=== PATIENT | male | born 1955 | race Caucasian/White ===

== ENCOUNTER 2021-02-23 07:08 | Outpatient (CLI) | payer MEDICARE, SELFPAY ==
[2021-02-23 07:56] LABS: Creatinine Urine 94.93 mg/dL (40-278)
[2021-02-23 08:09] LABS: MALB Creatinine Ratio 319.8 mg/g (0-30); Microalbumin Urine Random 303.6 mg/L
[2021-02-23 08:30] LABS: Alanine Aminotransferase 26 U/L (16-63); Albumin Level 3.5 g/dL (3.4-5.0); Alkaline Phosphatase 95 U/L (46-116); Anion Gap 12 mmol/L (8-16); Aspartate Amino Transferase 13 U/L (15-37); Bilirubin,Total 0.4 mg/dL (0.00-1.00); Blood Urea Nitrogen 21 mg/dL (7-18); Carbon Dioxide 26 mmol/L (21-32); Chloride 100 mmol/L (98-108); Cholesterol 176 mg/dL (0-200); Estimated Glomerular Filt Rate > 60; Glucose 160 mg/dL (70-99); HDL Direct 37 mg/dL (40-60); LDL Cholesterol Calculated 80 mg/dL (<130); Osmolality Calculated 292 mOsm/kg (285-295); Potassium 5.6 mmol/L (3.5-5.1); Sodium 138 mmol/L (136-145); Total Protein 6.9 g/dL (6.4-8.2); Triglycerides 296 mg/dL (0-150)
== END 2021-02-23 07:09 | disposition home or self-care (01) ==
LOC: CHSLAB 07:15
PROVIDERS: PCP Internal Medicine; Visit Provider Internal Medicine Endocrinology, Diabetes & Metabolism
DX: E11.65 Type 2 diabetes mellitus with hyperglycemia (principal)
CPT/HCPCS: 36415; 80053; 80061; 82043

== ENCOUNTER 2021-03-14 09:51 | Outpatient (CLI) | payer MEDICARE, SELFPAY ==
[2021-03-14 10:08] LABS: Basophils Percent Auto 0.8 % (0.0-1.0); Eosinophils Absolute Auto 0.22 K/mm3 (0.02-0.50); Eosinophils Percent Auto 1.7 % (1.0-6.0); Hematocrit 47.3 % (37.0-46.0); Hemoglobin 16.2 g/dL (12.4-15.3); Immature Granulocyte Absolute 0.04 K/mm3 (0.00-0.00); Immature Granulocyte Percent A 0.3 % (0.0-0.0); Lymphocytes Absolute Auto 2.61 K/mm3 (1.10-4.50); Lymphocytes Percent Auto 19.6 % (18.0-42.0); Mean Corpuscular HGB Conc 34.2 g/dL (32.0-36.0); Mean Corpuscular Hemoglobin 31.4 pg (27.0-31.0); Mean Corpuscular Volume 91.7 fL (78.0-102.0); Mean Platelet Volume 9.6 fl (8.7-11.0); Monocytes Absolute Auto 0.83 K/mm3 (0.10-0.90); Monocytes Percent Auto 6.2 % (2.0-11.0); Neutrophils Absolute Auto 9.5 K/mm3 (1.7-7.2); Neutrophils Percent Auto 71.4 % (50.0-70.0); Platelet Count Result 381 K/mm3 (150-420); Red Blood Count 5.16 M/mm3 (4.70-6.10); White Blood Count 13.3 K/mm3 (4.8-10.8)
[2021-03-14 10:28] LABS: Appearance Urine Sl Cloudy (Clear); Bilirubin Urine Negative (Negative); Color Urine Light Yellow (Yellow); Glucose Urine UA Negative (Negative); Ketones Urine Negative (Negative); Leukocyte Esterase Ur Trace (Negative); Nitrate Urine Negative (Negative); Protein Urine 1+ (Negative); Urobilinogen Urine 0.2 mg/dL (0.2-1.0); pH Urine 6.5 (5.0-8.0)
[2021-03-14 10:48] LABS: Add Urine Microscopic? YES; Bacteria Urine 4+ /hpf; Blood Urine Trace-Intact (Negative); RBC Urine 0-2 /hpf (0-2); Squamous Epithelial Cell Urine Rare /hpf (Few)
[2021-03-14 11:19] LABS: Alanine Aminotransferase 27 U/L (16-63); Albumin Level 3.5 g/dL (3.4-5.0); Alkaline Phosphatase 96 U/L (46-116); Anion Gap 9 mmol/L (8-16); Aspartate Amino Transferase 14 U/L (15-37); Bilirubin,Total 0.4 mg/dL (0.00-1.00); Blood Urea Nitrogen 14 mg/dL (7-18); Calcium 9.6 mg/dL (8.5-10.1); Carbon Dioxide 28 mmol/L (21-32); Chloride 101 mmol/L (98-108); Estimated Glomerular Filt Rate > 60; Free T3 2.95 pg/mL (2.18-3.98); Free T4 Free Thyroxine 0.96 ng/dL (0.76-1.46); Glucose 139 mg/dL (70-99); Osmolality Calculated 288 mOsm/kg (285-295); Potassium 5.3 mmol/L (3.5-5.1); Prostate Specific Antigen 0.2 ng/mL (< OR = 4.0); Sodium 138 mmol/L (136-145); Thyroid Stimulating Hormone 1.31 uIU/mL (0.36-3.74)
[2021-03-14 11:37] LABS: CRP < 0.5 mg/dL (0.0-0.9)
== END 2021-03-14 09:52 | disposition home or self-care (01) ==
PROVIDERS: PCP Internal Medicine; Visit Provider Internal Medicine
DX: R63.4 Abnormal weight loss (principal); E11.9 Type 2 diabetes mellitus without complications; F41.9 Anxiety disorder, unspecified; Z12.5 Encounter for screening for malignant neoplasm of prostate
CPT/HCPCS: 36415; 80053; 81001; 84153; 84439; 84443; 84481; 85025; 86140; G0103

== ENCOUNTER 2021-03-17 14:16 | Outpatient (CLI) | payer MEDICARE, SELFPAY ==
--- NOTE | ~2021-03-17 | CT_ITS ---
EXAMINATION: CT lung screening DATE: 03/17/2021 14:41 INDICATION: No history of tobacco dependence TECHNIQUE: Computed tomography (CT) of the chest was performed without intravenous contrast. The dose -length product was 79.59 mGy-cm. Automated exposure control and iterative reconstruction technique w ere employed. COMPARISON: None FINDINGS: No significant pleural or pericardial effusion. There is atherosclerosis of the aorta and c oronary arteries. There are coarse peripheral interstitial infiltrates with areas of interlobular sep parmjit thickening, likely chronic fibrosis.. Heart size is normal. There is a 7 mm subpleural nodule in the left lower lobe, image 76. There are a few additional scattered subpleural nodules measuring 2 mm or less in both lungs. Mild thoracic spondylosis. IMPRESSION: 1. Lung-RADS category 3: Probably benign. Further evaluation is recommended with noncontrast low-dose chest CT in 6 months. Reviewed, dictated and finalized at location A. IMPRESSION: 1. Lung-RADS category 3: Probably benign. Further evaluation is recommended wit h noncontrast low-dose chest CT in 6 months.
[2021-03-17 14:29] LABS: Add Urine Microscopic? YES; Appearance Urine Clear (Clear); Bilirubin Urine Negative (Negative); Blood Urine Negative (Negative); Color Urine Light Yellow (Yellow); Glucose Urine UA 3+ (Negative); Ketones Urine Negative (Negative); Leukocyte Esterase Ur Negative (Negative); Nitrate Urine Positive (Negative); Protein Urine Negative (Negative); Specific Grav Ur <= 1.005 (1.010-1.020); Urobilinogen Urine 0.2 mg/dL (0.2-1.0); pH Urine 6.5 (5.0-8.0)
[2021-03-17 14:44] LABS: Bacteria Urine 3+ /hpf; RBC Urine 0-2 /hpf (0-2); Squamous Epithelial Cell Urine None seen /hpf (Few); WBC Urine 0-3 /hpf (0-3)
== END 2021-03-17 14:17 | disposition home or self-care (01) ==
LOC: CHSIMG 14:19
PROVIDERS: PCP Internal Medicine; Visit Provider Internal Medicine
DX: Z12.2 Encounter for screening for malignant neoplasm of respiratory organs (principal); Z87.891 Personal history of nicotine dependence; R31.9 Hematuria, unspecified
CPT/HCPCS: 71271; 81001; 87086

== ENCOUNTER 2021-05-30 13:52 | Outpatient (CLI) | payer MEDICARE, SELFPAY ==
[2021-05-30 14:04] LABS: Basophils Absolute Auto 0.11 K/mm3 (0.00-0.10); Basophils Percent Auto 0.9 % (0.0-1.0); Eosinophils Absolute Auto 0.47 K/mm3 (0.02-0.50); Hematocrit 48.5 % (37.0-46.0); Hemoglobin 16.4 g/dL (12.4-15.3); Immature Granulocyte Absolute 0.03 K/mm3 (0.00-0.00); Immature Granulocyte Percent A 0.3 % (0.0-0.0); Lymphocytes Absolute Auto 3.14 K/mm3 (1.10-4.50); Lymphocytes Percent Auto 26.5 % (18.0-42.0); Mean Corpuscular HGB Conc 33.8 g/dL (32.0-36.0); Mean Corpuscular Hemoglobin 31.4 pg (27.0-31.0); Mean Corpuscular Volume 92.7 fL (78.0-102.0); Mean Platelet Volume 9.5 fl (8.7-11.0); Monocytes Absolute Auto 1.07 K/mm3 (0.10-0.90); Neutrophils Percent Auto 59.3 % (50.0-70.0); Platelet Count Result 401 K/mm3 (150-420); Red Blood Count 5.23 M/mm3 (4.70-6.10); Red Cell Distribution Width 13.2 % (11.6-14.4); White Blood Count 11.9 K/mm3 (4.8-10.8)
[2021-05-30 14:29] LABS: Hemoglobin A1C 8.2 % (<5.7)
[2021-05-30 14:47] LABS: Alanine Aminotransferase 29 U/L (16-63); Albumin Level 3.7 g/dL (3.4-5.0); Alkaline Phosphatase 113 U/L (46-116); Anion Gap 8 mmol/L (8-16); Aspartate Amino Transferase 14 U/L (15-37); Bilirubin,Total 0.4 mg/dL (0.00-1.00); Blood Urea Nitrogen 17 mg/dL (7-18); Calcium 9.6 mg/dL (8.5-10.1); Carbon Dioxide 30 mmol/L (21-32); Chloride 97 mmol/L (98-108); Estimated Glomerular Filt Rate > 60; Glucose 138 mg/dL (70-99); Osmolality Calculated 283 mOsm/kg (285-295); Potassium 5.1 mmol/L (3.5-5.1); Sodium 135 mmol/L (136-145); Total Protein 7.2 g/dL (6.4-8.2)
== END 2021-05-30 13:53 | disposition home or self-care (01) ==
LOC: CHSLAB 13:54
PROVIDERS: PCP Internal Medicine; Visit Provider Internal Medicine
DX: E11.9 Type 2 diabetes mellitus without complications (principal); I10 Essential (primary) hypertension
CPT/HCPCS: 36415; 80053; 83036; 85025

== ENCOUNTER 2021-06-06 01:19 | Day surgery (SDC) | payer MEDICARE, SELFPAY ==
[2021-05-20 14:19] VITALS: BMI 20.4
--- NOTE | 2021-06-03 18:33 | WPDANESEPPF ---
Anes - Initial Pre Proc Eval Procedure: Operation Date: 06/06/21 08:00 Proposed Procedures p Screening Colonoscopy - Omega Siegel MD Date/Time: 06/03/21 18:33 Surgeon: Omega Siegel MD Pre Op Diagnosis: neoplasm screening Patient Data Age: 66 Gender: M Height: 1.83 m Weight: 68.2 kg Allergies Allergy/AdvReac Type Severity Reaction Status Date / Time Penicillins AdvReac Intermediate Nausea and Verified 06/06/21 06:53 Vomiting Home Medications Medication Instructions Recorded Confirmed Type aspirin [Adult Low Dose Aspirin] 81 mg PO DAILY 05/20/21 05/20/21 History glimepiride 2 mg PO DAILY 05/20/21 05/20/21 History metformin 500 mg PO BID 05/20/21 05/20/21 History pravastatin 80 mg PO DAILY 05/20/21 05/20/21 History Patient hx anesthesia problems: none Family hx anesthesia problems: none Results Review: All pre-operative results and documents have been reviewed as part of the pre-operative evaluation. [facility] Past Medical History Medical History (Updated 06/03/21 @ 18:33 by Catarino Garnica DO) Diabetes type 2, controlled Hyperlipidemia Social History Social History Smoking packs per day: 1 Smoking cigarettes per day: 20.0 Years smoked: 53 Smoking pack-years: 53.00 Smoking status: Current every day smoker Tobacco type: cigarettes Alcohol intake: current Alcohol use details: occasional Substance use: never Substance use type: does not use Living arrangements: with family Additional living arrangements comments: lives with spouse Spiritual care concerns: No Anes - Eval Final PreProcedure Day of Procedure 06/03/21 18:33 Patient weight: normal Heart: regular rate and rhythm Lungs: clear to auscultation and normal air movement Airway: Mallampati scale class II Neurological: alert and oriented Last oral intake: >/= 8 hours ASA classification: III Emergent: no Anesthetic plan: proceed Anesthesia type and monitoring: general GIVS and standard monitoring Results Review: All pre-operative results and documents have been reviewed as part of the pre-operative evaluation. Informed Consent: The patient's anesthetic plan and its attendant risks and benefits were discussed with the patient/family/POA. Questions were solicited and answers provided to the satisfaction of the patient/family/POA.
[2021-06-06 06:54] VITALS: BP 147/77; PULSE 112; RESP 18; TEMP 36; O2SAT 98; BMI 19.3
[2021-06-06] MEDS: LACTATED RINGERS 1,000 ML 150 ML IV CONT (07:04)
[2021-06-06 07:13] LABS: Glucose Point of Care 170 mg/dl (65-105)
--- NOTE | 2021-06-06 07:21 | WPDGICN ---
Assessment and Plan Assessment and plan (1) Encounter for screening colonoscopy: Code(s): Z12.11 - Encounter for screening for malignant neoplasm of colon Status: Acute Assessment and Plan: Patient presents for screening colonoscopy. He appears to be at average risk for colon polyps. Further recommendations will be given after endoscopy. GI Consult Note Consult date/time: 06/06/21 07:21 HPI: Larry Bennett is a 66 year old male Presents for colonoscopy. Patient reports that his current weight appetite bowel movements are normal. Patient denies abdominal pain. He has had no bleeding. Family history is noncontributory. He desires neoplasia screening. Review of Systems Review of Systems: All systems reviewed & are unremarkable except as noted in HPI and below PMFSH Past Medical History Medical History (Updated 06/06/21 @ 07:22 by Omega Siegel MD) Diabetes type 2, controlled Hyperlipidemia Social History Social History Smoking packs per day: 1 Smoking cigarettes per day: 20.0 Years smoked: 53 Smoking pack-years: 53.00 Smoking status: Current every day smoker Tobacco type: cigarettes Alcohol intake: current Alcohol use details: occasional Substance use: never Substance use type: does not use Living arrangements: with family Additional living arrangements comments: lives with spouse Spiritual care concerns: No Meds Home Medications and Allergies Home Medications Medication Instructions Recorded Confirmed Type aspirin [Adult Low Dose Aspirin] 81 mg PO DAILY 05/20/21 05/20/21 History glimepiride 2 mg PO DAILY 05/20/21 05/20/21 History metformin 500 mg PO BID 05/20/21 05/20/21 History pravastatin 80 mg PO DAILY 05/20/21 05/20/21 History Allergies Allergy/AdvReac Type Severity Reaction Status Date / Time Penicillins AdvReac Intermediate Nausea and Verified 06/06/21 06:53 Vomiting Vital Signs Vital Signs - 24 hr 06/06/21 06:54 Temperature 96.8 F L Pulse Rate 112 H Respiratory Rate 18 Blood Pressure 147/77 H Pulse Oximetry 98 Exam Narrative: Physical exam reveals patient to be alert. Vital signs stable. HEENT exam is unremarkable. Patient is anicteric. Lungs are clear to auscultation and percussion. Heart is without murmur or extra sounds. Abdominal exam bowel sounds are present soft nontender with no organomegaly. Digital external rectal exam is normal.
[2021-06-06 08:26] VITALS: BP 93/60; PULSE 74; RESP 16; O2SAT 99
[2021-06-06 08:36] VITALS: BP 114/64; PULSE 60; RESP 18; O2SAT 100
[2021-06-06 08:46] VITALS: BP 116/68; PULSE 58; RESP 18; O2SAT 99
== END 2021-06-06 09:03 | disposition home or self-care (01) ==
PROVIDERS: PCP Internal Medicine; Visit Provider Internal Medicine Gastroenterology
PROC: 0DJD8ZZ Inspection of Lower Intestinal Tract, Via Natural or Artificial Opening Endoscopic (ICD-10-PCS; CPT 45378; principal; 2021-06-06 08:00)
DX: Z12.11 Encounter for screening for malignant neoplasm of colon (principal); K63.5 Polyp of colon; D12.5 Benign neoplasm of sigmoid colon; E11.9 Type 2 diabetes mellitus without complications; E78.5 Hyperlipidemia, unspecified; F17.210 Nicotine dependence, cigarettes, uncomplicated; Z79.82 Long term (current) use of aspirin; Z79.84 Long term (current) use of oral hypoglycemic drugs
CPT/HCPCS: 45385; 82948; 88305; J2001; J2704; J7120

== ENCOUNTER 2022-05-11 06:58 | Outpatient (CLI) | payer MEDICARE, SELFPAY ==
[2022-05-11 07:30] LABS: Basophils Absolute Auto 0.08 K/mm3 (0.00-0.10); Basophils Percent Auto 0.7 % (0.0-1.0); Eosinophils Absolute Auto 0.47 K/mm3 (0.02-0.50); Eosinophils Percent Auto 3.9 % (1.0-6.0); Hematocrit 48.5 % (37.0-46.0); Immature Granulocyte Absolute 0.03 K/mm3 (0.00-0.00); Immature Granulocyte Percent A 0.2 % (0.0-0.0); Lymphocytes Absolute Auto 2.68 K/mm3 (1.10-4.50); Lymphocytes Percent Auto 22.1 % (18.0-42.0); Mean Corpuscular Hemoglobin 30.2 pg (27.0-31.0); Mean Corpuscular Volume 91.5 fL (78.0-102.0); Mean Platelet Volume 9.8 fl (8.7-11.0); Monocytes Absolute Auto 0.98 K/mm3 (0.10-0.90); Monocytes Percent Auto 8.1 % (2.0-11.0); Neutrophils Absolute Auto 7.9 K/mm3 (1.7-7.2); Platelet Count Result 437 K/mm3 (150-420); Red Cell Distribution Width 14.4 % (11.6-14.4); White Blood Count 12.2 K/mm3 (4.8-10.8)
[2022-05-11 07:46] LABS: Add Urine Microscopic? YES; Appearance Urine Clear (Clear); Bilirubin Urine Negative (Negative); Blood Urine Negative (Negative); Color Urine Light Yellow (Yellow); Glucose Urine UA 3+ (Negative); Ketones Urine Negative (Negative); Leukocyte Esterase Ur Negative (Negative); Nitrate Urine Positive (Negative); Protein Urine Trace (Negative); Urobilinogen Urine 0.2 mg/dL (0.2-1.0); pH Urine 6.5 (5.0-8.0)
[2022-05-11 07:50] LABS: Prothrombin Time 11.3 Seconds (9.50-12.10)
[2022-05-11 08:01] LABS: Alanine Aminotransferase 16 U/L (16-63); Albumin Level 3.3 g/dL (3.4-5.0); Alkaline Phosphatase 92 U/L (46-116); Anion Gap 5 mmol/L (8-16); Aspartate Amino Transferase 18 U/L (15-37); Bilirubin,Total 0.4 mg/dL (0.00-1.00); Blood Urea Nitrogen 18 mg/dL (7-18); Carbon Dioxide 30 mmol/L (21-32); Chloride 97 mmol/L (98-108); Cholesterol 183 mg/dL (0-200); Estimated Glomerular Filt Rate > 60; Glucose 99 mg/dL (70-99); HDL Direct 42 mg/dL (40-60); LDL Cholesterol Calculated 119 mg/dL (<130); Osmolality Calculated 275 mOsm/kg (285-295); Potassium 4.9 mmol/L (3.5-5.1); Sodium 132 mmol/L (136-145); Total Protein 6.9 g/dL (6.4-8.2); Triglycerides 111 mg/dL (0-150)
[2022-05-11 08:08] LABS: Bacteria Urine 2+ /hpf; RBC Urine None seen /hpf (0-2); WBC Urine 0-3 /hpf (0-3)
[2022-05-11 08:10] LABS: Creatinine Urine 41.66 mg/dL (40-278)
[2022-05-11 08:11] LABS: MALB Creatinine Ratio 377.1 mg/g (0-30); Microalbumin Urine Random 157.1 mg/L
[2022-05-16 12:20] LABS: Vitamin D 25 Hydroxy 35 ng/mL (30-100)
== END 2022-05-11 06:59 | disposition home or self-care (01) ==
LOC: CHSLAB 07:01
PROVIDERS: PCP Internal Medicine; Visit Provider Internal Medicine Endocrinology, Diabetes & Metabolism
DX: E78.00 Pure hypercholesterolemia, unspecified (principal); E11.65 Type 2 diabetes mellitus with hyperglycemia; Z79.899 Other long term (current) drug therapy; T14.8XXA Other injury of unspecified body region, initial encounter
CPT/HCPCS: 36415; 80053; 80061; 81001; 82043; 82306; 85025; 85610; 85730

== ENCOUNTER 2022-06-05 15:29 | Outpatient (CLI) | payer MEDICARE, SELFPAY ==
--- NOTE | ~2022-06-05 | XR_ITS ---
EXAMINATION: XR hand RT min 3V DATE: 06/05/2022 15:47 INDICATION: Right hand pain. TECHNIQUE: 3 views of right hand were obtained. COMPARISON: None. FINDINGS: Scapholunate dissociation is noted. There is severe osteoarthritis of lunate-capitate joint and mild osteoarthritis of triscaphe joint. There are nonaggressive lytic lesions in triquetrum, kayden ate, and scaphoid, likely subchondral cysts. There is moderate osteoarthritis of first metacarpophala ngeal joint, severe osteoarthritis of second and third metacarpophalangeal joints, and mild osteoarth ritis of fourth metacarpophalangeal joint and many of the interphalangeal joints. IMPRESSION: 1. Polyarticular osteoarthritis. 2. Scapholunate dissociation. Reviewed, dictated and finalized at location B.
== END 2022-06-05 15:30 | disposition home or self-care (01) ==
LOC: CHSIMG 15:32
PROVIDERS: PCP Internal Medicine; Visit Provider Internal Medicine
DX: M79.641 Pain in right hand (principal)
CPT/HCPCS: 73130

== ENCOUNTER 2022-11-29 16:35 | Outpatient (CLI) | payer MEDICARE, SELFPAY ==
--- NOTE | ~2022-11-29 | XR_ITS ---
Right Knee Technique: AP, lateral, and sunrise views were obtained. Clinical History: Swelling, effusion Findings: No fracture or dislocation is seen. Osseous alignment is anatomic. Mild tricompartmental de generative change present. [id number] joint effusion is seen. Impression: Small to moderate joint effusion. Mild tricompartmental degenerative change. Reviewed, dictated and finalized at [facility]. Impression: Small to moderate joint effusion. Mild tricompartmental degenerative change.
== END 2022-11-29 16:36 | disposition home or self-care (01) ==
LOC: CHSIMG 16:39
PROVIDERS: PCP Internal Medicine; Visit Provider Internal Medicine
DX: M25.561 Pain in right knee (principal); M25.461 Effusion, right knee; M17.11 Unilateral primary osteoarthritis, right knee
CPT/HCPCS: 73560

== ENCOUNTER 2023-05-15 07:01 | Outpatient (CLI) | payer MEDICARE, SELFPAY ==
[2023-05-15 07:16] LABS: Basophils Absolute Auto 0.11 K/mm3 (0.00-0.10); Basophils Percent Auto 0.9 % (0.0-1.0); Eosinophils Percent Auto 3.9 % (1.0-6.0); Hematocrit 49.8 % (37.0-46.0); Hemoglobin 16.8 g/dL (12.4-15.3); Immature Granulocyte Absolute 0.03 K/mm3 (0.00-0.00); Immature Granulocyte Percent A 0.2 % (0.0-0.0); Lymphocytes Absolute Auto 2.61 K/mm3 (1.10-4.50); Lymphocytes Percent Auto 20.5 % (18.0-42.0); Mean Corpuscular HGB Conc 33.7 g/dL (32.0-36.0); Mean Corpuscular Hemoglobin 30.4 pg (27.0-31.0); Mean Corpuscular Volume 90.1 fL (78.0-102.0); Mean Platelet Volume 9.7 fl (8.7-11.0); Monocytes Absolute Auto 0.99 K/mm3 (0.10-0.90); Monocytes Percent Auto 7.8 % (2.0-11.0); Neutrophils Absolute Auto 8.5 K/mm3 (1.7-7.2); Neutrophils Percent Auto 66.7 % (50.0-70.0); Platelet Count Result 423 K/mm3 (150-420); Red Blood Count 5.53 M/mm3 (4.70-6.10); Red Cell Distribution Width 14.4 % (11.6-14.4); White Blood Count 12.8 K/mm3 (4.8-10.8)
[2023-05-15 07:18] LABS: Appearance Urine Clear (Clear); Bilirubin Urine Negative (Negative); Blood Urine Trace-Intact (Negative); Color Urine Light Yellow (Yellow); Glucose Urine UA 3+ (Negative); Ketones Urine Negative (Negative); Leukocyte Esterase Ur Negative LEU/UL (Negative); Nitrate Urine Positive (Negative); Protein Urine 1+ (Negative); Specific Grav Ur 1.015 (1.010-1.020); Urobilinogen Urine 0.2 mg/dL (0.2-1.0)
[2023-05-15 07:26] LABS: Add Urine Microscopic? YES; Bacteria Urine 2+ /hpf; RBC Urine 0-2 /hpf (0-2)
[2023-05-15 07:27] LABS: Hemoglobin A1C 7.8 % (<5.7)
[2023-05-15 08:45] LABS: Alanine Aminotransferase 23 U/L (16-63); Albumin Level 3.1 g/dL (3.4-5.0); Alkaline Phosphatase 91 U/L (46-116); Anion Gap 7 mmol/L (8-16); Aspartate Amino Transferase 21 U/L (15-37); Bilirubin,Total 0.5 mg/dL (0.00-1.00); Blood Urea Nitrogen 19 mg/dL (7-18); Calcium 9.7 mg/dL (8.5-10.1); Carbon Dioxide 29 mmol/L (21-32); Chloride 100 mmol/L (98-108); Cholesterol 190 mg/dL (0-200); Estimated Glomerular Filt Rate > 60; Free T4 Free Thyroxine 0.95 ng/dL (0.76-1.46); Glucose 125 mg/dL (70-99); HDL Direct 39 mg/dL (40-60); LDL Cholesterol Calculated 130 mg/dL (<130); Osmolality Calculated 285 mOsm/kg (285-295); Prostate Specific Antigen 0.3 ng/mL (< OR = 4.0); Sodium 136 mmol/L (136-145); Thyroid Stimulating Hormone 1.56 uIU/mL (0.36-3.74); Total Protein 6.6 g/dL (6.4-8.2); Triglycerides 104 mg/dL (0-150)
[2023-05-17 12:33] LABS: Ferritin 42 ng/mL (26-388); Iron 54 ug/dL (65-175); Percent Iron Saturation 16 % (12-57)
[2023-05-20 12:27] LABS: Erythropoietin (EPO) 5.7 mIU/mL (2.6-18.5)
[2023-05-23 10:45] LABS: Block/Specimen ID Not Given; CALR Exon 9 Mutation Not Detected (Not Detected); CSF3R Exon 14/17 Mutation Not Detected (Not Detected); JAK2 Exon 12 Mutation Not Detected (Not Detected); JAK2 V617F Mutation Not Detected (Not Detected); MPL Exon 10 Mutation Not Detected (Not Detected)
== END 2023-05-15 07:02 | disposition home or self-care (01) ==
LOC: CHSLAB 07:03
PROVIDERS: PCP Internal Medicine; Visit Provider Nurse Practitioner Family
DX: I10 Essential (primary) hypertension (principal); F41.9 Anxiety disorder, unspecified; E11.8 Type 2 diabetes mellitus with unspecified complications; E78.5 Hyperlipidemia, unspecified; Z12.5 Encounter for screening for malignant neoplasm of prostate; R31.9 Hematuria, unspecified; R79.9 Abnormal finding of blood chemistry, unspecified; R82.90 Unspecified abnormal findings in urine; D75.1 Secondary polycythemia
CPT/HCPCS: 36415; 80053; 80061; 81001; 81219; 81270; 81279; 81339; 81479; 82668; 82728; 83036; 83540; 83550; 84153; 84439; 84443; 85025; 87086; G0103

== ENCOUNTER 2023-05-18 12:55 | Outpatient (CLI) | payer MEDICARE, SELFPAY ==
[2023-05-18 13:05] LABS: Appearance Urine Clear (Clear); Bilirubin Urine Negative (Negative); Blood Urine Negative (Negative); Color Urine Light Yellow (Yellow); Glucose Urine UA 3+ (Negative); Ketones Urine Negative (Negative); Leukocyte Esterase Ur Trace (Negative); Nitrate Urine Positive (Negative); Protein Urine Negative (Negative); Specific Grav Ur <= 1.005 (1.010-1.020); Urobilinogen Urine 0.2 mg/dL (0.2-1.0)
[2023-05-18 14:39] LABS: Add Urine Microscopic? YES; Bacteria Urine 4+ /hpf; RBC Urine 0-2 /hpf (0-2); Squamous Epithelial Cell Urine None seen /hpf (Few)
== END 2023-05-18 12:56 | disposition home or self-care (01) ==
PROVIDERS: PCP Internal Medicine; Visit Provider Nurse Practitioner Family
DX: N39.0 Urinary tract infection, site not specified (principal)
CPT/HCPCS: 81001; 87086

== ENCOUNTER 2023-06-21 11:25 | Outpatient (CLI) | payer MEDICARE, SELFPAY ==
--- NOTE | ~2023-06-21 | XR_ITS ---
XR hand RT min 3V DATE: 06/21/2023 11:41 INDICATION: Second digit pain for 6 months TECHNIQUE: 3 views COMPARISON: 06/05/2022 right hand FINDINGS: There is diffuse osteopenia. Scapholunate dissociation. Benign likely degenerative cysts of the navicular, lunate and triquetrum bones. Osteoarthritic change at the triscaphe and first and particularly second and third metacarpophalangeal joints and to a les ser extent fourth metacarpophalangeal joint and some of the interphalangeal joints. No erosive change is noted. No fracture or dislocation, periosteal reaction or bone destruction. Mild triangular cartilage and carpal chondrocalcinosis. No erosive change. IMPRESSION: Scapholunate dissociation Polyarticular osteoarthritis Reviewed, dictated and finalized at location L.
== END 2023-06-21 11:26 | disposition home or self-care (01) ==
LOC: CHSIMG 11:27
PROVIDERS: PCP Internal Medicine; Visit Provider Internal Medicine
DX: M79.644 Pain in right finger(s) (principal); M19.041 Primary osteoarthritis, right hand
CPT/HCPCS: 73130

== ENCOUNTER 2024-01-15 13:22 | Outpatient (CLI) | payer MEDICARE, SELFPAY ==
--- NOTE | ~2024-01-15 | CT_ITS ---
CT Scan of the Chest without Contrast: Clinical Indication: Lung cancer screening, nicotine dependence Technique: Contiguous sections were acquired throughout the chest without intravenous contrast. Dose reduction technique was used on this scan by utilizing automated exposure control and iterative recon struction technique. The dose-length product (DLP) was 81.43 mGy-cm. COMPARISON: 03/17/2021 Findings: There is no evidence of any significant mediastinal, hilar or axillary lymphadenopathy. Coronary perico ry calcifications are present. There is no evidence of pleural or pericardial effusion. Stable 7 mm pleural-based nodule at the left lower lobe. There is chronic interstitial disease, with peripheral and basilar distribution. Images through the upper abdomen reveal no abnormalities. Impression: Lung RADS 2: Benign appearance. 12 month follow-up screening CT advised. Chronic interstitial disease, as detailed above. Reviewed, dictated and finalized at location . Impression: Lung RADS 2: Benign appearance. 12 month follow-up screening CT advised. Chronic interstitial disease, as detailed above.
== END 2024-01-15 13:23 | disposition home or self-care (01) ==
LOC: CHSIMG 13:26
PROVIDERS: PCP Internal Medicine; Visit Provider Internal Medicine
DX: Z12.2 Encounter for screening for malignant neoplasm of respiratory organs (principal); J84.9 Interstitial pulmonary disease, unspecified; Z87.891 Personal history of nicotine dependence
CPT/HCPCS: 71271

== ENCOUNTER 2024-07-08 09:08 | Outpatient (CLI) | payer MEDICARE, SELFPAY ==
[2024-07-08 09:29] LABS: Add Urine Microscopic? YES; Appearance Urine Clear (Clear); Bilirubin Urine Negative (Negative); Blood Urine Negative (Negative); Color Urine Light Yellow (Yellow); Glucose Urine UA 3+ (Negative); Ketones Urine Negative (Negative); Leukocyte Esterase Ur Trace (Negative); Nitrate Urine Negative (Negative); Protein Urine Negative (Negative); Specific Grav Ur 1.015 (1.010-1.020); Urobilinogen Urine 0.2 mg/dL (0.2-1.0)
[2024-07-08 09:30] LABS: Basophils Percent Auto 0.7 % (0.0-1.0); Eosinophils Absolute Auto 0.41 K/mm3 (0.02-0.50); Eosinophils Percent Auto 2.9 % (1.0-6.0); Hematocrit 43.9 % (37.0-46.0); Hemoglobin 15.1 g/dL (12.4-15.3); Immature Granulocyte Absolute 0.05 K/mm3 (0.00-0.00); Immature Granulocyte Percent A 0.4 % (0.0-0.0); Immature Platelet Fraction Pct 1.4 % (1.0-7.0); Lymphocytes Absolute Auto 2.04 K/mm3 (1.10-4.50); Lymphocytes Percent Auto 14.6 % (18.0-42.0); Mean Corpuscular HGB Conc 34.4 g/dL (32-36); Mean Corpuscular Hemoglobin 32.3 pg (27.0-31.0); Mean Corpuscular Volume 93.8 fL (78.0-102.0); Mean Platelet Volume 8.9 fl (8.7-11.0); Monocytes Absolute Auto 0.57 K/mm3 (0.10-0.90); Monocytes Percent Auto 4.1 % (2.0-11.0); Neutrophils Absolute Auto 10.84 K/mm3 (1.70-7.20); Neutrophils Percent Auto 77.3 % (50.0-70.0); Platelet Count Result 587 K/mm3 (150-420); Red Blood Count 4.68 M/mm3 (4.70-6.10); Red Cell Distribution Width 15.6 % (11.6-14.4)
[2024-07-08 09:34] LABS: Bacteria Urine 1+ /hpf; RBC Urine None seen /hpf (0-2); WBC Urine 0-3 /hpf (0-3)
[2024-07-08 09:46] LABS: Hemoglobin A1C 7.4 % (<5.7)
[2024-07-08 10:15] LABS: Alanine Aminotransferase 27 U/L (16-63); Albumin Level 3.6 g/dL (3.4-5.0); Alkaline Phosphatase 109 U/L (46-116); Anion Gap 6 mmol/L (4-12); Aspartate Amino Transferase 19 U/L (15-37); Bilirubin,Total 0.4 mg/dL (0.00-1.00); Blood Urea Nitrogen 25 mg/dL (7-18); CRP 0.5 mg/dL (0.0-0.9); Calcium 9.7 mg/dL (8.5-10.1); Carbon Dioxide 32 mmol/L (21-32); Chloride 99 mmol/L (98-108); Cholesterol 197 mg/dL (0-200); Estimated Glomerular Filt Rate > 60; Glucose 126 mg/dL (70-99); HDL Direct 36 mg/dL (40-60); LDL Cholesterol Calculated 127 mg/dL (<130); Osmolality Calculated 290 mOsm/kg (285-295); Potassium 5.7 mmol/L (3.5-5.1); Prostate Specific Antigen 0.2 ng/mL (< OR = 4.0); Sodium 137 mmol/L (136-145); Total Protein 7.1 g/dL (6.4-8.2); Triglycerides 171 mg/dL (0-150)
== END 2024-07-08 09:09 | disposition home or self-care (01) ==
LOC: CHSLAB 09:11
PROVIDERS: PCP Internal Medicine; Visit Provider Internal Medicine
DX: I10 Essential (primary) hypertension (principal); E11.9 Type 2 diabetes mellitus without complications; Z12.5 Encounter for screening for malignant neoplasm of prostate
CPT/HCPCS: 36415; 80053; 80061; 81001; 83036; 84153; 84443; 85025; 85055; 86140; G0103

== ENCOUNTER 2024-08-23 08:21 | Outpatient (CLI) | payer MEDICARE, SELFPAY ==
--- NOTE | ~2024-08-23 | MR_ITS ---
MRI of the left elbow CLINICAL HISTORY: Septic olecranon bursitis TECHNIQUE: Axial T1-weighted and T2 fat-sat images, coronal T1-weighted and T2 fat-sat images, and sa gittal T1-weighted and T2 fat-sat images were acquired. Following intravenous administration of 10 cc MultiHance gadolinium, T1-weighted fat-sat imaging was performed in the axial, coronal, and sagittal planes. FINDINGS: Ulnar collateral ligament is intact. Radial collateral ligament and the lateral ulnar colla teral ligament appear intact. There is high-grade partial tearing and increased signal at the common extensor tendon origin at the lateral epicondyle of the humerus. Common flexor tendon origin is intact. There is extensive high-grade chondromalacia of the joint with areas of subchondral cystic change and reactive marrow edema, especially at the proximal ulna and capitellum. No significant joint effusion . Biceps, brachialis, and triceps tendons are intact. Visualized musculature unremarkable. No fluid col lection or bursitis evident. No suspicious postcontrast enhancement identified. IMPRESSION: High-grade partial tearing at the common extensor tendon origin the lateral condyle of the humerus. Moderate to advanced degenerative change throughout the elbow joint. No evidence for bursitis or cellulitis. No abscess. Reviewed, dictated and finalized at location . Y APPLICATOR IMPRESSION: High-grade partial tearing at the common extensor tendon origin the lateral con dyle of the humerus. Moderate to advanced degenerative change throughout the elbow joint. No evidence for bursitis or cellulitis. No abscess.
== END 2024-08-23 08:22 | disposition home or self-care (01) ==
LOC: CHSIMG 08:25
PROVIDERS: PCP Internal Medicine; Visit Provider Internal Medicine
DX: M70.22 Olecranon bursitis, left elbow (principal); S56.512A Strain of other extensor muscle, fascia and tendon at forearm level, left arm, initial encounter
CPT/HCPCS: 73223; A9577

== ENCOUNTER 2024-11-03 13:57 | Outpatient (CLI) | payer MEDICARE, SELFPAY ==
--- OUTSIDE RECORDS SUMMARY | 2024-11-03 16:35 | XMS_ITS | Encounter Summary ---
Author Organization [facility] Address [address] [place] [address] Phone Care Team Providers Care Critical Care Physician Assistant Name Role Phone Tyrone Carvajal MD Primary Care Provider [phone] Hetal Regan MD Unavailable [phone] Stephanie Barth Unavailable [phone] Jefferson Mora MD Unavailable [phone] Swathi Diaz Unavailable Encounter Details Date Type Department Care Team (Latest Contact Info) Description 05/30/2021 Orders Only [facility] Scanning, Provider Social History Tobacco Use Types Packs/Day Years Used Date Smoking Tobacco: Heavy Smoker Cigarettes Smokeless Tobacco: Never Comments:Smoking History Pac ks/day: 30 Cigarettes Alcohol Use Standard Drinks/Week Comments Yes 0 (1 standard drink = 0.6 oz pur e alcohol) PHQ-2 Answer Date Recorded PHQ-2 Total Score (If total score is 3 or more points, staff should administer the PHQ-9) 0 05/13/2020 Sex and Gender Information Value Date Recorded Sex Assigned at Not on file 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 Gender Identity Male 02/14/2021 8:03 PM CDT Sexual Orientation Straight 02/14/2021 8: 02 PM CDT documented as of this encounter Plan of Treatment Not on file documented as of this encounter Procedures Procedure Name Priority Date/Time Associated Diagnosis Comments SCAN - LABS 05/30/2021 documented in this encounter Results * SCAN - LABS (05/30/2021) us Provider Scanning Final Result documented in this encounter Visit Diagnoses Not on filedocumented in this encounter Care Teams Critical Care Physician Assistant Relationship Specialty Start Date End Date Tyrone Carvajal MD PCP - General Internal Medicine 11/06/19 Hetal Regan MD Referring Physician Endocrinology Diabetes & Metabolism 06/13/21 Stephanie Barth PA Physician Rig Site Engineer Physician Rig Site Engineer 03/21/22 4 Jefferson Mora MD Consulting Physician Rheumatology 04/17/24 Swathi Diaz PA [address] [facility], [address] [address] Physician Rig Site Engineer Physician Rig Site Engineer 04/19/24 documented as of this encounter
--- OUTSIDE RECORDS SUMMARY | 2024-11-03 16:35 | XMS_ITS | Encounter Summary ---
Author Organization [facility] Address [address] [place] [address] Phone Care Team Providers Care Crane Rigger Name Role Phone Tyrone Carvajal MD Primary Care Provider [phone] Hetal Regan MD Unavailable [phone] Jefferson Mora MD Unavailable [phone] Swathi Diaz Unavailable [phone] Encounter Details Date Type Department Care Team (Latest Contact Info) Description 07/08/2024 Orders Only [facility] Scanning, Provider Social History Tobacco Use Types Packs/Day Years Used Date Smoking Tobacco: Heavy Smoker Cigarettes 1.5 50 Smokeless Tobacco: Never Comments:Smoking History Pac ks/day: [...] on file 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 Gender Identity Male 02/14/2021 8:03 PM CDT Sexual Orientation Straight 02/14/2021 8: 02 PM CDT 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 file Not on file Not on file documented as of this encounter Plan of Treatment Not on file documented as of this encounter Procedures Procedure Name Priority Date/Time Associated Diagnosis Comments SCAN - LABS 07/08/2024 documented in this encounter Results * SCAN - LABS (07/08/2024) us Provider Scanning Final Result documented in this encounter Visit Diagnoses Not on filedocumented in this encounter Care Teams Crane Rigger Relationship Specialty Start Date End Date Tyrone Carvajal MD PCP - General Internal Medicine 11/06/19 Hetal Regan MD Referring Physician Endocrinology Diabetes & Metabolism 06/13/21 Jefferson Mora MD Consulting Physician Rheumatology 04/17/24 Swathi Diaz PA [address] [facility], [address] [address] Physician Die Setter Physician Die Setter 04/19/24 documented as of this encounter
--- OUTSIDE RECORDS SUMMARY | 2024-11-03 16:36 | XMS_ITS | Referral Summary ---
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 change medication at this time. He continues to decline insulin. Advised that he needs to check BG tid so pattern can be establish. Stop grazing/snacking. Discussed glycemic index. Take medication every day as prescribed. Discussed benefit of seeing a counselor to address stress/PTSD. He is reluctant to do this. Advised to follow up with PCP. Assessment & Plan (05/13/2020 3:34 PM CDT): A1c worsening at 8.6. Suspect this continues to be d/t pc excursions. Will continue to emphasize importance of keeping portion sizes smaller and avoid snacking especially overnight. Assessment & Plan (01/29/2020 1:25 PM CDT): A1c 8.2. , improved but still above goal. A1c does not correlate with BG log. Continued concepts and noncompliance with diet. BG on log are acceptable when he concentrates on diet and expect A1c would have been in lower 7's if all readings were within range of last week. Emphasized again the impact his food choices have on his BG. Plans to be more active and watch carb portions. BG and A1c goals reviewed. Advised schedule dilated eye exam. Assessment & Plan (11/06/2019 12:17 PM CDT): A1c increased to 10.5. Not compliant with diet or glucose checks. Emphasized ongoing CV risk with continuing and worsening glycemia control. Advised to check BG tid ac and one additional 2 hour pc. Instructed how to use pc BG to evaluate diet compliance. Discussed glycemic index foods. Goal for A1c NOV is < 8.0. Assessment & Plan (03/06/2019 10:32 AM CDT): Hba1c was Lab Results Component Value Date HGBA1C 8.4 % 03/06/2019 today, indicating inadequate DM control 1800 calorie, consistent carb diet recommended 25-45 min daily aerobic and resistance exercise recommended Prevention and treatment of hyypoglcyemia discussed. Blood glucose monitoring with fingers sticks 1-2 x day . Oral medications: continue current Pt needs insulin therapy, but refuses due to his job Assessment & Plan (11/28/2018 11:12 AM CDT): A1c 8.8. He is not taking medication correctly and not checking BG with any regularity. I believe issue is not related to fasting or basal but related to misconceptions with diet leading to elevated pc excursions which are impacting A1c. FBG appear to be WNL so basal insulin would not be appropriate at this time. Have advised him to do ac/2 hour pc BG checks to determine patter. BG goals reviewed. DM medications reviewed. Foods may be combo of carb/fat which is impacting duration of excursions We have discussed diet concepts. Keto diet is not needed for him. Exercise/activity level appropriate. Issue r/t diet misconceptions. Assessment & Plan (08/22/2018 11:21 AM NATIONAL VAN OWNER OPERATOR): Continue same medication. Advised that glimepiride may need to be adjusted or stopped if he starts keto diet. Assessment & Plan (06/13/2018 10:10 AM CDT): Hba1c was Lab Results Component Value Date HGBA1C 8.9 06/13/2018 today, indicating poor DM control 1800 calorie, consistent carb diet recommended 30 min daily aerobic and resistance exercise recommended Prevention and treatment of hyypoglcyemia discussed. Blood glucose monitoring with fingers sticks 1-2 x day . Restart Farxiga, 5 mg qd Assessment & Plan (02/14/2018 10:50 AM CDT): A1c improved to 7.1 from 9.1 due to excellent effort improving diet. Stop Farxiga as he is outdoors in heat over summer. With continued efforts may need to reduce glimepiride. BG goals reviewed. Advised to call if pattern of hypoglycemia develops. Assessment & Plan (11/01/2017 1:15 PM CDT): A1c worsening at 9.1. Not monitoring BG or attentive to diet. Advised check BG fasting and ac lunch or dinner daily. Increase glimepiride to 2 mg bid. Needs to eat on regular schedule to prevent lows. Check a before and a 2 hour after meal sugar. After should not be higher than 60 points.Not attentive to diet. 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 Provided with specific diet education. 60 grams carb per meal maximum. Space meals at least 4 hours apart but if more than 6 hours apart that's when you need a snack at least 3 hours away from your upcoming meal. Snacks 15-20 grams carb max if needed d/t length of time between meals. Get book or [place] [employer]olfo Assessment & Plan (07/10/2017 12:19 PM NATIONAL VAN OWNER OPERATOR): Hba1c was 8.3 today, indicating worsening DM control 1800 calorie, consistent carb diet recommended 30 min daily aerobic and resistance exercise recommended Prevention and treatment of hyypoglcyemia discussed. Blood glucose monitoring with fingers sticks 1-2 x day . Foot care was discussed. Assessment & Plan (03/01/2017 10:18 AM CDT): Hba1c was 7.6 today, indicating inadequate DM control 1800 calorie, consistent carb diet recommended 30 min daily aerobic and resistance exercise recommended Foot care discused. Prevention and treatment of hyypoglcyemia discussed. Hypertension associated with diabetes 07/16/2012 Overview (11/24/2016): Hypertension, Unspecified Assessment & Plan (08/04/2024 9:56 AM NATIONAL VAN OWNER OPERATOR): - At goal today - Recommend to cut losartan to 50 mg daily given hyperkalemia Assessment & Plan (01/16/2024 11:28 AM CDT): - Slightly above goal today - Continue current antihypertensive regimen - Consider increasing and/or adding another medication to further reduce blood pressure to goal <130/80 mmHg Assessment & Plan (02/17/2021 2:48 PM CDT): Controlled on current medications. Continue plan. Assessment & Plan (11/05/2020 10:04 AM CDT): Controlled on current medications. Continue plan. Assessment & Plan (08/11/2020 11:05 AM NATIONAL VAN OWNER OPERATOR): Controlled on current medications. Continue plan. Assessment & Plan (05/13/2020 3:33 PM CDT): Controlled on current medications. Continue plan. Assessment & Plan (01/29/2020 12:11 PM CDT): Controlled on current medications. Continue plan. Assessment & Plan (11/06/2019 12:14 PM CDT): Controlled on current medications. Continue plan. Assessment & Plan (03/06/2019 10:31 AM CDT): Goal blood pressure is less than 140/85 Low salt diet recommended Daily aerobic exercise Check microalbumin Assessment & Plan (11/28/2018 11:12 AM CDT): Controlled on current medications. Assessment & Plan (08/24/2018 6:41 PM NATIONAL VAN OWNER OPERATOR): Controlled on current medications. Assessment & Plan (06/13/2018 9:56 AM CDT): Goal blood pressure is less than 140/85 Low salt diet recommended Daily aerobic exercise Continue current meds, including TARA-I or ARB Assessment & Plan (02/14/2018 10:50 AM CDT): Controlled on current medications. Assessment & Plan (11/01/2017 1:18 PM CDT): Controlled on current medications. Assessment & Plan (07/10/2017 12:19 PM NATIONAL VAN OWNER OPERATOR): Goal blood pressure is less than 140/85 Low salt diet recommended Daily aerobic exercise Continue current meds, including TARA-I or ARB Assessment & Plan (03/01/2017 10:17 AM CDT): Goal blood pressure is less than 140/85 Low salt diet recommended Daily aerobic exercise Continue current meds, including TARA-I or ARB Check BMP, microalbumin Social History Tobacco Use Types Packs/Day Years Used Date Smoking Tobacco: Heavy Smoker Cigarettes 1.5 50 Smokeless Tobacco: Never Tobacco Cessation:Ready to Q uit: No; Counseling Given: No Comments:Smoking History Packs/day: 30 Cigarettes Alcohol Use Standard Drinks/Week Comments Yes 0 (1 standard drink = 0.6 oz pur e alcohol) AUDIT-C Answer Date Recorded Q1: How often do you have a drink containing alc ohol? 2-4 times a month 10/02/2024 Q2: How many drinks containi ng alcohol do you have on a typical day when you are drinking? 1 or 2 10/02/2024 Q3: How often do you have si x or more drinks on one occasion? Never 10/02/2024 PHQ-2 Answer Date Recorded PHQ-2 Total Score (If total score is 3 or more points, staff should administer the PHQ-9) 0 05/13/2020 Personal Safety Answer Date Recorded Have you ever been in or are you currently in a harmful physical or emotional relationship or is someone making you feel afraid or unsafe? 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 Not on file Not on file Last Filed Vital Signs Vital Sign Reading Time Taken Comments Blood Pressure 143/80 10/15/2024 2:02 PM NATIONAL VAN OWNER OPERATOR Pulse 73 10/15/2024 2:02 PM NATIONAL VAN OWNER OPERATOR Temperature 36.5 C (97.7 F) 10/15/2024 2:02 PM NATIONAL VAN OWNER OPERATOR Respiratory Rate 16 10/06/2024 4:30 PM NATIONAL V[employer] OWNER OPERATOR Oxygen Saturation 98% 10/15/2024 2:02 PM NATIONAL V[employer] OWNER OPERATOR Inhaled Oxygen Concentration - - Weight 68.9 kg (152 lb) 10/15/2024 2:02 PM NATIONAL VAN OWNER OPERATOR Height 182 cm (5' 11.65 ) 10/15/2024 2:02 PM NATIONAL VAN OWNER OPERATOR Body Mass Index 20.81 10/15/2024 2:02 PM NATIONAL VAN OWNER OPERATOR Plan of Treatment Not on file Procedures Procedure Name Priority Date/Time Associated Diagnosis Comments POCT GLUCOSE DEVICE Routine 10/06/2024 12:27 PM NATIONAL VAN OWNER OPERATOR POCT GLUCOSE DEVICE Routine 10/06/2024 8 :35 AM NATIONAL VAN OWNER OPERATOR HEPATIC FUNCTION PANEL Routine 4:45 AM NATIONAL VAN OWNER OPERATOR EGFR Routine 10/06/2024 4:45 AM NATIONAL VAN OWNER OPERATOR DIFFERENTIAL AUTO Routine 10/06/2024 4:4 5 AM NATIONAL VAN OWNER OPERATOR CBC WITH AUTO DIFFERENTIAL Routine 10/06/2024 4:45 AM NATIONAL VAN OWNER OPERATOR BASIC METABOLIC PANEL Routine 10/06/2024 4:45 AM NATIONAL VAN OWNER OPERATOR POCT GLUCOSE DEVICE Routine 10/06/2024 1 :25 AM NATIONAL VAN OWNER OPERATOR POCT GLUCOSE DEVICE Routine 10/05/2024 7 :43 PM NATIONAL V[employer] OWNER OPERATOR POCT GLUCOSE DEVICE Routine 10/05/2024 4 :27 PM NATIONAL VAN OWNER OPERATOR POCT GLUCOSE DEVICE Routine 10/05/2024 11:38 AM NATIONAL VAN OWNER OPERATOR POCT GLUCOSE DEVICE Routine 10/05/2024 7 :45 AM NATIONAL VAN OWNER OPERATOR EGFR Routine 10/05/2024 5:17 AM NATIONAL VAN OWNER OPERATOR DIFFERENTIAL AUTO Routine 10/05/2024 5:1 7 AM NATIONAL VAN OWNER OPERATOR CBC WITH AUTO DIFFERENTIAL Routine 10/05/2024 5:17 AM NATIONAL VAN OWNER OPERATOR BASIC METABOLIC PANEL Routine 10/05/2024 5:17 AM NATIONAL VAN OWNER OPERATOR POCT GLUCOSE DEVICE Routine 10/05/2024 2 :24 AM NATIONAL VAN OWNER OPERATOR VANCOMYCIN LEVEL TROUGH Routine 10/04/2024 10:17 PM NATIONAL VAN OWNER OPERATOR POCT GLUCOSE DEVICE Routine 10/04/2024 8 :11 PM NATIONAL VAN OWNER OPERATOR POCT GLUCOSE DEVICE Routine 10/04/2024 5 :00 PM NATIONAL VAN OWNER OPERATOR POCT GLUCOSE DEVICE Routine 10/04/2024 12:04 PM NATIONAL VAN OWNER OPERATOR POCT GLUCOSE DEVICE Routine 10/04/2024 7 :59 AM NATIONAL VAN OWNER OPERATOR EGFR Routine 10/04/2024 4:04 AM NATIONAL VAN OWNER OPERATOR DIFFERENTIAL AUTO Routine 10/04/2024 4:0 4 AM NATIONAL VAN OWNER OPERATOR CBC WITH AUTO DIFFERENTIAL Routine 10/04/2024 4:04 AM NATIONAL VAN OWNER OPERATOR BASIC METABOLIC PANEL Routine 10/04/2024 4:04 AM NATIONAL VAN OWNER OPERATOR POCT GLUCOSE DEVICE Routine 10/04/2024 3 :56 AM NATIONAL VAN OWNER OPERATOR POCT GLUCOSE DEVICE Routine 10/04/2024 3 :54 AM NATIONAL VAN OWNER OPERATOR POCT GLUCOSE DEVICE Routine 10/03/2024 8 :44 PM NATIONAL VAN OWNER OPERATOR POCT GLUCOSE DEVICE Routine 10/03/2024 5 :09 PM NATIONAL VAN OWNER OPERATOR POCT GLUCOSE DEVICE Routine 10/03/2024 11:57 AM NATIONAL VAN OWNER OPERATOR POCT GLUCOSE DEVICE Routine 10/03/2024 11:13 AM NATIONAL VAN OWNER OPERATOR POCT GLUCOSE DEVICE Routine 10/03/2024 8 :06 AM NATIONAL VAN OWNER OPERATOR HEMOGLOBIN A1C Routine 10/03/2024 4:41 AM NATIONAL VAN OWNER OPERATOR EGFR Routine 10/03/2024 4:41 AM NATIONAL VAN OWNER OPERATOR DIFFERENTIAL AUTO Routine 10/03/2024 4:41 AM NATIONAL VAN OWNER OPERATOR POTASSIUM, WHOLE BLOOD Routine 4:41 AM NATIONAL VAN OWNER OPERATOR CBC WITH AUTO DIFFERENTIAL Routine 10/03/2024 4:41 AM NATIONAL VAN OWNER OPERATOR BASIC METABOLIC PANEL Routine 10/03/2024 4:41 AM NATIONAL VAN OWNER OPERATOR POCT GLUCOSE DEVICE Routine 10/03/2024 1 :51 AM NATIONAL VAN OWNER OPERATOR POTASSIUM, WHOLE BLOOD Routine 11:05 PM NATIONAL VAN OWNER OPERATOR HEMOGLOBIN A1C Routine 10/02/2024 9:27 PM NATIONAL VAN OWNER OPERATOR LIPID PANEL Routine 10/02/2024 9:27 PM NATIONAL VAN OWNER OPERATOR EGFR Routine 10/02/2024 9:27 PM NATIONAL VAN OWNER OPERATOR DIFFERENTIAL AUTO Routine 10/02/2024 9:2 7 PM NATIONAL VAN OWNER OPERATOR CBC WITH AUTO DIFFERENTIAL Routine 10/02/2024 9:27 PM NATIONAL VAN OWNER OPERATOR BASIC METABOLIC PANEL Routine 10/02/2024 9:27 PM NATIONAL VAN OWNER OPERATOR POCT GLUCOSE DEVICE Routine 10/02/2024 7 :51 PM NATIONAL VAN OWNER OPERATOR POCT GLUCOSE DEVICE Routine 10/02/2024 5 :40 PM NATIONAL VAN OWNER OPERATOR POCT GLUCOSE DEVICE Routine 10/02/2024 5 :37 PM NATIONAL VAN OWNER OPERATOR POCT GLUCOSE DEVICE Routine 10/02/2024 10:41 AM NATIONAL VAN OWNER OPERATOR MYCOBACTERIOLOGY AFB CULTURE AND ACID-FAST STAIN Routine 10/02/2024 9:19 AM NATIONAL VAN OWNER OPERATOR MYCOLOGY (FUNGAL) CULTURE AND STAIN Routine 10/02/2024 9:19 AM NATIONAL VAN OWNER OPERATOR TISSUE AEROBIC AND ANAEROBIC CULTURE AND GRAM STAIN Routine 10/02/2024 9:19 AM NATIONAL VAN OWNER OPERATOR MYCOBACTERIOLOGY AFB CULTURE AND ACID-FAST STAIN Routine 10/02/2024 9:18 AM NATIONAL VAN OWNER OPERATOR MYCOLOGY (FUNGAL) CULTURE AND STAIN Routine 10/02/2024 9:18 AM NATIONAL VAN OWNER OPERATOR TISSUE AEROBIC AND ANAEROBIC CULTURE AND GRAM STAIN Routine 10/02/2024 9:18 AM NATIONAL VAN OWNER OPERATOR MYCOBACTERIOLOGY AFB CULTURE AND ACID-FAST STAIN Routine 10/02/2024 8:58 AM NATIONAL VAN OWNER OPERATOR MYCOLOGY (FUNGAL) CULTURE AND STAIN Routine 10/02/2024 8:58 AM NATIONAL VAN OWNER OPERATOR TISSUE AEROBIC AND ANAEROBIC CULTURE AND GRAM STAIN Routine 10/02/2024 8:58 AM NATIONAL VAN OWNER OPERATOR OR AN PROCEDURE PLACEHOLDER Routine 10/02/2024 8:39 AM NATIONAL VAN OWNER OPERATOR OR AN ELECTIVE ENDOTRACHEAL AIRWAY Routine 10/02/2024 8:39 AM NATIONAL VAN OWNER OPERATOR IRRIGATION AND DEBRIDEMENT - ELBOW 10/02/2024 8:02 AM NATIONAL VAN OWNER OPERATOR Olecranon bursitis of left elbow Case Notes [id number]/01@1336: Per Karen via phone call, changed patient class to Outpatient in Bed/Post op destination to Surgical Floor. [email or web address] Sent email to OR resource nurse about blank DPC. SR Special Needs 3 liters of saline and cysto tubing EXCISION CYST/LESION/MASS - ELBOW BURSA 10/02/2024 8:02 AM NATIONAL VAN OWNER OPERATOR Olecranon bursitis of left elbow Case Notes 10/01@1336: Per Karen via phone call, changed patient class to Outpatient in Bed/Post op destination to Surgical Floor. [email or web address]: Sent email to OR resource nurse about blank DPC. SR Special Needs 3 liters of saline and cysto tubing POCT GLUCOSE DEVICE Routine 10/02/2024 6 :36 AM NATIONAL VAN OWNER OPERATOR MSK MR OUTSIDE REFERENCE Routine 08/26/2024 5:53 PM NATIONAL VAN OWNER OPERATOR XR ELBOW LEFT 3 OR MORE VIEWS Schedule Routine, Read Routine (OP Routine) 08/07/2024 8:34 AM NATIONAL VAN OWNER OPERATOR Left elbow pain ALBUMIN CREATININE RATIO, URINE Routine 10/16/2022 9:19 AM NATIONAL VAN OWNER OPERATOR Type 2 diabetes mellitus with hyperglycemia, without long-term current use of insulin (HCC) from Last 3 Months or Most Recently Relevant to Health Maintenance Results * POCT glucose (10/06/2024 12:27 PM NATIONAL VAN OWNER OPERATOR) Glucose, POC 158 70 - 199 mg/dL Blood 10/06/2024 12:2 7 PM NATIONAL VAN OWNER OPERATOR 10/06/2024 12:27 PM NATIONAL VAN OWNER OPERATOR us Prashant Felder MD LAB POCT ORDERABLES - MAGALIE CE Final Result Performing Organization Address [facility] Co de Phone Number [facility] [place] [address] * POCT glucose (10/06/2024 8:35 AM NATIONAL VAN OWNER OPERATOR) Glucose, POC 138 70 - 199 mg/dL Blood 10/06/2024 8:35 AM NATIONAL VAN OWNER OPERATOR 10/06/2024 8:35 AM NATIONAL VAN OWNER OPERATOR Prashant Felder MD LAB POCT ORDERABLES - MAGALIE CE Final Result Performing Organization Address [facility] Co de Phone Number [facility] [place] [address] * eGFR (10/06/2024 4:45 AM NATIONAL VAN OWNER OPERATOR) [facility] eGFR >90 >=60 mL/min/1. 73 m2 Comment: Interpretive Data Reference Interval Normal >/= 90 mL/min/1.73m2 Mildly decreased* 60 - 89 mL/min/1.73m2 Mildly to moderately decreased 45 - 59 mL/min/1.73m2 Moderately to severely decreased 30 - 44 mL/min/1.73m2 Severely decreased 15 - 29 mL/min/1.73m2 Kidney Failure < 15 mL/min/1.73m2 *Relative to young adult level Estimated glomerular filtration rate is determined by the 2020 CKD-EPI equation recommended by the National Kidney Foundation (A Unifying Approach to GFR Estimation: Recommendations of the NKF-ASK Task Force on Reassessing the Inclusion of Race in Diagnosing Kidney Disease, JASN 2020). The CKD-EPI equation should not be used for patients with unstable renal function and has not been validated in children and those over 70. Current interpretive data was last reviewed 2021. Blood 10/06/2024 4:45 AM NATIONAL VAN OWNER OPERATOR 10/06/2024 4:56 AM NATIONAL VAN OWNER OPERATOR us Diana Gonzalez NP LAB BLOOD ORDERABLES Lala wing Result [facility] [place] [address] * (ABNORMAL) Differential, auto (10/06/2024 4:45 AM NATIONAL VAN OWNER OPERATOR) [facility] Neutrophil abs 6.4 1.5 - 6.5 K/cumm Imm gran abs 0.0 0.0 - 0.1 K/cumm [facility] Lymphocyte abs 2.9 0.8 - 3.3 K/cumm [facility] Monocyte abs 1.1(H) 0.2 - 0.8 K/cumm [facility] Eosinophil abs 1.0(H) 0.0 - 0.5 K/cumm [facility] Basophil abs 0.2(H) 0.0 - 0.1 K/cumm [facility] Neutrophil pct 55.0 % [facility] Comment: Interpretive Data Percent cell count reference ranges are not reported, since discordance with absolute values may lead to misinterpretation of CBC data. Current Interpretive Data was last revised on 2017. Imm gran pct 0.3 % [facility] Comment: Interpretive Data Percent cell count reference ranges are not reported, since discordance with absolute values may lead to misinterpretation of CBC data. Current Interpretive Data was last revised on 2017. Lymphocyte pct 25.1 % [facility] Comment: Interpretive Data Percent cell count reference ranges are not reported, since discordance with absolute values may lead to misinterpretation of CBC data. Current Interpretive Data was last revised on 2017. Monocyte pct 9.3 % [facility] Comment: Interpretive Data Percent cell count reference ranges are not reported, since discordance with absolute values may lead to misinterpretation of CBC data. Current Interpretive Data was last revised on 2017. Eosinophil pct 8.8 % [facility] Comment: Interpretive Data Percent cell count reference ranges are not reported, since discordance with absolute values may lead to misinterpretation of CBC data. Current Interpretive Data was last revised on 2017. Basophil pct 1.5 % [facility] Comment: Interpretive Data Percent cell count reference ranges are not reported, since discordance with absolute values may lead to misinterpretation of CBC data. Current Interpretive Data was last revised on 2017. Blood 10/06/2024 4:45 AM NATIONAL VAN OWNER OPERATOR 10/06/2024 4:56 AM NATIONAL VAN OWNER OPERATOR us Diana Gonzalez [employer] LAB BLOOD ORDERABLES Lala l Result [facility] Department of Laboratories [place], [place] [id number] * (ABNORMAL) CBC with auto differential (10/06/2024 4:45 AM NATIONAL VAN OWNER OPERATOR) WBC 11.6(H) 3.8 - 9.9 K/cumm Hgb 13.7 13.0 - 17.5 g/dL [facility] Hct 42.1 38.9 - 50.3 % [facility] Plt 469(H) 150 - 400 K/cumm [facility] MPV 9.4 9.1 - 12.3 fL [facility] RBC 4.58 4.30 - 5.80 M/cumm [facility] MCV 91.9 81.3 - 96.4 fL [facility] MCH 29.9 27.1 - 33.3 pg [facility] MCHC 32.5 32.3 - 35.7 g/dL [facility] RDW CV 13.6 11.1 - 14.9 % [facility] RDW SD 45.3 35.7 - 48.1 fL [facility] NRBC abs 0.00 0.00 - 0.01 K/cumm [facility] Blood 10/06/2024 4:45 AM NATIONAL VAN OWNER OPERATOR 10/06/2024 4:56 AM NATIONAL VAN OWNER OPERATOR us Diana Gonzalez NP LAB BLOOD ORDERABLES Lala l Result Performing Organization Address City/[facility] Co de Phone Number [facility] [place] [address] * Hepatic function panel (10/06/2024 4:45 AM NATIONAL VAN OWNER OPERATOR) Bilirubin, total 0.3 0.1 - 1.2 mg/dL Bilirubin, direct <0.2 0.1 - 0.3 mg/dL [facility] Protein, pl 6.9 6.5 - 8.5 g/dL [facility] Albumin 3.6 3.5 - 5.0 g/dL [facility] Alk phos 83 40 - 130 Units/L [facility] ALT 18 7 - 55 Units/L [facility] AST 22 10 - 50 Units/L [facility] Blood 10/06/2024 4:45 AM NATIONAL VAN OWNER OPERATOR 10/06/2024 4:56 AM NATIONAL VAN OWNER OPERATOR us Prashant Felder MD LAB BLOOD ORDERABLES Final Result Performing Organization Address City/[facility]/ZIP Co de Phone Number [facility] [place] [address] * Basic metabolic panel (10/06/2024 4:45 AM NATIONAL VAN OWNER OPERATOR) Sodium 135 135 - 145 mmol/L Potassium, pl 4.9 3.3 - 4.9 mmol/L [facility] Chloride 100 97 - 110 mmol/L [facility] CO2 29 22 - 32 mmol/L [facility] Anion gap 6 2 - 15 mmol/L [facility] BUN 19 6 - 25 mg/dL [facility] Creatinine 0.83 0.80 - 1.30 mg/dL [facility] Glucose 100 70 - 199 mg/dL [facility] Comment: Interpretive Data Fasting glucose >/= 126 mg/dl is diagnostic for diabetes. Fasting is defined as no caloric intake for at least 8 hours. Fasting glucose between 100 mg/dl to 125 mg/dl is diagnostic of prediabetes. In a patient with classic symptoms of hyperglycemia or hyperglycemic crisis, a random glucose >/= 200 mg/dl is diagnostic for diabetes. In the absence of unequivocal hyperglycemia, results should be confirmed by repeat testing. The classification and Diagnosis of Diabetes Diabetes Care 2021; 46: S19-S40. Current interpretive data was last revised 2022. Calcium 9.6 8.5 - 10.3 mg/dL [facility] Blood 10/06/2024 4:45 AM NATIONAL VAN OWNER OPERATOR 10/06/2024 4:56 AM NATIONAL VAN OWNER OPERATOR us Diana Gonzalez NP LAB BLOOD ORDERABLES Lala l Result Performing Organization Address City/State/[facility] Co de Phone Number [facility] [place] [address] * POCT glucose (10/06/2024 1:25 AM NATIONAL VAN OWNER OPERATOR) Glucose, POC 118 70 - 199 mg/dL Blood 10/06/2024 1:25 AM NATIONAL V[employer] OWNER OPERATOR 10/06/2024 1:25 AM N[employer] V[employer] OWNER OPERATOR us Prashant Felder MD LAB POCT ORDERABLES - MAGALIE CE Final Result Performing Organization Address City/[facility] [place] [address] * POCT glucose (10/05/2024 7:43 PM NATIONAL VAN OWNER OPERATOR) Glucose, POC 190 70 - 199 mg/dL Blood 10/05/2024 7:43 PM N[employer] OWNER OPERATOR 10/05/2024 7:43 PM N[employer] OWNER OPERATOR us Prashant Felder MD LAB POCT ORDERABLES - MAGALIE CE Final Result Performing Organization Address [facility] [place] [address] * POCT glucose (10/05/2024 4:27 PM NATIONAL VAN OWNER OPERATOR) Glucose, POC 108 70 - 199 mg/dL Blood 10/05/2024 4:27 PM NATIONAL VAN OWNER OPERATOR 10/05/2024 4:27 PM NATIONAL VAN OWNER OPERATOR us Prashant Felder MD LAB POCT ORDERABLES - MAGALIE CE Final Result Performing Organization Address [facility] Co de Phone Number [facility] [place] [address] * POCT glucose (10/05/2024 11:38 AM NATIONAL VAN OWNER OPERATOR) Glucose, POC 116 70 - 199 mg/dL Blood 10/05/2024 11:3 8 AM NATIONAL [employer] OWNER OPERATOR 10/05/2024 11:38 AM NATIONAL V[employer] OWNER OPERATOR Prashant Felder MD LAB POCT ORDERABLES - MAGALIE CE Final Result Performing Organization Address [facility] Co de Phone Number [facility] [place] [address] * POCT glucose (10/05/2024 7:45 AM NATIONAL V[employer] OWNER OPERATOR) Glucose, POC 102 70 - 199 mg/dL Blood 10/05/2024 7:45 AM NATIONAL VAN OWNER OPERATOR 10/05/2024 7:45 AM NATIONAL V[employer] OWNER OPERATOR us Prashant Felder MD LAB POCT ORDERABLES - MAGALIE CE Final Result Performing Organization Address [facility] Co de Phone Number [facility] [place] [address] * eGFR (10/05/2024 5:17 AM NATIONAL VAN OWNER OPERATOR) [facility] eGFR >90 >=60 mL/min/1. 73 m2 Comment: Interpretive Data Reference Interval Normal >/= 90 mL/min/1.73m2 Mildly decreased* 60 - 89 mL/min/1.73m2 Mildly to moderately decreased 45 - 59 mL/min/1.73m2 Moderately to severely decreased 30 - 44 mL/min/1.73m2 Severely decreased 15 - 29 mL/min/1.73m2 Kidney Failure < 15 mL/min/1.73m2 *Relative to young adult level Estimated glomerular filtration rate is determined by the 2020 CKD-EPI equation recommended by the National Kidney Foundation (A Unifying Approach to GFR Estimation: Recommendations of the NKF-ASK Task Force on Reassessing the Inclusion of Race in Diagnosing Kidney Disease, JASN 2020). The CKD-EPI equation should not be used for patients with unstable renal function and has not been validated in children and those over 70. Current interpretive data was last reviewed 2021. Blood 10/05/2024 5:17 AM NATIONAL VAN OWNER OPERATOR 10/05/2024 5:29 AM NATIONAL VAN OWNER OPERATOR us Diana Gonzalez KARATE INSTRUCTOR LAB BLOOD ORDERABLES Lala l Result Performing Organization Address [facility]/ZIP Co de Phone Number CAITIE [facility] [place] [address] * (ABNORMAL) Differential, auto (10/05/2024 5:17 AM NATIONAL V[employer] OWNER OPERATOR) Pathologist [facility] [place] Neutrophil abs 6.9(H) 1.5 - 6.5 K/cumm Imm gran abs 0.1 0.0 - 0.1 K/cumm [facility] Lymphocyte abs 3.1 0.8 - 3.3 K/cumm [facility] Monocyte abs 0.9(H) 0.2 - 0.8 K/cumm [facility] Eosinophil abs 0.8(H) 0.0 - 0.5 K/cumm [facility] Basophil abs 0.1 0.0 - 0.1 K/cumm [facility] Neutrophil pct 58.0 % [facility] Comment: Interpretive Data Percent cell count reference ranges are not reported, since discordance with absolute values may lead to misinterpretation of CBC data. Current Interpretive Data was last revised on 2017. Imm gran pct 0.4 % [facility] Comment: Interpretive Data Percent cell count reference ranges are not reported, since discordance with absolute values may lead to misinterpretation of CBC data. Current Interpretive Data was last revised on 2017. Lymphocyte pct 25.9 % [facility] Comment: Interpretive Data Percent cell count reference ranges are not reported, since discordance with absolute values may lead to misinterpretation of CBC data. Current Interpretive Data was last revised on 2017. Monocyte pct 7.8 % [facility] Comment: Interpretive Data Percent cell count reference ranges are not reported, since discordance with absolute values may lead to misinterpretation of CBC data. Current Interpretive Data was last revised on 2017. Eosinophil pct 6.8 % [facility] Comment: Interpretive Data Percent cell count reference ranges are not reported, since discordance with absolute values may lead to misinterpretation of CBC data. Current Interpretive Data was last revised on 2017. Basophil pct 1.1 % [facility] Comment: Interpretive Data Percent cell count reference ranges are not reported, since discordance with absolute values may lead to misinterpretation of CBC data. Current Interpretive Data was last revised on 2017. Blood 10/05/2024 5:17 AM NATIONAL VAN OWNER OPERATOR 10/05/2024 5:29 AM NATIONAL VAN OWNER OPERATOR us Diana Gonzalez NP LAB BLOOD ORDERABLES Lala wing Result [facility] [place] [address] * (ABNORMAL) CBC with auto differential (10/05/2024 5:17 AM NATIONAL V[employer] OWNER OPERATOR) [facility] WBC 11.9(H) 3.8 - 9.9 K/cumm Hgb 13.6 13.0 - 17.5 g/dL [facility] Hct 41.7 38.9 - 50.3 % [facility] Plt 432(H) 150 - 400 K/cumm [facility] MPV 9.5 9.1 - 12.3 fL [facility] RBC 4.52 4.30 - 5.80 M/cumm [facility] MCV 92.3 81.3 - 96.4 fL [facility] MCH 30.1 27.1 - 33.3 pg [facility] MCHC 32.6 32.3 - 35.7 g/dL [facility] RDW CV 13.3 11.1 - 14.9 % [facility] RDW SD 45.0 35.7 - 48.1 fL [facility] NRBC abs 0.00 0.00 - 0.01 K/cumm [facility] Blood 10/05/2024 5:17 AM NATIONAL V[employer] OWNER OPERATOR 10/05/2024 5:29 AM NATIONAL VAN OWNER OPERATOR Diana Gonzalez NP LAB BLOOD ORDERABLES Lala l Result Performing Organization Address [facility] Co de Phone Number [facility] [place] [address] * (ABNORMAL) Basic metabolic panel (10/05/2024 5:17 AM NATIONAL V[employer] OWNER OPERATOR) [facility] Sodium 135 135 - 145 mmol/L Potassium, pl 4.4 3.3 - 4.9 mmol/L [facility] Chloride 100 97 - 110 mmol/L [facility] CO2 25 22 - 32 mmol/L [facility] Anion gap 10 2 - 15 mmol/L [facility] BUN 18 6 - 25 mg/dL [facility] Creatinine 0.74(L) 0.80 - 1.30 mg/dL [facility] Glucose 90 70 - 199 mg/dL [facility] Comment: Interpretive Data Fasting glucose >/= 126 mg/dl is diagnostic for diabetes. Fasting is defined as no caloric intake for at least 8 hours. Fasting glucose between 100 mg/dl to 125 mg/dl is diagnostic of prediabetes. In a patient with classic symptoms of hyperglycemia or hyperglycemic crisis, a random glucose >/= 200 mg/dl is diagnostic for diabetes. In the absence of unequivocal hyperglycemia, results should be confirmed by repeat testing. The classification and Diagnosis of Diabetes Diabetes Care 2021; 46: S19-S40. Current interpretive data was last revised 2022. Calcium 9.0 8.5 - 10.3 mg/dL [facility] Blood 10/05/2024 5:17 AM NATIONAL VAN OWNER OPERATOR 10/05/2024 5:29 AM NATIONAL VAN OWNER OPERATOR Diana Gonzalez NP LAB BLOOD ORDERABLES Lala l Result Performing Organization Address City/[facility]/ZIP Co de Phone Number [facility] [place] [address] * POCT glucose (10/05/2024 2:24 AM NATIONAL VAN OWNER OPERATOR) Glucose, POC 101 70 - 199 mg/dL Blood 10/05/2024 2:24 AM NATIONAL VAN OWNER OPERATOR 10/05/2024 2:24 AM NATIONAL V[employer] OWNER OPERATOR us Prashant Felder MD LAB POCT ORDERABLES - MAGALIE CE Final Result Performing Organization Address [facility]/ZIP Co de Phone Number [facility] [place] [address] * Vancomycin level trough At least 30 minutes prior to vancomycin dose (10/04/2024 10:17 PM NATIONAL V[employer] OWNER OPERATOR) Vancomycin trough 11.4 10.0 - 20.0 mcg/mL Blood 10/04/2024 10:1 7 PM NATIONAL VAN OWNER OPERATOR 10/04/2024 11:50 PM NATIONAL VAN OWNER OPERATOR Narrative [facility] - 10/05/2024 12:19 AM NATIONAL VAN OWNER OPERATOR At least 30 minutes prior to vancomycin dose us Severino Peñaloza MD LAB BLOOD ORDERABLES Final Res ult Performing Organization Address [facility] Co de Phone Number [facility] [place] [address] * (ABNORMAL) POCT glucose (10/04/2024 8:11 PM NATIONAL VAN OWNER OPERATOR) Glucose, POC 210(H) 70 - 199 mg/dL Blood 10/04/2024 8:11 PM NATIONAL VAN OWNER OPERATOR 10/04/2024 8:11 PM NATIONAL VAN OWNER OPERATOR us Prashant Felder MD LAB POCT ORDERABLES - MAGALIE CE Final Result Performing Organization Address [facility] de Phone Number [facility] [place] [address] * POCT glucose (10/04/2024 5:00 PM NATIONAL VAN OWNER OPERATOR) Glucose, POC 94 70 - 199 mg/dL Blood 10/04/2024 5:00 PM NATIONAL VAN OWNER OPERATOR 10/04/2024 5:00 PM NATIONAL VAN OWNER OPERATOR us Prashant Felder MD LAB POCT ORDERABLES - MAGALIE CE Final Result Performing Organization Address [facility] de Phone Number [facility] [address] * POCT glucose (10/04/2024 12:04 PM NATIONAL VAN OWNER OPERATOR) Glucose, POC 117 70 - 199 mg/dL Blood 10/04/2024 12:0 4 PM NATIONAL VAN OWNER OPERATOR 10/04/2024 12:04 PM NATIONAL VAN OWNER OPERATOR Prashant Felder MD LAB POCT ORDERABLES - MAGALIE CE Final Result Performing Organization Address [facility]/ZIP Co de Phone Number [facility] [place] [address] * POCT glucose (10/04/2024 7:59 AM NATIONAL VAN OWNER OPERATOR) Glucose, POC 107 70 - 199 mg/dL Blood 10/04/2024 7:59 AM NATIONAL VAN OWNER OPERATOR 10/04/2024 7:59 AM NATIONAL VAN OWNER OPERATOR us Prashant Felder MD LAB POCT ORDERABLES - MAGALIE CE Final Result Performing Organization Address [facility] Co de Phone Number [place] [facility] [place] [address] * eGFR (10/04/2024 4:04 AM NATIONAL VAN OWNER OPERATOR) [facility] eGFR >90 >=60 mL/min/1. 73 m2 Comment: Interpretive Data Reference Interval Normal >/= 90 mL/min/1.73m2 Mildly decreased* 60 - 89 mL/min/1.73m2 Mildly to moderately decreased 45 - 59 mL/min/1.73m2 Moderately to severely decreased 30 - 44 mL/min/1.73m2 Severely decreased 15 - 29 mL/min/1.73m2 Kidney Failure < 15 mL/min/1.73m2 *Relative to young adult level Estimated glomerular filtration rate is determined by the 2020 CKD-EPI equation recommended by the National Kidney Foundation (A Unifying Approach to GFR Estimation: Recommendations of the NKF-ASK Task Force on Reassessing the Inclusion of Race in Diagnosing Kidney Disease, JASN 2020). The CKD-EPI equation should not be used for patients with unstable renal function and has not been validated in children and those over 70. Current interpretive data was last reviewed 2021. Blood 10/04/2024 4:04 AM NATIONAL VAN OWNER OPERATOR 10/04/2024 4:16 AM NATIONAL VAN OWNER OPERATOR us Diana Gonzalez NP LAB BLOOD ORDERABLES Lala l Result Performing Organization Address City/[facility]/ZIP Co de Phone Number CAITIE [facility] [place] [address] * (ABNORMAL) Differential, auto (10/04/2024 4:04 AM NATIONAL VAN OWNER OPERATOR) Neutrophil abs 8.1(H) 1.5 - 6.5 K/cumm Imm gran abs 0.1 0.0 - 0.1 K/cumm [facility] Lymphocyte abs 3.6(H) 0.8 - 3.3 K/cumm [facility] Monocyte abs 1.2(H) 0.2 - 0.8 K/cumm [facility] Eosinophil abs 0.7(H) 0.0 - 0.5 K/cumm [facility] Basophil abs 0.2(H) 0.0 - 0.1 K/cumm [facility] Neutrophil pct 58.7 % [facility] Comment: Interpretive Data Percent cell count reference ranges are not reported, since discordance with absolute values may lead to misinterpretation of CBC data. Current Interpretive Data was last revised on 2017. Imm gran pct 0.4 % [facility] Comment: Interpretive Data Percent cell count reference ranges are not reported, since discordance with absolute values may lead to misinterpretation of CBC data. Current Interpretive Data was last revised on 2017. Lymphocyte pct 26.1 % [facility] Comment: Interpretive Data Percent cell count reference ranges are not reported, since discordance with absolute values may lead to misinterpretation of CBC data. Current Interpretive Data was last revised on 2017. Monocyte pct 8.4 % [facility] Comment: Interpretive Data Percent cell count reference ranges are not reported, since discordance with absolute values may lead to misinterpretation of CBC data. Current Interpretive Data was last revised on 2017. Eosinophil pct 5.3 % [facility] Comment: Interpretive Data Percent cell count reference ranges are not reported, since discordance with absolute values may lead to misinterpretation of CBC data. Current Interpretive Data was last revised on 2017. Basophil pct 1.1 % [facility] Comment: Interpretive Data Percent cell count reference ranges are not reported, since discordance with absolute values may lead to misinterpretation of CBC data. Current Interpretive Data was last revised on 2017. Blood 10/04/2024 4:04 AM NATIONAL VAN OWNER OPERATOR 10/04/2024 4:17 AM NATIONAL VAN OWNER OPERATOR Diana Gonzalez KARATE INSTRUCTOR LAB BLOOD ORDERABLES Lala l Result Performing Organization Address [facility]/ZIP Co de Phone Number [facility] [place] [address] * (ABNORMAL) CBC with auto differential (10/04/2024 4:04 AM NATIONAL VAN OWNER OPERATOR) WBC 13.7(H) 3.8 - 9.9 K/cumm Hgb 13.8 13.0 - 17.5 g/dL [facility] Hct 41.5 38.9 - 50.3 % [facility] Plt 473(H) 150 - 400 K/cumm [facility] MPV 9.3 9.1 - 12.3 fL [facility] RBC 4.50 4.30 - 5.80 M/cumm [facility] MCV 92.2 81.3 - 96.4 fL [facility] MCH 30.7 27.1 - 33.3 pg [facility] MCHC 33.3 32.3 - 35.7 g/dL [facility] RDW CV 13.7 11.1 - 14.9 % [facility] RDW SD 46.1 35.7 - 48.1 fL [facility] NRBC abs 0.00 0.00 - 0.01 K/cumm [facility] Blood 10/04/2024 4:04 AM NATIONAL VAN OWNER OPERATOR 10/04/2024 4:17 AM NATIONAL VAN OWNER OPERATOR Diana Gonzalez KARATE INSTRUCTOR LAB BLOOD ORDERABLES Lala l Result Performing Organization Address [facility]/ZIP Co de Phone Number [facility] [place] [address] * Basic metabolic panel (10/04/2024 4:04 AM NATIONAL VAN OWNER OPERATOR) Pathologist [facility] [place] Sodium 137 135 - 145 mmol/L Potassium, pl 4.4 3.3 - 4.9 mmol/L [facility] Chloride 102 97 - 110 mmol/L [facility] CO2 27 22 - 32 mmol/L [facility] Anion gap 8 2 - 15 mmol/L [facility] BUN 24 6 - 25 mg/dL [facility] Creatinine 0.86 0.80 - 1.30 mg/dL [facility] Glucose 73 70 - 199 mg/dL [facility] Comment: Interpretive Data Fasting glucose >/= 126 mg/dl is diagnostic for diabetes. Fasting is defined as no caloric intake for at least 8 hours. Fasting glucose between 100 mg/dl to 125 mg/dl is diagnostic of prediabetes. In a patient with classic symptoms of hyperglycemia or hyperglycemic crisis, a random glucose >/= 200 mg/dl is diagnostic for diabetes. In the absence of unequivocal hyperglycemia, results should be confirmed by repeat testing. The classification and Diagnosis of Diabetes Diabetes Care 2021; 46: S19-S40. Current interpretive data was last revised 2022. Calcium 9.3 8.5 - 10.3 mg/dL [facility] Blood 10/04/2024 4:04 AM NATIONAL VAN OWNER OPERATOR 10/04/2024 4:16 AM NATIONAL VAN OWNER OPERATOR us Diana Gonzalez NP LAB BLOOD ORDERABLES Lala l Result Performing Organization Address City/[facility]/ZIP Co de Phone Number [facility] [place] [address] * POCT glucose (10/04/2024 3:56 AM NATIONAL VAN OWNER OPERATOR) [facility] Glucose, POC 89 70 - 199 mg/dL Blood 10/04/2024 3:56 AM NATIONAL VAN OWNER OPERATOR 10/04/2024 3:56 AM NATIONAL VAN OWNER OPERATOR us Prashant Felder MD LAB POCT ORDERABLES - MAGALIE CE Final Result Performing Organization Address [facility]/ZIP Co de Phone Number [facility] [place] [address] * (ABNORMAL) POCT glucose (10/04/2024 3:54 AM NATIONAL VAN OWNER OPERATOR) Glucose, POC 68(L) 70 - 199 mg/dL Blood 10/04/2024 3:54 AM NATIONAL VAN OWNER OPERATOR 10/04/2024 3:54 AM NATIONAL VAN OWNER OPERATOR Prashant Felder MD LAB POCT ORDERABLES - MAGALIE CE Final Result Performing Organization Address [facility] de Phone Number [facility] [address] * POCT glucose (10/03/2024 8:44 PM NATIONAL VAN OWNER OPERATOR) Glucose, POC 153 70 - 199 mg/dL Blood 10/03/2024 8:44 PM NATIONAL VAN OWNER OPERATOR 10/03/2024 8:44 PM NATIONAL VAN OWNER OPERATOR Prashant Felder MD LAB POCT ORDERABLES - MAGALIE CE Final Result Performing Organization Address [facility] de Phone Number [facility] [address] * POCT glucose (10/03/2024 5:09 PM NATIONAL VAN OWNER OPERATOR) Glucose, POC 145 70 - 199 mg/dL Blood 10/03/2024 5:09 PM NATIONAL VAN OWNER OPERATOR 10/03/2024 5:09 PM NATIONAL VAN OWNER OPERATOR Prashant Felder MD LAB POCT ORDERABLES - MAGALIE CE Final Result Performing Organization Address [facility] de Phone Number [facility] [address] * POCT glucose (10/03/2024 11:57 AM NATIONAL VAN OWNER OPERATOR) Glucose, POC 168 70 - 199 mg/dL Blood 10/03/2024 11:5 7 AM NATIONAL VAN OWNER OPERATOR 10/03/2024 11:57 AM NATIONAL VAN OWNER OPERATOR Prashant Felder MD LAB POCT ORDERABLES - MAGALIE CE Final Result Performing Organization Address [facility] Co de Phone Number [facility] [place] [address] * POCT glucose (10/03/2024 11:13 AM NATIONAL VAN OWNER OPERATOR) Glucose, POC 170 70 - 199 mg/dL Blood 10/03/2024 11:1 3 AM NATIONAL VAN OWNER OPERATOR 10/03/2024 11:13 AM NATIONAL VAN OWNER OPERATOR Prashant Felder MD LAB POCT ORDERABLES - MAGALIE CE Final Result Performing Organization Address [facility] de Phone Number [facility] [place] [address] * (ABNORMAL) POCT glucose (10/03/2024 8:06 AM NATIONAL VAN OWNER OPERATOR) Glucose, POC 229(H) 70 - 199 mg/dL Blood 10/03/2024 8:06 AM NATIONAL VAN OWNER OPERATOR 10/03/2024 8:06 AM NATIONAL VAN OWNER OPERATOR Prashant Felder MD LAB POCT ORDERABLES - MAGALIE CE Final Result Performing Organization Address [facility] Co de Phone Number [facility] [place] [address] * Potassium, whole blood (10/03/2024 4:41 AM NATIONAL VAN OWNER OPERATOR) Potassium, bld 4.3 3.3 - 4.9 mmol/L Blood 10/03/2024 4:41 AM NATIONAL VAN OWNER OPERATOR 10/03/2024 4:52 AM NATIONAL VAN OWNER OPERATOR Prashant Felder MD LAB BLOOD ORDERABLES Final Result Performing Organization Address [facility] Co de Phone Number CAITIE [facility] [place] [address] * eGFR (10/03/2024 4:41 AM NATIONAL VAN OWNER OPERATOR) eGFR 88 >=60 mL/min/1. 73 m2 Comment: Interpretive Data Reference Interval Normal >/= 90 mL/min/1.73m2 Mildly decreased* 60 - 89 mL/min/1.73m2 Mildly to moderately decreased 45 - 59 mL/min/1.73m2 Moderately to severely decreased 30 - 44 mL/min/1.73m2 Severely decreased 15 - 29 mL/min/1.73m2 Kidney Failure < 15 mL/min/1.73m2 *Relative to young adult level Estimated glomerular filtration rate is determined by the 2020 CKD-EPI equation recommended by the National Kidney Foundation (A Unifying Approach to GFR Estimation: Recommendations of the NKF-ASK Task Force on Reassessing the Inclusion of Race in Diagnosing Kidney Disease, JASN 2020). The CKD-EPI equation should not be used for patients with unstable renal function and has not been validated in children and those over 70. Current interpretive data was last reviewed 2021. Blood 10/03/2024 4:41 AM NATIONAL VAN OWNER OPERATOR 10/03/2024 4:54 AM NATIONAL VAN OWNER OPERATOR Diana Gonzalez NP LAB BLOOD ORDERABLES Lala wing Result [facility] [place] [address] * (ABNORMAL) Differential, auto (10/03/2024 4:41 AM NATIONAL VAN OWNER OPERATOR) Neutrophil abs 9.3(H) 1.5 - 6.5 K/cumm Imm gran abs 0.0 0.0 - 0.1 K/cumm [facility] Lymphocyte abs 3.2 0.8 - 3.3 K/cumm [facility] Monocyte abs 1.2(H) 0.2 - 0.8 K/cumm [facility] Eosinophil abs 0.3 0.0 - 0.5 K/cumm [facility] Basophil abs 0.1 0.0 - 0.1 K/cumm [facility] Neutrophil pct 66.1 % [facility] Comment: Interpretive Data Percent cell count reference ranges are not reported, since discordance with absolute values may lead to misinterpretation of CBC data. Current Interpretive Data was last revised on 2017. Imm gran pct 0.3 % [facility] Comment: Interpretive Data Percent cell count reference ranges are not reported, since discordance with absolute values may lead to misinterpretation of CBC data. Current Interpretive Data was last revised on 2017. Lymphocyte pct 22.5 % [facility] Comment: Interpretive Data Percent cell count reference ranges are not reported, since discordance with absolute values may lead to misinterpretation of CBC data. Current Interpretive Data was last revised on 2017. Monocyte pct 8.4 % [facility] Comment: Interpretive Data Percent cell count reference ranges are not reported, since discordance with absolute values may lead to misinterpretation of CBC data. Current Interpretive Data was last revised on 2017. Eosinophil pct 2.1 % [facility] Comment: Interpretive Data Percent cell count reference ranges are not reported, since discordance with absolute values may lead to misinterpretation of CBC data. Current Interpretive Data was last revised on 2017. Basophil pct 0.6 % [facility] Comment: Interpretive Data Percent cell count reference ranges are not reported, since discordance with absolute values may lead to misinterpretation of CBC data. Current Interpretive Data was last revised on 2017. Blood 10/03/2024 4:41 AM NATIONAL VAN OWNER OPERATOR 10/03/2024 4:55 AM NATIONAL VAN OWNER OPERATOR us Diana Gonzalez NP LAB BLOOD ORDERABLES Lala l Result [facility] [place] [address] * (ABNORMAL) CBC with auto differential (10/03/2024 4:41 AM NATIONAL VAN OWNER OPERATOR) WBC 14.1(H) 3.8 - 9.9 K/cumm Hgb 13.4 13.0 - 17.5 g/dL [facility] Hct 40.8 38.9 - 50.3 % [facility] Plt 434(H) 150 - 400 K/cumm [facility] MPV 9.5 9.1 - 12.3 fL [facility] RBC 4.37 4.30 - 5.80 M/cumm [facility] MCV 93.4 81.3 - 96.4 fL [facility] MCH 30.7 27.1 - 33.3 pg [facility] MCHC 32.8 32.3 - 35.7 g/dL [facility] RDW CV 13.6 11.1 - 14.9 % [facility] RDW SD 46.2 35.7 - 48.1 fL [facility] NRBC abs 0.00 0.00 - 0.01 K/cumm [facility] Blood 10/03/2024 4:41 AM NATIONAL VAN OWNER OPERATOR 10/03/2024 4:55 AM NATIONAL VAN OWNER OPERATOR us Diana Gonzalez NP LAB BLOOD ORDERABLES Lala l Result Performing Organization Address City/[facility] Co de Phone Number [facility] [place] [address] * (ABNORMAL) Hemoglobin A1c (10/03/2024 4:41 AM NATIONAL VAN OWNER OPERATOR) Hgb A1C 8.7(H) 4.0 - 5.6 % Estimated Average Glucose 203 mg/dL [facility] Comment: The ADA recommends reporting an estimated Average Glucose (eAG) with all Hemoglobin A1c results using the equation derived from a study of 507 normal and diabetic adults. Minority populations were underrepresented and children were not included. (Diabetes Care 2020; 43(S1): S66-S76). The eAG is not equivalent to a fasting glucose. Blood 10/03/2024 4:41 AM NATIONAL VAN OWNER OPERATOR 10/03/2024 5:00 AM NATIONAL VAN OWNER OPERATOR us Prashant Felder MD LAB BLOOD ORDERABLES Final Result Performing Organization Address City/[facility]/ZIP Co de Phone Number [facility] [place] [address] * (ABNORMAL) Basic metabolic panel (10/03/2024 4:41 AM NATIONAL VAN OWNER OPERATOR) Sodium 133(L) 135 - 145 mmol/L Potassium, pl 4.7 3.3 - 4.9 mmol/L [facility] Chloride 97 97 - 110 mmol/L [facility] CO2 27 22 - 32 mmol/L [facility] Anion gap 9 2 - 15 mmol/L [facility] BUN 28(H) 6 - 25 mg/dL [facility] Creatinine 0.93 0.80 - 1.30 mg/dL [facility] Glucose 185 70 - 199 mg/dL [facility] Comment: Interpretive Data Fasting glucose >/= 126 mg/dl is diagnostic for diabetes. Fasting is defined as no caloric intake for at least 8 hours. Fasting glucose between 100 mg/dl to 125 mg/dl is diagnostic of prediabetes. In a patient with classic symptoms of hyperglycemia or hyperglycemic crisis, a random glucose >/= 200 mg/dl is diagnostic for diabetes. In the absence of unequivocal hyperglycemia, results should be confirmed by repeat testing. The classification and Diagnosis of Diabetes Diabetes Care 2021; 46: S19-S40. Current interpretive data was last revised 2022. Calcium 8.8 8.5 - 10.3 mg/dL [facility] Blood 10/03/2024 4:41 AM NATIONAL VAN OWNER OPERATOR 10/03/2024 4:54 AM NATIONAL VAN OWNER OPERATOR us Diana Gonzalez NP LAB BLOOD ORDERABLES Lala l Result [facility] [place] [address] * POCT glucose (10/03/2024 1:51 AM NATIONAL V[employer] OWNER OPERATOR) Glucose, POC 167 70 - 199 mg/dL Blood 10/03/2024 1:51 AM NATIONAL V[employer] OWNER OPERATOR 10/03/2024 1:51 AM NATIONAL V[employer] OWNER OPERATOR us Prashant Felder MD LAB POCT ORDERABLES - MAGALIE CE Final Result [facility] [place] [address] * (ABNORMAL) Potassium, whole blood (10/02/2024 11:05 PM NATIONAL V[employer] OWNER OPERATOR) Potassium, bld 5.0(H) 3.3 - 4.9 mmol/L Blood 10/02/2024 11:0 5 PM NATIONAL V[employer] OWNER OPERATOR 10/02/2024 11:23 PM NATIONAL V[employer] OWNER OPERATOR Prashant Felder MD LAB BLOOD ORDERABLES Final Result Performing Organization Address [facility] Co de Phone Number [facility] [place] [address] * eGFR (10/02/2024 9:27 PM NATIONAL VAN OWNER OPERATOR) eGFR 80 >=60 mL/min/1. 73 m2 Comment: Interpretive Data Reference Interval Normal >/= 90 mL/min/1.73m2 Mildly decreased* 60 - 89 mL/min/1.73m2 Mildly to moderately decreased 45 - 59 mL/min/1.73m2 Moderately to severely decreased 30 - 44 mL/min/1.73m2 Severely decreased 15 - 29 mL/min/1.73m2 Kidney Failure < 15 mL/min/1.73m2 *Relative to young adult level Estimated glomerular filtration rate is determined by the 2020 CKD-EPI equation recommended by the National Kidney [employer] (A Unifying Approach to GFR Estimation: Recommendations of the NKF-ASK Task Force on Reassessing the Inclusion of Race in Diagnosing Kidney Disease, JASN 2020). The CKD-EPI equation should not be used for patients with unstable renal function and has not been validated in children and those over 70. Current interpretive data was last reviewed 2021. Blood 10/02/2024 9:27 PM NATIONAL VAN OWNER OPERATOR 10/02/2024 9:55 PM NATIONAL VAN OWNER OPERATOR Diana Gonzalez NP LAB BLOOD ORDERABLES Lala wing Result [facility] [place] [address] * (ABNORMAL) Differential, auto (10/02/2024 9:27 PM NATIONAL V[employer] OWNER OPERATOR) Neutrophil abs 8.5(H) 1.5 - 6.5 K/cumm Imm gran abs 0.1 0.0 - 0.1 K/cumm [facility] Lymphocyte abs 1.9 0.8 - 3.3 K/cumm [facility] Monocyte abs 0.6 0.2 - 0.8 K/cumm [facility] Eosinophil abs 0.0 0.0 - 0.5 K/cumm [facility] Basophil abs 0.0 0.0 - 0.1 K/cumm [facility] Neutrophil pct 76.1 % [facility] Comment: Interpretive Data Percent cell count reference ranges are not reported, since discordance with absolute values may lead to misinterpretation of CBC data. Current Interpretive Data was last revised on 2017. Imm gran pct 0.4 % [facility] Comment: Interpretive Data Percent cell count reference ranges are not reported, since discordance with absolute values may lead to misinterpretation of CBC data. Current Interpretive Data was last revised on 2017. Lymphocyte pct 17.2 % [facility] Comment: Interpretive Data Percent cell count reference ranges are not reported, since discordance with absolute values may lead to misinterpretation of CBC data. Current Interpretive Data was last revised on 2017. Monocyte pct 5.7 % [facility] Comment: Interpretive Data Percent cell count reference ranges are not reported, since discordance with absolute values may lead to misinterpretation of CBC data. Current Interpretive Data was last revised on 2017. Eosinophil pct 0.2 % [facility] Comment: Interpretive Data Percent cell count reference ranges are not reported, since discordance with absolute values may lead to misinterpretation of CBC data. Current Interpretive Data was last revised on 2017. Basophil pct 0.4 % [facility] Comment: Interpretive Data Percent cell count reference ranges are not reported, since discordance with absolute values may lead to misinterpretation of CBC data. Current Interpretive Data was last revised on 2017. Blood 10/02/2024 9:27 PM NATIONAL V[employer] OWNER OPERATOR 10/02/2024 9:55 PM NATIONAL V[employer] OWNER OPERATOR Diana Gonzalez NP LAB BLOOD ORDERABLES Lala l Result Performing Organization Address City/[facility]/ZIP Co de Phone Number [facility] [place] [address] * (ABNORMAL) CBC with auto differential (10/02/2024 9:27 PM NATIONAL VAN OWNER OPERATOR) Pathologist [facility] [place] WBC 11.2(H) 3.8 - 9.9 K/cumm Hgb 13.1 13.0 - 17.5 g/dL [facility] Hct 40.3 38.9 - 50.3 % [facility] Plt 446(H) 150 - 400 K/cumm [facility] MPV 9.7 9.1 - 12.3 fL [facility] RBC 4.35 4.30 - 5.80 M/cumm [facility] MCV 92.6 81.3 - 96.4 fL [facility] MCH 30.1 27.1 - 33.3 pg [facility] MCHC 32.5 32.3 - 35.7 g/dL [facility] RDW CV 13.5 11.1 - 14.9 % [facility] RDW SD 45.8 35.7 - 48.1 fL [facility] NRBC abs 0.00 0.00 - 0.01 K/cumm [facility] Blood 10/02/2024 9:27 PM NATIONAL V[employer] OWNER OPERATOR 10/02/2024 9:55 PM NATIONAL VAN OWNER OPERATOR Diana Gonzalez NP LAB BLOOD ORDERABLES Lala l Result Performing Organization Address City/[facility]/ZIP Co de Phone Number [facility] [place] [address] * (ABNORMAL) Hemoglobin A1c (10/02/2024 9:27 PM NATIONAL VAN OWNER OPERATOR) Hgb A1C 8.6(H) 4.0 - 5.6 % Estimated Average Glucose 200 mg/dL [facility] Comment: The ADA recommends reporting an estimated Average Glucose (eAG) with all Hemoglobin A1c results using the equation derived from a study of 507 normal and diabetic adults. Minority populations were underrepresented and children were not included. (Diabetes Care 2020; 43(S1): S66-S76). The eAG is not equivalent to a fasting glucose. Blood 10/02/2024 9:27 PM NATIONAL VAN OWNER OPERATOR 10/02/2024 9:58 PM NATIONAL VAN OWNER OPERATOR Narrative [facility] - 10/03/2024 9:10 AM NATIONAL VAN OWNER OPERATOR Reflex Prashant Felder MD LAB BLOOD ORDERABLES Final Result [facility] [place] [address] * (ABNORMAL) Lipid panel (10/02/2024 9:27 PM NATIONAL VAN OWNER OPERATOR) Cholesterol 126 30 - 199 mg/dL Comment: Interpretive Data Ages < or = 19 years Acceptable: <170 mg/dL Borderline high: 170-199 mg/dL High: >or= 200 mg/dL Ages > or = 20 years Desirable: <200 mg/dL Borderline high: 200-239 mg/dL High: >or= 240 mg/dL Literature References: 1. Expert Panel on Integrated Guidelines for Cardiovascular Health and Risk Reduction in Children and Adolescents. Pediatrics 2011;128:S213 2. NCEP Expert Panel. Circulation 2004;110:227 Current Interpretive Data was last revised on 2018. Triglycerides 85 <=149 mg/dL [facility] Comment: Interpretive Data Ages < or = 9 years Acceptable: <75 mg/dL Borderline high: 75-99 mg/dL High: >or= 100 mg/dL Ages 10 to 20 years Acceptable: <90 mg/dL Borderline high: 90-129 mg/dL High: >or= 130 mg/dL Ages > or = 20 years Desirable: <150 mg/dL Borderline high: 150-199 mg/dL High: 200-499 mg/dL Very high: >or= 499 mg/dL Literature References: 1. Expert Panel on Integrated Guidelines for Cardiovascular Health and Risk Reduction in Children and Adolescents. Pediatrics 2011;128:S213 2. NCEP Expert Panel. Circulation 2004;110:227 Current Interpretive Data was last revised on 2018. HDL 37(L) >=40 mg/dL [facility] Comment: Interpretive Data Ages < or = 19 years Acceptable: >45 mg/dL Borderline low: 40-45 mg/dL Low: <40 mg/dL Ages > or = 20 years Desirable: >or= 60 mg/dL Low: <40 mg/dL Literature References: 1. Expert Panel on Integrated Guidelines for Cardiovascular Health and Risk Reduction in Children and Adolescents. Pediatrics 2011;128:S213 2. NCEP Expert Panel. Circulation 2004;110:227 Current Interpretive Data was last revised on 2018. LDL, calculated 72 <=129 mg/dL [facility] Comment: Interpretive Data Ages < or = 19 years Acceptable: <110 mg/dL Borderline high: 110-129 mg/dL High: >or= 130 mg/dL Ages > or = 20 years Optimal: <100 mg/dL Near optimal: 100-129 mg/dL Borderline high: 130-159 mg/dL High: >160 mg/dL Calculated using the Rj LDL-C estimating equation. This equation was implemented on 2024. Prior to this date LDL-C was estimated using the Friedewald equation. Literature References: 1. Expert Panel on Integrated Guidelines for Cardiovascular Health and Risk Reduction in Children and Adolescents. Pediatrics 2011;128:S213 2. NCEP Expert Panel. Circulation 2004;110:227 3. Rj Link et al. KAMRYN Cardiol. 2020 December 18;5(5):540-548. doi: 10.1001/jamacardio.2020.0013 Current Interpretive Data was last revised on 2024. Non-HDL Cholesterol 89 mg/dL [facility] Comment: Interpretive Data Ages < or = 19 years Acceptable: <120 mg/dL Borderline high: 120-144 mg/dL High: >145 mg/dL Ages > or = 20 years When triglycerides are >200 mg/dL, Non-HDL cholesterol is a secondary target of therapy with treatment goals that are 30 mg/dL greater than the LDL cholesterol target. Literature References: 1. Expert Panel on Integrated Guidelines for Cardiovascular Health and Risk Reduction in Children and Adolescents. Pediatrics 2011;128:S213 2. NCEP Expert Panel. Circulation 2004;110:227 Current Interpretive Data was last revised on 2018. Chol/HDL ratio 3 [facility] Blood 10/02/2024 9:27 PM NATIONAL VAN OWNER OPERATOR 10/02/2024 9:55 PM NATIONAL VAN OWNER OPERATOR Prashant Felder MD LAB BLOOD ORDERABLES Final Result [facility] [place] [address] * (ABNORMAL) Basic metabolic panel (10/02/2024 9:27 PM NATIONAL VAN OWNER OPERATOR) Sodium 131(L) 135 - 145 mmol/L Potassium, pl 5.2(H) 3.3 - 4.9 mmol/L [facility] Chloride 94(L) 97 - 110 mmol/L [facility] CO2 30 22 - 32 mmol/L [facility] Anion gap 7 2 - 15 mmol/L [facility] BUN 30(H) 6 - 25 mg/dL [facility] Creatinine 1.00 0.80 - 1.30 mg/dL [facility] Glucose 255(H) 70 - 199 mg/dL [facility] Comment: Interpretive Data Fasting glucose >/= 126 mg/dl is diagnostic for diabetes. Fasting is defined as no caloric intake for at least 8 hours. Fasting glucose between 100 mg/dl to 125 mg/dl is diagnostic of prediabetes. In a patient with classic symptoms of hyperglycemia or hyperglycemic crisis, a random glucose >/= 200 mg/dl is diagnostic for diabetes. In the absence of unequivocal hyperglycemia, results should be confirmed by repeat testing. The classification and Diagnosis of Diabetes Diabetes Care 202; 46: S19-S40. Current interpretive data was last revised 2022. Calcium 8.6 8.5 - 10.3 mg/dL [facility] Blood 10/02/2024 9:27 PM NATIONAL VAN OWNER OPERATOR 10/02/2024 9:55 PM NATIONAL VAN OWNER OPERATOR us Diana Gonzalez KARATE INSTRUCTOR LAB BLOOD ORDERABLES Lala l Result Performing Organization Address [facility] Co de Phone Number [facility] [place] [address] * (ABNORMAL) POCT glucose (10/02/2024 7:51 PM NATIONAL VAN OWNER OPERATOR) Glucose, POC 254(H) 70 - 199 mg/dL Blood 10/02/2024 7:51 PM NATIONAL VAN OWNER OPERATOR 10/02/2024 7:51 PM NATIONAL VAN OWNER OPERATOR us Prashant Felder MD LAB POCT ORDERABLES - MAGALIE CE Final Result Performing Organization Address [facility] Co de Phone Number [facility] [address] * (ABNORMAL) POCT glucose (10/02/2024 5:40 PM NATIONAL VAN OWNER OPERATOR) Glucose, POC 285(H) 70 - 199 mg/dL Blood 10/02/2024 5:40 PM NATIONAL VAN OWNER OPERATOR 10/02/2024 5:40 PM NATIONAL VAN OWNER OPERATOR Prashant Felder MD LAB POCT ORDERABLES - MAGALIE CE Final Result Performing Organization Address [facility] Co de Phone Number [facility] [place] [address] * (ABNORMAL) POCT glucose (10/02/2024 5:37 PM NATIONAL VAN OWNER OPERATOR) Glucose, POC 302(H) 70 - 199 mg/dL Blood 10/02/2024 5:37 PM NATIONAL VAN OWNER OPERATOR 10/02/2024 5:37 PM NATIONAL VAN OWNER OPERATOR Prashant Felder MD LAB POCT ORDERABLES - MAGALIE CE Final Result Performing Organization Address City/[facility] Co de Phone Number [facility] [place] [address] * POCT glucose (10/02/2024 10:41 AM NATIONAL VAN OWNER OPERATOR) Glucose, POC 113 70 - 199 mg/dL Blood 10/02/2024 10:4 1 AM NATIONAL VAN OWNER OPERATOR 10/02/2024 10:41 AM NATIONAL VAN OWNER OPERATOR Prashant Felder MD LAB POCT ORDERABLES - MAGALIE CE Final Result Performing Organization Address [facility] Co de Phone Number [facility] [place] [address] * Tissue aerobic and anaerobic culture and gram stain Tissue Elbow, left (10/02/2024 9:19 AM NATIONAL VAN OWNER OPERATOR) Direct Specimen Exam Stain: Rare polymorphonuclear leukocytes seen. No organisms seen. Report Final Report: No growth [facility] Tissue (Elbow, left) 10/02/2024 9:19 AM NATIONAL VAN OWNER OPERATOR 10/02/2024 11:07 AM NATIONAL VAN OWNER OPERATOR Narrative [facility] - 10/07/2024 11:37 AM NATIONAL VAN OWNER OPERATOR LEFT ELBOW OLECRANON BURSA Testing performed by [facility] ([phone]) Specimens submitted from normally sterile body sites will have all bacterial morphotypes identified. Specimens that contain grossly mixed cherelle and/or are from body sites that are not normally sterile will be examined for Staphylococcus aureus, Pseudomonas aeruginosa, beta-hemolytic strep, vancomycin-resistant Enterococcus, Bacteroides, Parabacteroides, Clostridium perfringens and fungus. If any of these are isolated, the organism will be reported. Current interpretive data was last revised on 2019. us Prashant Felder MD LAB MICROBIOLOGY - GENERAL ORDERABLES Final Result Performing Organization Address [facility] Co de Phone Number [facility] [place] [address] * Mycology (fungal) culture and stain Tissue Elbow, left (10/02/2024 9:19 AM NATIONAL VAN OWNER OPERATOR) Direct Specimen Exam Stain: No Fungal elements seen. Report Final Report: No growth of fungus [facility] Tissue (Elbow, left) 10/02/2024 9:19 AM NATIONAL VAN OWNER OPERATOR 10/02/2024 11:07 AM NATIONAL VAN OWNER OPERATOR Narrative [facility] - 10/30/2024 7:55 AM CDT LEFT ELBOW OLECRANON BURSA Testing performed by [facility] ([phone]). Prashant Felder MD LAB MICROBIOLOGY - GENERAL ORDERABLES Final Result Performing Organization Address [facility] Co de Phone Number [facility] [place] [address] * Tissue aerobic and anaerobic culture and gram stain Tissue Elbow, left (10/02/2024 9:18 AM NATIONAL VAN OWNER OPERATOR) Direct Specimen Exam Stain: No polymorphonuclear leukocytes seen. No organisms seen. Report Final Report: No growth [facility] Tissue (Elbow, left) 10/02/2024 9:18 AM NATIONAL VAN OWNER OPERATOR 10/02/2024 11:05 AM NATIONAL VAN OWNER OPERATOR Narrative [facility] - 10/07/2024 11:38 AM NATIONAL VAN OWNER OPERATOR LEFT ELBOW BURSA Testing performed by [facility] ([phone]) Specimens submitted from normally sterile body sites will have all bacterial morphotypes identified. Specimens that contain grossly mixed cherelle and/or are from body sites that are not normally sterile will be examined for Staphylococcus aureus, Pseudomonas aeruginosa, beta-hemolytic strep, vancomycin-resistant Enterococcus, Bacteroides, Parabacteroides, Clostridium perfringens and fungus. If any of these are isolated, the organism will be reported. Current interpretive data was last revised on 2019. Prashant Felder MD LAB MICROBIOLOGY - GENERAL ORDERABLES Final Result Performing Organization Address City/[facility]/ZIP Co de Phone Number [facility] [place] [address] * Mycology (fungal) culture and stain Tissue Elbow, left (10/02/2024 9:18 AM NATIONAL VAN OWNER OPERATOR) Direct Specimen Exam Stain: No Fungal elements seen. Report Final Report: No growth of fungus [facility] Tissue (Elbow, left) 10/02/2024 9:18 AM NATIONAL VAN OWNER OPERATOR 10/02/2024 11:05 AM NATIONAL VAN OWNER OPERATOR Narrative [facility] - 10/30/2024 7:54 AM CDT LEFT ELBOW BURSA Testing performed by [facility] ([phone]). Prashant Felder MD LAB MICROBIOLOGY - GENERAL ORDERABLES Final Result Performing Organization Address [facility] Co de Phone Number [facility] [place] [address] * Tissue aerobic and anaerobic culture and gram stain Tissue Elbow, right (10/02/2024 8:58 AM NATIONAL VAN OWNER OPERATOR) Direct Specimen Exam Stain: No polymorphonuclear leukocytes seen. No organisms seen. Report Final Report: No growth [facility] Tissue (Elbow, right) 10/02/2024 8:58 AM NATIONAL VAN OWNER OPERATOR 10/02/2024 11:06 AM NATIONAL VAN OWNER OPERATOR Narrative [facility] - 10/07/2024 11:37 AM NATIONAL VAN OWNER OPERATOR Left Elbow Fluid Testing performed by [facility] ([phone]) Specimens submitted from normally sterile body sites will have all bacterial morphotypes identified. Specimens that contain grossly mixed cherelle and/or are from body sites that are not normally sterile will be examined for Staphylococcus aureus, Pseudomonas aeruginosa, beta-hemolytic strep, vancomycin-resistant Enterococcus, Bacteroides, Parabacteroides, Clostridium perfringens and fungus. If any of these are isolated, the organism will be reported. Current interpretive data was last revised on 2019. Prashant Felder MD LAB MICROBIOLOGY - GENERAL ORDERABLES Final Result Performing Organization Address City/[facility]/ZIP Co de Phone Number [facility] [place] [address] * Mycology (fungal) culture and stain Tissue Elbow, right (10/02/2024 8:58 AM NATIONAL VAN OWNER OPERATOR) Direct Specimen Exam Stain: No Fungal elements seen. Report Final Report: No growth of fungus [facility] Tissue (Elbow, right) 10/02/2024 8:58 AM NATIONAL VAN OWNER OPERATOR 10/02/2024 11:06 AM NATIONAL VAN OWNER OPERATOR Narrative [facility] - 10/30/2024 7:47 AM CDT Left Elbow Fluid Testing performed by [facility] ([phone]). us Prashant Felder MD LAB MICROBIOLOGY - GENERAL ORDERABLES Final Result [facility] [place] [address] * OR AN ELECTIVE ENDOTRACHEAL AIRWAY, OR AN PROCEDURE PLACEHOLDER (10/02/2024 8:39 AM N[employer]NER OPERATOR) Narrative Shila Alcocer MD - 10/02/2024 8:39 AM N[employer] OPERATOR Shila Alcocer MD 10/02/2024 8:40 AM Airway Patient location: OR Urgency: elective Indications for airway management: anesthesia Difficult airway: no Staff: Placed by: Anesthesiologist: Shila Alcocer MD Emergent airway documentation: Risks and benefits discussed: yes Consent obtained: yes Consent given by: patient Airway prep: Preoxygenated: yes Patient position: sniffing Mask difficulty assessment: 2 - vent by mask + OA or adjuvant Spontaneous ventilation during airway: absent Sedation level during airway: GA Final airway details: Final airway type: endotracheal airway Tube type: ETT ETT size: 7.5 mm Cuffed: yes Technique used for successful ETT placement: video laryngoscopy Devices/Methods used in placement: stylet Insertion site: oral Blade type: Trav Video blade type: Peterson Blade size: 3 Cormack-Lehane (video): grade I - full view of glottis Cuff volume: 8 mL Cuff inflated with: air ETT to lips: 24 cm Placement verified by: auscultation and CO2 detection Airway secured with: silk tape Number of attempts: 1 Planned trial extubation: yes Additional comments: Atraumatic intubation. No injury to the patient's teeth or mouth. Eyes taped/protected. Peterson 4 used. Shila Alcocer MD ANESTHE MADDI ORDERABLES Final Result * POCT glucose (10/02/2024 6:36 AM N[employer] OPERATOR) Glucose, POC 117 70 - 199 mg/dL Blood 10/02/2024 6:36 AM N[employer]NER OPERATOR 10/02/2024 6:36 AM N[employer]NER OPERATOR Prashant Felder MD LAB POCT ORDERABLES - MAGALIE CE Final Result Performing Organization Address [facility] Co de Phone Number CAITIE Garcia [facility] [place] [address] * MSK MR Outside Reference (08/26/2024 5:53 PM NATIONAL [employer]NER OPERATOR) Impressions [facility] - 08/26/2024 5:53 PM N[employer]NER OPERATOR These images are for Reference purposes only and have not been reviewed by [facility] Radiology. There will be no report generated by a [facility] Radiologist. 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 Electronically signed by: Michael Mansfield MD Narrative 08/07/2024 8:35 AM NATIONAL [employer] OWNER OPERATOR EXAMINATION: XR ELBOW LEFT 3 OR MORE VIEWS HISTORY: Left elbow pain FINDINGS: No comparison. Mild soft tissue swelling of the left elbow. 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 Normal alignment. No fracture. Trace left elbow joint effusion. Procedure Note Michael Mansfield MD - 08/07/2024 EXAMINATION: XR ELBOW LEFT 3 OR MORE VIEWS HISTORY: Left elbow pain FINDINGS: No comparison. Mild soft tissue swelling of the left elbow. 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 Normal alignment. No fracture. Trace left elbow joint effusion. IMPRESSION: Moderate ulnohumeral compartment predominant tricompartmental left elbow osteoarthritis. Electronically signed by: Michael Mansfield MD us Jett Lugo MD IMG XR PROCEDURES Fin al Result * (ABNORMAL) Albumin Creatinine Ratio, Urine (10/16/2022 9:19 AM N[employer]NER OPERATOR) Microalb, Ur 321.7(H) 0.0 - 22.9 mg/L [facility] Comment:Repeated and Verifie d Random Urine Creatinine 62.7 mg/dL [facility] Microalb/Creat Ratio 513.1(H) 0.0 - 29.9 mg/g [facility] Urine 10/16/2022 9:19 AM N[employer]NER OPERATOR 10/16/2022 10:19 AM N[employer] OWNER OPERATOR us Hillary Carlson MD LAB URINE ORDERABLES Final Re sult [facility] from Last 3 Months or Most Recently Relevant to Health Maintenance Insurance MEDICARE [employer] SENIOR SUPPLEMENT MEDICARE [employer] SENIOR SUPPLEMENT MEDICARE [employer] SENIOR SUPPLEMENT Advance Directives For more information, please contact: [phone] * Full Code (Latest Code Status on File) Date Activated Date Inactivated Comments 10/02/2024 1:49 PM 10/06/2024 10:39 PM Care Teams Teacher'S Aide Relationship Specialty Start Date End Date Tyrone Carvajal MD PCP - General Internal Medicine 11/06/19 Hetal Regan MD Referring Physician Endocrinology Diabetes & Metabolism 06/13/21 Jefferson Mora MD Consulting Physician Rheumatology 04/17/24 Swathi Diaz PA [address] [facility] ENDOCR[facility] [address] Physician Associate Art Director Physician Associate Art Director 04/19/24
--- OUTSIDE RECORDS SUMMARY | 2024-11-03 16:36 | XMS_ITS | Clinical Summary ---
Author Organization [facility] Address [address] [place] [address] Care Team Providers Care Funeral Attendant Name Role Phone Tyrone Carvajal MD Primary Care Provider [phone] Hetal Regan MD Unavailable Jefferson Mora MD Unavailable [phone] Swathi Diaz Unavailable Allergies Active Allergy Reactions Criticality Noted Date [...] 1 TABLET BY MOUTH DAILY 90 tablet 1022/20 21 Active Additional Information Patient taking differently: 100 mg oral Every morning, Indications: hypertension, Informant: Spouse/Significant Other, Reported on 10/02/[address] (CYMBALTA) 20 mg capsuleIndication s:pain Take 1 capsule (20 mg total) by mouth 2 (two) times a day 01/24/20 Active ondansetron ODT (ZOFRAN-ODT) 4 mg disintegrating [...] with long-term current use of insulin ([facility]) Take 1 tablet by mouth daily 90 tablet 3 08/04/20 24 Active Additional Information Patient taking differently:1 tablet oralEvery morning, Indications: type 2 diabetes mellitus, Informant: Spouse/Significant Other, Reported on 10/02/2024 insulin degludec (TRESIBA) 100 unit/mL (3 mL) pen for injectionIndicati ons:Type 2 diabetes mellitus with hyperglycemia, with long-term current use of insulin ([facility]) INJECT 8 UNITS SUBCUTANEOUSLY DAILY/ 15 mL 3 08/04/20 Active Additional Information Patient taking differently: 14 Units subcutaneous Nightly, (No instructions reported), Indications: type 2 diabetes mellitus, Informant: Spouse/Significant Other, Reported on 10/02/2024 ezetimibe (ZETIA) 10 mg tabletIndications :Type 2 diabetes mellitus with hyperglycemia, with long-term current use of insulin ([facility]),Hyperlipide denice associated with type 2 diabetes mellitus ([facility]) Take 1 tablet (10 mg total) by mouth daily 90 tablet 3 08/04/20 24 Active Additional Information Patient taking differently:10 mg oralNightly, Indications: hyperlipidemia, Informant: Spouse/Significant Other, Reported on 10/02/2024 pen needle, diabetic (BD Charu 2nd Gen Pen Needle) 32 gauge x 5/32 needleIndications :Type 2 diabetes mellitus with hyperglycemia, with long-term current use of insulin ([facility]) Use to inject insulin up to 4 times daily. 200 each 08/04/20 24 Active cyclobenzaprine (FLEXERIL) 10 mg [...] without long-term current use of insulin ([facility]) Change sensor every 15 days 2 each 10/13/19 25 Active diygdbeo-wga-WI-l ycopen-lutein (CENTRUM SILVER MEN) 300-600-300 mcg tablet take 1 tablet by oral route every day 0 0 11/03/19 17 2024 Discontin ued(Stop Taking at Discharge ) FreeStyle Stacy 3 Sensor deviceIndications :Type 2 diabetes mellitus with hyperglycemia, without long-term current use of insulin ([facility]) Change sensor every 14 days 2 each 03/25/20 24 2024 Discontin ued(Alter mark therapy) [...] a day for 17 days 34 tablet 10/06/19 25 2024 Active Problems Problem Noted Date Diagnosed Date Olecranon bursitis of left elbow 09/15/2024 Assessment & Plan (10/23/2024 9:56 AM CLINICAL AIDE): Now s/p L olecranon bursectomy and I&D [...] concerns. Assessment & Plan (10/06/2024 2:15 PM CLINICAL AIDE): Larry Bennett is a 69yr old male with a PMH of DM-2, RA (not on immunosuppressive therapy), HTN, Dyslipidemia, was admitted to [facility] for management of chronic olecranon bursitis. According [...] 08/04/2024 Assessment & Plan (08/04/2024 9:56 AM CLINICAL AIDE): - Potassium 5.7 on recent CMP (07/18/2024). - PCP recommended to avoid high potassium foods. Patient endorses leg cramps. - Advised to increase hydration of sugar-free fluids. Will send note to PCP with recommendation to decrease losartan to 50 mg daily and repeat renal function to see if hyperkalemia resolves. Microalbuminuria 05/12/2022 Assessment & Plan (08/04/2024 9:57 AM CLINICAL AIDE): - Recent UA negative for protein, this [...] 06/13/2018 Assessment & Plan (08/04/2024 9:58 AM CLINICAL AIDE): - Last LDL 127, TG 171 (06/2024), above goal - He has been out of Pravastatin for awhile - has been struggling to get refills (?) - Re-start pravastatin 80 mg daily and continue Zetia 10 mg daily. Refills sent. Assessment & Plan (12/27/2021 12:10 PM CDT): Continue statin therapy and optimize glycemic control. Assessment & Plan (09/15/2021 5:01 PM CLINICAL AIDE): Continue statin therapy and optimize glycemic control. [...] week Assessment & Plan (08/11/2020 11:05 AM CLINICAL AIDE): Continue pravastatin and focus on low fat [...] therapy Assessment & Plan (08/24/2018 6:43 PM CLINICAL AIDE): Continue statin therapy Assessment & Plan (06/13/2018 [...] mg/dL Assessment & Plan (10/20/2023 9:33 PM CLINICAL AIDE): Continue statin, optimize glycemic control. Assessment & Plan (03/14/2023 8:34 PM CDT): Continue statin, optimize glycemic control. Assessment & Plan (03/23/2022 9:48 AM CDT): Continue statin, optimize glycemic control. Recheck levels. Assessment & Plan (02/14/2018 10:50 AM CDT): Advised to have lipid panel done Assessment & Plan (11/01/2017 1:18 PM CDT): Will get lipid panel Assessment & Plan (07/10/2017 12:19 PM CLINICAL AIDE): Goal of treatment , LDL cholesterol less [...] 2010 Assessment & Plan (08/04/2024 9:54 AM CLINICAL AIDE): - Diabetes is complicated by microalbuminuria, hyperlipidemia, hypertension and other co-morbidities. Fairly well controlled - with today's GMI of 7.1%. Lab Results Component Value Date HGBA1C 7.4 01/16/2024 Per [employer], goal A1c is less 7% [...] that I am available via phone or Etogashart if they have any concerns for hypo/hyperglycemia, [...] etc. Assessment & Plan (10/20/2023 9:35 PM CLINICAL AIDE): His Stacy device does not consistently match [...] daily. Assessment & Plan (10/17/2021 1:55 PM CLINICAL AIDE): FreeStyle Stacy report was reviewed today and [...] daily. Assessment & Plan (09/15/2021 5:10 PM CLINICAL AIDE): Hemoglobin A1c has increased to 9.8%. Continue [...] SE discussed. First injection now. Provided with Stacy 2 reader as they are considering buy sensors OTC. Agree this would help with compliance with BG checks during the day and demonstrate action of food to BG. Assessment & Plan (08/11/2020 11:04 AM CLINICAL AIDE): A1c worsening at 9.5. Poor compliance with [...] misconceptions. Assessment & Plan (08/22/2018 11:21 AM CLINICAL AIDE): Continue same medication. Advised that glimepiride may [...] Rodolfo Assessment & Plan (07/10/2017 12:19 PM CLINICAL AIDE): Hba1c was 8.3 today, indicating worsening DM [...] Unspecified Assessment & Plan (08/04/2024 9:56 AM CLINICAL AIDE): - At goal today - Recommend to [...] plan. Assessment & Plan (08/11/2020 11:05 AM CLINICAL AIDE): Controlled on current medications. Continue plan. Assessment [...] medications. Assessment & Plan (08/24/2018 6:41 PM CLINICAL AIDE): Controlled on current medications. Assessment & Plan (06/13/2018 9:56 AM CDT): Goal blood pressure is less than 140/85 Low salt diet recommended Daily aerobic exercise Continue current meds, including TARA-I or ARB Assessment & Plan (02/14/2018 10:50 AM CDT): Controlled on current medications. Assessment & Plan (11/01/2017 1:18 PM CDT): Controlled on current medications. Assessment & Plan (07/10/2017 12:19 PM CLINICAL AIDE): Goal blood pressure is less than 140/85 Low salt diet recommended Daily aerobic exercise Continue current meds, including TARA-I or ARB Assessment & Plan (03/01/2017 10:17 AM CDT): Goal blood pressure is less than 140/85 Low salt diet recommended Daily aerobic exercise Continue current meds, including TARA-I or ARB Check BMP, microalbumin Encounters Date Type Department Care Team Description 10/22/2024 9:10 AM CLINICAL AIDE Office Visit [facility] Orthopaedic Surgery [address] 2[address] [place] [address] Prashant Felder MD Olecranon bursitis of left elbow (Primary Dx) 10/15/2024 2:20 PM CLINICAL AIDE Office Visit [facility] Infectious Diseases [address] [place] [address] Laurence Herrera NP Olecranon bursitis of left elbow (Primary Dx); Encounter for screening examination for sexually transmitted disease 10/15/2024 1:00 PM CLINICAL AIDE Office Visit [facility] Orthopaedic Surgery [address] [place] [address] 2nd Floor [address] [place] [phone] Prashant Felder MD Olecranon bursitis of left elbow (Primary Dx) 10/02/2024 8:00 AM CLINICAL AIDE - 10/02/2024 10:40 AM CLINICAL AIDE Surgery [facility] Operating Room [address] [place] [address] Prashant Felder MD Left Olecranon bursectomy 10/02/2024 7:56 AM CLINICAL AIDE Anesthesia Event [facility] Operating [address] [place] [address] Shila Alcocer MD Dulle, Alison Renee, NP 10/02/2024 5:56 AM CLINICAL AIDE - 10/06/2024 6:29 PM CLINICAL AIDE Hospital Encounter [address] [phone] Prashant Felder MD Olecranon bursitis of left elbow (Primary Dx) Discharge Disposition: Discharge to home or self care 09/10/2024 8:40 AM CLINICAL AIDE Office Visit [facility] Orthopaedic Surgery [address] [place] [address] Floor [address] [place] [phone] Prashant Felder MD Septic olecranon bursitis, left (Primary Dx) 08/26/2024 5:53 PM CLINICAL AIDE - 08/26/2024 11:59 PM CLINICAL AIDE Hospital Encounter [facility] [address] [place] [address] Discharge Disposition: Discharge to home or self care 08/26/2024 2:40 PM CLINICAL AIDE Office Visit [facility] Orthopaedic Surgery [address] [place] [address] 2nd Floor [address] [place] [phone] Prashant Felder MD Septic olecranon bursitis, left; Rheumatoid arthritis, involving unspecified site, unspecified whether rheumatoid factor present (HCC) 08/07/2024 9:00 AM CLINICAL AIDE Office Visit [facility] Orthopaedic Surgery [address] [facility] 12th [place] [address] [place] [address] Jett Lugo MD Olecranon bursitis of left elbow (Primary Dx) 08/07/2024 8:27 AM CLINICAL AIDE - 08/07/2024 11:59 PM CLINICAL AIDE Hospital Encounter [facility] [address] [place] [address] Left elbow pain Discharge Disposition: Discharge to home or self care from Last 3 Months Surgical History Surgery Date Site/Laterality Comments COLONOSCOPY 06/06/2021 Medical History Medical History Date Comments Type 2 diabetes mellitus (HCC) D iabetes type 2 Arthritis ? Infection 2-3 weeks Family History Medical History Relation Name Comments Cirrhosis Father Liver cancer Father Breast cancer Mother Marlen Cancer Mother Marlen Arthritis Paternal Grandmother Marzena Diabetes type II Sister 1 Hypertension Sister 1 Diabetes Sister 2 Irene Hypertension Sister 2 Irene Stroke Sister 2 Irene Anesthesia problems Neg Hx Relation Name Status Comments Father Mother Marlen Alive Paternal Grandmother Marzena Alive Sister 1 Sister 2 Irene Alive Social History Tobacco Use Types Packs/Day Years [...] on file Legal Sex Male 12:10 AM CLINICAL AIDE Gender Identity Male 02/14/2021 8:03 PM CDT Sexual Orientation Straight 02/14/2021 8: 02 PM CDT Occupation Industry Job Start Date Job End Date [employer] Not on file Not on file Not on file Obstetrics History Last Filed Vital Signs Vital Sign Reading Time Taken Comments Blood Pressure 143/80 10/15/2024 2:02 PM CLINICAL AIDE Pulse 73 10/15/2024 2:02 PM CLINICAL AIDE Temperature 36.5 C (97.7 F) 10/15/2024 2:02 PM CLINICAL AIDE Respiratory Rate 16 10/06/2024 4:30 PM CLINICAL AIDE Oxygen Saturation 98% 10/15/2024 2:02 PM CLINICAL AIDE Inhaled Oxygen Concentration - - Weight 68.9 kg (152 lb) 10/15/2024 2:02 PM CLINICAL AIDE Height 182 cm (5' 11.65 ) 10/15/2024 2:02 PM CLINICAL AIDE Body Mass Index 20.81 10/15/2024 2:02 PM CLINICAL AIDE Plan of Treatment Health Maintenance Due Date Last Done Comments Colon Cancer Screening-Colonoscopy 1955 Hepatitis C Screening 1955 Dilated Eye Exam 1955 DTaP/Tdap/Td Vaccine (1 - Tdap) 01/08/1964 Hepatitis B Screening 1971 Pneumococcal vaccine 65+ (1 of 2 - PCV) 01/08/1972 Lung Cancer Screening 2003 Zoster Vaccine (1 of 2) 2003 Abdominal Aortic Aneurysm (A AA) Screen 2018 Well Visit 65+ 2018 Foot Exam 03/06/2020 03/06/2019, 06/13/2018 Depression Screening 05/13/2021 05/13/2020, 03/06/2019, 06/13/2018, Additional history exists Albumin Creatinine Ratio, Urine 10/16/2023 3, 02/23/2021 Covid-19 Vaccine (5 - 2023-2 5 season) 2024 01/20/2022, 07/05/2021, 10/29/2020, Additional history exists Influenza Vaccine (#1) 2024 Hemoglobin A1C 04/02/2025 10/03/2024, 09/20, 01/16/2024, Additional history exists Lipid Panel 10/02/2025 10/02/2024, 09/21, 02/23/2021, Additional history exists Fall Risk Assessment 10/06/2025 10/06/2024 eGFR 10/06/2025 10/06/2024, 09/20, 10/04/2024, Additional history exists Procedures Procedure Name Priority Date/Time Associated Diagnosis Comments POCT GLUCOSE DEVICE Routine 10/06/2024 12:27 PM CLINICAL AIDE POCT GLUCOSE DEVICE Routine 10/06/2024 8 :35 AM CLINICAL AIDE HEPATIC FUNCTION PANEL Routine 4:45 AM CLINICAL AIDE EGFR Routine 10/06/2024 4:45 AM CLINICAL AIDE DIFFERENTIAL AUTO Routine 10/06/2024 4:4 5 AM CLINICAL AIDE CBC WITH AUTO DIFFERENTIAL Routine 10/06/2024 4:45 AM CLINICAL AIDE BASIC METABOLIC PANEL Routine 10/06/2024 4:45 AM CLINICAL AIDE POCT GLUCOSE DEVICE Routine 10/06/2024 1 :25 AM CLINICAL AIDE POCT GLUCOSE DEVICE Routine 10/05/2024 7 :43 PM CLINICAL AIDE POCT GLUCOSE DEVICE Routine 10/05/2024 4 :27 PM CLINICAL AIDE POCT GLUCOSE DEVICE Routine 10/05/2024 11:38 AM CLINICAL AIDE POCT GLUCOSE DEVICE Routine 10/05/2024 7 :45 AM CLINICAL AIDE EGFR Routine 10/05/2024 5:17 AM CLINICAL AIDE DIFFERENTIAL AUTO Routine 10/05/2024 5:1 7 AM CLINICAL AIDE CBC WITH AUTO DIFFERENTIAL Routine 10/05/2024 5:17 AM CLINICAL AIDE BASIC METABOLIC PANEL Routine 10/05/2024 5:17 AM CLINICAL AIDE POCT GLUCOSE DEVICE Routine 10/05/2024 2 :24 AM CLINICAL AIDE VANCOMYCIN LEVEL TROUGH Routine 10/04/2024 10:17 PM CLINICAL AIDE POCT GLUCOSE DEVICE Routine 10/04/2024 8 :11 PM CLINICAL AIDE POCT GLUCOSE DEVICE Routine 10/04/2024 5 :00 PM CLINICAL AIDE POCT GLUCOSE DEVICE Routine 10/04/2024 12:04 PM CLINICAL AIDE POCT GLUCOSE DEVICE Routine 10/04/2024 7 :59 AM CLINICAL AIDE EGFR Routine 10/04/2024 4:04 AM CLINICAL AIDE DIFFERENTIAL AUTO Routine 10/04/2024 4:0 4 AM CLINICAL AIDE CBC WITH AUTO DIFFERENTIAL Routine 10/04/2024 4:04 AM CLINICAL AIDE BASIC METABOLIC PANEL Routine 10/04/2024 4:04 AM CLINICAL AIDE POCT GLUCOSE DEVICE Routine 10/04/2024 3 :56 AM CLINICAL AIDE POCT GLUCOSE DEVICE Routine 10/04/2024 3 :54 AM CLINICAL AIDE POCT GLUCOSE DEVICE Routine 10/03/2024 8 :44 PM CLINICAL AIDE POCT GLUCOSE DEVICE Routine 10/03/2024 5 :09 PM CLINICAL AIDE POCT GLUCOSE DEVICE Routine 10/03/2024 11:57 AM CLINICAL AIDE POCT GLUCOSE DEVICE Routine 10/03/2024 11:13 AM CLINICAL AIDE POCT GLUCOSE DEVICE Routine 10/03/2024 8 :06 AM CLINICAL AIDE HEMOGLOBIN A1C Routine 10/03/2024 4:41 AM CLINICAL AIDE EGFR Routine 10/03/2024 4:41 AM CLINICAL AIDE DIFFERENTIAL AUTO Routine 10/03/2024 4:4 1 AM CLINICAL AIDE POTASSIUM, WHOLE BLOOD Routine 4:41 AM CLINICAL AIDE CBC WITH AUTO DIFFERENTIAL Routine 10/03/2024 4:41 AM CLINICAL AIDE BASIC METABOLIC PANEL Routine 10/03/2024 4:41 AM CLINICAL AIDE POCT GLUCOSE DEVICE Routine 10/03/2024 1 :51 AM CLINICAL AIDE POTASSIUM, WHOLE BLOOD Routine 11:05 PM CLINICAL AIDE HEMOGLOBIN A1C Routine 10/02/2024 9:27 PM CLINICAL AIDE LIPID PANEL Routine 10/02/2024 9:27 PM CLINICAL AIDE EGFR Routine 10/02/2024 9:27 PM CLINICAL AIDE DIFFERENTIAL AUTO Routine 10/02/2024 9:2 7 PM CLINICAL AIDE CBC WITH AUTO DIFFERENTIAL Routine 10/02/2024 9:27 PM CLINICAL AIDE BASIC METABOLIC PANEL Routine 10/02/2024 9:27 PM CLINICAL AIDE POCT GLUCOSE DEVICE Routine 10/02/2024 7 :51 PM CLINICAL AIDE POCT GLUCOSE DEVICE Routine 10/02/2024 5 :40 PM CLINICAL AIDE POCT GLUCOSE DEVICE Routine 10/02/2024 5 :37 PM CLINICAL AIDE POCT GLUCOSE DEVICE Routine 10/02/2024 10:41 AM CLINICAL AIDE MYCOBACTERIOLOGY AFB CULTURE AND ACID-FAST STAIN Routine 10/02/2024 9:19 AM CLINICAL AIDE MYCOLOGY (FUNGAL) CULTURE AND STAIN Routine 10/02/2024 9:19 AM CLINICAL AIDE TISSUE AEROBIC AND ANAEROBIC CULTURE AND GRAM STAIN Routine 10/02/2024 9:19 AM CLINICAL AIDE MYCOBACTERIOLOGY AFB CULTURE AND ACID-FAST STAIN Routine 10/02/2024 9:18 AM CLINICAL AIDE MYCOLOGY (FUNGAL) CULTURE AND STAIN Routine 10/02/2024 9:18 AM CLINICAL AIDE TISSUE AEROBIC AND ANAEROBIC CULTURE AND GRAM STAIN Routine 10/02/2024 9:18 AM CLINICAL AIDE MYCOBACTERIOLOGY AFB CULTURE AND ACID-FAST STAIN Routine 10/02/2024 8:58 AM CLINICAL AIDE MYCOLOGY (FUNGAL) CULTURE AND STAIN Routine 10/02/2024 8:58 AM CLINICAL AIDE TISSUE AEROBIC AND ANAEROBIC CULTURE AND GRAM STAIN Routine 10/02/2024 8:58 AM CLINICAL AIDE HI AN PROCEDURE PLACEHOLDER Routine 10/02/2024 8:39 AM CLINICAL AIDE HI AN ELECTIVE ENDOTRACHEAL AIRWAY Routine 10/02/2024 8:39 AM CLINICAL AIDE IRRIGATION AND DEBRIDEMENT - ELBOW 10/02/2024 8:02 AM CLINICAL AIDE Olecranon bursitis of left elbow Case Notes 10/01@1336: Per Karen via phone call, changed patient class to Outpatient in Bed/Post op destination to Surgical Floor. [email or web address] Sent email to OR resource nurse about blank DPC. SR Special Needs 3 liters of saline and cysto tubing EXCISION CYST/LESION/MASS - ELBOW BURSA 10/02/2024 8:02 AM CLINICAL AIDE Olecranon bursitis of left elbow Case Notes 10/01@1336: Per Karen via phone call, changed patient class to Outpatient in Bed/Post op destination to Surgical Floor. [email or web address] Sent email to OR resource nurse about blank DPC. SR Special Needs 3 liters of saline and cysto tubing POCT GLUCOSE DEVICE Routine 10/02/2024 6 :36 AM CLINICAL AIDE MSK MR OUTSIDE REFERENCE Routine 08/26/2024 5:53 PM CLINICAL AIDE XR ELBOW LEFT 3 OR MORE VIEWS Schedule Routine, Read Routine (OP Routine) 08/07/2024 8:34 AM CLINICAL AIDE Left elbow pain ALBUMIN CREATININE RATIO, URINE Routine 10/16/2022 9:19 AM CLINICAL AIDE Type 2 diabetes mellitus with hyperglycemia, without long-term current use of insulin (HCC) from Last 3 Months or Most Recently Relevant to Health Maintenance Results * POCT glucose (10/06/2024 12:27 PM CLINICAL AIDE) Glucose, POC 158 70 - 199 mg/dL Blood 10/06/2024 12:2 7 PM CLINICAL AIDE 10/06/2024 12:27 PM CLINICAL AIDE us Prashant Felder MD LAB POCT ORDERABLES - MAGALIE CE Final Result Performing Organization Address [facility] Co de Phone Number [facility] Department [place] [address] * POCT glucose (10/06/2024 8:35 AM CLINICAL AIDE) Glucose, POC 138 70 - 199 mg/dL Blood 10/06/2024 8:35 AM CLINICAL AIDE 10/06/2024 8:35 AM CLINICAL AIDE Prashant Felder MD LAB POCT ORDERABLES - MAGALIE CE Final Result Performing Organization Address [facility] Co de Phone Number [facility] Department [place] [address] * eGFR (10/06/2024 4:45 AM CLINICAL AIDE) Pathologist [facility] eGFR >90 >=60 mL/min/1. 73 m2 Comment: [...] last reviewed 2021. Blood 10/06/2024 4:45 AM CLINICAL AIDE 10/06/2024 4:56 AM CLINICAL AIDE us Diana Gonzalez NP LAB BLOOD ORDERABLES Lala wing Result [facility] [address] [facility] Department [place] [address] * (ABNORMAL) Differential, auto (10/06/2024 4:45 AM CLINICAL AIDE) [facility] Neutrophil abs 6.4 1.5 - 6.5 K/cumm Imm gran abs 0.0 0.0 - 0.1 K/cumm [facility] Lymphocyte abs 2.9 0.8 - 3.3 K/cumm [facility] Monocyte abs 1.1(H) 0.2 - 0.8 K/cumm [facility] Eosinophil abs 1.0(H) 0.0 - 0.5 K/cumm [facility] Basophil abs 0.2(H) 0.0 - 0.1 K/cumm [facility] Neutrophil pct 55.0 % [facility] Comment: Interpretive Data Percent cell count reference ranges are not reported, since discordance with absolute values may lead to misinterpretation of CBC data. Current Interpretive Data was last revised on 2017. Imm gran pct 0.3 % [facility] Comment: Interpretive Data Percent cell count reference ranges are not reported, since discordance with absolute values may lead to misinterpretation of CBC data. Current Interpretive Data was last revised on 2017. Lymphocyte pct 25.1 % [facility] Comment: Interpretive Data Percent cell count reference ranges are not reported, since discordance with absolute values may lead to misinterpretation of CBC data. Current Interpretive Data was last revised on 2017. Monocyte pct 9.3 % [facility] Comment: Interpretive Data Percent cell count reference ranges are not reported, since discordance with absolute values may lead to misinterpretation of CBC data. Current Interpretive Data was last revised on 2017. Eosinophil pct 8.8 % [facility] Comment: Interpretive Data Percent cell count reference ranges are not reported, since discordance with absolute values may lead to misinterpretation of CBC data. Current Interpretive Data was last revised on 2017. Basophil pct 1.5 % [facility] Comment: Interpretive Data Percent cell count reference ranges are not reported, since discordance with absolute values may lead to misinterpretation of CBC data. Current Interpretive Data was last revised on 2017. Blood 10/06/2024 4:45 AM CLINICAL AIDE 10/06/2024 4:56 AM CLINICAL AIDE Diana Gonzalez NP LAB BLOOD ORDERABLES Lala wing Result [facility] [address] [facility] Department [place] [address] * (ABNORMAL) CBC with auto differential (10/06/2024 4:45 AM CLINICAL AIDE) WBC 11.6(H) 3.8 - 9.9 K/cumm Hgb 13.7 13.0 - 17.5 g/dL [facility] Hct 42.1 38.9 - 50.3 % [facility] Plt 469(H) 150 - 400 K/cumm [facility] MPV 9.4 9.1 - 12.3 fL [facility] RBC 4.58 4.30 - 5.80 M/cumm [facility] MCV 91.9 81.3 - 96.4 fL [facility] MCH 29.9 27.1 - 33.3 pg [facility] MCHC 32.5 32.3 - 35.7 g/dL [facility] RDW CV 13.6 11.1 - 14.9 % [facility] RDW SD 45.3 35.7 - 48.1 fL [facility] NRBC abs 0.00 0.00 - 0.01 K/cumm [facility] Blood 10/06/2024 4:45 AM CLINICAL AIDE 10/06/2024 4:56 AM CLINICAL AIDE us Diana Gonzalez SCANNING SUPERVISOR LAB BLOOD ORDERABLES Lala l Result Performing Organization Address [facility] de Phone Number [facility] Department [place] [address] * Hepatic function panel (10/06/2024 4:45 AM CLINICAL AIDE) Bilirubin, total 0.3 0.1 - 1.2 mg/dL Bilirubin, direct <0.2 0.1 - 0.3 mg/dL [facility] Protein, pl 6.9 6.5 - 8.5 g/dL [facility] Albumin 3.6 3.5 - 5.0 g/dL [facility] Alk phos 83 40 - 130 Units/L [facility] ALT 18 7 - 55 Units/L [facility] AST 22 10 - 50 Units/L [facility] Blood 10/06/2024 4:45 AM CLINICAL AIDE 10/06/2024 4:56 AM CLINICAL AIDE us Prashant Felder MD LAB BLOOD ORDERABLES Final Result Performing Organization Address City/[facility]/ZIP Co de Phone Number [facility] Department [place] [address] * Basic metabolic panel (10/06/2024 4:45 AM CLINICAL AIDE) Sodium 135 135 - 145 mmol/L Potassium, pl 4.9 3.3 - 4.9 mmol/L [facility] Chloride 100 97 - 110 mmol/L [facility] CO2 29 22 - 32 mmol/L [facility] Anion gap 6 2 - 15 mmol/L [facility] BUN 19 6 - 25 mg/dL [facility] Creatinine 0.83 0.80 - 1.30 mg/dL [facility] Glucose 100 70 - 199 mg/dL [facility] Comment: Interpretive Data Fasting glucose >/= 126 [...] 2022. Calcium 9.6 8.5 - 10.3 mg/dL [facility] Blood 10/06/2024 4:45 AM CLINICAL AIDE 10/06/2024 4:56 AM CLINICAL AIDE us Diana Gonzalez SCANNING SUPERVISOR LAB BLOOD ORDERABLES Lala l Result Performing Organization Address City/[facility]/ZIP Co de Phone Number [facility] Department [place] [address] * POCT glucose (10/06/2024 1:25 AM CLINICAL AIDE) Glucose, POC 118 70 - 199 mg/dL Blood 10/06/2024 1:25 AM CLINICAL AIDE 10/06/2024 1:25 AM CLINICAL AIDE us Prashant Felder MD LAB POCT ORDERABLES - MAGALIE CE Final Result Performing Organization Address [facility]/[place]IP [place] [address] * POCT glucose (10/05/2024 7:43 PM CLINICAL AIDE) Glucose, POC 190 70 - 199 mg/dL Blood 10/05/2024 7:43 PM CLINICAL AIDE 10/05/2024 7:43 PM CLINICAL AIDE Prashant Felder MD LAB POCT ORDERABLES - MAGALIE CE Final Result [facility] [address] * POCT glucose (10/05/2024 4:27 PM CLINICAL AIDE) Glucose, POC 108 70 - 199 mg/dL Blood 10/05/2024 4:27 PM CLINICAL AIDE 10/05/2024 4:27 PM CLINICAL AIDE Prashant Felder MD LAB POCT ORDERABLES - MAGALIE CE Final Result [facility] [address] * POCT glucose (10/05/2024 11:38 AM CLINICAL AIDE) Glucose, POC 116 70 - 199 mg/dL Blood 10/05/2024 11:3 8 AM CLINICAL AIDE 10/05/2024 11:38 AM CLINICAL AIDE Prashant Felder MD LAB POCT ORDERABLES - MAGALIE CE Final Result Performing Organization Address City/[facility]/ZIP [place] [address] * POCT glucose (10/05/2024 7:45 AM CLINICAL AIDE) Glucose, POC 102 70 - 199 mg/dL Blood 10/05/2024 7:45 AM CLINICAL AIDE 10/05/2024 7:45 AM CLINICAL AIDE us Prashant Felder MD LAB POCT ORDERABLES - MAGALIE CE Final Result Performing Organization Address [facility] Co de Phone Number [facility] Department [place] [address] * eGFR (10/05/2024 5:17 AM CLINICAL AIDE) eGFR >90 >=60 mL/min/1. 73 m2 Comment: [...] last reviewed 2021. Blood 10/05/2024 5:17 AM CLINICAL AIDE 10/05/2024 5:29 AM CLINICAL AIDE us Diana Gonzalez SCANNING SUPERVISOR LAB BLOOD ORDERABLES Lala l Result Performing Organization Address City/[facility]/ZIP Co de Phone Number [facility] Department [place] [address] * (ABNORMAL) Differential, auto (10/05/2024 5:17 AM CLINICAL AIDE) Neutrophil abs 6.9(H) 1.5 - 6.5 K/cumm Imm gran abs 0.1 0.0 - 0.1 K/cumm [facility] Lymphocyte abs 3.1 0.8 - 3.3 K/cumm [facility] Monocyte abs 0.9(H) 0.2 - 0.8 K/cumm [facility] Eosinophil abs 0.8(H) 0.0 - 0.5 K/cumm [facility] Basophil abs 0.1 0.0 - 0.1 K/cumm [facility] Neutrophil pct 58.0 % [facility] Comment: Interpretive Data Percent cell count reference ranges are not reported, since discordance with absolute values may lead to misinterpretation of CBC data. Current Interpretive Data was last revised on 2017. Imm gran pct 0.4 % [facility] Comment: Interpretive Data Percent cell count reference ranges are not reported, since discordance with absolute values may lead to misinterpretation of CBC data. Current Interpretive Data was last revised on 2017. Lymphocyte pct 25.9 % [facility] Comment: Interpretive Data Percent cell count reference ranges are not reported, since discordance with absolute values may lead to misinterpretation of CBC data. Current Interpretive Data was last revised on 2017. Monocyte pct 7.8 % [facility] Comment: Interpretive Data Percent cell count reference ranges are not reported, since discordance with absolute values may lead to misinterpretation of CBC data. Current Interpretive Data was last revised on 2017. Eosinophil pct 6.8 % [facility] Comment: Interpretive Data Percent cell count reference ranges are not reported, since discordance with absolute values may lead to misinterpretation of CBC data. Current Interpretive Data was last revised on 2017. Basophil pct 1.1 % [facility] Comment: Interpretive Data Percent cell count reference ranges are not reported, since discordance with absolute values may lead to misinterpretation of CBC data. Current Interpretive Data was last revised on 2017. Blood 10/05/2024 5:17 AM CLINICAL AIDE 10/05/2024 5:29 AM CLINICAL AIDE us Diana Gonzalez NP LAB BLOOD ORDERABLES Lala mecca Result [facility] Department [place] [address] * (ABNORMAL) CBC with auto differential (10/05/2024 5:17 AM CLINICAL AIDE) [facility] WBC 11.9(H) 3.8 - 9.9 K/cumm Hgb 13.6 13.0 - 17.5 g/dL [facility] Hct 41.7 38.9 - 50.3 % [facility] Plt 432(H) 150 - 400 K/cumm [facility] MPV 9.5 9.1 - 12.3 fL [facility] RBC 4.52 4.30 - 5.80 M/cumm [facility] MCV 92.3 81.3 - 96.4 fL [facility] MCH 30.1 27.1 - 33.3 pg [facility] MCHC 32.6 32.3 - 35.7 g/dL [facility] RDW CV 13.3 11.1 - 14.9 % [facility] RDW SD 45.0 35.7 - 48.1 fL [facility] NRBC abs 0.00 0.00 - 0.01 K/cumm [facility] Blood 10/05/2024 5:17 AM CLINICAL AIDE 10/05/2024 5:29 AM CLINICAL AIDE us Diana Gonzalez NP LAB BLOOD ORDERABLES Lala l Result [facility] Department [place] [address] * (ABNORMAL) Basic metabolic panel (10/05/2024 5:17 AM CLINICAL AIDE) [facility] Sodium 135 135 - 145 mmol/L Potassium, pl 4.4 3.3 - 4.9 mmol/L [facility] Chloride 100 97 - 110 mmol/L [facility] CO2 25 22 - 32 mmol/L [facility] Anion gap 10 2 - 15 mmol/L [facility] BUN 18 6 - 25 mg/dL [facility] Creatinine 0.74(L) 0.80 - 1.30 mg/dL [facility] Glucose 90 70 - 199 mg/dL [facility] Comment: Interpretive Data Fasting glucose >/= 126 [...] 2022. Calcium 9.0 8.5 - 10.3 mg/dL [facility] Blood 10/05/2024 5:1 7 AM CLINICAL AIDE 10/05/2024 5:29 AM CLINICAL AIDE Diaan Gonzalez NP LAB BLOOD ORDERABLES Lala l Result Performing Organization Address City/[facility]/ZIP Co de Phone Number [facility] Department [place] [address] * POCT glucose (10/05/2024 2:24 AM CLINICAL AIDE) Glucose, POC 101 70 - 199 mg/dL Blood 10/05/2024 2:24 AM CLINICAL AIDE 10/05/2024 2:24 AM CLINICAL AIDE Prashant Felder MD LAB POCT ORDERABLES - MAGALIE CE Final Result [facility] Department [place] [address] * Vancomycin level trough At least 30 minutes prior to vancomycin dose (10/04/2024 10:17 PM CLINICAL AIDE) Vancomycin trough 11.4 10.0 - 20.0 mcg/mL Blood 10/04/2024 10:1 7 PM CLINICAL AIDE 10/04/2024 11:50 PM CLINICAL AIDE Narrative [facility] - 10/05/2024 12:19 AM CLINICAL AIDE At least 30 minutes prior to vancomycin dose Severino Peñaloza MD LAB BLOOD ORDERABLES Final Res ult Performing Organization Address [facility] de Phone Number [facility] [place] [address] * (ABNORMAL) POCT glucose (10/04/2024 8:11 PM CLINICAL AIDE) Glucose, POC 210(H) 70 - 199 mg/dL Blood 10/04/2024 8:11 PM CLINICAL AIDE 10/04/2024 8:11 PM CLINICAL AIDE us Prashant Felder MD LAB POCT ORDERABLES - MAGALIE CE Final Result Performing Organization Address [facility] de Phone Number [facility] Department [place] [address] * POCT glucose (10/04/2024 5:00 PM CLINICAL AIDE) Glucose, POC 94 70 - 199 mg/dL Blood 10/04/2024 5:00 PM CLINICAL AIDE 10/04/2024 5:00 PM CLINICAL AIDE us Prashant Felder MD LAB POCT ORDERABLES - MAGALIE CE Final Result Performing Organization Address [facility] de Phone Number [facility] [place] [address] * POCT glucose (10/04/2024 12:04 PM CLINICAL AIDE) Glucose, POC 117 70 - 199 mg/dL Blood 10/04/2024 12:0 4 PM CLINICAL AIDE 10/04/2024 12:04 PM CLINICAL AIDE Prashant Felder MD LAB POCT ORDERABLES - MAGALIE CE Final Result Performing Organization Address [facility] de Phone Number [facility] [place] [address] * POCT glucose (10/04/2024 7:59 AM CLINICAL AIDE) Glucose, POC 107 70 - 199 mg/dL Blood 10/04/2024 7:59 AM CLINICAL AIDE 10/04/2024 7:59 AM CLINICAL AIDE us Prashant Felder MD LAB POCT ORDERABLES - MAGALIE CE Final Result Performing Organization Address City/[facility]/[place]IP [place] [address] * eGFR (10/04/2024 4:04 AM CLINICAL AIDE) [facility] eGFR >90 >=60 mL/min/1. 73 m2 Comment: [...] last reviewed 2021. Blood 10/04/2024 4:04 AM CLINICAL AIDE 10/04/2024 4:16 AM CLINICAL AIDE us Diana Gonzalez SCANNING SUPERVISOR LAB BLOOD ORDERABLES Lala l Result [facility] [place] [address] * (ABNORMAL) Differential, auto (10/04/2024 4:04 AM CLINICAL AIDE) Neutrophil abs 8.1(H) 1.5 - 6.5 K/cumm Imm gran abs 0.1 0.0 - 0.1 K/cumm [facility] Lymphocyte abs 3.6(H) 0.8 - 3.3 K/cumm [facility] Monocyte abs 1.2(H) 0.2 - 0.8 K/cumm [facility] Eosinophil abs 0.7(H) 0.0 - 0.5 K/cumm [facility] Basophil abs 0.2(H) 0.0 - 0.1 K/cumm [facility] Neutrophil pct 58.7 % [facility] Comment: Interpretive Data Percent cell count reference ranges are not reported, since discordance with absolute values may lead to misinterpretation of CBC data. Current Interpretive Data was last revised on 2017. Imm gran pct 0.4 % [facility] Comment: Interpretive Data Percent cell count reference ranges are not reported, since discordance with absolute values may lead to misinterpretation of CBC data. Current Interpretive Data was last revised on 2017. Lymphocyte pct 26.1 % [facility] Comment: Interpretive Data Percent cell count reference ranges are not reported, since discordance with absolute values may lead to misinterpretation of CBC data. Current Interpretive Data was last revised on 2017. Monocyte pct 8.4 % [facility] Comment: Interpretive Data Percent cell count reference ranges are not reported, since discordance with absolute values may lead to misinterpretation of CBC data. Current Interpretive Data was last revised on 2017. Eosinophil pct 5.3 % [facility] Comment: Interpretive Data Percent cell count reference ranges are not reported, since discordance with absolute values may lead to misinterpretation of CBC data. Current Interpretive Data was last revised on 2017. Basophil pct 1.1 % [facility] Comment: Interpretive Data Percent cell count reference ranges are not reported, since discordance with absolute values may lead to misinterpretation of CBC data. Current Interpretive Data was last revised on 2017. Blood 10/04/2024 4:04 AM CLINICAL AIDE 10/04/2024 4:17 AM CLINICAL AIDE Diana Gonzalez SCANNING SUPERVISOR LAB BLOOD ORDERABLES Lala l Result Performing Organization Address [facility]/ZIP Co de Phone Number [facility] Department [place] [address] * (ABNORMAL) CBC with auto differential (10/04/2024 4:04 AM CLINICAL AIDE) Pathologist [facility] WBC 13.7(H) 3.8 - 9.9 K/cumm Hgb 13.8 13.0 - 17.5 g/dL [facility] Hct 41.5 38.9 - 50.3 % [facility] Plt 473(H) 150 - 400 K/cumm [facility] MPV 9.3 9.1 - 12.3 fL [facility] RBC 4.50 4.30 - 5.80 M/cumm [facility] MCV 92.2 81.3 - 96.4 fL [facility] MCH 30.7 27.1 - 33.3 pg [facility] MCHC 33.3 32.3 - 35.7 g/dL [facility] RDW CV 13.7 11.1 - 14.9 % [facility] RDW SD 46.1 35.7 - 48.1 fL [facility] NRBC abs 0.00 0.00 - 0.01 K/cumm [facility] Blood 10/04/2024 4:04 AM CLINICAL AIDE 10/04/2024 4:17 AM CLINICAL AIDE Diana Gonzalez SCANNING SUPERVISOR LAB BLOOD ORDERABLES Lala l Result [facility] Department [place] [address] * Basic metabolic panel (10/04/2024 4:04 AM CLINICAL AIDE) Sodium 137 135 - 145 mmol/L Potassium, pl 4.4 3.3 - 4.9 mmol/L [facility] Chloride 102 97 - 110 mmol/L [facility] CO2 27 22 - 32 mmol/L [facility] Anion gap 8 2 - 15 mmol/L [facility] BUN 24 6 - 25 mg/dL [facility] Creatinine 0.86 0.80 - 1.30 mg/dL [facility] Glucose 73 70 - 199 mg/dL [facility] Comment: Interpretive Data Fasting glucose >/= 126 [...] 2022. Calcium 9.3 8.5 - 10.3 mg/dL [facility] Blood 10/04/2024 4:04 AM CLINICAL AIDE 10/04/2024 4:16 AM CLINICAL AIDE us Diana Gonzalez NP LAB BLOOD ORDERABLES Lala wing Result [facility] Department [place] [address] * POCT glucose (10/04/2024 3:56 AM CLINICAL AIDE) [facility] Glucose, POC 89 70 - 199 mg/dL Blood 10/04/2024 3:56 AM CLINICAL AIDE 10/04/2024 3:56 AM CLINICAL AIDE us Prashant Felder MD LAB POCT ORDERABLES - MAGALIE CE Final Result Performing Organization Address [facility]/ZIP Co de Phone Number [facility] Department [place] [address] * (ABNORMAL) POCT glucose (10/04/2024 3:54 AM CLINICAL AIDE) Glucose, POC 68(L) 70 - 199 mg/dL Blood 10/04/2024 3:54 AM CLINICAL AIDE 10/04/2024 3:54 AM CLINICAL AIDE Prashant Felder MD LAB POCT ORDERABLES - MAGALIE CE Final Result Performing Organization Address [facility] de Phone Number [facility] [address] * POCT glucose (10/03/2024 8:44 PM CLINICAL AIDE) Glucose, POC 153 70 - 199 mg/dL Blood 10/03/2024 8:44 PM CLINICAL AIDE 10/03/2024 8:44 PM CLINICAL AIDE Prashant Felder MD LAB POCT ORDERABLES - MAGALIE CE Final Result Performing Organization Address [facility] de Phone Number [facility] [address] * POCT glucose (10/03/2024 5:09 PM CLINICAL AIDE) Glucose, POC 145 70 - 199 mg/dL Blood 10/03/2024 5:09 PM CLINICAL AIDE 10/03/2024 5:09 PM CLINICAL AIDE Prashant Felder MD LAB POCT ORDERABLES - MAGALIE CE Final Result Performing Organization Address [facility] de Phone Number [facility] [place] [address] * POCT glucose (10/03/2024 11:57 AM CLINICAL AIDE) Glucose, POC 168 70 - 199 mg/dL Blood 10/03/2024 11:5 7 AM CLINICAL AIDE 10/03/2024 11:57 AM CLINICAL AIDE Prashant Felder MD LAB POCT ORDERABLES - MAGALIE CE Final Result Performing Organization Address [facility] Co de Phone Number [facility] [place] [address] * POCT glucose (10/03/2024 11:13 AM CLINICAL AIDE) Glucose, POC 170 70 - 199 mg/dL Blood 10/03/2024 11:1 3 AM CLINICAL AIDE 10/03/2024 11:13 AM CLINICAL AIDE Prashant Felder MD LAB POCT ORDERABLES - MAGALIE CE Final Result Performing Organization Address [facility] Co de Phone Number [facility] [place] [address] * (ABNORMAL) POCT glucose (10/03/2024 8:06 AM CLINICAL AIDE) Glucose, POC 229(H) 70 - 199 mg/dL Blood 10/03/2024 8:06 AM CLINICAL AIDE 10/03/2024 8:06 AM CLINICAL AIDE Prashant Felder MD LAB POCT ORDERABLES - MAGALIE CE Final Result Performing Organization Address [facility] Co de Phone Number [facility] [address] * Potassium, whole blood (10/03/2024 4:41 AM CLINICAL AIDE) Potassium, bld 4.3 3.3 - 4.9 mmol/L Blood 10/03/2024 4:41 AM CLINICAL AIDE 10/03/2024 4:52 AM CLINICAL AIDE Prashant Felder MD LAB BLOOD ORDERABLES Final Result Performing Organization Address City/[facility] Co de Phone Number [facility] [place] [address] * eGFR (10/03/2024 4:41 AM CLINICAL AIDE) Pathologist [facility] eGFR 88 >=60 mL/min/1. 73 m2 Comment: [...] last reviewed 2021. Blood 10/03/2024 4:41 AM CLINICAL AIDE 10/03/2024 4:54 AM CLINICAL AIDE us Diana Gonzalez NP LAB BLOOD ORDERABLES Lala wing Result [facility] Department [place] [address] * (ABNORMAL) Differential, auto (10/03/2024 4:41 AM CLINICAL AIDE) Pathologist [facility] Neutrophil abs 9.3(H) 1.5 - 6.5 K/cumm Imm gran abs 0.0 0.0 - 0.1 K/cumm [facility] Lymphocyte abs 3.2 0.8 - 3.3 K/cumm [facility] Monocyte abs 1.2(H) 0.2 - 0.8 K/cumm [facility] Eosinophil abs 0.3 0.0 - 0.5 K/cumm [facility] Basophil abs 0.1 0.0 - 0.1 K/cumm [facility] Neutrophil pct 66.1 % [facility] Comment: Interpretive Data Percent cell count reference ranges are not reported, since discordance with absolute values may lead to misinterpretation of CBC data. Current Interpretive Data was last revised on 2017. Imm gran pct 0.3 % [facility] Comment: Interpretive Data Percent cell count reference ranges are not reported, since discordance with absolute values may lead to misinterpretation of CBC data. Current Interpretive Data was last revised on 2017. Lymphocyte pct 22.5 % [facility] Comment: Interpretive Data Percent cell count reference ranges are not reported, since discordance with absolute values may lead to misinterpretation of CBC data. Current Interpretive Data was last revised on 2017. Monocyte pct 8.4 % [facility] Comment: Interpretive Data Percent cell count reference ranges are not reported, since discordance with absolute values may lead to misinterpretation of CBC data. Current Interpretive Data was last revised on 2017. Eosinophil pct 2.1 % [facility] Comment: Interpretive Data Percent cell count reference ranges are not reported, since discordance with absolute values may lead to misinterpretation of CBC data. Current Interpretive Data was last revised on 2017. Basophil pct 0.6 % [facility] Comment: Interpretive Data Percent cell count reference ranges are not reported, since discordance with absolute values may lead to misinterpretation of CBC data. Current Interpretive Data was last revised on 2017. Blood 10/03/2024 4:41 AM CLINICAL AIDE 10/03/2024 4:55 AM CLINICAL AIDE Diana Gonzalez SCANNING SUPERVISOR LAB BLOOD ORDERABLES Lala wing Result [facility] Department [place] [address] * (ABNORMAL) CBC with auto differential (10/03/2024 4:41 AM CLINICAL AIDE) WBC 14.1(H) 3.8 - 9.9 K/cumm Hgb 13.4 13.0 - 17.5 g/dL [facility] Hct 40.8 38.9 - 50.3 % [facility] Plt 434(H) 150 - 400 K/cumm [facility] MPV 9.5 9.1 - 12.3 fL [facility] RBC 4.37 4.30 - 5.80 M/cumm [facility] MCV 93.4 81.3 - 96.4 fL [facility] MCH 30.7 27.1 - 33.3 pg [facility] MCHC 32.8 32.3 - 35.7 g/dL [facility] RDW CV 13.6 11.1 - 14.9 % [facility] RDW SD 46.2 35.7 - 48.1 fL [facility] NRBC abs 0.00 0.00 - 0.01 K/cumm [facility] Blood 10/03/2024 4:41 AM CLINICAL AIDE 10/03/2024 4:55 AM CLINICAL AIDE us Diana Gonzalez NP LAB BLOOD ORDERABLES Lala l Result Performing Organization Address City/[facility]/ZIP Co de Phone Number [facility] [address] * (ABNORMAL) Hemoglobin A1c (10/03/2024 4:41 AM CLINICAL AIDE) Hgb A1C 8.7(H) 4.0 - 5.6 % Estimated Average Glucose 203 mg/dL [facility] Comment: The ADA recommends reporting an estimated Average Glucose (eAG) with all Hemoglobin A1c results using the equation derived from a study of 507 normal and diabetic adults. Minority populations were underrepresented and children were not included. (Diabetes Care 2020; 43(S1): S66-S76). The eAG is not equivalent to a fasting glucose. Blood 10/03/2024 4:41 AM CLINICAL AIDE 10/03/2024 5:00 AM CLINICAL AIDE us Prashant Felder MD LAB BLOOD ORDERABLES Final Result Performing Organization Address City/[facility]/ZIP Co de Phone Number [facility] [address] * (ABNORMAL) Basic metabolic panel (10/03/2024 4:41 AM CLINICAL AIDE) Sodium 133(L) 135 - 145 mmol/L Potassium, pl 4.7 3.3 - 4.9 mmol/L [facility] Chloride 97 97 - 110 mmol/L [facility] CO2 27 22 - 32 mmol/L [facility] Anion gap 9 2 - 15 mmol/L [facility] BUN 28(H) 6 - 25 mg/dL [facility] Creatinine 0.93 0.80 - 1.30 mg/dL [facility] Glucose 185 70 - 199 mg/dL [facility] Comment: Interpretive Data Fasting glucose >/= 126 [...] 2022. Calcium 8.8 8.5 - 10.3 mg/dL [facility] Blood 10/03/2024 4:41 AM CLINICAL AIDE 10/03/2024 4:54 AM CLINICAL AIDE us Diana Gonzalez NP LAB BLOOD ORDERABLES Lala wing Result [facility] [place] [address] * POCT glucose (10/03/2024 1:51 AM CLINICAL AIDE) Glucose, POC 167 70 - 199 mg/dL Blood 10/03/2024 1:51 AM CLINICAL AIDE 10/03/2024 1:51 AM CLINICAL AIDE us Prashant Felder MD LAB POCT ORDERABLES - MAGALIE CE Final Result [facility] [place] [address] * (ABNORMAL) Potassium, whole blood (10/02/2024 11:05 PM CLINICAL AIDE) Potassium, bld 5.0(H) 3.3 - 4.9 mmol/L Blood 10/02/2024 11:0 5 PM CLINICAL AIDE 10/02/2024 11:23 PM CLINICAL AIDE us Prashant Felder MD LAB BLOOD ORDERABLES Final Result Performing Organization Address [facility] de Phone Number [facility] [place] [address] * eGFR (10/02/2024 9:27 PM CLINICAL AIDE) eGFR 80 >=60 mL/min/1. 73 m2 Comment: [...] last reviewed 2021. Blood 10/02/2024 9:27 PM CLINICAL AIDE 10/02/2024 9:55 PM CLINICAL AIDE us Diana Gonzalez NP LAB BLOOD ORDERABLES Lala l Result Performing Organization Address [facility]/State/ZIP Co de Phone Number [facility] [place] [address] * (ABNORMAL) Differential, auto (10/02/2024 9:27 PM CLINICAL AIDE) Neutrophil abs 8.5(H) 1.5 - 6.5 K/cumm Imm gran abs 0.1 0.0 - 0.1 K/cumm [facility] Lymphocyte abs 1.9 0.8 - 3.3 K/cumm [facility] Monocyte abs 0.6 0.2 - 0.8 K/cumm [facility] Eosinophil abs 0.0 0.0 - 0.5 K/cumm [facility] Basophil abs 0.0 0.0 - 0.1 K/cumm [facility] [facility] Neutrophil pct 76.1 % [facility] Comment: Interpretive Data Percent cell count reference ranges are not reported, since discordance with absolute values may lead to misinterpretation of CBC data. Current Interpretive Data was last revised on 2017. Imm gran pct 0.4 % [facility] Comment: Interpretive Data Percent cell count reference ranges are not reported, since discordance with absolute values may lead to misinterpretation of CBC data. Current Interpretive Data was last revised on 2017. Lymphocyte pct 17.2 % [facility] Comment: Interpretive Data Percent cell count reference ranges are not reported, since discordance with absolute values may lead to misinterpretation of CBC data. Current Interpretive Data was last revised on 2017. Monocyte pct 5.7 % [facility] Comment: Interpretive Data Percent cell count reference ranges are not reported, since discordance with absolute values may lead to misinterpretation of CBC data. Current Interpretive Data was last revised on 2017. Eosinophil pct 0.2 % [facility] Comment: Interpretive Data Percent cell count reference ranges are not reported, since discordance with absolute values may lead to misinterpretation of CBC data. Current Interpretive Data was last revised on 2017. Basophil pct 0.4 % [facility] Comment: Interpretive Data Percent cell count reference ranges are not reported, since discordance with absolute values may lead to misinterpretation of CBC data. Current Interpretive Data was last revised on 2017. Blood 10/02/2024 9:27 PM CLINICAL AIDE 10/02/2024 9:55 PM CLINICAL AIDE Diana Gonzalez SCANNING SUPERVISOR LAB BLOOD ORDERABLES Lala l Result [facility] [place] [address] * (ABNORMAL) CBC with auto differential (10/02/2024 9:27 PM CLINICAL AIDE) WBC 11.2(H) 3.8 - 9.9 K/cumm Hgb 13.1 13.0 - 17.5 g/dL [facility] Hct 40.3 38.9 - 50.3 % [facility] Plt 446(H) 150 - 400 K/cumm [facility] MPV 9.7 9.1 - 12.3 fL [facility] RBC 4.35 4.30 - 5.80 M/cumm [facility] MCV 92.6 81.3 - 96.4 fL [facility] MCH 30.1 27.1 - 33.3 pg [facility] MCHC 32.5 32.3 - 35.7 g/dL [facility] RDW CV 13.5 11.1 - 14.9 % [facility] RDW SD 45.8 35.7 - 48.1 fL [facility] NRBC abs 0.00 0.00 - 0.01 K/cumm [facility] Blood 10/02/2024 9:27 PM CLINICAL AIDE 10/02/2024 9:55 PM CLINICAL AIDE Diana Gonzalez NP LAB BLOOD ORDERABLES Lala l Result [facility] [address] * (ABNORMAL) Hemoglobin A1c (10/02/2024 9:27 PM CLINICAL AIDE) Hgb A1C 8.6(H) 4.0 - 5.6 % Estimated Average Glucose 200 mg/dL [facility] Comment: The ADA recommends reporting an estimated Average Glucose (eAG) with all Hemoglobin A1c results using the equation derived from a study of 507 normal and diabetic adults. Minority populations were underrepresented and children were not included. (Diabetes Care 2020; 43(S1): S66-S76). The eAG is not equivalent to a fasting glucose. Blood 10/02/2024 9:27 PM CLINICAL AIDE 10/02/2024 9:58 PM CLINICAL AIDE Narrative [facility] - 10/03/2024 9:10 AM CLINICAL AIDE Reflex us Prashant Felder MD LAB BLOOD ORDERABLES Final Result [facility] Department [place] [address] * (ABNORMAL) Lipid panel (10/02/2024 9:27 PM CLINICAL AIDE) Cholesterol 126 30 - 199 mg/dL Comment: [...] revised on 2018. Triglycerides 85 <=149 mg/dL [facility] Comment: Interpretive Data Ages < or = [...] on 2018. HDL 37(L) >=40 mg/dL [facility] Comment: Interpretive Data Ages < or = [...] 2018. LDL, calculated 72 <=129 mg/dL [facility] Comment: Interpretive Data Ages < or = [...] 3. Rj Link et al. KAMRYN Cardiol. 2019December 18;5(5):540-548. doi: [email or web address].2020.0013 Current Interpretive Data was last revised on 2024. Non-HDL Cholesterol 89 mg/dL [facility] Comment: Interpretive Data Ages < or = [...] last revised on 2018. Chol/HDL ratio 3 [facility] Blood 10/02/2024 9:27 PM CLINICAL AIDE 10/02/2024 9:55 PM CLINICAL AIDE us Prashant Felder MD LAB BLOOD ORDERABLES Final Result [facility] Department [place] [address] * (ABNORMAL) Basic metabolic panel (10/02/2024 9:27 PM CLINICAL AIDE) Sodium 131(L) 135 - 145 mmol/L Potassium, pl 5.2(H) 3.3 - 4.9 mmol/L [facility] Chloride 94(L) 97 - 110 mmol/L [facility] CO2 30 22 - 32 mmol/L [facility] Anion gap 7 2 - 15 mmol/L [facility] BUN 30(H) 6 - 25 mg/dL [facility] Creatinine 1.00 0.80 - 1.30 mg/dL [facility] Glucose 255(H) 70 - 199 mg/dL [facility] Comment: Interpretive Data Fasting glucose >/= 126 [...] 2022. Calcium 8.6 8.5 - 10.3 mg/dL [facility] Blood 10/02/2024 9:27 PM CLINICAL AIDE 10/02/2024 9:55 PM CLINICAL AIDE us Diana Camila Gonzalez SCANNING SUPERVISOR LAB BLOOD ORDERABLES Lala l Result Performing Organization Address [facility] Co de Phone Number [facility] [place] [address] * (ABNORMAL) POCT glucose (10/02/2024 7:51 PM CLINICAL AIDE) Glucose, POC 254(H) 70 - 199 mg/dL Blood 10/02/2024 7:51 PM CLINICAL AIDE 10/02/2024 7:51 PM CLINICAL AIDE us Prashant Felder MD LAB POCT ORDERABLES - MAGALIE CE Final Result Performing Organization Address [facility] Co de Phone Number [facility] [place] [address] * (ABNORMAL) POCT glucose (10/02/2024 5:40 PM CLINICAL AIDE) Glucose, POC 285(H) 70 - 199 mg/dL Blood 10/02/2024 5:40 PM CLINICAL AIDE 10/02/2024 5:40 PM CLINICAL AIDE Prashant Felder MD LAB POCT ORDERABLES - MAGALIE CE Final Result Performing Organization Address [facility] Co de Phone Number [facility] [place] [address] * (ABNORMAL) POCT glucose (10/02/2024 5:37 PM CLINICAL AIDE) Glucose, POC 302(H) 70 - 199 mg/dL Blood 10/02/2024 5:37 PM CLINICAL AIDE 10/02/2024 5:37 PM CLINICAL AIDE Prashant Felder MD LAB POCT ORDERABLES - MAGALIE CE Final Result Performing Organization Address [facility] Co de Phone Number [facility] [place] [address] * POCT glucose (10/02/2024 10:41 AM CLINICAL AIDE) Glucose, POC 113 70 - 199 mg/dL Blood 10/02/2024 10:4 1 AM CLINICAL AIDE 10/02/2024 10:41 AM CLINICAL AIDE Prashant Felder MD LAB POCT ORDERABLES - MAGALIE CE Final Result Performing Organization Address [facility] Co de Phone Number [facility] [place] [address] * Tissue aerobic and anaerobic culture and gram stain Tissue Elbow, left (10/02/2024 9:19 AM CLINICAL AIDE) Pathologist [facility] Direct Specimen Exam Stain: Rare polymorphonuclear leukocytes seen. No organisms seen. Report Final Report: No growth [facility] Tissue (Elbow, left) 10/02/2024 9:19 AM CLINICAL AIDE 10/02/2024 11:07 AM CLINICAL AIDE Narrative [facility] - 10/07/2024 11:37 AM CLINICAL AIDE LEFT ELBOW OLECRANON BURSA Testing performed by [facility] Microbiology Laboratory ([phone]) Specimens submitted from normally sterile body sites [...] GENERAL ORDERABLES Final Result Performing Organization Address [facility] Co de Phone Number [facility] Department [place] [address] * Mycology (fungal) culture and stain Tissue Elbow, left (10/02/2024 9:19 AM CLINICAL AIDE) Direct Specimen Exam Stain: No Fungal elements seen. Report Final Report: No growth of fungus [facility] Tissue (Elbow, left) 10/02/2024 9:19 AM CLINICAL AIDE 10/02/2024 11:07 AM CLINICAL AIDE Narrative [facility] - 10/30/2024 7:55 AM CDT LEFT ELBOW OLECRANON BURSA Testing performed by [facility]biology Laboratory ([phone]). Prashant Felder MD LAB MICROBIOLOGY - GENERAL ORDERABLES Final Result Performing Organization Address [facility] Co de Phone Number [facility] Department [place] [address] * Tissue aerobic and anaerobic culture and gram stain Tissue Elbow, left (10/02/2024 9:18 AM CLINICAL AIDE) Direct Specimen Exam Stain: No polymorphonuclear leukocytes seen. No organisms seen. Report Final Report: No growth [facility] Tissue (Elbow, left) 10/02/2024 9:18 AM CLINICAL AIDE 10/02/2024 11:05 AM CLINICAL AIDE Narrative [facility] - 10/07/2024 11:38 AM CLINICAL AIDE LEFT ELBOW BURSA Testing performed by [facility]biology Laboratory ([phone]) Specimens submitted from normally sterile body sites [...] GENERAL ORDERABLES Final Result Performing Organization Address [facility] Co de Phone Number [facility] Department [place] [address] * Mycology (fungal) culture and stain Tissue Elbow, left (10/02/2024 9:18 AM CLINICAL AIDE) Direct Specimen Exam Stain: No Fungal elements seen. Report Final Report: No growth of fungus [facility] Tissue (Elbow, left) 10/02/2024 9:18 AM CLINICAL AIDE 10/02/2024 11:05 AM CLINICAL AIDE Narrative [facility] - 10/30/2024 7:54 AM CDT LEFT ELBOW BURSA Testing performed by [facility]biology Laboratory ([phone]). Prashant Felder MD LAB MICROBIOLOGY - GENERAL ORDERABLES Final Result Performing Organization Address [facility] Co de Phone Number [facility] [place] [address] * Tissue aerobic and anaerobic culture and gram stain Tissue Elbow, right (10/02/2024 8:58 AM CLINICAL AIDE) Direct Specimen Exam Stain: No polymorphonuclear leukocytes seen. No organisms seen. Report Final Report: No growth [facility] Tissue (Elbow, right) 10/02/2024 8:58 AM CLINICAL AIDE 10/02/2024 11:06 AM CLINICAL AIDE Narrative [facility] - 10/07/2024 11:37 AM CLINICAL AIDE Left Elbow Fluid Testing performed by [facility]biology Laboratory ([phone]) Specimens submitted from normally sterile body sites [...] GENERAL ORDERABLES Final Result Performing Organization Address [facility] Co de Phone Number [facility] [place] [address] * Mycology (fungal) culture and stain Tissue Elbow, right (10/02/2024 8:58 AM CLINICAL AIDE) Direct Specimen Exam Stain: No Fungal elements seen. Report Final Report: No growth of fungus [facility] Tissue (Elbow, right) 10/02/2024 8:58 AM CLINICAL AIDE 10/02/2024 11:06 AM CLINICAL AIDE Narrative [facility] - 10/30/2024 7:47 AM CDT Left Elbow Fluid Testing performed by [facility]biology Laboratory ([phone]). us Prashant Felder MD LAB MICROBIOLOGY - GENERAL ORDERABLES Final Result [facility] Department [place] [address] * HI AN ELECTIVE ENDOTRACHEAL AIRWAY, HI AN PROCEDURE PLACEHOLDER (10/02/2024 8:39 AM CLINICAL AIDE) Narrative Shila Alcocer MD - 10/02/2024 8:39 AM CLINICAL AIDE Shila Alcocer MD 10/02/2024 8:40 AM Airway [...] Result * POCT glucose (10/02/2024 6:36 AM CLINICAL AIDE) Glucose, POC 117 70 - 199 mg/dL Blood 10/02/2024 6:36 AM CLINICAL AIDE 10/02/2024 6:36 AM CLINICAL AIDE Prashant Felder MD LAB POCT ORDERABLES - MAGALIE CE Final Result Performing Organization Address [facility] Co de Phone Number [facility] Department [place] [address] * MSK MR Outside Reference (08/26/2024 5:53 PM CLINICAL AIDE) Impressions [facility] - 08/26/2024 5:53 PM CLINICAL AIDE These images are for Reference purposes only and have not been reviewed by [facility] Radiology. There will be no report generated by a [facility] Radiologist. Narrative [facility] - 08/26/2024 5:53 PM CLINICAL AIDE EXAMINATION: Images For Reference Purposes Only Prashant Felder MD IMG MRI PROCEDURES Final R esult Performing Organization Address 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 Electronically signed by: Michael Mansfield MD Narrative 08/07/2024 8:35 AM CLINICAL AIDE EXAMINATION: XR ELBOW LEFT 3 OR MORE [...] Albumin Creatinine Ratio, Urine (10/16/2022 9:19 AM CLINICAL AIDE) Microalb, Ur 321.7(H) 0.0 - 22.9 mg/L [facility] Comment:Repeated and Verifie d Random Urine Creatinine 62.7 mg/dL [facility] Microalb/Creat Ratio 513.1(H) 0.0 - 29.9 mg/g [facility] Urine 10/16/2022 9:19 AM CLINICAL AIDE 10/16/2022 10:19 AM CLINICAL AIDE us Hillary Carlson MD LAB URINE ORDERABLES Final Re sult [facility] CORE LAB [facility] from Last 3 Months or Most Recently Relevant to Health Maintenance Insurance MEDICARE AET SENIOR SUPPLEMENT MEDICARE AETNA SENIOR SUPPLEMENT MEDICARE AETNA SENIOR SUPPLEMENT Advance Directives For more information, please contact: [phone] * Full Code (Latest Code Status on File) Date Activated Date Inactivated Comments 10/02/2024 1:49 PM 10/06/2024 10:39 PM Care Teams Funeral Attendant Relationship Specialty Start Date End Date Tyrone Carvajal MD PCP - General Internal Medicine 11/06/19 Hetal Regan MD Referring Physician Endocrinology Diabetes & Metabolism 06/13/21 Jefferson Mora MD Consulting Physician Rheumatology 04/17/24 Swathi Diaz PA [address] [facility] ENDOCRINOLOGY[address] [address] Physician Medical Management Trainer Physician Medical Management Trainer 04/19/24
== END 2024-11-03 13:58 | disposition home or self-care (01) ==
LOC: CHSAUDIO 14:02
PROVIDERS: PCP Otolaryngology; Visit Provider Otolaryngology
DX: H93.19 Tinnitus, unspecified ear (principal); H90.3 Sensorineural hearing loss, bilateral
CPT/HCPCS: 92557; 92567

== ENCOUNTER 2024-12-09 15:29 | Outpatient (CLI) | payer MEDICARE, SELFPAY ==
[2024-12-09 16:40] LABS: Influenza A QL RT-PCR Negative (Negative); Influenza B QL RT-PCR Negative (Negative); RSV RNA, RT-PCR Negative (Negative); SARS-CoV-2 RNA PCR Negative (Negative)
--- OUTSIDE RECORDS SUMMARY | 2024-12-09 17:39 | XMS_ITS | Encounter Summary ---
Author Organization 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
--- OUTSIDE RECORDS SUMMARY | 2024-12-09 17:39 | XMS_ITS | Encounter Summary ---
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 ENDOCRINOLOGY, [address] [address] Physician Mobile Home Servicer Physician Mobile Home Servicer 04/19/24 documented as of this encounter
--- OUTSIDE RECORDS SUMMARY | 2024-12-09 17:39 | XMS_ITS | Referral Summary ---
Author Organization [facility] Address [address] [place] [address] Care Team Providers Care Hat Block Maker Name Role Phone Tyrone Carvajal MD Primary Care Provider [phone] Hetal Regan MD Unavailable Jefferson Mora MD Unavailable [phone] Swathi Diaz Unavailable Encounters Date Type Department Care Team Description 12/04/2024 Orders Only [facility] Rheumatology [address] [facility] Advanced Medicine 5th [place] [address] [place] [address] Vilma Kimble MD Seronegative rheumatoid arthritis (HCC) (Primary Dx); High risk medication use 12/03/2024 12:00 PM CDT Lab [facility] - Lab Collection [address] [facility] Floor 6 [place] [address] Polycythemia; Leukocytosis, unspecified type; Thrombocytosis 12/03/2024 9:15 AM CDT - 12/03/2024 11:59 PM CDT Hospital Encounter [facility] [address] [place], [place] [id number] Seronegative rheumatoid arthritis (HCC); High risk medication use Discharge Disposition: Discharge to home or self care 12/03/2024 11:45 AM CDT Lab [facility] Oncology Lab [facility] Floor 6 [place] [address] 12/03/2024 10:45 AM CDT Office Visit [facility] Hematology [facility] 6 [place] [phone] Melinda Martino MD Polycythemia; Leukocytosis, unspecified type; Thrombocytosis 12/02/2024 Orders Only [facility] Rheumatology [address] [place] [address] [address] [place] [address] Vilma Kimble MD 12/01/2024 11:07 AM CDT - 12/01/2024 11:59 PM CDT Hospital Encounter [facility] [address] [place] [address] Seronegative rheumatoid arthritis (HCC); High risk medication use Discharge Disposition: Discharge to home or self care 12/01/2024 11:10 AM CDT Lab [facility] Infectious Diseases [address] [place] [address] [address] [place] [address] 12/01/2024 10:00 AM CDT Office Visit [facility] Rheumatology [address] [place] [address] 1 [place] [address] Vilma Kimble MD High risk medication use (Primary Dx); Seronegative rheumatoid arthritis (HCC); Raynaud's disease with gangrene (HCC); Positive NHUNG (antinuclear antibody) 11/26/2024 Telephone [facility] Hematology [facility] Floor 6 [place] [phone] Marta Richter 11/05/2024 Telephone [facility] Endocrinology Metabolism and Lipid [address] [facility] Medicine 5th [place] [address] [place] [address] Lexus Claudio RN ozempic dose clarification 11/04/2024 2:20 PM CDT Telemedicine [facility] Endocrinology Metabolism and Lipid [address] [facility] Medicine 13th [place] [address] [place] [phone] Hetal Regan MD Type 2 diabetes mellitus with hyperglycemia, without long-term current use of insulin (HCC) (Primary Dx); Hyperlipidemia associated with type 2 diabetes mellitus (HCC) 10/22/2024 9:10 AM MANAGER OF SOFTWARE DEVELOPMENT Office Visit [facility] Orthopaedic Surgery [address] [place] [address] [place] [phone] Prashant Felder MD Olecranon bursitis of left elbow (Primary Dx) 10/15/2024 2:20 PM MANAGER OF SOFTWARE DEVELOPMENT Office Visit [facility] Infectious Diseases [address] [place] [phone] Laurence Herrera NP Olecranon bursitis of left elbow (Primary Dx); Encounter for screening examination for sexually transmitted disease 10/15/2024 1:00 PM MANAGER OF SOFTWARE DEVELOPMENT Office Visit [address] [place] [phone] Prashant Felder MD Olecranon bursitis of left elbow (Primary Dx) 10/02/2024 5:56 AM MANAGER OF SOFTWARE DEVELOPMENT - 10/06/2024 6:29 PM MANAGER OF SOFTWARE DEVELOPMENT Hospital Encounter [address] [address] Prashant Felder MD Olecranon bursitis of left elbow (Primary Dx) Discharge Disposition: Discharge to home or self care 10/02/2024 8:00 AM MANAGER OF SOFTWARE DEVELOPMENT - 10/02/2024 10:40 AM MANAGER OF SOFTWARE DEVELOPMENT [facility] 1 [place] [address] Prashant Felder MD Left Olecranon bursectomy 10/02/2024 7:56 AM MANAGER OF SOFTWARE DEVELOPMENT Anesthesia Event [facility] [address] [place] [address] Shila Alcocer MD Dulle, Alison Renee, NP 09/10/2024 8:40 AM MANAGER OF SOFTWARE DEVELOPMENT Office Visit [facility] Orthopaedic Surgery [address] [place] [address] Floor [address] [place] [address] Prashant Felder MD Septic olecranon bursitis, left (Primary Dx) from Last 3 Months Allergies Active Allergy Reactions Criticality Noted Date Comments Penicillins Other (See comments) Low Reported as unknown. Tolerated cefepime during 09/2024 admission Medications aspirin (ASPIRIN LOW-STRENGTH) 81 mg tablet take 1 tablet (81MG) by ORAL route every day 0 010 Active lancets (freestyle) 28 gauge misc pt test 4x's daily 100 6 013 Active blood glucose diagnostic (FreeStyle Lite Strips) stripIndications: Type 2 diabetes mellitus with hyperglycemia, without long-term current use of insulin ([facility]) Use to test blood sugars 4 times a day 400 each 1 020 Active losartan (COZAAR) 100 mg tablet TAKE 1 TABLET BY MOUTH DAILY [address] (CYMBALTA) 20 mg capsuleIndication s:pain Take 1 capsule (20 mg total) by mouth 2 (two) times a day 022 Active ondansetron ODT (ZOFRAN-ODT) 4 mg disintegrating tablet TAKE ONE TABLET BY MOUTH TWICE A DAY NEEDED FOR NAUSEA 20 tablet 1 024 Active omeprazole (PriLOSEC) 40 mg capsuleIndication s:Treatment of Non-Bleeding Gastric Disorder Take 1 capsule (40 mg total) by mouth every morning 024 Active empagliflozin-met formin (Synjardy XR) 25-1,000 mg tablet, IR & ER, biphasic 24hrIndications:T ype 2 diabetes mellitus with hyperglycemia, with long-term current use of insulin ([facility]) Take 1 tablet by mouth daily 90 tablet 3 024 Active insulin degludec (TRESIBA) 100 unit/mL (3 mL) pen for injectionIndicati ons:Type 2 diabetes mellitus with hyperglycemia, with long-term current use of insulin ([facility]) INJECT 8 UNITS SUBCUTANEOUSLY DAILY/ 15 mL 3 024 Active ezetimibe (ZETIA) 10 mg tabletIndications :Type 2 diabetes mellitus with hyperglycemia, with long-term current use of insulin ([facility]),Hyperlipide denice associated with type 2 diabetes mellitus ([facility]) Take 1 tablet (10 mg total) by mouth daily 90 tablet 3 024 Active pen needle, diabetic (BD Charu 2nd Gen Pen Needle) 32 gauge x 5/32 needleIndications :Type 2 diabetes mellitus with hyperglycemia, with long-term current use of insulin ([facility]) Use to inject insulin up to 4 times daily. 200 each 11 024 Active cyclobenzaprine (FLEXERIL) 10 mg tabletIndications :Muscle Spasm Take 1 tablet (10 mg total) by mouth nightly Active pravastatin (PRAVACHOL) 40 mg tabletIndications :hyperlipidemia Take 1 tablet (40 mg total) by mouth nightly Active acetaminophen (TYLENOL) 325 mg tabletIndications :Pain Take 2 tablets (650 mg total) by mouth every 6 (six) hours 90 tablet Active senna-docusate (PERICOLACE) 8.6-50 mg Take 1 tablet by mouth 2 (two) times a day 60 tablet Active oxyCODONE (ROXICODONE) 5 mg immediate release tabletIndications :Pain Take 1 tablet (5 mg total) by mouth every 4 (four) hours as needed for pain 30 tablet Active blood-glucose sensor (FreeStyle Stacy 3 Plus Sensor) deviceIndications :Type 2 diabetes mellitus with hyperglycemia, without long-term current use of insulin ([facility]) Change sensor every 15 days 2 each Active semaglutide (Ozempic) 0.25 mg or 0.5 mg(2 mg/1.5 mL) pen injector injectionIndicati ons:type 2 diabetes mellitus Inject 0.25 mg under the skin once a week 2 mL 6 Active meloxicam (MOBIC) 7.5 mg tablet Take 2 tablets (15 mg total) by mouth daily 60 tablet 11 025 2025 Active hydroxychloroquin e (PLAQUENIL) 200 mg tablet Active predniSONE (DELTASONE) 5 mg tablet Active methotrexate 2.5 mg tabletIndications :Rheumatoid Arthritis Take 6 tablets (15 mg total) by mouth once a week 24 tablet 3 025 2024 Active folic acid (FOLVITE) 1 mg tablet Take 1 tablet (1 mg total) by mouth daily 30 tablet 5 025 2024 Active ibuprofen (ADVIL,MOTRIN) 600 mg tabletIndications :Pain Take 1 tablet (600 mg total) by mouth every 6 (six) hours 60 tablet 025 2024 Discontinued Active Problems Problem Noted Date Diagnosed Date Olecranon bursitis of left elbow 09/15/2024 Assessment & Plan (10/23/2024 9:56 AM MANAGER OF SOFTWARE DEVELOPMENT): Now s/p L olecranon bursectomy and I&D [...] concerns. Assessment & Plan (10/06/2024 2:15 PM MANAGER OF SOFTWARE DEVELOPMENT): Chidi Eldridge is a 69yr old male with a PMH of DM-2, RA (not on immunosuppressive therapy), HTN, Dyslipidemia, was admitted to [facility] for management of chronic olecranon bursitis. [...] 08/04/2024 Assessment & Plan (08/04/2024 9:56 AM MANAGER OF SOFTWARE DEVELOPMENT): - Potassium 5.7 on recent CMP (07/18/2024). - PCP recommended to avoid high potassium foods. Patient endorses leg cramps. - Advised to increase hydration of sugar-free fluids. Will send note to PCP with recommendation to decrease losartan to 50 mg daily and repeat renal function to see if hyperkalemia resolves. Microalbuminuria 05/12/2022 Assessment & Plan (08/04/2024 9:57 AM MANAGER OF SOFTWARE DEVELOPMENT): - Recent UA negative for protein, this [...] diabetes gaby ardon 06/13/2018 Assessment & Plan (11/09/2024 4:01 PM CDT): Continue statin, optimize glycemic control. Assessment & Plan (08/04/2024 9:58 AM MANAGER OF SOFTWARE DEVELOPMENT): - Last LDL 127, TG 171 (06/2024), above goal - He has been out of Pravastatin for awhile - has been struggling to get refills (?) - Re-start pravastatin 80 mg daily and continue Zetia 10 mg daily. Refills sent. Assessment & Plan (12/27/2021 12:10 PM CDT): Continue statin therapy and optimize glycemic control. Assessment & Plan (09/15/2021 5:01 PM MANAGER OF SOFTWARE DEVELOPMENT): Continue statin therapy and optimize glycemic control. [...] week Assessment & Plan (08/11/2020 11:05 AM MANAGER OF SOFTWARE DEVELOPMENT): Continue pravastatin and focus on low fat [...] therapy Assessment & Plan (08/24/2018 6:43 PM MANAGER OF SOFTWARE DEVELOPMENT): Continue statin therapy Assessment & Plan (06/13/2018 [...] mg/dL Assessment & Plan (10/20/2023 9:33 PM MANAGER OF SOFTWARE DEVELOPMENT): Continue statin, optimize glycemic control. Assessment & Plan (03/14/2023 8:34 PM CDT): Continue statin, optimize glycemic control. Assessment & Plan (03/23/2022 9:48 AM CDT): Continue statin, optimize glycemic control. Recheck levels. Assessment & Plan (02/14/2018 10:50 AM CDT): Advised to have lipid panel done Assessment & Plan (11/01/2017 1:18 PM CDT): Will get lipid panel Assessment & Plan (07/10/2017 12:19 PM MANAGER OF SOFTWARE DEVELOPMENT): Goal of treatment , LDL cholesterol less [...] Overview (06/15/2021): Dx 2010 Assessment & Plan (11/09/2024 4:00 PM CDT): Markedly higher glucoses with meals, but multifactorial. Would first restart Ozempic but may well need other medication adjustments. Has poor appetite so need to minimize risk of hypoglycemia. Assessment & Plan (08/04/2024 9:54 AM MANAGER OF SOFTWARE DEVELOPMENT): - Diabetes is complicated by microalbuminuria, hyperlipidemia, hypertension and other co-morbidities. Fairly well controlled - with today's GMI of 7.1%. Lab Results Component Value Date HGBA1C 7.4 01/16/2024 Per [place] [employer], goal A1c is less 7% [...] that I am available via phone or [employer] if they have any concerns for hypo/hyperglycemia, [...] etc. Assessment & Plan (10/20/2023 9:35 PM MANAGER OF SOFTWARE DEVELOPMENT): His Stacy device does not consistently match [...] daily. Assessment & Plan (10/17/2021 1:55 PM MANAGER OF SOFTWARE DEVELOPMENT): FreeStyle Stacy report was reviewed today and [...] daily. Assessment & Plan (09/15/2021 5:10 PM MANAGER OF SOFTWARE DEVELOPMENT): Hemoglobin A1c has increased to 9.8%. Continue [...] SE discussed. First injection now. Provided with [employer] 2 reader as they are considering buy sensors OTC. Agree this would help with compliance with BG checks during the day and demonstrate action of food to BG. Assessment & Plan (08/11/2020 11:04 AM MANAGER OF SOFTWARE DEVELOPMENT): A1c worsening at 9.5. Poor compliance with [...] misconceptions. Assessment & Plan (08/22/2018 11:21 AM MANAGER OF SOFTWARE DEVELOPMENT): Continue same medication. Advised that glimepiride may [...] time between meals. Get book or [place] Angela Reynolds Assessment & Plan (07/10/2017 12:19 PM MANAGER OF SOFTWARE DEVELOPMENT): Hba1c was 8.3 today, indicating worsening DM [...] Unspecified Assessment & Plan (08/04/2024 9:56 AM MANAGER OF SOFTWARE DEVELOPMENT): - At goal today - Recommend to [...] plan. Assessment & Plan (08/11/2020 11:05 AM MANAGER OF SOFTWARE DEVELOPMENT): Controlled on current medications. Continue plan. Assessment [...] medications. Assessment & Plan (08/24/2018 6:41 PM MANAGER OF SOFTWARE DEVELOPMENT): Controlled on current medications. Assessment & Plan (06/13/2018 9:56 AM CDT): Goal blood pressure is less than 140/85 Low salt diet recommended Daily aerobic exercise Continue current meds, including TARA-I or ARB Assessment & Plan (02/14/2018 10:50 AM CDT): Controlled on current medications. Assessment & Plan (11/01/2017 1:18 PM CDT): Controlled on current medications. Assessment & Plan (07/10/2017 12:19 PM MANAGER OF SOFTWARE DEVELOPMENT): Goal blood pressure is less than 140/85 [...] drink = 0.6 oz pur e alcohol) [facility] Utilities Answer Date Recorded In the past 12 months has [employer], [employer], oil, or water [employer] threatened to shut off services in your home? No 12/01/2024 Social Connection and Isolation Panel [NHANES] A nswer Date Recorded In a typical week, how many times do you talk on the phone with family, friends, or neighbors? Twice a week 12/01/2024 How often do you get togethe r with friends or relatives? Three times a week 12/01/2024 How often do you attend chur ch or buddhism services? Never 12/01/2024 Do you belong to any clubs o r organizations such as synagogue groups, unions, fraternal or athletic groups, or school groups? No 12/01/2024 How often do you attend meet ings of the clubs or organizations you belong to? Not asked 12/01/2024 Are you , , di vorced, , never , or living with a partner? 12/01/2024 AUDIT-C Answer Date Recorded Q1: How often do you have a drink containing alc ohol? 2-4 times a month 10/02/2024 Q2: How many drinks containi ng alcohol do you have on a typical day when you are drinking? 1 or 2 10/02/2024 Q3: How often do you have si x or more drinks on one occasion? Never 10/02/2024 Overall Financial Resource Strain (CARDIA) Answe r Date Recorded How hard is it for you to pa y for the very basics like food, housing, medical care, and heating? Somewhat hard 12/01/2024 PHQ-2 Answer Date Recorded Patient Health Questionnaire-2 Score 0 12/01/2024 [facility] - Occupational Stress Questionnaire Answer Date Recorded Do you feel stress - tense, restless, nervous, or anxious, or unable to sleep at night because your mind is troubled all the time - these days? Not at all 12/01/2024 Exercise Vital Sign Answer Date Recorde d On average, how many days pe r week do you engage in moderate to strenuous exercise (like a brisk walk)? 0 days 12/01/2024 On average, how many minutes do you engage in exercise at this level? 10 min 12/01/2024 Hunger Vital Sign Answer Date Recorded Within the past 12 months, y ou worried that your food would run out before you got the money to buy more. Never true 12/02/19 25 Within the past 12 months, t he food you bought just didn't last and you didn't have money to get more. Never true 12/01/2024 PRAPARE - Transportation Answer Date Re corded In the past 12 months, has l ack of transportation kept you from medical appointments or from getting medications? No 11/18 In the past 12 months, has l ack of transportation kept you from meetings, work, or from getting things needed for daily living? No 12/01/2024 Housing Stability Vital Sign Answer Trip e Recorded In the last 12 months, was t here a time when you were not able to pay the mortgage or rent on time? Patient refused 12/02/19 25 Number of Times Moved in the Last Year Not on fi le 12/01/2024 Homeless in the Last Year Not on file 2024 Personal Safety Answer Date Recorded Have you ever been in or are you currently in a harmful physical or emotional relationship or is someone making you feel afraid or unsafe? 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 Not on file Not on file Last Filed Vital Signs Vital Sign Reading Time Taken Comments Blood Pressure 121/70 12/03/2024 10:29 AM CDT Pulse 90 12/03/2024 10:29 AM CDT Temperature 36.7 C (98.1 F) 12/03/2024 10:29 AM CDT Respiratory Rate 14 12/03/2024 10:29 AM CDT Oxygen Saturation 95% 12/03/2024 10:29 AM CDT Inhaled Oxygen Concentration - - Weight 66 kg (145 lb 9.6 oz) 12/03/2024 10:29 AM CDT Height 175.8 cm (5' 9.2 ) 12/03/2024 10:29 AM CD T Body Mass Index 21.38 12/03/2024 10:29 AM CDT Plan of Treatment Not on file Procedures Procedure Name Priority Date/Time Associated Diagnosis Comments EGFR Routine 12/03/2024 11:30 AM CDT Polycythemia Leukocytosis, unspecified type Thrombocytosis DIFFERENTIAL AUTO Routine 12/03/2024 11:30 AM CDT Polycythemia Leukocytosis, unspecified type Thrombocytosis ERYTHROPOIETIN Routine 12/03/2024 11:30 AM CDT Polycythemia Leukocytosis, unspecified type Thrombocytosis CBC WITH AUTO DIFFERENTIAL Routine 12/03/2024 11:30 AM CDT Polycythemia Leukocytosis, unspecified type Thrombocytosis COMPREHENSIVE METABOLIC PANEL Routine 12/03/2024 11:30 AM CDT Polycythemia Leukocytosis, unspecified type Thrombocytosis LACTATE DEHYDROGENASE Routine 12/03/2024 11:30 AM CDT Polycythemia Leukocytosis, unspecified type Thrombocytosis IRON PROFILE W/ IBC Routine 12/03/2024 11:30 AM CDT Polycythemia Leukocytosis, unspecified type Thrombocytosis FERRITIN Routine 12/03/2024 11:30 AM CDT Polycythemia Leukocytosis, unspecified type Thrombocytosis CYTOGENETICS TRACKING ORDER Routine 12/03/2024 11:30 AM CDT Polycythemia Leukocytosis, unspecified type Thrombocytosis CYTOGENETICS Routine 12/03/2024 11:24 AM CDT Polycythemia Leukocytosis, unspecified type Thrombocytosis XR FOOT LEFT 3 OR MORE VIEWS Routine 12/03/2024 9:52 AM CDT Seronegative rheumatoid arthritis (HCC) High risk medication use XR FOOT RIGHT 3 OR MORE VIEWS Routine 12/03/2024 9:52 AM CDT Seronegative rheumatoid arthritis (HCC) High risk medication use XR KNEE LEFT 3 VIEWS Routine 12/03/2024 9:52 AM CDT Seronegative rheumatoid arthritis (HCC) High risk medication use XR KNEE RIGHT 3 VIEWS Routine 12/03/2024 9:52 AM CDT Seronegative rheumatoid arthritis (HCC) High risk medication use XR HAND RIGHT 3 OR MORE VIEWS Routine 12/03/2024 9:52 AM CDT Seronegative rheumatoid arthritis (HCC) High risk medication use XR HAND LEFT 3 OR MORE VIEWS Routine 12/03/2024 9:52 AM CDT Seronegative rheumatoid arthritis (HCC) High risk medication use XR SACROILIAC JOINTS 3 OR MORE VIEWS Routine 12/03/2024 9:52 AM CDT Seronegative rheumatoid arthritis (HCC) High risk medication use XR SPINE LUMBAR COMPLETE 4 OR MORE VIEWS Routine 12/03/2024 9:52 AM CDT Seronegative rheumatoid arthritis (HCC) High risk medication use EGFR Routine 12/01/2024 11:07 AM CDT Seronegative rheumatoid arthritis (HCC) High risk medication use URINALYSIS, MICROSCOPIC ONLY Routine 12/01/2024 11:07 AM CDT Seronegative rheumatoid arthritis (HCC) High risk medication use DIFFERENTIAL AUTO Routine 12/01/2024 11:07 AM CDT Seronegative rheumatoid arthritis (HCC) High risk medication use ERYTHROCYTE SEDIMENTATION RATE Routine 12/01/2024 11:07 AM CDT Seronegative rheumatoid arthritis (HCC) High risk medication use CRP (ACUTE PHASE) Routine 12/01/2024 11:07 AM CDT Seronegative rheumatoid arthritis (HCC) High risk medication use CBC WITH AUTO DIFFERENTIAL Routine 12/01/2024 11:07 AM CDT Seronegative rheumatoid arthritis (HCC) High risk medication use COMPREHENSIVE METABOLIC PANEL Routine 12/01/2024 11:07 AM CDT Seronegative rheumatoid arthritis (HCC) High risk medication use RHEUMATOID FACTOR Routine 12/01/2024 11:07 AM CDT Seronegative rheumatoid arthritis (HCC) High risk medication use CYCLIC CITRUL PEPTIDE ANTIBODY, IGG Routine 12/01/2024 11:07 AM CDT Seronegative rheumatoid arthritis (HCC) High risk medication use C3 COMPLEMENT Routine 12/01/2024 11:07 AM CDT Seronegative rheumatoid arthritis (HCC) High risk medication use C4 COMPLEMENT Routine 12/01/2024 11:07 AM CDT Seronegative rheumatoid arthritis (HCC) High risk medication use PROTEIN / CREATININE RATIO, URINE, RANDOM Routine 12/01/2024 11:07 AM CDT Seronegative rheumatoid arthritis (HCC) High risk medication use ANTI-DOUBLE STRANDED DNA ANTIBODIES Routine 12/01/2024 11:07 AM CDT Seronegative rheumatoid arthritis (HCC) High risk medication use REGAN ANTIBODY EVALUATION WITH REFLEX Routine 12/01/2024 11:07 AM CDT Seronegative rheumatoid arthritis (HCC) High risk medication use NHUNG QUALITATIVE WITH REFLEX TO NHUNG QUANTITATIVE Routine 12/01/2024 11:07 AM CDT Seronegative rheumatoid arthritis (HCC) High risk medication use VITAMIN D 25 HYDROXY Routine 12/01/2024 11:07 AM CDT Seronegative rheumatoid arthritis (HCC) High risk medication use HEPATITIS B CORE ANTIBODY, TOTAL Routine 12/01/2024 11:07 AM CDT Seronegative rheumatoid arthritis (HCC) High risk medication use HEPATITIS B SURFACE ANTIBODY (IMMUNE STATUS) Routine 12/01/2024 11:07 AM CDT Seronegative rheumatoid arthritis (HCC) High risk medication use HEPATITIS C ANTIBODY Routine 12/01/2024 11:07 AM CDT Seronegative rheumatoid arthritis (HCC) High risk medication use HEPATITIS B SURFACE ANTIGEN Routine 12/01/2024 11:07 AM CDT Seronegative rheumatoid arthritis (HCC) High risk medication use T-SPOT.TB Routine 12/01/2024 11:07 AM CDT Seronegative rheumatoid arthritis (HCC) High risk medication use URINALYSIS AND REFLEX TO MICROSCOPIC AND CULTURE Routine 12/01/2024 11:07 AM CDT Seronegative rheumatoid arthritis (HCC) High risk medication use POCT GLUCOSE DEVICE Routine 10/06/2024 12:27 PM MANAGER OF SOFTWARE DEVELOPMENT POCT GLUCOSE DEVICE Routine 10/06/2024 8 :35 AM MANAGER OF SOFTWARE DEVELOPMENT HEPATIC FUNCTION PANEL Routine 4:45 AM MANAGER OF SOFTWARE DEVELOPMENT EGFR Routine 10/06/2024 4:45 AM MANAGER OF SOFTWARE DEVELOPMENT DIFFERENTIAL AUTO Routine 10/06/2024 4:4 5 AM MANAGER OF SOFTWARE DEVELOPMENT CBC WITH AUTO DIFFERENTIAL Routine 10/06/2024 4:45 AM MANAGER OF SOFTWARE DEVELOPMENT BASIC METABOLIC PANEL Routine 10/06/2024 4:45 AM MANAGER OF SOFTWARE DEVELOPMENT POCT GLUCOSE DEVICE Routine 10/06/2024 1 :25 AM MANAGER OF SOFTWARE DEVELOPMENT POCT GLUCOSE DEVICE Routine 10/05/2024 7 :43 PM MANAGER OF SOFTWARE DEVELOPMENT POCT GLUCOSE DEVICE Routine 10/05/2024 4 :27 PM MANAGER OF SOFTWARE DEVELOPMENT POCT GLUCOSE DEVICE Routine 10/05/2024 11:38 AM MANAGER OF SOFTWARE DEVELOPMENT POCT GLUCOSE DEVICE Routine 10/05/2024 7 :45 AM MANAGER OF SOFTWARE DEVELOPMENT EGFR Routine 10/05/2024 5:17 AM MANAGER OF SOFTWARE DEVELOPMENT DIFFERENTIAL AUTO Routine 10/05/2024 5:1 7 AM MANAGER OF SOFTWARE DEVELOPMENT CBC WITH AUTO DIFFERENTIAL Routine 10/05/2024 5:17 AM MANAGER OF SOFTWARE DEVELOPMENT BASIC METABOLIC PANEL Routine 10/05/2024 5:17 AM MANAGER OF SOFTWARE DEVELOPMENT POCT GLUCOSE DEVICE Routine 10/05/2024 2 :24 AM MANAGER OF SOFTWARE DEVELOPMENT VANCOMYCIN LEVEL TROUGH Routine 10/04/2024 10:17 PM MANAGER OF SOFTWARE DEVELOPMENT POCT GLUCOSE DEVICE Routine 10/04/2024 8 :11 PM MANAGER OF SOFTWARE DEVELOPMENT POCT GLUCOSE DEVICE Routine 10/04/2024 5 :00 PM MANAGER OF SOFTWARE DEVELOPMENT POCT GLUCOSE DEVICE Routine 10/04/2024 12:04 PM MANAGER OF SOFTWARE DEVELOPMENT POCT GLUCOSE DEVICE Routine 10/04/2024 7 :59 AM MANAGER OF SOFTWARE DEVELOPMENT EGFR Routine 10/04/2024 4:04 AM MANAGER OF SOFTWARE DEVELOPMENT DIFFERENTIAL AUTO Routine 10/04/2024 4:0 4 AM MANAGER OF SOFTWARE DEVELOPMENT CBC WITH AUTO DIFFERENTIAL Routine 10/04/2024 4:04 AM MANAGER OF SOFTWARE DEVELOPMENT BASIC METABOLIC PANEL Routine 10/04/2024 4:04 AM MANAGER OF SOFTWARE DEVELOPMENT POCT GLUCOSE DEVICE Routine 10/04/2024 3 :56 AM MANAGER OF SOFTWARE DEVELOPMENT POCT GLUCOSE DEVICE Routine 10/04/2024 3 :54 AM MANAGER OF SOFTWARE DEVELOPMENT POCT GLUCOSE DEVICE Routine 10/03/2024 8 :44 PM MANAGER OF SOFTWARE DEVELOPMENT POCT GLUCOSE DEVICE Routine 10/03/2024 5 :09 PM MANAGER OF SOFTWARE DEVELOPMENT POCT GLUCOSE DEVICE Routine 10/03/2024 11:57 AM MANAGER OF SOFTWARE DEVELOPMENT POCT GLUCOSE DEVICE Routine 10/03/2024 11:13 AM MANAGER OF SOFTWARE DEVELOPMENT POCT GLUCOSE DEVICE Routine 10/03/2024 8 :06 AM MANAGER OF SOFTWARE DEVELOPMENT HEMOGLOBIN A1C Routine 10/03/2024 4:41 AM MANAGER OF SOFTWARE DEVELOPMENT EGFR Routine 10/03/2024 4:41 AM MANAGER OF SOFTWARE DEVELOPMENT DIFFERENTIAL AUTO Routine 10/03/2024 4:4 1 AM MANAGER OF SOFTWARE DEVELOPMENT POTASSIUM, WHOLE BLOOD Routine 4:41 AM MANAGER OF SOFTWARE DEVELOPMENT CBC WITH AUTO DIFFERENTIAL Routine 10/03/2024 4:41 AM MANAGER OF SOFTWARE DEVELOPMENT BASIC METABOLIC PANEL Routine 10/03/2024 4:41 AM MANAGER OF SOFTWARE DEVELOPMENT POCT GLUCOSE DEVICE Routine 10/03/2024 1 :51 AM MANAGER OF SOFTWARE DEVELOPMENT POTASSIUM, WHOLE BLOOD Routine 11:05 PM MANAGER OF SOFTWARE DEVELOPMENT HEMOGLOBIN A1C Routine 10/02/2024 9:27 PM MANAGER OF SOFTWARE DEVELOPMENT LIPID PANEL Routine 10/02/2024 9:27 PM MANAGER OF SOFTWARE DEVELOPMENT EGFR Routine 10/02/2024 9:27 PM MANAGER OF SOFTWARE DEVELOPMENT DIFFERENTIAL AUTO Routine 10/02/2024 9:2 7 PM MANAGER OF SOFTWARE DEVELOPMENT CBC WITH AUTO DIFFERENTIAL Routine 10/02/2024 9:27 PM MANAGER OF SOFTWARE DEVELOPMENT BASIC METABOLIC PANEL Routine 10/02/2024 9:27 PM MANAGER OF SOFTWARE DEVELOPMENT POCT GLUCOSE DEVICE Routine 10/02/2024 7 :51 PM MANAGER OF SOFTWARE DEVELOPMENT POCT GLUCOSE DEVICE Routine 10/02/2024 5 :40 PM MANAGER OF SOFTWARE DEVELOPMENT POCT GLUCOSE DEVICE Routine 10/02/2024 5 :37 PM MANAGER OF SOFTWARE DEVELOPMENT POCT GLUCOSE DEVICE Routine 10/02/2024 10:41 AM MANAGER OF SOFTWARE DEVELOPMENT MYCOBACTERIOLOGY AFB CULTURE AND ACID-FAST STAIN Routine 10/02/2024 9:19 AM MANAGER OF SOFTWARE DEVELOPMENT MYCOLOGY (FUNGAL) CULTURE AND STAIN Routine 10/02/2024 9:19 AM MANAGER OF SOFTWARE DEVELOPMENT TISSUE AEROBIC AND ANAEROBIC CULTURE AND GRAM STAIN Routine 10/02/2024 9:19 AM MANAGER OF SOFTWARE DEVELOPMENT MYCOBACTERIOLOGY AFB CULTURE AND ACID-FAST STAIN Routine 10/02/2024 9:18 AM MANAGER OF SOFTWARE DEVELOPMENT MYCOLOGY (FUNGAL) CULTURE AND STAIN Routine 10/02/2024 9:18 AM MANAGER OF SOFTWARE DEVELOPMENT TISSUE AEROBIC AND ANAEROBIC CULTURE AND GRAM STAIN Routine 10/02/2024 9:18 AM MANAGER OF SOFTWARE DEVELOPMENT MYCOBACTERIOLOGY AFB CULTURE AND ACID-FAST STAIN Routine 10/02/2024 8:58 AM MANAGER OF SOFTWARE DEVELOPMENT MYCOLOGY (FUNGAL) CULTURE AND STAIN Routine 10/02/2024 8:58 AM MANAGER OF SOFTWARE DEVELOPMENT TISSUE AEROBIC AND ANAEROBIC CULTURE AND GRAM STAIN Routine 10/02/2024 8:58 AM MANAGER OF SOFTWARE DEVELOPMENT WI AN PROCEDURE PLACEHOLDER Routine 10/02/2024 8:39 AM MANAGER OF SOFTWARE DEVELOPMENT WI AN ELECTIVE ENDOTRACHEAL AIRWAY Routine 10/02/2024 8:39 AM MANAGER OF SOFTWARE DEVELOPMENT IRRIGATION AND DEBRIDEMENT - ELBOW 10/02/2024 8:02 AM MANAGER OF SOFTWARE DEVELOPMENT Olecranon bursitis of left elbow Case Notes 10/01@1336: Per Karen via phone call, changed patient class to Outpatient in Bed/Post op destination to Surgical Floor. [id number]: Sent email to OR resource nurse about blank DPC. SR Special Needs 3 liters of saline and cysto tubing EXCISION CYST/LESION/MASS - ELBOW BURSA 10/02/2024 8:02 AM MANAGER OF SOFTWARE DEVELOPMENT Olecranon bursitis of left elbow Case Notes 10/01@1336: Per Karen via phone call, changed patient class to Outpatient in Bed/Post op destination to Surgical Floor. [id number]: Sent email to OR resource nurse about blank DPC. SR Special Needs 3 liters of saline and cysto tubing POCT GLUCOSE DEVICE Routine 10/02/2024 6 :36 AM MANAGER OF SOFTWARE DEVELOPMENT ALBUMIN CREATININE RATIO, URINE Routine 10/16/2022 9:19 AM MANAGER OF SOFTWARE DEVELOPMENT Type 2 diabetes mellitus with hyperglycemia, without long-term current use of insulin (HCC) from Last 3 Months or Most Recently Relevant to Health Maintenance Results * Cytogenetics Specimen Tracking Blood (12/03/2024 11:30 AM CDT) Cytotenetics Tracking Order Received Blood 12/03/2024 11:3 0 AM CDT 12/03/2024 2:06 PM CDT Narrative [facility] - 12/03/2024 3:18 PM CDT Please read the Cytogenetics Epic requisition for specimen collection requirements. Melinda Howard MD LAB BODY FLUIDS AND STOOL S ORDERABLES Final Result [facility] [place] [address] * eGFR (12/03/2024 11:30 AM CDT) Pathologist [facility] eGFR >90 >=60 mL/min/1. 73 m2 Comment: [...] of Race in Diagnosing Kidney Disease, JASN 202). The CKD-EPI equation should not be used for patients with unstable renal function and has not been validated in children and those over 70. Current interpretive data was last reviewed 2021. Blood 12/03/2024 11:3 0 AM CDT 12/03/2024 12:05 PM CDT us Melinda Howard MD LAB BLOOD ORDERABLES Lala wing Result [facility] [place] [address] * (ABNORMAL) Differential, auto (12/03/2024 11:30 AM CDT) Neutrophil abs 7.02(H) 1.50 - 6.50 K/cumm Comment:Testing performed by : [facility], [address] [place] [address] Lymphocyte abs 2.53 0.80 - 3.30 K/cumm [facility] Comment:Testing performed by : [facility], [address] [place] [address] Monocyte abs 0.82(H) 0.20 - 0.80 K/cumm [facility] Comment:Testing performed by : [facility], [address] [place] [address] Eosinophil abs 0.37 0.00 - 0.50 K/cumm [facility] Comment:Testing performed by : [facility], [address] [place] [address] Basophil abs 0.13(H) 0.00 - 0.10 K/cumm [facility] Comment:Testing performed by : [facility], [address] [place] [address] Neutrophil pct 64.5 % [facility] Comment: Interpretive Data Percent cell count reference ranges are not reported, since discordance with absolute values may lead to misinterpretation of CBC data. Current Interpretive Data was last revised on 2017. Testing performed by: [facility], [address] [place] [address] Lymphocyte pct 23.2 % [facility] Comment: Interpretive Data Percent cell count reference ranges are not reported, since discordance with absolute values may lead to misinterpretation of CBC data. Current Interpretive Data was last revised on 2017. Testing performed by: [facility], [address] [place] [address] Monocyte pct 7.6 % [facility] Comment: Interpretive Data Percent cell count reference ranges are not reported, since discordance with absolute values may lead to misinterpretation of CBC data. Current Interpretive Data was last revised on 2017. Testing performed by: [facility], [address] [place] [phone] Eosinophil pct 3.4 % [facility] Comment: Interpretive Data Percent cell count reference ranges are not reported, since discordance with absolute values may lead to misinterpretation of CBC data. Current Interpretive Data was last revised on 2017. Testing performed by: [facility], [address] [place] [address] Basophil pct 1.2 % [facility] Comment: Interpretive Data Percent cell count reference ranges are not reported, since discordance with absolute values may lead to misinterpretation of CBC data. Current Interpretive Data was last revised on 2017. Testing performed by: [facility], [address] [place] [phone] Blood 12/03/2024 11:3 0 AM CDT 12/03/2024 12:00 PM CDT Melinda Howard MD LAB BLOOD ORDERABLES Lala l Result Performing Organization Address City/[facility] Co de Phone Number [facility] [place] [address] * (ABNORMAL) Iron profile w/ IBC (12/03/2024 11:30 AM CDT) Iron 35(L) 50 - 150 mcg/dL TIBC 298 250 - 400 mcg/dL [facility] Transferrin saturation 12(L) 20 - 50 % [facility] Blood 12/03/2024 11:3 0 AM CDT 12/03/2024 12:05 PM CDT Melinda Howard MD LAB BLOOD ORDERABLES Lala l Result [facility] [place] [address] * (ABNORMAL) CBC with auto differential (12/03/2024 11:30 AM CDT) WBC 10.88(H) 3.80 - 9.90 K/cumm Comment:Testing performed by : [facility], [address] [place] [address] Hgb 15.4 13.0 - 17.5 g/dL [facility] Comment:Testing performed by : [facility], [address] [place] [address] Hct 46.0 38.9 - 50.3 % [facility] Comment:Testing performed by : [facility], [address] [place] [address] Plt 468(H) 150 - 400 K/cumm [facility] Comment:Testing performed by : [facility], [address] [place] [address] MPV 7.7 6.8 - 10.4 fL [facility] Comment:Testing performed by : [facility], [address] [place] [address] RBC 5.19 4.30 - 5.80 M/cumm [facility] Comment:Testing performed by : [facility], [address] [place] [address] MCV 88.7 81.3 - 96.4 fL [facility] Comment:Testing performed by : [facility], [address] [place] [address] MCH 29.6 27.1 - 33.3 pg [facility] Comment:Testing performed by : [facility], [address] [place] [address] MCHC 33.4 32.3 - 35.7 g/dL [facility] Comment:Testing performed by : [facility], [address] [place] [address] RDW CV 14.1 11.1 - 14.9 % [facility] Comment:Testing performed by : [facility], [address] [place] [phone] NRBC abs 0.00 0.00 - 0.01 K/cumm [facility] Comment:Testing performed by : [facility], [address] [place] [phone] Blood 12/03/2024 11:3 0 AM CDT 12/03/2024 12:00 PM CDT Melinda Howard MD LAB BLOOD ORDERABLES Lala l Result Performing Organization Address City/[facility] Co de Phone Number [facility] [place] [address] * Erythropoietin (12/03/2024 11:30 AM CDT) Pathologist [facility] Erythropoietin 7.0 2.6 - 18.5 mIUnits/mL [place] [facility] Comment: Test Performed by: [facility][Note 3] [address] [place] [address] [employer] Account Assistant: Solitario Whatley Ph.D.; CLIA# [id number] Blood 12/03/2024 11:3 0 AM CDT 12/03/2024 2:04 PM CDT Melinda Howard MD LAB BLOOD ORDERABLES Lala l Result Performing Organization Address City/[facility] Co de Phone Number [facility] [place] [address] [place] [facility] * Lactate dehydrogenase (LD) (12/03/2024 11:30 AM CDT) Pathologist [facility] Lactate dehydrogenase (LDH) 193 100 - 250 Units/L Blood 12/03/2024 11:3 0 AM CDT 12/03/2024 12:05 PM CDT Melinda Howard MD LAB BLOOD ORDERABLES Lala l Result [facility] [place] [address] * Ferritin (12/03/2024 11:30 AM CDT) [facility] Ferritin 47 30 - 400 ng/mL Blood 12/03/2024 11:3 0 AM CDT 12/03/2024 12:05 PM CDT [facility] Rob Howard MD LAB BLOOD ORDERABLES Lala l Result Performing Organization Address [facility] Co de Phone Number [facility] Department [place] [address] * Comprehensive metabolic panel (12/03/2024 11:30 AM CDT) [facility] Sodium 138 135 - 145 mmol/L Potassium, pl 4.6 3.3 - 4.9 mmol/L [facility] Chloride 100 97 - 110 mmol/L [facility] CO2 28 22 - 32 mmol/L [facility] Anion gap 10 2 - 15 mmol/L [facility] BUN 18 6 - 25 mg/dL [facility] Creatinine 0.81 0.80 - 1.30 mg/dL [facility] Glucose 132 70 - 199 mg/dL [facility] Comment: Interpretive Data Fasting glucose >/= [...] interpretive data was last revised 2022. Calcium 9.8 8.5 - 10.3 mg/dL [facility] Bilirubin, total 0.3 0.1 - 1.2 mg/dL [facility] Protein, pl 8.1 6.5 - 8.5 g/dL [facility] Albumin 4.1 3.5 - 5.0 g/dL [facility] Alk phos 102 40 - 130 Units/L [facility] ALT 17 7 - 55 Units/L [facility] AST 21 10 - 50 Units/L [facility] Blood 12/03/2024 11:3 0 AM CDT 12/03/2024 12:05 PM CDT Narrative [facility] - 12/03/2024 12:32 PM CDT Has the patient fasted?->No us Melinda Howard MD LAB BLOOD ORDERABLES Lala wing Result [facility] [place] [address] * Cytogenetics Blood (12/03/2024 11:24 AM CDT) Blood (Peripheral Blood For Pathologist Review) 12/03/2024 11:24 AM CDT 12/03/2024 11:24 AM CDT Narrative [facility] - CYTOGENETICS - 12/05/2024 6:37 PM CDT [facility] results best viewed via link to PDF [facility] Department of Pathol [address] [place] [id number] Patient Information Name: CHIDI ELDRIDGE Gender: Gaby : 1955 (Age: 69) Tissue: FISH Only Leukemic Blood Visit Information Hospital #: [id number] Facility: [facility] Service: [facility] Location: [facility] Patient Type: [facility] Specimen Information: Culture #: [id number] Date Collected: 12/03/2024 Date Accessioned: 12/03/2024 Date Ordered: 12/03/2024 Physician(s): Melinda Howard M.D. Processing: Direct unstimulated Indication: Polycythemia, leukocytosis, thrombocytosis Specimen Quality: Adequate: FISH CLINICAL REPORT FLUORESCENCE IN-SITU HYBRIDIZATION [FISH] Karyotype: nuc keith (ASS1,ABL1,BCR)x2[200] Diagnosis: FISH FINDINGS: NO EVIDENCE OF BCR::ABL1 REARRANGEMENT INTERPRETATION: FISH evaluation for a BCR::ABL1 rearrangement was performed on nuclei with the LSI BCR::ABL1 Tricolor, Dual Fusion Translocation Probe ([employer] for ASS1/ABL1 at 9q34 and BCR at 22q11.2 and is interpreted as NORMAL. No rearrangement was observed in 193/200 nuclei, which is within the normal range (up to 1%) established for this probe in the Clinical Genomics Laboratory at [facility]. Variant signal pattern was observed in 7/200 nuclei. Up to 8.5% of cells in normal samples can show random overlap of BCR::ABL1 probes and additional nuclei may show extra or missing signals. A normal BCR::ABL1 FISH finding can result from the absence of a BCR::ABL1 rearrangement, from a variant BCR::ABL1 rearrangement or from an insufficient number of neoplastic cells in the specimen. PLEASE NOTE: This study does not represent a complete cytogenetic analysis. The sample was submitted for FISH analysis only. Chromosome analysis is recommended. The FISH findings must be interpreted within the context of the pathologic and clinical findings. Follow-up evaluation is recommended. This test was developed and its performance characteristics determined by [facility]. It has not been cleared or approved by the FDA. The laboratory is regulated under CLIA as qualified to perform high-complexity testing. This test is used for clinical purposes. It should not be regarded as investigational or for research. Professional component performed by Betzy Johnson, Ph.D., [facility], [address] [place], [place] (CLIA #: [id number]). Chromosome analysis and Fluorescence In Situ Hybridization (FISH) analysis are performed using the [employer] Cytovision Imaging System. Report Electronically Reviewed and Signed Out By Betzy Johnson, PhDDate Reported: 12/05/2024 us Melinda Howard MD LAB GENETIC TESTING Final Result [facility]AG[facility] - CYTOGENETICS [address] [place] [address] * XR Foot Right 3 or More Views (12/03/2024 9:52 AM CDT) Anatomical Region Laterality Modality Lower Extremities, Foot Right Computed Radiography 12/03/2024 11:0 4 AM CDT Impressions 12/03/2024 11:04 AM CDT 1. 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 This is favored to represent a rheumatoid arthritis pattern although psoriatic arthritis would be less likely alternative consideration. 2. Severe bilateral knee osteoarthritis with bilateral joint effusions. 3. Grade 2 spondylolisthesis at L5-S1 possibly related to pars defects, with severe degenerative disc disease at L2-L3 and L5-S1. 4. Mild bilateral sacroiliac osteoarthritis. Electronically signed by: Jimmy Huff M.D. Narrative 12/03/2024 11:04 AM CDT EXAMINATION: XR SACROILIAC JOINTS 3 OR MORE VIEWS, XR SPINE LUMBAR 4 OR MORE VIEWS, XR HAND LEFT 3 OR MORE VIEWS, XR HAND RIGHT 3 OR MORE VIEWS, XR KNEE RIGHT 3 VIEWS, XR KNEE LEFT 3 VIEWS, XR FOOT RIGHT 3 OR MORE VIEWS, XR FOOT LEFT 3 OR MORE VIEWS HISTORY: Polyarticular arthralgias involving the hands and knees and ankles for several years, previously treated for seronegative rheumatoid arthritis with methotrexate, onycholysis on exam FINDINGS: Sacroiliac joints: 3 view examination of the sacroiliac joints is read without comparison. There is mild bilateral sacroiliac osteoarthritis. There is no sacroiliitis, erosion, or ankylosis. There is no fracture. Lumbar spine: 4 view examination of the lumbar spine is read without comparison. 4 there is mild levoscoliosis. There is severe degenerative disc disease at L2-L3 and L5-S1. There is grade 2 spondylolisthesis at L5-S1, possibly due to L5 pars defects which are not well seen on this study. There is mild degenerative disc disease at the remaining lumbar segments with facet and interspinous osteoarthritis. There is no compression fracture or syndesmophyte formation. There are scattered atherosclerotic vascular calcifications. Knees: 3 view examinations of both knees are read without comparison. There is severe tricompartmental osteoarthritis of both knees, worst in the left medial and right lateral compartments. There are moderate-sized bilateral knee effusions. There are intraosseous ganglion cysts in both proximal tibias. There is no fracture or dislocation. There are scattered atherosclerotic vascular calcifications. Feet: 3 view nonweightbearing examinations of both feet are performed. There is mild bilateral Achilles tendinopathy with intratendinous ossification. There is mild osteoarthritis at the bilateral 1st metatarsophalangeal joints. There are small erosions at the right 1st metatarsal head and left 5th metatarsal head. There are bilateral midfoot erosions at the 2nd and 3rd tarsometatarsal joints with moderate osteoarthritis. There is no fracture. Hands: 3 view examinations of both hands are read without comparison. There is severe uniform joint space narrowing at the left 1st, right 2nd, and bilateral 3rd metacarpophalangeal joints with multiple bilateral MCP erosions. There also bilateral carpal erosions and extensive left distal ulnar erosion. There is severe bilateral capitolunate and moderate to severe triscaphe with joint space narrowing. There is pericapsular swelling at the MCP joints and dorsal wrist capsules. Procedure Note Jimmy Huff MD - 12/03/2024 EXAMINATION: XR SACROILIAC JOINTS 3 OR MORE VIEWS, XR SPINE LUMBAR 4 OR MORE VIEWS, XR HAND LEFT 3 OR MORE VIEWS, XR HAND RIGHT 3 OR MORE VIEWS, XR KNEE RIGHT 3 VIEWS, XR KNEE LEFT 3 VIEWS, XR FOOT RIGHT 3 OR MORE VIEWS, XR FOOT LEFT 3 OR MORE VIEWS HISTORY: Polyarticular arthralgias involving the hands and knees and ankles for several years, previously treated for seronegative rheumatoid arthritis with methotrexate, onycholysis on exam FINDINGS: Sacroiliac joints: 3 view examination of the sacroiliac joints is read without comparison. There is mild bilateral sacroiliac osteoarthritis. There is no sacroiliitis, erosion, or ankylosis. There is no fracture. Lumbar spine: 4 view examination of the lumbar spine is read without comparison. 4 there is mild levoscoliosis. There is severe degenerative disc disease at L2-L3 and L5-S1. There is grade 2 spondylolisthesis at L5-S1, possibly due to L5 pars defects which are not well seen on this study. There is mild degenerative disc disease at the remaining lumbar segments with facet and interspinous osteoarthritis. There is no compression fracture or syndesmophyte formation. There are scattered atherosclerotic vascular calcifications. Knees: 3 view examinations of both knees are read without comparison. There is severe tricompartmental osteoarthritis of both knees, worst in the left medial and right lateral compartments. There are moderate-sized bilateral knee effusions. There are intraosseous ganglion cysts in both proximal tibias. There is no fracture or dislocation. There are scattered atherosclerotic vascular calcifications. Feet: 3 view nonweightbearing examinations of both feet are performed. There is mild bilateral Achilles tendinopathy with intratendinous ossification. There is mild osteoarthritis at the bilateral 1st metatarsophalangeal joints. There are small erosions at the right 1st metatarsal head and left 5th metatarsal head. There are bilateral midfoot erosions at the 2nd and 3rd tarsometatarsal joints with moderate osteoarthritis. There is no fracture. Hands: 3 view examinations of both hands are read without comparison. There is severe uniform joint space narrowing at the left 1st, right 2nd, and bilateral 3rd metacarpophalangeal joints with multiple bilateral MCP erosions. There also bilateral carpal erosions and extensive left distal ulnar erosion. There is severe bilateral capitolunate and moderate to severe triscaphe with joint space narrowing. There is pericapsular swelling at the MCP joints and dorsal wrist capsules. IMPRESSION: 1. 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 This is favored to represent a rheumatoid arthritis pattern although psoriatic arthritis would be less likely alternative consideration. 2. Severe bilateral knee osteoarthritis with bilateral joint effusions. 3. Grade 2 spondylolisthesis at L5-S1 possibly related to pars defects, with severe degenerative disc disease at L2-L3 and L5-S1. 4. Mild bilateral sacroiliac osteoarthritis. Electronically signed by: Jimmy Huff M.D. Vilma Esparza MD IMG XR PROCEDURES Final Result * XR Foot Left 3 or More Views (12/03/2024 9:52 AM CDT) Anatomical Region Laterality Modality Lower Extremities, Foot Left Computed Radiography 12/03/2024 11:0 4 AM CDT Impressions 12/03/2024 11:04 AM CDT 1. 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 This is favored to represent a rheumatoid arthritis pattern although psoriatic arthritis would be less likely alternative consideration. 2. Severe bilateral knee osteoarthritis with bilateral joint effusions. 3. Grade 2 spondylolisthesis at L5-S1 possibly related to pars defects, with severe degenerative disc disease at L2-L3 and L5-S1. 4. Mild bilateral sacroiliac osteoarthritis. Electronically signed by: Jimmy Huff M.D. Narrative 12/03/2024 11:04 AM CDT EXAMINATION: XR SACROILIAC JOINTS 3 OR MORE VIEWS, XR SPINE LUMBAR 4 OR MORE VIEWS, XR HAND LEFT 3 OR MORE VIEWS, XR HAND RIGHT 3 OR MORE VIEWS, XR KNEE RIGHT 3 VIEWS, XR KNEE LEFT 3 VIEWS, XR FOOT RIGHT 3 OR MORE VIEWS, XR FOOT LEFT 3 OR MORE VIEWS HISTORY: Polyarticular arthralgias involving the hands and knees and ankles for several years, previously treated for seronegative rheumatoid arthritis with methotrexate, onycholysis on exam FINDINGS: Sacroiliac joints: 3 view examination of the sacroiliac joints is read without comparison. There is mild bilateral sacroiliac osteoarthritis. There is no sacroiliitis, erosion, or ankylosis. There is no fracture. Lumbar spine: 4 view examination of the lumbar spine is read without comparison. 4 there is mild levoscoliosis. There is severe degenerative disc disease at L2-L3 and L5-S1. There is grade 2 spondylolisthesis at L5-S1, possibly due to L5 pars defects which are not well seen on this study. There is mild degenerative disc disease at the remaining lumbar segments with facet and interspinous osteoarthritis. There is no compression fracture or syndesmophyte formation. There are scattered atherosclerotic vascular calcifications. Knees: 3 view examinations of both knees are read without comparison. There is severe tricompartmental osteoarthritis of both knees, worst in the left medial and right lateral compartments. There are moderate-sized bilateral knee effusions. There are intraosseous ganglion cysts in both proximal tibias. There is no fracture or dislocation. There are scattered atherosclerotic vascular calcifications. Feet: 3 view nonweightbearing examinations of both feet are performed. There is mild bilateral Achilles tendinopathy with intratendinous ossification. There is mild osteoarthritis at the bilateral 1st metatarsophalangeal joints. There are small erosions at the right 1st metatarsal head and left 5th metatarsal head. There are bilateral midfoot erosions at the 2nd and 3rd tarsometatarsal joints with moderate osteoarthritis. There is no fracture. Hands: 3 view examinations of both hands are read without comparison. There is severe uniform joint space narrowing at the left 1st, right 2nd, and bilateral 3rd metacarpophalangeal joints with multiple bilateral MCP erosions. There also bilateral carpal erosions and extensive left distal ulnar erosion. There is severe bilateral capitolunate and moderate to severe triscaphe with joint space narrowing. There is pericapsular swelling at the MCP joints and dorsal wrist capsules. Procedure Note Jimmy Huff MD - 12/03/2024 EXAMINATION: XR SACROILIAC JOINTS 3 OR MORE VIEWS, XR SPINE LUMBAR 4 OR MORE VIEWS, XR HAND LEFT 3 OR MORE VIEWS, XR HAND RIGHT 3 OR MORE VIEWS, XR KNEE RIGHT 3 VIEWS, XR KNEE LEFT 3 VIEWS, XR FOOT RIGHT 3 OR MORE VIEWS, XR FOOT LEFT 3 OR MORE VIEWS HISTORY: Polyarticular arthralgias involving the hands and knees and ankles for several years, previously treated for seronegative rheumatoid arthritis with methotrexate, onycholysis on exam FINDINGS: Sacroiliac joints: 3 view examination of the sacroiliac joints is read without comparison. There is mild bilateral sacroiliac osteoarthritis. There is no sacroiliitis, erosion, or ankylosis. There is no fracture. Lumbar spine: 4 view examination of the lumbar spine is read without comparison. 4 there is mild levoscoliosis. There is severe degenerative disc disease at L2-L3 and L5-S1. There is grade 2 spondylolisthesis at L5-S1, possibly due to L5 pars defects which are not well seen on this study. There is mild degenerative disc disease at the remaining lumbar segments with facet and interspinous osteoarthritis. There is no compression fracture or syndesmophyte formation. There are scattered atherosclerotic vascular calcifications. Knees: 3 view examinations of both knees are read without comparison. There is severe tricompartmental osteoarthritis of both knees, worst in the left medial and right lateral compartments. There are moderate-sized bilateral knee effusions. There are intraosseous ganglion cysts in both proximal tibias. There is no fracture or dislocation. There are scattered atherosclerotic vascular calcifications. Feet: 3 view nonweightbearing examinations of both feet are performed. There is mild bilateral Achilles tendinopathy with intratendinous ossification. There is mild osteoarthritis at the bilateral 1st metatarsophalangeal joints. There are small erosions at the right 1st metatarsal head and left 5th metatarsal head. There are bilateral midfoot erosions at the 2nd and 3rd tarsometatarsal joints with moderate osteoarthritis. There is no fracture. Hands: 3 view examinations of both hands are read without comparison. There is severe uniform joint space narrowing at the left 1st, right 2nd, and bilateral 3rd metacarpophalangeal joints with multiple bilateral MCP erosions. There also bilateral carpal erosions and extensive left distal ulnar erosion. There is severe bilateral capitolunate and moderate to severe triscaphe with joint space narrowing. There is pericapsular swelling at the MCP joints and dorsal wrist capsules. IMPRESSION: 1. 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 This is favored to represent a rheumatoid arthritis pattern although psoriatic arthritis would be less likely alternative consideration. 2. Severe bilateral knee osteoarthritis with bilateral joint effusions. 3. Grade 2 spondylolisthesis at L5-S1 possibly related to pars defects, with severe degenerative disc disease at L2-L3 and L5-S1. 4. Mild bilateral sacroiliac osteoarthritis. Electronically signed by: Jimmy Huff M.D. Vilma Esparza MD IMG XR PROCEDURES Final Result * XR Knee Right 3 Views (12/03/2024 9:52 AM CDT) Anatomical Region Laterality Modality Lower Extremities, Knee Right Computed Radiography 12/03/2024 11:0 4 AM CDT Impressions 12/03/2024 11:04 AM CDT 1. 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 This is favored to represent a rheumatoid arthritis pattern although psoriatic arthritis would be less likely alternative consideration. 2. Severe bilateral knee osteoarthritis with bilateral joint effusions. 3. Grade 2 spondylolisthesis at L5-S1 possibly related to pars defects, with severe degenerative disc disease at L2-L3 and L5-S1. 4. Mild bilateral sacroiliac osteoarthritis. Electronically signed by: Jimmy Huff M.D. Narrative 12/03/2024 11:04 AM CDT EXAMINATION: XR SACROILIAC JOINTS 3 OR MORE VIEWS, XR SPINE LUMBAR 4 OR MORE VIEWS, XR HAND LEFT 3 OR MORE VIEWS, XR HAND RIGHT 3 OR MORE VIEWS, XR KNEE RIGHT 3 VIEWS, XR KNEE LEFT 3 VIEWS, XR FOOT RIGHT 3 OR MORE VIEWS, XR FOOT LEFT 3 OR MORE VIEWS HISTORY: Polyarticular arthralgias involving the hands and knees and ankles for several years, previously treated for seronegative rheumatoid arthritis with methotrexate, onycholysis on exam FINDINGS: Sacroiliac joints: 3 view examination of the sacroiliac joints is read without comparison. There is mild bilateral sacroiliac osteoarthritis. There is no sacroiliitis, erosion, or ankylosis. There is no fracture. Lumbar spine: 4 view examination of the lumbar spine is read without comparison. 4 there is mild levoscoliosis. There is severe degenerative disc disease at L2-L3 and L5-S1. There is grade 2 spondylolisthesis at L5-S1, possibly due to L5 pars defects which are not well seen on this study. There is mild degenerative disc disease at the remaining lumbar segments with facet and interspinous osteoarthritis. There is no compression fracture or syndesmophyte formation. There are scattered atherosclerotic vascular calcifications. Knees: 3 view examinations of both knees are read without comparison. There is severe tricompartmental osteoarthritis of both knees, worst in the left medial and right lateral compartments. There are moderate-sized bilateral knee effusions. There are intraosseous ganglion cysts in both proximal tibias. There is no fracture or dislocation. There are scattered atherosclerotic vascular calcifications. Feet: 3 view nonweightbearing examinations of both feet are performed. There is mild bilateral Achilles tendinopathy with intratendinous ossification. There is mild osteoarthritis at the bilateral 1st metatarsophalangeal joints. There are small erosions at the right 1st metatarsal head and left 5th metatarsal head. There are bilateral midfoot erosions at the 2nd and 3rd tarsometatarsal joints with moderate osteoarthritis. There is no fracture. Hands: 3 view examinations of both hands are read without comparison. There is severe uniform joint space narrowing at the left 1st, right 2nd, and bilateral 3rd metacarpophalangeal joints with multiple bilateral MCP erosions. There also bilateral carpal erosions and extensive left distal ulnar erosion. There is severe bilateral capitolunate and moderate to severe triscaphe with joint space narrowing. There is pericapsular swelling at the MCP joints and dorsal wrist capsules. Procedure Note Jimmy Huff MD - 12/03/2024 EXAMINATION: XR SACROILIAC JOINTS 3 OR MORE VIEWS, XR SPINE LUMBAR 4 OR MORE VIEWS, XR HAND LEFT 3 OR MORE VIEWS, XR HAND RIGHT 3 OR MORE VIEWS, XR KNEE RIGHT 3 VIEWS, XR KNEE LEFT 3 VIEWS, XR FOOT RIGHT 3 OR MORE VIEWS, XR FOOT LEFT 3 OR MORE VIEWS HISTORY: Polyarticular arthralgias involving the hands and knees and ankles for several years, previously treated for seronegative rheumatoid arthritis with methotrexate, onycholysis on exam FINDINGS: Sacroiliac joints: 3 view examination of the sacroiliac joints is read without comparison. There is mild bilateral sacroiliac osteoarthritis. There is no sacroiliitis, erosion, or ankylosis. There is no fracture. Lumbar spine: 4 view examination of the lumbar spine is read without comparison. 4 there is mild levoscoliosis. There is severe degenerative disc disease at L2-L3 and L5-S1. There is grade 2 spondylolisthesis at L5-S1, possibly due to L5 pars defects which are not well seen on this study. There is mild degenerative disc disease at the remaining lumbar segments with facet and interspinous osteoarthritis. There is no compression fracture or syndesmophyte formation. There are scattered atherosclerotic vascular calcifications. Knees: 3 view examinations of both knees are read without comparison. There is severe tricompartmental osteoarthritis of both knees, worst in the left medial and right lateral compartments. There are moderate-sized bilateral knee effusions. There are intraosseous ganglion cysts in both proximal tibias. There is no fracture or dislocation. There are scattered atherosclerotic vascular calcifications. Feet: 3 view nonweightbearing examinations of both feet are performed. There is mild bilateral Achilles tendinopathy with intratendinous ossification. There is mild osteoarthritis at the bilateral 1st metatarsophalangeal joints. There are small erosions at the right 1st metatarsal head and left 5th metatarsal head. There are bilateral midfoot erosions at the 2nd and 3rd tarsometatarsal joints with moderate osteoarthritis. There is no fracture. Hands: 3 view examinations of both hands are read without comparison. There is severe uniform joint space narrowing at the left 1st, right 2nd, and bilateral 3rd metacarpophalangeal joints with multiple bilateral MCP erosions. There also bilateral carpal erosions and extensive left distal ulnar erosion. There is severe bilateral capitolunate and moderate to severe triscaphe with joint space narrowing. There is pericapsular swelling at the MCP joints and dorsal wrist capsules. IMPRESSION: 1. 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 This is favored to represent a rheumatoid arthritis pattern although psoriatic arthritis would be less likely alternative consideration. 2. Severe bilateral knee osteoarthritis with bilateral joint effusions. 3. Grade 2 spondylolisthesis at L5-S1 possibly related to pars defects, with severe degenerative disc disease at L2-L3 and L5-S1. 4. Mild bilateral sacroiliac osteoarthritis. Electronically signed by: Jimmy Huff M.D. Vilma Esparza MD IMG XR PROCEDURES Final Result * XR Knee Left 3 Views (12/03/2024 9:52 AM CDT) Anatomical Region Laterality Modality Lower Extremities, Knee Left Computed Radiography 12/03/2024 11:0 4 AM CDT Impressions 12/03/2024 11:04 AM CDT 1. 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 This is favored to represent a rheumatoid arthritis pattern although psoriatic arthritis would be less likely alternative consideration. 2. Severe bilateral knee osteoarthritis with bilateral joint effusions. 3. Grade 2 spondylolisthesis at L5-S1 possibly related to pars defects, with severe degenerative disc disease at L2-L3 and L5-S1. 4. Mild bilateral sacroiliac osteoarthritis. Electronically signed by: Jimmy Huff M.D. Narrative 12/03/2024 11:04 AM CDT EXAMINATION: XR SACROILIAC JOINTS 3 OR MORE VIEWS, XR SPINE LUMBAR 4 OR MORE VIEWS, XR HAND LEFT 3 OR MORE VIEWS, XR HAND RIGHT 3 OR MORE VIEWS, XR KNEE RIGHT 3 VIEWS, XR KNEE LEFT 3 VIEWS, XR FOOT RIGHT 3 OR MORE VIEWS, XR FOOT LEFT 3 OR MORE VIEWS HISTORY: Polyarticular arthralgias involving the hands and knees and ankles for several years, previously treated for seronegative rheumatoid arthritis with methotrexate, onycholysis on exam FINDINGS: Sacroiliac joints: 3 view examination of the sacroiliac joints is read without comparison. There is mild bilateral sacroiliac osteoarthritis. There is no sacroiliitis, erosion, or ankylosis. There is no fracture. Lumbar spine: 4 view examination of the lumbar spine is read without comparison. 4 there is mild levoscoliosis. There is severe degenerative disc disease at L2-L3 and L5-S1. There is grade 2 spondylolisthesis at L5-S1, possibly due to L5 pars defects which are not well seen on this study. There is mild degenerative disc disease at the remaining lumbar segments with facet and interspinous osteoarthritis. There is no compression fracture or syndesmophyte formation. There are scattered atherosclerotic vascular calcifications. Knees: 3 view examinations of both knees are read without comparison. There is severe tricompartmental osteoarthritis of both knees, worst in the left medial and right lateral compartments. There are moderate-sized bilateral knee effusions. There are intraosseous ganglion cysts in both proximal tibias. There is no fracture or dislocation. There are scattered atherosclerotic vascular calcifications. Feet: 3 view nonweightbearing examinations of both feet are performed. There is mild bilateral Achilles tendinopathy with intratendinous ossification. There is mild osteoarthritis at the bilateral 1st metatarsophalangeal joints. There are small erosions at the right 1st metatarsal head and left 5th metatarsal head. There are bilateral midfoot erosions at the 2nd and 3rd tarsometatarsal joints with moderate osteoarthritis. There is no fracture. Hands: 3 view examinations of both hands are read without comparison. There is severe uniform joint space narrowing at the left 1st, right 2nd, and bilateral 3rd metacarpophalangeal joints with multiple bilateral MCP erosions. There also bilateral carpal erosions and extensive left distal ulnar erosion. There is severe bilateral capitolunate and moderate to severe triscaphe with joint space narrowing. There is pericapsular swelling at the MCP joints and dorsal wrist capsules. Procedure Note Jimmy Huff MD - 12/03/2024 EXAMINATION: XR SACROILIAC JOINTS 3 OR MORE VIEWS, XR SPINE LUMBAR 4 OR MORE VIEWS, XR HAND LEFT 3 OR MORE VIEWS, XR HAND RIGHT 3 OR MORE VIEWS, XR KNEE RIGHT 3 VIEWS, XR KNEE LEFT 3 VIEWS, XR FOOT RIGHT 3 OR MORE VIEWS, XR FOOT LEFT 3 OR MORE VIEWS HISTORY: Polyarticular arthralgias involving the hands and knees and ankles for several years, previously treated for seronegative rheumatoid arthritis with methotrexate, onycholysis on exam FINDINGS: Sacroiliac joints: 3 view examination of the sacroiliac joints is read without comparison. There is mild bilateral sacroiliac osteoarthritis. There is no sacroiliitis, erosion, or ankylosis. There is no fracture. Lumbar spine: 4 view examination of the lumbar spine is read without comparison. 4 there is mild levoscoliosis. There is severe degenerative disc disease at L2-L3 and L5-S1. There is grade 2 spondylolisthesis at L5-S1, possibly due to L5 pars defects which are not well seen on this study. There is mild degenerative disc disease at the remaining lumbar segments with facet and interspinous osteoarthritis. There is no compression fracture or syndesmophyte formation. There are scattered atherosclerotic vascular calcifications. Knees: 3 view examinations of both knees are read without comparison. There is severe tricompartmental osteoarthritis of both knees, worst in the left medial and right lateral compartments. There are moderate-sized bilateral knee effusions. There are intraosseous ganglion cysts in both proximal tibias. There is no fracture or dislocation. There are scattered atherosclerotic vascular calcifications. Feet: 3 view nonweightbearing examinations of both feet are performed. There is mild bilateral Achilles tendinopathy with intratendinous ossification. There is mild osteoarthritis at the bilateral 1st metatarsophalangeal joints. There are small erosions at the right 1st metatarsal head and left 5th metatarsal head. There are bilateral midfoot erosions at the 2nd and 3rd tarsometatarsal joints with moderate osteoarthritis. There is no fracture. Hands: 3 view examinations of both hands are read without comparison. There is severe uniform joint space narrowing at the left 1st, right 2nd, and bilateral 3rd metacarpophalangeal joints with multiple bilateral MCP erosions. There also bilateral carpal erosions and extensive left distal ulnar erosion. There is severe bilateral capitolunate and moderate to severe triscaphe with joint space narrowing. There is pericapsular swelling at the MCP joints and dorsal wrist capsules. IMPRESSION: 1. 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 This is favored to represent a rheumatoid arthritis pattern although psoriatic arthritis would be less likely alternative consideration. 2. Severe bilateral knee osteoarthritis with bilateral joint effusions. 3. Grade 2 spondylolisthesis at L5-S1 possibly related to pars defects, with severe degenerative disc disease at L2-L3 and L5-S1. 4. Mild bilateral sacroiliac osteoarthritis. Electronically signed by: Jimmy Huff M.D. Vilma Esparza MD IMG XR PROCEDURES Final Result * XR Hand Right 3 or More Views (12/03/2024 9:52 AM CDT) Anatomical Region Laterality Modality Upper Extremities, Hand Right Computed Radiography 12/03/2024 11:0 4 AM CDT Impressions 12/03/2024 11:04 AM CDT 1. 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 This is favored to represent a rheumatoid arthritis pattern although psoriatic arthritis would be less likely alternative consideration. 2. Severe bilateral knee osteoarthritis with bilateral joint effusions. 3. Grade 2 spondylolisthesis at L5-S1 possibly related to pars defects, with severe degenerative disc disease at L2-L3 and L5-S1. 4. Mild bilateral sacroiliac osteoarthritis. Electronically signed by: Jimmy Huff M.D. Narrative 12/03/2024 11:04 AM CDT EXAMINATION: XR SACROILIAC JOINTS 3 OR MORE VIEWS, XR SPINE LUMBAR 4 OR MORE VIEWS, XR HAND LEFT 3 OR MORE VIEWS, XR HAND RIGHT 3 OR MORE VIEWS, XR KNEE RIGHT 3 VIEWS, XR KNEE LEFT 3 VIEWS, XR FOOT RIGHT 3 OR MORE VIEWS, XR FOOT LEFT 3 OR MORE VIEWS HISTORY: Polyarticular arthralgias involving the hands and knees and ankles for several years, previously treated for seronegative rheumatoid arthritis with methotrexate, onycholysis on exam FINDINGS: Sacroiliac joints: 3 view examination of the sacroiliac joints is read without comparison. There is mild bilateral sacroiliac osteoarthritis. There is no sacroiliitis, erosion, or ankylosis. There is no fracture. Lumbar spine: 4 view examination of the lumbar spine is read without comparison. 4 there is mild levoscoliosis. There is severe degenerative disc disease at L2-L3 and L5-S1. There is grade 2 spondylolisthesis at L5-S1, possibly due to L5 pars defects which are not well seen on this study. There is mild degenerative disc disease at the remaining lumbar segments with facet and interspinous osteoarthritis. There is no compression fracture or syndesmophyte formation. There are scattered atherosclerotic vascular calcifications. Knees: 3 view examinations of both knees are read without comparison. There is severe tricompartmental osteoarthritis of both knees, worst in the left medial and right lateral compartments. There are moderate-sized bilateral knee effusions. There are intraosseous ganglion cysts in both proximal tibias. There is no fracture or dislocation. There are scattered atherosclerotic vascular calcifications. Feet: 3 view nonweightbearing examinations of both feet are performed. There is mild bilateral Achilles tendinopathy with intratendinous ossification. There is mild osteoarthritis at the bilateral 1st metatarsophalangeal joints. There are small erosions at the right 1st metatarsal head and left 5th metatarsal head. There are bilateral midfoot erosions at the 2nd and 3rd tarsometatarsal joints with moderate osteoarthritis. There is no fracture. Hands: 3 view examinations of both hands are read without comparison. There is severe uniform joint space narrowing at the left 1st, right 2nd, and bilateral 3rd metacarpophalangeal joints with multiple bilateral MCP erosions. There also bilateral carpal erosions and extensive left distal ulnar erosion. There is severe bilateral capitolunate and moderate to severe triscaphe with joint space narrowing. There is pericapsular swelling at the MCP joints and dorsal wrist capsules. Procedure Note Jimmy Huff MD - 12/03/2024 EXAMINATION: XR SACROILIAC JOINTS 3 OR MORE VIEWS, XR SPINE LUMBAR 4 OR MORE VIEWS, XR HAND LEFT 3 OR MORE VIEWS, XR HAND RIGHT 3 OR MORE VIEWS, XR KNEE RIGHT 3 VIEWS, XR KNEE LEFT 3 VIEWS, XR FOOT RIGHT 3 OR MORE VIEWS, XR FOOT LEFT 3 OR MORE VIEWS HISTORY: Polyarticular arthralgias involving the hands and knees and ankles for several years, previously treated for seronegative rheumatoid arthritis with methotrexate, onycholysis on exam FINDINGS: Sacroiliac joints: 3 view examination of the sacroiliac joints is read without comparison. There is mild bilateral sacroiliac osteoarthritis. There is no sacroiliitis, erosion, or ankylosis. There is no fracture. Lumbar spine: 4 view examination of the lumbar spine is read without comparison. 4 there is mild levoscoliosis. There is severe degenerative disc disease at L2-L3 and L5-S1. There is grade 2 spondylolisthesis at L5-S1, possibly due to L5 pars defects which are not well seen on this study. There is mild degenerative disc disease at the remaining lumbar segments with facet and interspinous osteoarthritis. There is no compression fracture or syndesmophyte formation. There are scattered atherosclerotic vascular calcifications. Knees: 3 view examinations of both knees are read without comparison. There is severe tricompartmental osteoarthritis of both knees, worst in the left medial and right lateral compartments. There are moderate-sized bilateral knee effusions. There are intraosseous ganglion cysts in both proximal tibias. There is no fracture or dislocation. There are scattered atherosclerotic vascular calcifications. Feet: 3 view nonweightbearing examinations of both feet are performed. There is mild bilateral Achilles tendinopathy with intratendinous ossification. There is mild osteoarthritis at the bilateral 1st metatarsophalangeal joints. There are small erosions at the right 1st metatarsal head and left 5th metatarsal head. There are bilateral midfoot erosions at the 2nd and 3rd tarsometatarsal joints with moderate osteoarthritis. There is no fracture. Hands: 3 view examinations of both hands are read without comparison. There is severe uniform joint space narrowing at the left 1st, right 2nd, and bilateral 3rd metacarpophalangeal joints with multiple bilateral MCP erosions. There also bilateral carpal erosions and extensive left distal ulnar erosion. There is severe bilateral capitolunate and moderate to severe triscaphe with joint space narrowing. There is pericapsular swelling at the MCP joints and dorsal wrist capsules. IMPRESSION: 1. 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 This is favored to represent a rheumatoid arthritis pattern although psoriatic arthritis would be less likely alternative consideration. 2. Severe bilateral knee osteoarthritis with bilateral joint effusions. 3. Grade 2 spondylolisthesis at L5-S1 possibly related to pars defects, with severe degenerative disc disease at L2-L3 and L5-S1. 4. Mild bilateral sacroiliac osteoarthritis. Electronically signed by: Jimmy Huff M.D. Vilma Esparza MD IMG XR PROCEDURES Final Result * XR Hand Left 3 or More Views (12/03/2024 9:52 AM CDT) Anatomical Region Laterality Modality Upper Extremities, Hand Left Computed Radiography 12/03/2024 11:0 4 AM CDT Impressions 12/03/2024 11:04 AM CDT 1. 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 This is favored to represent a rheumatoid arthritis pattern although psoriatic arthritis would be less likely alternative consideration. 2. Severe bilateral knee osteoarthritis with bilateral joint effusions. 3. Grade 2 spondylolisthesis at L5-S1 possibly related to pars defects, with severe degenerative disc disease at L2-L3 and L5-S1. 4. Mild bilateral sacroiliac osteoarthritis. Electronically signed by: Jimmy Huff M.D. Narrative 12/03/2024 11:04 AM CDT EXAMINATION: XR SACROILIAC JOINTS 3 OR MORE VIEWS, XR SPINE LUMBAR 4 OR MORE VIEWS, XR HAND LEFT 3 OR MORE VIEWS, XR HAND RIGHT 3 OR MORE VIEWS, XR KNEE RIGHT 3 VIEWS, XR KNEE LEFT 3 VIEWS, XR FOOT RIGHT 3 OR MORE VIEWS, XR FOOT LEFT 3 OR MORE VIEWS HISTORY: Polyarticular arthralgias involving the hands and knees and ankles for several years, previously treated for seronegative rheumatoid arthritis with methotrexate, onycholysis on exam FINDINGS: Sacroiliac joints: 3 view examination of the sacroiliac joints is read without comparison. There is mild bilateral sacroiliac osteoarthritis. There is no sacroiliitis, erosion, or ankylosis. There is no fracture. Lumbar spine: 4 view examination of the lumbar spine is read without comparison. 4 there is mild levoscoliosis. There is severe degenerative disc disease at L2-L3 and L5-S1. There is grade 2 spondylolisthesis at L5-S1, possibly due to L5 pars defects which are not well seen on this study. There is mild degenerative disc disease at the remaining lumbar segments with facet and interspinous osteoarthritis. There is no compression fracture or syndesmophyte formation. There are scattered atherosclerotic vascular calcifications. Knees: 3 view examinations of both knees are read without comparison. There is severe tricompartmental osteoarthritis of both knees, worst in the left medial and right lateral compartments. There are moderate-sized bilateral knee effusions. There are intraosseous ganglion cysts in both proximal tibias. There is no fracture or dislocation. There are scattered atherosclerotic vascular calcifications. Feet: 3 view nonweightbearing examinations of both feet are performed. There is mild bilateral Achilles tendinopathy with intratendinous ossification. There is mild osteoarthritis at the bilateral 1st metatarsophalangeal joints. There are small erosions at the right 1st metatarsal head and left 5th metatarsal head. There are bilateral midfoot erosions at the 2nd and 3rd tarsometatarsal joints with moderate osteoarthritis. There is no fracture. Hands: 3 view examinations of both hands are read without comparison. There is severe uniform joint space narrowing at the left 1st, right 2nd, and bilateral 3rd metacarpophalangeal joints with multiple bilateral MCP erosions. There also bilateral carpal erosions and extensive left distal ulnar erosion. There is severe bilateral capitolunate and moderate to severe triscaphe with joint space narrowing. There is pericapsular swelling at the MCP joints and dorsal wrist capsules. Procedure Note Huff, Jimmy Jose, MD - 12/03/2024 EXAMINATION: XR SACROILIAC JOINTS 3 OR MORE VIEWS, XR SPINE LUMBAR 4 OR MORE VIEWS, XR HAND LEFT 3 OR MORE VIEWS, XR HAND RIGHT 3 OR MORE VIEWS, XR KNEE RIGHT 3 VIEWS, XR KNEE LEFT 3 VIEWS, XR FOOT RIGHT 3 OR MORE VIEWS, XR FOOT LEFT 3 OR MORE VIEWS HISTORY: Polyarticular arthralgias involving the hands and knees and ankles for several years, previously treated for seronegative rheumatoid arthritis with methotrexate, onycholysis on exam FINDINGS: Sacroiliac joints: 3 view examination of the sacroiliac joints is read without comparison. There is mild bilateral sacroiliac osteoarthritis. There is no sacroiliitis, erosion, or ankylosis. There is no fracture. Lumbar spine: 4 view examination of the lumbar spine is read without comparison. 4 there is mild levoscoliosis. There is severe degenerative disc disease at L2-L3 and L5-S1. There is grade 2 spondylolisthesis at L5-S1, possibly due to L5 pars defects which are not well seen on this study. There is mild degenerative disc disease at the remaining lumbar segments with facet and interspinous osteoarthritis. There is no compression fracture or syndesmophyte formation. There are scattered atherosclerotic vascular calcifications. Knees: 3 view examinations of both knees are read without comparison. There is severe tricompartmental osteoarthritis of both knees, worst in the left medial and right lateral compartments. There are moderate-sized bilateral knee effusions. There are intraosseous ganglion cysts in both proximal tibias. There is no fracture or dislocation. There are scattered atherosclerotic vascular calcifications. Feet: 3 view nonweightbearing examinations of both feet are performed. There is mild bilateral Achilles tendinopathy with intratendinous ossification. There is mild osteoarthritis at the bilateral 1st metatarsophalangeal joints. There are small erosions at the right 1st metatarsal head and left 5th metatarsal head. There are bilateral midfoot erosions at the 2nd and 3rd tarsometatarsal joints with moderate osteoarthritis. There is no fracture. Hands: 3 view examinations of both hands are read without comparison. There is severe uniform joint space narrowing at the left 1st, right 2nd, and bilateral 3rd metacarpophalangeal joints with multiple bilateral MCP erosions. There also bilateral carpal erosions and extensive left distal ulnar erosion. There is severe bilateral capitolunate and moderate to severe triscaphe with joint space narrowing. There is pericapsular swelling at the MCP joints and dorsal wrist capsules. IMPRESSION: 1. 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 This is favored to represent a rheumatoid arthritis pattern although psoriatic arthritis would be less likely alternative consideration. 2. Severe bilateral knee osteoarthritis with bilateral joint effusions. 3. Grade 2 spondylolisthesis at L5-S1 possibly related to pars defects, with severe degenerative disc disease at L2-L3 and L5-S1. 4. Mild bilateral sacroiliac osteoarthritis. Electronically signed by: Jimmy Huff M.D. Vilma Esparza MD IMG XR PROCEDURES Final Result * XR Sacroiliac Joints 3 or More Views (12/03/2024 9:52 AM CDT) Anatomical Region Laterality Modality Pelvis, Body N/A Computed Radiogr aphy 12/03/2024 11:0 4 AM CDT Impressions 12/03/2024 11:04 AM CDT 1. 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 This is favored to represent a rheumatoid arthritis pattern although psoriatic arthritis would be less likely alternative consideration. 2. Severe bilateral knee osteoarthritis with bilateral joint effusions. 3. Grade 2 spondylolisthesis at L5-S1 possibly related to pars defects, with severe degenerative disc disease at L2-L3 and L5-S1. 4. Mild bilateral sacroiliac osteoarthritis. Electronically signed by: Jimmy Huff M.D. Narrative 12/03/2024 11:04 AM CDT EXAMINATION: XR SACROILIAC JOINTS 3 OR MORE VIEWS, XR SPINE LUMBAR 4 OR MORE VIEWS, XR HAND LEFT 3 OR MORE VIEWS, XR HAND RIGHT 3 OR MORE VIEWS, XR KNEE RIGHT 3 VIEWS, XR KNEE LEFT 3 VIEWS, XR FOOT RIGHT 3 OR MORE VIEWS, XR FOOT LEFT 3 OR MORE VIEWS HISTORY: Polyarticular arthralgias involving the hands and knees and ankles for several years, previously treated for seronegative rheumatoid arthritis with methotrexate, onycholysis on exam FINDINGS: Sacroiliac joints: 3 view examination of the sacroiliac joints is read without comparison. There is mild bilateral sacroiliac osteoarthritis. There is no sacroiliitis, erosion, or ankylosis. There is no fracture. Lumbar spine: 4 view examination of the lumbar spine is read without comparison. 4 there is mild levoscoliosis. There is severe degenerative disc disease at L2-L3 and L5-S1. There is grade 2 spondylolisthesis at L5-S1, possibly due to L5 pars defects which are not well seen on this study. There is mild degenerative disc disease at the remaining lumbar segments with facet and interspinous osteoarthritis. There is no compression fracture or syndesmophyte formation. There are scattered atherosclerotic vascular calcifications. Knees: 3 view examinations of both knees are read without comparison. There is severe tricompartmental osteoarthritis of both knees, worst in the left medial and right lateral compartments. There are moderate-sized bilateral knee effusions. There are intraosseous ganglion cysts in both proximal tibias. There is no fracture or dislocation. There are scattered atherosclerotic vascular calcifications. Feet: 3 view nonweightbearing examinations of both feet are performed. There is mild bilateral Achilles tendinopathy with intratendinous ossification. There is mild osteoarthritis at the bilateral 1st metatarsophalangeal joints. There are small erosions at the right 1st metatarsal head and left 5th metatarsal head. There are bilateral midfoot erosions at the 2nd and 3rd tarsometatarsal joints with moderate osteoarthritis. There is no fracture. Hands: 3 view examinations of both hands are read without comparison. There is severe uniform joint space narrowing at the left 1st, right 2nd, and bilateral 3rd metacarpophalangeal joints with multiple bilateral MCP erosions. There also bilateral carpal erosions and extensive left distal ulnar erosion. There is severe bilateral capitolunate and moderate to severe triscaphe with joint space narrowing. There is pericapsular swelling at the MCP joints and dorsal wrist capsules. Procedure Note Jimmy Huff MD - 12/03/2024 EXAMINATION: XR SACROILIAC JOINTS 3 OR MORE VIEWS, XR SPINE LUMBAR 4 OR MORE VIEWS, XR HAND LEFT 3 OR MORE VIEWS, XR HAND RIGHT 3 OR MORE VIEWS, XR KNEE RIGHT 3 VIEWS, XR KNEE LEFT 3 VIEWS, XR FOOT RIGHT 3 OR MORE VIEWS, XR FOOT LEFT 3 OR MORE VIEWS HISTORY: Polyarticular arthralgias involving the hands and knees and ankles for several years, previously treated for seronegative rheumatoid arthritis with methotrexate, onycholysis on exam FINDINGS: Sacroiliac joints: 3 view examination of the sacroiliac joints is read without comparison. There is mild bilateral sacroiliac osteoarthritis. There is no sacroiliitis, erosion, or ankylosis. There is no fracture. Lumbar spine: 4 view examination of the lumbar spine is read without comparison. 4 there is mild levoscoliosis. There is severe degenerative disc disease at L2-L3 and L5-S1. There is grade 2 spondylolisthesis at L5-S1, possibly due to L5 pars defects which are not well seen on this study. There is mild degenerative disc disease at the remaining lumbar segments with facet and interspinous osteoarthritis. There is no compression fracture or syndesmophyte formation. There are scattered atherosclerotic vascular calcifications. Knees: 3 view examinations of both knees are read without comparison. There is severe tricompartmental osteoarthritis of both knees, worst in the left medial and right lateral compartments. There are moderate-sized bilateral knee effusions. There are intraosseous ganglion cysts in both proximal tibias. There is no fracture or dislocation. There are scattered atherosclerotic vascular calcifications. Feet: 3 view nonweightbearing examinations of both feet are performed. There is mild bilateral Achilles tendinopathy with intratendinous ossification. There is mild osteoarthritis at the bilateral 1st metatarsophalangeal joints. There are small erosions at the right 1st metatarsal head and left 5th metatarsal head. There are bilateral midfoot erosions at the 2nd and 3rd tarsometatarsal joints with moderate osteoarthritis. There is no fracture. Hands: 3 view examinations of both hands are read without comparison. There is severe uniform joint space narrowing at the left 1st, right 2nd, and bilateral 3rd metacarpophalangeal joints with multiple bilateral MCP erosions. There also bilateral carpal erosions and extensive left distal ulnar erosion. There is severe bilateral capitolunate and moderate to severe triscaphe with joint space narrowing. There is pericapsular swelling at the MCP joints and dorsal wrist capsules. IMPRESSION: 1. 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 This is favored to represent a rheumatoid arthritis pattern although psoriatic arthritis would be less likely alternative consideration. 2. Severe bilateral knee osteoarthritis with bilateral joint effusions. 3. Grade 2 spondylolisthesis at L5-S1 possibly related to pars defects, with severe degenerative disc disease at L2-L3 and L5-S1. 4. Mild bilateral sacroiliac osteoarthritis. Electronically signed by: Jimmy Huff M.D. Vilma Esparza MD IMG XR PROCEDURES Final Result * XR Spine Lumbar 4 or More Views (12/03/2024 9:52 AM CDT) Anatomical Region Laterality Modality Spine N/A Computed Radiogr aphy 12/03/2024 11:0 4 AM CDT Impressions 12/03/2024 11:04 AM CDT 1. 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 This is favored to represent a rheumatoid arthritis pattern although psoriatic arthritis would be less likely alternative consideration. 2. Severe bilateral knee osteoarthritis with bilateral joint effusions. 3. Grade 2 spondylolisthesis at L5-S1 possibly related to pars defects, with severe degenerative disc disease at L2-L3 and L5-S1. 4. Mild bilateral sacroiliac osteoarthritis. Electronically signed by: Jimmy Huff M.D. Narrative 12/03/2024 11:04 AM CDT EXAMINATION: XR SACROILIAC JOINTS 3 OR MORE VIEWS, XR SPINE LUMBAR 4 OR MORE VIEWS, XR HAND LEFT 3 OR MORE VIEWS, XR HAND RIGHT 3 OR MORE VIEWS, XR KNEE RIGHT 3 VIEWS, XR KNEE LEFT 3 VIEWS, XR FOOT RIGHT 3 OR MORE VIEWS, XR FOOT LEFT 3 OR MORE VIEWS HISTORY: Polyarticular arthralgias involving the hands and knees and ankles for several years, previously treated for seronegative rheumatoid arthritis with methotrexate, onycholysis on exam FINDINGS: Sacroiliac joints: 3 view examination of the sacroiliac joints is read without comparison. There is mild bilateral sacroiliac osteoarthritis. There is no sacroiliitis, erosion, or ankylosis. There is no fracture. Lumbar spine: 4 view examination of the lumbar spine is read without comparison. 4 there is mild levoscoliosis. There is severe degenerative disc disease at L2-L3 and L5-S1. There is grade 2 spondylolisthesis at L5-S1, possibly due to L5 pars defects which are not well seen on this study. There is mild degenerative disc disease at the remaining lumbar segments with facet and interspinous osteoarthritis. There is no compression fracture or syndesmophyte formation. There are scattered atherosclerotic vascular calcifications. Knees: 3 view examinations of both knees are read without comparison. There is severe tricompartmental osteoarthritis of both knees, worst in the left medial and right lateral compartments. There are moderate-sized bilateral knee effusions. There are intraosseous ganglion cysts in both proximal tibias. There is no fracture or dislocation. There are scattered atherosclerotic vascular calcifications. Feet: 3 view nonweightbearing examinations of both feet are performed. There is mild bilateral Achilles tendinopathy with intratendinous ossification. There is mild osteoarthritis at the bilateral 1st metatarsophalangeal joints. There are small erosions at the right 1st metatarsal head and left 5th metatarsal head. There are bilateral midfoot erosions at the 2nd and 3rd tarsometatarsal joints with moderate osteoarthritis. There is no fracture. Hands: 3 view examinations of both hands are read without comparison. There is severe uniform joint space narrowing at the left 1st, right 2nd, and bilateral 3rd metacarpophalangeal joints with multiple bilateral MCP erosions. There also bilateral carpal erosions and extensive left distal ulnar erosion. There is severe bilateral capitolunate and moderate to severe triscaphe with joint space narrowing. There is pericapsular swelling at the MCP joints and dorsal wrist capsules. Procedure Note Jimmy Huff MD - 12/03/2024 EXAMINATION: XR SACROILIAC JOINTS 3 OR MORE VIEWS, XR SPINE LUMBAR 4 OR MORE VIEWS, XR HAND LEFT 3 OR MORE VIEWS, XR HAND RIGHT 3 OR MORE VIEWS, XR KNEE RIGHT 3 VIEWS, XR KNEE LEFT 3 VIEWS, XR FOOT RIGHT 3 OR MORE VIEWS, XR FOOT LEFT 3 OR MORE VIEWS HISTORY: Polyarticular arthralgias involving the hands and knees and ankles for several years, previously treated for seronegative rheumatoid arthritis with methotrexate, onycholysis on exam FINDINGS: Sacroiliac joints: 3 view examination of the sacroiliac joints is read without comparison. There is mild bilateral sacroiliac osteoarthritis. There is no sacroiliitis, erosion, or ankylosis. There is no fracture. Lumbar spine: 4 view examination of the lumbar spine is read without comparison. 4 there is mild levoscoliosis. There is severe degenerative disc disease at L2-L3 and L5-S1. There is grade 2 spondylolisthesis at L5-S1, possibly due to L5 pars defects which are not well seen on this study. There is mild degenerative disc disease at the remaining lumbar segments with facet and interspinous osteoarthritis. There is no compression fracture or syndesmophyte formation. There are scattered atherosclerotic vascular calcifications. Knees: 3 view examinations of both knees are read without comparison. There is severe tricompartmental osteoarthritis of both knees, worst in the left medial and right lateral compartments. There are moderate-sized bilateral knee effusions. There are intraosseous ganglion cysts in both proximal tibias. There is no fracture or dislocation. There are scattered atherosclerotic vascular calcifications. Feet: 3 view nonweightbearing examinations of both feet are performed. There is mild bilateral Achilles tendinopathy with intratendinous ossification. There is mild osteoarthritis at the bilateral 1st metatarsophalangeal joints. There are small erosions at the right 1st metatarsal head and left 5th metatarsal head. There are bilateral midfoot erosions at the 2nd and 3rd tarsometatarsal joints with moderate osteoarthritis. There is no fracture. Hands: 3 view examinations of both hands are read without comparison. There is severe uniform joint space narrowing at the left 1st, right 2nd, and bilateral 3rd metacarpophalangeal joints with multiple bilateral MCP erosions. There also bilateral carpal erosions and extensive left distal ulnar erosion. There is severe bilateral capitolunate and moderate to severe triscaphe with joint space narrowing. There is pericapsular swelling at the MCP joints and dorsal wrist capsules. IMPRESSION: 1. 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 This is favored to represent a rheumatoid arthritis pattern although psoriatic arthritis would be less likely alternative consideration. 2. Severe bilateral knee osteoarthritis with bilateral joint effusions. 3. Grade 2 spondylolisthesis at L5-S1 possibly related to pars defects, with severe degenerative disc disease at L2-L3 and L5-S1. 4. Mild bilateral sacroiliac osteoarthritis. Electronically signed by: Jimmy Huff M.D. Vilma Esparza MD IMG XR PROCEDURES Final Result * (ABNORMAL) NHUNG ab ql w/rflx to NHUNG qn (12/01/2024 11:07 AM CDT) NHUNG Positive 1:160 Comment: Interpretive Data Normal range for NHUNG Qualitative Antibody = Negative. 1. NHUNG is performed using indirect immunofluorescence against HEp-2 cells 2. NHUNG titers are performed on all positive qualitative results. 3. A significantly positive NHUNG result is defined as a positive nuclear fluorescence at a titer of 1:80 or greater. 4. 15% of normal people above age 65 have significantly positive NHUNG results. 5% or less of normal people age 65 or under have significantly positive NHUNG results. Current interpretive data was last revised on 2020. Testing performed by: [facility], [address] [place] [address]., [address] NHUNG, quant 1:160 titer CAITIE CAVANAUGH Comment:Testing performed by : [address] [address] NHUNG, interp Homogeneous (A) CAITIE CAVANAUGH Comment:Testing performed by : [address] [address] Blood 12/01/2024 11:0 7 AM CDT 12/02/2024 10:08 AM CDT Vilma Esparza MD LAB BL OOD ORDERABLES Final Result CAITIE CAVANAUGH [address] [address] Department of Laboratories [place] [phone] * Anti-double stranded DNA abs (12/01/2024 11:07 AM CDT) Pathologist [facility] dsDNA Ab 1.0 <=4.0 IUnits/mL Comment: Interpretive Data Negative: < or = 4 IUnits/mL Indeterminate: 5 - 9 IUnits/mL Positive: > or = 10 IUnits/mL Current interpretive data was last revised on 2017. Testing performed by: [facility], [address] [place]., [address] Blood 12/01/2024 11:0 7 AM CDT 12/02/2024 10:08 AM CDT Vilma Esparza MD LAB BL OOD ORDERABLES Final Result [facility] [address] [place] [address] * T-SPOT.TB Blood (12/01/2024 11:07 AM CDT) [facility] T-SPOT.TB Negative SeeBelow Comment: Normal Value: Negative A negative test result does not exclude the possibility of exposure to or infection with Mycobacterium tuberculosis (M. tuberculosis). Patients with recent exposure to TB infected individuals exhibiting a negative T-SPOT.TB result should be considered for retesting within 6 weeks or if other relevant clinical symptoms indicate. Results from T-SPOT.TB testing must be used in conjunction with each individual's epidemiological history, current medical status, and results of other diagnostic evaluations. The T-SPOT.TB test is qualitative and results are reported as positive, borderline or negative, given that the test controls perform as expected. In line with the Centers for Disease Control and Prevention's 2010 recommendation to report quantitative measurements alongside the qualitative result, the laboratory provides spot counts for informational purposes only. The T-SPOT.TB test should not be interpreted as a quantitative test. T-SPOT.TB Panel A Spot Count 0 [facility] T-SPOT.TB Panel B Spot Count 0 [facility] T-SPOT.TB Negative Control Passed [facility] T-SPOT.TB Positive Control Passed [facility] Comment: Test Performed at: [facility], [address] [place] [id number] LEXA ALTAMIRANO,PHD Blood 12/01/2024 11:0 7 AM CDT 12/01/2024 2:47 PM CDT Vilma Esparza MD LAB MICROBIOLOGY - GENERAL ORDERABLES Final Result K[facility] [address] [address] Department [employer] [place] [address] * eGFR (12/01/2024 11:07 AM CDT) eGFR >90 >=60 mL/min/1. 73 m2 Comment: [...] interpretive data was last reviewed 2021. Blood 12/01/2024 11:0 7 AM CDT 12/01/2024 7:47 PM CDT Vilma Esparza MD LAB BL OOD ORDERABLES Final Result Performing Organization Address City/[facility]/ZIP Co de Phone Number [facility] [address] [address] Department [employer] [place] [address] * (ABNORMAL) Differential, auto (12/01/2024 11:07 AM CDT) Neutrophil abs 8.99(H) 1.50 - 6.50 K/cumm Imm gran abs 0.08 0.00 - 0.10 K/cumm [facility] Lymphocyte abs 1.68 0.80 - 3.30 K/cumm [facility] Monocyte abs 0.51 0.20 - 0.80 K/cumm [facility] Eosinophil abs 0.19 0.00 - 0.50 K/cumm [facility] Basophil abs 0.15(H) 0.00 - 0.10 K/cumm [facility] Neutrophil pct 77.5 % [facility]ER Comment: Interpretive Data Percent cell count reference ranges are not reported, since discordance with absolute values may lead to misinterpretation of CBC data. Current Interpretive Data was last revised on 2017. Imm gran pct 0.7 % [facility] Comment: Interpretive Data Percent cell count reference ranges are not reported, since discordance with absolute values may lead to misinterpretation of CBC data. Current Interpretive Data was last revised on 2017. Lymphocyte pct 14.5 % [facility] Comment: Interpretive Data Percent cell count reference ranges are not reported, since discordance with absolute values may lead to misinterpretation of CBC data. Current Interpretive Data was last revised on 2017. Monocyte pct 4.4 % [facility] Comment: Interpretive Data Percent cell count reference ranges are not reported, since discordance with absolute values may lead to misinterpretation of CBC data. Current Interpretive Data was last revised on 2017. Eosinophil pct 1.6 % [facility] Comment: Interpretive Data Percent cell count reference ranges are not reported, since discordance with absolute values may lead to misinterpretation of CBC data. Current Interpretive Data was last revised on 2017. Basophil pct 1.3 % [facility] Comment: Interpretive Data Percent cell count reference ranges are not reported, since discordance with absolute values may lead to misinterpretation of CBC data. Current Interpretive Data was last revised on 2017. Blood 12/01/2024 11:0 7 AM CDT 12/01/2024 3:35 PM CDT Vilma Esparza MD LAB BL OOD ORDERABLES Final Result CAITIE CAVANAUGH [address] [address] [email or web address] [address] * C4 complement (12/01/2024 11:07 AM CDT) Complement C4 26 10 - 40 mg/dL Blood 12/01/2024 11:0 7 AM CDT 12/01/2024 3:35 PM CDT Vilma Esparza MD LAB BL OOD ORDERABLES Final Result Performing Organization Address [facility] Co de Phone Number CAITIE CAVANAUGH [address] [address] [facility] [email or web address] [address] * REGAN ab eval w/reflex (12/01/2024 11:07 AM CDT) REGAN ab Negative Negative Comment: Interpretive Data Positive Screens will be reflexed to specific testing for Antibodies against the following antigens: Svetlana-1 Ab, HOTEL CUSTODIAN Ab, Scl-70 Ab, Slater Ab, SS-A/Ro Ab, and SS- B/La Ab. Further testing for dsDNA, Centromere, or Ribosomal P antibodies is suggested in patient with a positive screen and negative specific antibodies. Current interpretive data was last revised on 2023. Testing performed by: [facility], [address] [place]., [address] Blood 12/01/2024 11:0 7 AM CDT 12/02/2024 10:08 AM CDT Vilma Esparza MD LAB BL OOD ORDERABLES Final Result Performing Organization Address City/[facility]/ZIP Co de Phone Number CAITIE CAVANAUGH [address] [address] Department [email or web address] [place], [place] [id number] * (ABNORMAL) Urinalysis reflex to microscopic and culture Urine (12/01/2024 11:07 AM CDT) Color, ur Yellow Yellow Clarity, ur Clear Clear [facility] Specific gravity, ur 1.027 1.003 - 1.030 [facility] pH, urine 6.5 [facility] Comment: Interpretive Data U rine pH is affected by diet, medications, systemic acid-base disturbances, and renal tubular function. pH may affect urinary stone formation. For example, urine pH below 6.0 may help reduce the tendency for calcium phosphate stones and pH greater than 6.0 may reduce the tendency for uric acid stone formation. Source: [facility] [email or web address] Current Interpretive Data was last revised on 2017 Protein, ur ql 1+(A) Negative [facility] Glucose, ur ql 4+(A) Negative [facility] Ketones, ur Negative Negative [facility] Bilirubin, ur Negative Negative [facility] Blood, ur Negative Negative [facility] Urobilinogen, ur <2.0 <2.0 mg/dL [facility] Nitrite, ur Negative Negative [facility] Leukocyte esterase, ur Negative Negative [facility] UA reflex comment Reflex to microscopic UA will be performed. [facility] Urine 12/01/2024 11:0 7 AM CDT 12/01/2024 3:35 PM CDT Vilma Esparza MD LAB MICROBIOLOGY - GENERAL ORDERABLES Final Result [facility] [address] [address] [place] [address] * (ABNORMAL) CBC with auto differential (12/01/2024 11:07 AM CDT) WBC 11.60(H) 3.80 - 9.90 K/cumm Hgb 16.2 13.0 - 17.5 g/dL [facility] Hct 51.4(H) 38.9 - 50.3 % [facility] Plt 478(H) 150 - 400 K/cumm [facility] MPV 10.2 9.1 - 12.3 fL [facility] RBC 5.56 4.30 - 5.80 M/cumm [facility] MCV 92.4 81.3 - 96.4 fL [facility] MCH 29.1 27.1 - 33.3 pg [facility] MCHC 31.5(L) 32.3 - 35.7 g/dL [facility] RDW CV 13.8 11.1 - 14.9 % [facility] CH RDW SD 46.8 35.7 - 48.1 fL [facility] NRBC abs 0.00 0.00 - 0.01 K/cumm [facility] Blood 12/01/2024 11:0 7 AM CDT 12/01/2024 3:35 PM CDT Vilma Esparza MD LAB BL OOD ORDERABLES Final Result Performing Organization Address [facility] de Phone Number [facility] [address] [place] [address] * Hepatitis C antibody Blood (12/01/2024 11:07 AM CDT) Hep C Ab Nonreactive Nonreactive Comment: Interpretive Data Nonreactive: Antibodies to HCV not detected. Does NOT exclude the possibility of recent exposure to HCV. Equivocal: Equivocal for HCV antibodies. Supplemental molecular testing will be automatically performed to determine infection status in accordance with current CDC screening recommendations. Reactive: Positive for HCV antibodies. This may represent current or past HCV infection. Supplemental molecular testing will be automatically performed to determine current infection status in accordance with current CDC screening recommendations. Interpretive data was last revised on 2019. Blood 12/01/2024 11:0 7 AM CDT 12/01/2024 3:35 PM CDT Vilma Esparza MD LAB MICROBIOLOGY - GENERAL ORDERABLES Final Result Performing Organization Address City/[facility] Co de Phone Number [facility] [address] [place] [address] * Cyclic citrul peptide antibody, IgG (12/01/2024 11:07 AM CDT) CCP Ab <0.5 <=2.9 units/mL Comment: Interpretive data Negative: <3 units/mL Positive: > or equal to 3 units/mL Current interpretive data was last revised on 2016. Testing performed by: [facility], [address] [place]., [address] Blood 12/01/2024 11:0 7 AM CDT 12/02/2024 9:58 AM CDT Vilma Esparza MD LAB BL OOD ORDERABLES Final Result CAITIE CAVANAUGH [address] [address] [place] [address] * (ABNORMAL) Protein / creatinine ratio, urine, random (12/01/2024 11:07 AM CDT) Protein, ur, quant 38.3 mg/dL Comment: Interpretive Data No reference range established. Current interpretive data was last revised 2018. Creatinine Ur 49.6 mg/dL [facility] Comment: Interpretive Data No reference range established. Current interpretive data was last revised 2018. Protein/creatinin e ratio 772.2(H) 0.0 - 180.0 mg/g CR [facility] Urine 12/01/2024 11:0 7 AM CDT 12/01/2024 3:35 PM CDT Vilma Esparza MD LAB UR INE ORDERABLES Final Result CAITIE CAVANAUGH [address] [place] [address] * Hepatitis B core antibody, total Blood (12/01/2024 11:07 AM CDT) Hep B core IgG/IgM Nonreactive Nonreactive Comment:Testing performed by : [facility], [address] [facility] [place] [address] Blood 12/01/2024 11:0 7 AM CDT 12/02/2024 10:08 AM CDT Vilma Esparza MD LAB MICROBIOLOGY - GENERAL ORDERABLES Final Result Performing Organization Address [facility] Co de Phone Number CAITIE MAO [address] [place] [address] * Vitamin D 25 hydroxy (12/01/2024 11:07 AM CDT) Vitamin D 25-OH 32 30 - 80 ng/mL Blood 12/01/2024 11:0 7 AM CDT 12/01/2024 3:35 PM CDT Result [facility] Vilma Esparza MD LAB BL OOD ORDERABLES Edited Result - Final Performing Organization Address [facility] de Phone Number CAITIE MAO [address] [place] [address] * Hepatitis B surface antibody (immune status) Blood (12/01/2024 11:07 AM CDT) Pathologist [facility] HBsAb (immune status) Nonreactive Comment: Interpretive Data Nonreactive: This result is consistent with a lack of immunity to Hepatitis B Virus when used in the setting of routine screening. Equivocal: The immune status of the individual should be further assessed, if appropriate, after consideration of clinical status, risk factors, and additional diagnostic information. Reactive: This result is consistent with immunity to Hepatitis B Virus when used in the setting of routine screening. Current interpretive data was last revised on 19. Blood 12/01/2024 11:0 7 AM CDT 12/01/2024 3:35 PM CDT Vilma Esparza MD LAB MICROBIOLOGY - GENERAL ORDERABLES Final Result Performing Organization Address [facility] Co de Phone Number KPNHAN CAVANAUGH [address] [address] [facility] [place] [address] * Hepatitis B Surface Antigen Blood (12/01/2024 11:07 AM CDT) HepBsAg Nonreactive Nonreactive Blood 12/01/2024 11:0 7 AM CDT 12/01/2024 3:35 PM CDT Vilma Esparza MD LAB MICROBIOLOGY - GENERAL ORDERABLES Final Result CAITIE [address] [address] [place] [address] * Urinalysis, microscopic only (12/01/2024 11:07 AM CDT) WBC, ur 0-5 0 - 5 /HPF RBC, ur 0-2 0 - 2 /HPF [facility] Culture Reflex Comment Reflex conditions for urine culture (WBC >10) not met. [facility] Urine 12/01/2024 11:0 7 AM CDT 12/01/2024 3:35 PM CDT Vilma Esparza MD LAB UR INE ORDERABLES Final Result CAITIE CAVANAUGH [address] [address] [place] [place] [address] * Erythrocyte sedimentation rate (12/01/2024 11:07 AM CDT) Pathologist [facility] Erythrocyte sedimentation rate 12 1 - 20 mm/hr Comment:Testing performed by : [facility], [facility], [place], [address] Blood 12/01/2024 11:0 7 AM CDT 12/01/2024 2:49 PM CDT Vilma Esparza MD LAB BL OOD ORDERABLES Final Result CAITIE CAVANAUGH [address] [place] [address] * Rheumatoid factor (12/01/2024 11:07 AM CDT) Rheumatoid factor, quant <10 <=15 IUnits/mL Blood 12/01/2024 11:0 7 AM CDT 12/01/2024 3:35 PM CDT Vilma Esparza MD LAB BL OOD ORDERABLES Final Result CAITIE [address] [place] [address] * C3 complement (12/01/2024 11:07 AM CDT) Pathologist [facility] Complement C3 150 90 - 180 mg/dL Blood 12/01/2024 11:0 7 AM CDT 12/01/2024 3:35 PM CDT Vilma Esparza MD LAB BL OOD ORDERABLES Final Result Performing Organization Address City/[facility]/ZIP Co de Phone Number KPN[facility] [address] [place] [address] * CRP (acute phase) (12/01/2024 11:07 AM CDT) Pathologist [facility] CRP <3.0 <=10.0 mg/L Blood 12/01/2024 11:0 7 AM CDT 12/01/2024 3:35 PM CDT Vilma Esparza MD LAB BL OOD ORDERABLES Final Result Performing Organization Address City/[facility]/ZIP Co de Phone Number CAITIE [address] [place] [address] * (ABNORMAL) Comprehensive metabolic panel (12/01/2024 11:07 AM CDT) Sodium 135 135 - 145 mmol/L Potassium, pl 4.8 3.3 - 4.9 mmol/L [facility] Chloride 96(L) 97 - 110 mmol/L [facility] CO2 25 22 - 32 mmol/L [facility] Anion gap 14 2 - 15 mmol/L [facility] BUN 19 6 - 25 mg/dL [facility] Creatinine 0.78(L) 0.80 - 1.30 mg/dL [facility] Glucose 134 70 - 199 mg/dL [facility] Comment: Interpretive Data Fasting glucose >/= 126 [...] interpretive data was last revised 2022. Calcium 10.2 8.5 - 10.3 mg/dL [facility] Bilirubin, total 0.3 0.1 - 1.2 mg/dL [facility] Protein, pl 9.0(H) 6.5 - 8.5 g/dL [facility] Albumin 4.5 3.5 - 5.0 g/dL [facility] Alk phos 105 40 - 130 Units/L [facility] ALT 23 7 - 55 Units/L [facility] AST 31 10 - 50 Units/L [facility] Blood 12/01/2024 11:0 7 AM CDT 12/01/2024 3:35 PM CDT Vilma Esparza MD LAB BL OOD ORDERABLES Final Result CAITIE CAVANAUGH [address] [address] [place] [address] * POCT glucose (10/06/2024 12:27 PM MANAGER OF SOFTWARE DEVELOPMENT) Glucose, POC 158 70 - 199 mg/dL Blood 10/06/2024 12:2 7 PM MANAGER OF SOFTWARE DEVELOPMENT 10/06/2024 12:27 PM MANAGER OF SOFTWARE DEVELOPMENT Prashant Felder MD LAB POCT ORDERABLES - MAGALIE CE Final Result Performing Organization Address City/[facility] Co de Phone Number CAITIE [facility] [place] [address] * POCT glucose (10/06/2024 8:35 AM MANAGER OF SOFTWARE DEVELOPMENT) Glucose, POC 138 70 - 199 mg/dL Blood 10/06/2024 8:35 AM MANAGER OF SOFTWARE DEVELOPMENT 10/06/2024 8:35 AM MANAGER OF SOFTWARE DEVELOPMENT Prashant Felder MD LAB POCT ORDERABLES - MAGALIE CE Final Result Performing Organization Address [facility] Phone Number [facility] [place] [address] * eGFR (10/06/2024 4:45 AM MANAGER OF SOFTWARE DEVELOPMENT) eGFR >90 >=60 mL/min/1. 73 m2 Comment: [...] last reviewed 2021. Blood 10/06/2024 4:45 AM MANAGER [employer] SOFTWARE DEVELOPMENT 10/06/2024 4:56 AM MANAGER OF SOFTWARE DEVELOPMENT us Diana Gonzalez NP LAB BLOOD ORDERABLES Lala wing Result CAITIE [facility] [place] [address] * (ABNORMAL) Differential, auto (10/06/2024 4:45 AM MANAGER OF SOFTWARE DEVELOPMENT) Neutrophil abs 6.4 1.5 - 6.5 K/cumm Imm gran abs 0.0 0.0 - 0.1 K/cumm [facility] Lymphocyte abs 2.9 0.8 - 3.3 K/cumm [facility] Monocyte abs 1.1(H) 0.2 - 0.8 K/cumm [facility] Eosinophil abs 1.0(H) 0.0 - 0.5 K/cumm [facility] Basophil abs 0.2(H) 0.0 - 0.1 K/cumm [facility] Neutrophil pct 55.0 % [facility] Comment: Interpretive Data Percent cell count reference ranges are not reported, since discordance with absolute values may lead to misinterpretation of CBC data. Current Interpretive Data was last revised on 2017. Imm gran pct 0.3 % [facility] Comment: Interpretive Data Percent cell count reference ranges are not reported, since discordance with absolute values may lead to misinterpretation of CBC data. Current Interpretive Data was last revised on 2017. Lymphocyte pct 25.1 % [facility] Comment: Interpretive Data Percent cell count reference ranges are not reported, since discordance with absolute values may lead to misinterpretation of CBC data. Current Interpretive Data was last revised on 2017. Monocyte pct 9.3 % [facility] Comment: Interpretive Data Percent cell count reference ranges are not reported, since discordance with absolute values may lead to misinterpretation of CBC data. Current Interpretive Data was last revised on 2017. Eosinophil pct 8.8 % [facility] Comment: Interpretive Data Percent cell count reference ranges are not reported, since discordance with absolute values may lead to misinterpretation of CBC data. Current Interpretive Data was last revised on 2017. Basophil pct 1.5 % [facility] Comment: Interpretive Data Percent cell count reference ranges are not reported, since discordance with absolute values may lead to misinterpretation of CBC data. Current Interpretive Data was last revised on 2017. Blood 10/06/2024 4:45 AM MANAGER [employer] SOFTWARE DEVELOPMENT 10/06/2024 4:56 AM MANAGER OF SOFTWARE DEVELOPMENT Diana Gonzalez [employer] LAB BLOOD ORDERABLES Lala l Result Performing Organization Address City/[facility]/ZIP Co de Phone Number [facility] [email or web address] [address] * (ABNORMAL) CBC with auto differential (10/06/2024 4:45 AM MANAGER OF SOFTWARE DEVELOPMENT) WBC 11.6(H) 3.8 - 9.9 K/cumm Hgb 13.7 13.0 - 17.5 g/dL [facility] Hct 42.1 38.9 - 50.3 % [facility] Plt 469(H) 150 - 400 K/cumm [facility] MPV 9.4 9.1 - 12.3 fL [facility] RBC 4.58 4.30 - 5.80 M/cumm [facility] MCV 91.9 81.3 - 96.4 fL [facility] MCH 29.9 27.1 - 33.3 pg [facility] MCHC 32.5 32.3 - 35.7 g/dL [facility] RDW CV 13.6 11.1 - 14.9 % [facility] RDW SD 45.3 35.7 - 48.1 fL [facility] NRBC abs 0.00 0.00 - 0.01 K/cumm [facility] Blood 10/06/2024 4:45 AM MANAGER OF SOFTWARE DEVELOPMENT 10/06/2024 4:56 AM MANAGER OF SOFTWARE DEVELOPMENT Diana Gonzalez [employer] LAB BLOOD ORDERABLES Lala l Result Performing Organization Address City/[facility]/ZIP Co de Phone Number [facility] [place] [address] * Hepatic function panel (10/06/2024 4:45 AM MANAGER OF SOFTWARE DEVELOPMENT) Bilirubin, total 0.3 0.1 - 1.2 mg/dL Bilirubin, direct <0.2 0.1 - 0.3 mg/dL [facility] Protein, pl 6.9 6.5 - 8.5 g/dL [facility] Albumin 3.6 3.5 - 5.0 g/dL [facility] Alk phos 83 40 - 130 Units/L [facility] ALT 18 7 - 55 Units/L [facility] AST 22 10 - 50 Units/L [facility] Blood 10/06/2024 4:45 AM MANAGER OF SOFTWARE DEVELOPMENT 10/06/2024 4:56 AM MANAGER OF SOFTWARE DEVELOPMENT Prashant Felder MD LAB BLOOD ORDERABLES Final Result [facility] [place] [address] * Basic metabolic panel (10/06/2024 4:45 AM MANAGER OF SOFTWARE DEVELOPMENT) Pathologist [facility] Sodium 135 135 - 145 mmol/L Potassium, pl 4.9 3.3 - 4.9 mmol/L [facility] Chloride 100 97 - 110 mmol/L [facility] CO2 29 22 - 32 mmol/L [facility] Anion gap 6 2 - 15 mmol/L [facility] BUN 19 6 - 25 mg/dL [facility] Creatinine 0.83 0.80 - 1.30 mg/dL [facility] Glucose 100 70 - 199 mg/dL [facility] Comment: Interpretive Data Fasting glucose >/= [...] 2022. Calcium 9.6 8.5 - 10.3 mg/dL [facility] Blood 10/06/2024 4:45 AM MANAGER OF SOFTWARE DEVELOPMENT 10/06/2024 4:56 AM MANAGER OF SOFTWARE DEVELOPMENT Diana Gonzalez O[employer] LAB BLOOD ORDERABLES Lala l Result Performing Organization Address [facility] de Phone Number [facility] [email or web address] [address] * POCT glucose (10/06/2024 1:25 AM MANAGER OF SOFTWARE DEVELOPMENT) Glucose, POC 118 70 - 199 mg/dL Blood 10/06/2024 1:25 AM MANAGER OF SOFTWARE DEVELOPMENT 10/06/2024 1:25 AM MANAGER OF SOFTWARE DEVELOPMENT Prashant Felder MD LAB POCT ORDERABLES - MAGALIE CE Final Result Performing Organization Address [facility] de Phone Number [facility] [email or web address] [address] * POCT glucose (10/05/2024 7:43 PM MANAGER OF SOFTWARE DEVELOPMENT) Glucose, POC 190 70 - 199 mg/dL Blood 10/05/2024 7:4 3 PM MANAGER OF SOFTWARE DEVELOPMENT 10/05/2024 7:43 PM MANAGER OF SOFTWARE DEVELOPMENT Prashant Felder MD LAB POCT ORDERABLES - MAGALIE CE Final Result Performing Organization Address [facility] de Phone Number [email or web address] [address] * POCT glucose (10/05/2024 4:27 PM MANAGER OF SOFTWARE DEVELOPMENT) Glucose, POC 108 70 - 199 mg/dL Blood 10/05/2024 4:27 PM MANAGER OF SOFTWARE DEVELOPMENT 10/05/2024 4:27 PM MANAGER OF SOFTWARE DEVELOPMENT Prashant Felder MD LAB POCT ORDERABLES - MAGALIE CE Final Result Performing Organization Address [facility] Co de Phone Number [facility] [email or web address] [address] * POCT glucose (10/05/2024 11:38 AM MANAGER OF SOFTWARE DEVELOPMENT) Glucose, POC 116 70 - 199 mg/dL Blood 10/05/2024 11:3 8 AM MANAGER OF SOFTWARE DEVELOPMENT 10/05/2024 11:38 AM MANAGER OF SOFTWARE DEVELOPMENT Prashant Felder MD LAB POCT ORDERABLES - MAGALIE CE Final Result Performing Organization Address [facility] de Phone Number [facility] [place] [place] [address] * POCT glucose (10/05/2024 7:45 AM MANAGER OF SOFTWARE DEVELOPMENT) Glucose, POC 102 70 - 199 mg/dL Blood 10/05/2024 7:45 AM MANAGER OF SOFTWARE DEVELOPMENT 10/05/2024 7:45 AM MANAGER OF SOFTWARE DEVELOPMENT Prashant Felder MD LAB POCT ORDERABLES - MAGALIE CE Final Result Performing Organization Address [facility] Co de Phone Number [facility] [place] [address] * eGFR (10/05/2024 5:17 AM MANAGER OF SOFTWARE DEVELOPMENT) eGFR >90 >=60 mL/min/1. 73 m2 Comment: [...] of Race in Diagnosing Kidney Disease, JASN 202). The CKD-EPI equation should not be used for patients with unstable renal function and has not been validated in children and those over 70. Current interpretive data was last reviewed 2021. Blood 10/05/2024 5:17 AM MANAGER OF SOFTWARE DEVELOPMENT 10/05/2024 5:29 AM MANAGER OF SOFTWARE DEVELOPMENT us Diana Gonzalez NP LAB BLOOD ORDERABLES Lala wing Result [facility] [place] [address] * (ABNORMAL) Differential, auto (10/05/2024 5:17 AM MANAGER OF SOFTWARE DEVELOPMENT) Neutrophil abs 6.9(H) 1.5 - 6.5 K/cumm Imm gran abs 0.1 0.0 - 0.1 K/cumm [facility] Lymphocyte abs 3.1 0.8 - 3.3 K/cumm [facility] Monocyte abs 0.9(H) 0.2 - 0.8 K/cumm [facility] Eosinophil abs 0.8(H) 0.0 - 0.5 K/cumm [facility] Basophil abs 0.1 0.0 - 0.1 K/cumm [facility] Neutrophil pct 58.0 % [facility] Comment: Interpretive Data Percent cell count reference ranges are not reported, since discordance with absolute values may lead to misinterpretation of CBC data. Current Interpretive Data was last revised on 2017. Imm gran pct 0.4 % [facility] Comment: Interpretive Data Percent cell count reference ranges are not reported, since discordance with absolute values may lead to misinterpretation of CBC data. Current Interpretive Data was last revised on 2017. Lymphocyte pct 25.9 % [facility] Comment: Interpretive Data Percent cell count reference ranges are not reported, since discordance with absolute values may lead to misinterpretation of CBC data. Current Interpretive Data was last revised on 2017. Monocyte pct 7.8 % [facility] Comment: Interpretive Data Percent cell count reference ranges are not reported, since discordance with absolute values may lead to misinterpretation of CBC data. Current Interpretive Data was last revised on 2017. Eosinophil pct 6.8 % [facility] Comment: Interpretive Data Percent cell count reference ranges are not reported, since discordance with absolute values may lead to misinterpretation of CBC data. Current Interpretive Data was last revised on 2017. Basophil pct 1.1 % [facility] Comment: Interpretive Data Percent cell count reference ranges are not reported, since discordance with absolute values may lead to misinterpretation of CBC data. Current Interpretive Data was last revised on 2017. Blood 10/05/2024 5:17 AM MANAGER OF SOFTWARE DEVELOPMENT 10/05/2024 5:29 AM MANAGER OF SOFTWARE DEVELOPMENT Diana Gonzalez NP LAB BLOOD ORDERABLES Lala wing Result [facility] [place] [address] * (ABNORMAL) CBC with auto differential (10/05/2024 5:17 AM MANAGER OF SOFTWARE DEVELOPMENT) WBC 11.9(H) 3.8 - 9.9 K/cumm Hgb 13.6 13.0 - 17.5 g/dL [facility] Hct 41.7 38.9 - 50.3 % [facility] Plt 432(H) 150 - 400 K/cumm [facility] MPV 9.5 9.1 - 12.3 fL [facility] RBC 4.52 4.30 - 5.80 M/cumm [facility] MCV 92.3 81.3 - 96.4 fL [facility] MCH 30.1 27.1 - 33.3 pg [facility] MCHC 32.6 32.3 - 35.7 g/dL [facility] RDW CV 13.3 11.1 - 14.9 % [facility] RDW SD 45.0 35.7 - 48.1 fL [facility] NRBC abs 0.00 0.00 - 0.01 K/cumm [facility] Blood 10/05/2024 5:17 AM MANAGER OF SOFTWARE DEVELOPMENT 10/05/2024 5:29 AM MANAGER OF SOFTWARE DEVELOPMENT Diana Gonzalez NP LAB BLOOD ORDERABLES Lala l Result Performing Organization Address City/[facility]/ZIP Co de Phone Number [facility] Department [place] [address] * (ABNORMAL) Basic metabolic panel (10/05/2024 5:17 AM MANAGER OF SOFTWARE DEVELOPMENT) [facility] Sodium 135 135 - 145 mmol/L Potassium, pl 4.4 3.3 - 4.9 mmol/L [facility] Chloride 100 97 - 110 mmol/L [facility] CO2 25 22 - 32 mmol/L [facility] Anion gap 10 2 - 15 mmol/L [facility] BUN 18 6 - 25 mg/dL [facility] Creatinine 0.74(L) 0.80 - 1.30 mg/dL [facility] Glucose 90 70 - 199 mg/dL [facility] Comment: Interpretive Data Fasting glucose >/= [...] 2022. Calcium 9.0 8.5 - 10.3 mg/dL [facility] Blood 10/05/2024 5:17 AM MANAGER OF SOFTWARE DEVELOPMENT 10/05/2024 5:29 AM MANAGER OF SOFTWARE DEVELOPMENT Diana Gonzalez NP LAB BLOOD ORDERABLES Lala l Result Performing Organization Address [facility]/ZIP Co de Phone Number [facility] [email or web address] [address] * POCT glucose (10/05/2024 2:24 AM MANAGER OF SOFTWARE DEVELOPMENT) Glucose, POC 101 70 - 199 mg/dL Blood 10/05/2024 2:24 AM MANAGER OF SOFTWARE DEVELOPMENT 10/05/2024 2:24 AM MANAGER OF SOFTWARE DEVELOPMENT Prashant Felder MD LAB POCT ORDERABLES - MAGALIE CE Final Result Performing Organization Address City/[facility]/[place] [address] * Vancomycin level trough At least 30 minutes prior to vancomycin dose (10/04/2024 10:17 PM MANAGER OF SOFTWARE DEVELOPMENT) Vancomycin trough 11.4 10.0 - 20.0 mcg/mL Blood 10/04/2024 10:1 7 PM MANAGER OF SOFTWARE DEVELOPMENT 10/04/2024 11:50 PM MANAGER OF SOFTWARE DEVELOPMENT Narrative [facility] 10/05/2024 12:19 AM MANAGER OF SOFTWARE DEVELOPMENT At least 30 minutes prior to vancomycin dose Severino Peñaloza MD LAB BLOOD ORDERABLES Final Res ult Performing Organization Address [facility]/[place] [address] * (ABNORMAL) POCT glucose (10/04/2024 8:11 PM MANAGER OF SOFTWARE DEVELOPMENT) Glucose, POC 210(H) 70 - 199 mg/dL Blood 10/04/2024 8:11 PM MANAGER OF SOFTWARE DEVELOPMENT 10/04/2024 8:11 PM MANAGER OF SOFTWARE DEVELOPMENT Prashant Felder MD LAB POCT ORDERABLES - MAGALIE CE Final Result Performing Organization Address City/[facility]/ZIP Co de Phone Number [facility] [place] [address] * POCT glucose (10/04/2024 5:00 PM MANAGER OF SOFTWARE DEVELOPMENT) Glucose, POC 94 70 - 199 mg/dL Blood 10/04/2024 5:00 PM MANAGER OF SOFTWARE DEVELOPMENT 10/04/2024 5:00 PM MANAGER OF SOFTWARE DEVELOPMENT Prashant Felder MD LAB POCT ORDERABLES - MAGALIE CE Final Result Performing Organization Address [facility] Co de Phone Number [email or web address] [address] * POCT glucose (10/04/2024 12:04 PM MANAGER OF SOFTWARE DEVELOPMENT) Glucose, POC 117 70 - 199 mg/dL Blood 10/04/2024 12:0 4 PM MANAGER OF SOFTWARE DEVELOPMENT 10/04/2024 12:04 PM MANAGER OF SOFTWARE DEVELOPMENT Prashant Felder MD LAB POCT ORDERABLES - MAGALIE CE Final Result Performing Organization Address [facility] de Phone Number [email or web address] [address] * POCT glucose (10/04/2024 7:59 AM MANAGER OF SOFTWARE DEVELOPMENT) Glucose, POC 107 70 - 199 mg/dL Blood 10/04/2024 7:59 AM MANAGER OF SOFTWARE DEVELOPMENT 10/04/2024 7:59 AM MANAGER OF SOFTWARE DEVELOPMENT Prashant Felder MD LAB POCT ORDERABLES - MAGALIE CE Final Result Performing Organization Address [facility] de Phone Number [email or web address] [address] * eGFR (10/04/2024 4:04 AM MANAGER OF SOFTWARE DEVELOPMENT) eGFR >90 >=60 mL/min/1. 73 m2 Comment: [...] of Race in Diagnosing Kidney Disease, JASN 202). The CKD-EPI equation should not be used for patients with unstable renal function and has not been validated in children and those over 70. Current interpretive data was last reviewed 2021. Blood 10/04/2024 4:04 AM MANAGER OF SOFTWARE DEVELOPMENT 10/04/2024 4:16 AM MANAGER OF SOFTWARE DEVELOPMENT us Diana Gonzalez NP LAB BLOOD ORDERABLES Lala wing Result [facility] [place] [address] * (ABNORMAL) Differential, auto (10/04/2024 4:04 AM MANAGER OF SOFTWARE DEVELOPMENT) Neutrophil abs 8.1(H) 1.5 - 6.5 K/cumm Imm gran abs 0.1 0.0 - 0.1 K/cumm [facility] Lymphocyte abs 3.6(H) 0.8 - 3.3 K/cumm [facility] Monocyte abs 1.2(H) 0.2 - 0.8 K/cumm [facility] Eosinophil abs 0.7(H) 0.0 - 0.5 K/cumm [facility] Basophil abs 0.2(H) 0.0 - 0.1 K/cumm [facility] Neutrophil pct 58.7 % [facility] Comment: Interpretive Data Percent cell count reference ranges are not reported, since discordance with absolute values may lead to misinterpretation of CBC data. Current Interpretive Data was last revised on 2017. Imm gran pct 0.4 % [facility] Comment: Interpretive Data Percent cell count reference ranges are not reported, since discordance with absolute values may lead to misinterpretation of CBC data. Current Interpretive Data was last revised on 2017. Lymphocyte pct 26.1 % [facility] Comment: Interpretive Data Percent cell count reference ranges are not reported, since discordance with absolute values may lead to misinterpretation of CBC data. Current Interpretive Data was last revised on 2017. Monocyte pct 8.4 % [facility] Comment: Interpretive Data Percent cell count reference ranges are not reported, since discordance with absolute values may lead to misinterpretation of CBC data. Current Interpretive Data was last revised on 2017. Eosinophil pct 5.3 % [facility] Comment: Interpretive Data Percent cell count reference ranges are not reported, since discordance with absolute values may lead to misinterpretation of CBC data. Current Interpretive Data was last revised on 2017. Basophil pct 1.1 % [facility] Comment: Interpretive Data Percent cell count reference ranges are not reported, since discordance with absolute values may lead to misinterpretation of CBC data. Current Interpretive Data was last revised on 2017. Blood 10/04/2024 4:04 AM MANAGER OF SOFTWARE DEVELOPMENT 10/04/2024 4:17 AM MANAGER OF SOFTWARE DEVELOPMENT Diana Gonzalez [employer] LAB BLOOD ORDERABLES Lala l Result [facility] [place] [address] * (ABNORMAL) CBC with auto differential (10/04/2024 4:04 AM MANAGER OF SOFTWARE DEVELOPMENT) WBC 13.7(H) 3.8 - 9.9 K/cumm Hgb 13.8 13.0 - 17.5 g/dL [facility] Hct 41.5 38.9 - 50.3 % [facility] Plt 473(H) 150 - 400 K/cumm [facility] MPV 9.3 9.1 - 12.3 fL [facility] RBC 4.50 4.30 - 5.80 M/cumm [facility] MCV 92.2 81.3 - 96.4 fL [facility] MCH 30.7 27.1 - 33.3 pg [facility] MCHC 33.3 32.3 - 35.7 g/dL [facility] RDW CV 13.7 11.1 - 14.9 % [facility] RDW SD 46.1 35.7 - 48.1 fL [facility] NRBC abs 0.00 0.00 - 0.01 K/cumm [facility] Blood 10/04/2024 4:04 AM MANAGER OF SOFTWARE DEVELOPMENT 10/04/2024 4:17 AM MANAGER OF SOFTWARE DEVELOPMENT us Diana Gonzalez NP LAB BLOOD ORDERABLES Lala wing Result [facility] [place] [address] * Basic metabolic panel (10/04/2024 4:04 AM MANAGER OF SOFTWARE DEVELOPMENT) Sodium 137 135 - 145 mmol/L Potassium, pl 4.4 3.3 - 4.9 mmol/L [facility] Chloride 102 97 - 110 mmol/L [facility] CO2 27 22 - 32 mmol/L [facility] Anion gap 8 2 - 15 mmol/L [facility] BUN 24 6 - 25 mg/dL [facility] Creatinine 0.86 0.80 - 1.30 mg/dL [facility] Glucose 73 70 - 199 mg/dL [facility] Comment: Interpretive Data Fasting glucose >/= [...] 2022. Calcium 9.3 8.5 - 10.3 mg/dL [facility] Blood 10/04/2024 4:04 AM MANAGER OF SOFTWARE DEVELOPMENT 10/04/2024 4:16 AM MANAGER OF SOFTWARE DEVELOPMENT Diana Gonzalez NP LAB BLOOD ORDERABLES Lala l Result Performing Organization Address [facility] de Phone Number [facility] [place] [address] * POCT glucose (10/04/2024 3:56 AM MANAGER OF SOFTWARE DEVELOPMENT) Glucose, POC 89 70 - 199 mg/dL Blood 10/04/2024 3:56 AM MANAGER OF SOFTWARE DEVELOPMENT 10/04/2024 3:56 AM MANAGER OF SOFTWARE DEVELOPMENT Prashant Felder MD LAB POCT ORDERABLES - MAGALIE CE Final Result Performing Organization Address [facility] Phone Number [facility] [place] [address] * (ABNORMAL) POCT glucose (10/04/2024 3:54 AM MANAGER OF SOFTWARE DEVELOPMENT) Glucose, POC 68(L) 70 - 199 mg/dL Blood 10/04/2024 3:54 AM MANAGER OF SOFTWARE DEVELOPMENT 10/04/2024 3:54 AM MANAGER OF SOFTWARE DEVELOPMENT Prashant Felder MD LAB POCT ORDERABLES - MAGALIE CE Final Result Performing Organization Address [facility] Phone Number [facility] [place] [address] * POCT glucose (10/03/2024 8:44 PM MANAGER OF SOFTWARE DEVELOPMENT) Glucose, POC 153 70 - 199 mg/dL Blood 10/03/2024 8:44 PM MANAGER OF SOFTWARE DEVELOPMENT 10/03/2024 8:44 PM MANAGER OF SOFTWARE DEVELOPMENT Prashant Felder MD LAB POCT ORDERABLES - MAGALIE CE Final Result [email or web address] [address] * POCT glucose (10/03/2024 5:09 PM MANAGER OF SOFTWARE DEVELOPMENT) Glucose, POC 145 70 - 199 mg/dL Blood 10/03/2024 5:09 PM MANAGER OF SOFTWARE DEVELOPMENT 10/03/2024 5:09 PM MANAGER OF SOFTWARE DEVELOPMENT us Prashant Felder MD LAB POCT ORDERABLES - MAGALIE CE Final Result Performing Organization Address [facility] [place] [address] * POCT glucose (10/03/2024 11:57 AM MANAGER OF SOFTWARE DEVELOPMENT) Glucose, POC 168 70 - 199 mg/dL Blood 10/03/2024 11:5 7 AM MANAGER OF SOFTWARE DEVELOPMENT 10/03/2024 11:57 AM MANAGER OF SOFTWARE DEVELOPMENT Prashant Felder MD LAB POCT ORDERABLES - MAGALIE CE Final Result Performing Organization Address [facility] Co de Phone Number [facility] [email or web address] [address] * POCT glucose (10/03/2024 11:13 AM MANAGER OF SOFTWARE DEVELOPMENT) Glucose, POC 170 70 - 199 mg/dL Blood 10/03/2024 11:1 3 AM MANAGER OF SOFTWARE DEVELOPMENT 10/03/2024 11:13 AM MANAGER OF SOFTWARE DEVELOPMENT Prashant Felder MD LAB POCT ORDERABLES - MAGALIE CE Final Result Performing Organization Address [facility] [place] [address] * (ABNORMAL) POCT glucose (10/03/2024 8:06 AM MANAGER OF SOFTWARE DEVELOPMENT) Glucose, POC 229(H) 70 - 199 mg/dL Blood 10/03/2024 8:06 AM MANAGER OF SOFTWARE DEVELOPMENT 10/03/2024 8:06 AM MANAGER OF SOFTWARE DEVELOPMENT Prashant Felder MD LAB POCT ORDERABLES - MAGALIE CE Final Result Performing Organization Address City/[facility] Co de Phone Number [facility] [email or web address] [address] * Potassium, whole blood (10/03/2024 4:41 AM MANAGER OF SOFTWARE DEVELOPMENT) Potassium, bld 4.3 3.3 - 4.9 mmol/L Blood 10/03/2024 4:41 AM MANAGER OF SOFTWARE DEVELOPMENT 10/03/2024 4:52 AM MANAGER OF SOFTWARE DEVELOPMENT Prashant Felder MD LAB BLOOD ORDERABLES Final Result Performing Organization Address [facility] de Phone Number [facility] [email or web address] [address] * eGFR (10/03/2024 4:41 AM MANAGER OF SOFTWARE DEVELOPMENT) eGFR 88 >=60 mL/min/1. 73 m2 Comment: [...] last reviewed 2021. Blood 10/03/2024 4:41 AM MANAGER OF SOFTWARE DEVELOPMENT 10/03/2024 4:54 AM MANAGER OF SOFTWARE DEVELOPMENT us Diana Gonzalez NP LAB BLOOD ORDERABLES Lala wing Result [facility] [place] [address] * (ABNORMAL) Differential, auto (10/03/2024 4:41 AM MANAGER OF SOFTWARE DEVELOPMENT) Neutrophil abs 9.3(H) 1.5 - 6.5 K/cumm Imm gran abs 0.0 0.0 - 0.1 K/cumm [facility] Lymphocyte abs 3.2 0.8 - 3.3 K/cumm [facility] Monocyte abs 1.2(H) 0.2 - 0.8 K/cumm [facility] Eosinophil abs 0.3 0.0 - 0.5 K/cumm [facility] Basophil abs 0.1 0.0 - 0.1 K/cumm [facility] Neutrophil pct 66.1 % [facility] Comment: Interpretive Data Percent cell count reference ranges are not reported, since discordance with absolute values may lead to misinterpretation of CBC data. Current Interpretive Data was last revised on 2017. Imm gran pct 0.3 % [facility] Comment: Interpretive Data Percent cell count reference ranges are not reported, since discordance with absolute values may lead to misinterpretation of CBC data. Current Interpretive Data was last revised on 2017. Lymphocyte pct 22.5 % [facility] Comment: Interpretive Data Percent cell count reference ranges are not reported, since discordance with absolute values may lead to misinterpretation of CBC data. Current Interpretive Data was last revised on 2017. Monocyte pct 8.4 % [facility] Comment: Interpretive Data Percent cell count reference ranges are not reported, since discordance with absolute values may lead to misinterpretation of CBC data. Current Interpretive Data was last revised on 2017. Eosinophil pct 2.1 % [facility] Comment: Interpretive Data Percent cell count reference ranges are not reported, since discordance with absolute values may lead to misinterpretation of CBC data. Current Interpretive Data was last revised on 2017. Basophil pct 0.6 % [facility] Comment: Interpretive Data Percent cell count reference ranges are not reported, since discordance with absolute values may lead to misinterpretation of CBC data. Current Interpretive Data was last revised on 2017. Blood 10/03/2024 4:41 AM MANAGER OF SOFTWARE DEVELOPMENT 10/03/2024 4:55 AM MANAGER OF SOFTWARE DEVELOPMENT Diana Gonzalez NP LAB BLOOD ORDERABLES Lala l Result Performing Organization Address City/[facility]/ZIP Co de Phone Number [facility] [place] [address] * (ABNORMAL) CBC with auto differential (10/03/2024 4:41 AM MANAGER OF SOFTWARE DEVELOPMENT) WBC 14.1(H) 3.8 - 9.9 K/cumm Hgb 13.4 13.0 - 17.5 g/dL [facility] Hct 40.8 38.9 - 50.3 % [facility] Plt 434(H) 150 - 400 K/cumm [facility] MPV 9.5 9.1 - 12.3 fL [facility] RBC 4.37 4.30 - 5.80 M/cumm [facility] MCV 93.4 81.3 - 96.4 fL [facility] MCH 30.7 27.1 - 33.3 pg [facility] MCHC 32.8 32.3 - 35.7 g/dL [facility] RDW CV 13.6 11.1 - 14.9 % [facility] RDW SD 46.2 35.7 - 48.1 fL [facility] NRBC abs 0.00 0.00 - 0.01 K/cumm [facility] Blood 10/03/2024 4:41 AM MANAGER OF SOFTWARE DEVELOPMENT 10/03/2024 4:55 AM MANAGER OF SOFTWARE DEVELOPMENT Diana Gonzalez NP LAB BLOOD ORDERABLES Lala l Result Performing Organization Address City/[facility]/ZIP Co de Phone Number [facility] [place] [address] * (ABNORMAL) Hemoglobin A1c (10/03/2024 4:41 AM MANAGER OF SOFTWARE DEVELOPMENT) Pathologist [facility] Hgb A1C 8.7(H) 4.0 - 5.6 % Estimated Average Glucose 203 mg/dL [facility] Comment: The ADA recommends reporting an estimated Average Glucose (eAG) with all Hemoglobin A1c results using the equation derived from a study of 507 normal and diabetic adults. Minority populations were underrepresented and children were not included. (Diabetes Care 2020; 43(S1): S66-S76). The eAG is not equivalent to a fasting glucose. Blood 10/03/2024 4:41 AM MANAGER OF SOFTWARE DEVELOPMENT 10/03/2024 5:00 AM MANAGER OF SOFTWARE DEVELOPMENT Prashant Felder MD LAB BLOOD ORDERABLES Final Result Performing Organization Address City/State/[facility] de Phone Number [facility] [place] [address] * (ABNORMAL) Basic metabolic panel (10/03/2024 4:41 AM MANAGER OF SOFTWARE DEVELOPMENT) [facility] Sodium 133(L) 135 - 145 mmol/L Potassium, pl 4.7 3.3 - 4.9 mmol/L [facility] Chloride 97 97 - 110 mmol/L [facility] CO2 27 22 - 32 mmol/L [facility] Anion gap 9 2 - 15 mmol/L [facility] BUN 28(H) 6 - 25 mg/dL [facility] Creatinine 0.93 0.80 - 1.30 mg/dL [facility] Glucose 185 70 - 199 mg/dL [facility] Comment: Interpretive Data Fasting glucose >/= [...] 2022. Calcium 8.8 8.5 - 10.3 mg/dL [facility] Blood 10/03/2024 4:41 AM MANAGER OF SOFTWARE DEVELOPMENT 10/03/2024 4:54 AM MANAGER OF SOFTWARE DEVELOPMENT Diana Gonzalez NP LAB BLOOD ORDERABLES Lala l Result Performing Organization Address City/[facility] Co de Phone Number [facility] [place] [address] * POCT glucose (10/03/2024 1:51 AM MANAGER OF SOFTWARE DEVELOPMENT) [facility] Glucose, POC 167 70 - 199 mg/dL Blood 10/03/2024 1:51 AM MANAGER OF SOFTWARE DEVELOPMENT 10/03/2024 1:51 AM MANAGER OF SOFTWARE DEVELOPMENT Prashant Felder MD LAB POCT ORDERABLES - MAGALIE CE Final Result Performing Organization Address [facility] de Phone Number [facility] [email or web address] [address] * (ABNORMAL) Potassium, whole blood (10/02/2024 11:05 PM MANAGER OF SOFTWARE DEVELOPMENT) [facility] Potassium, bld 5.0(H) 3.3 - 4.9 mmol/L Blood 10/02/2024 11:0 5 PM MANAGER OF SOFTWARE DEVELOPMENT 10/02/2024 11:23 PM MANAGER OF SOFTWARE DEVELOPMENT Prashant Felder MD LAB BLOOD ORDERABLES Final Result Performing Organization Address [facility] [facility] de Phone Number [facility] [email or web address] [address] * eGFR (10/02/2024 9:27 PM MANAGER OF SOFTWARE DEVELOPMENT) [facility] eGFR 80 >=60 mL/min/1. 73 m2 Comment: [...] of Race in Diagnosing Kidney Disease, JASN 202). The CKD-EPI equation should not be used for patients with unstable renal function and has not been validated in children and those over 70. Current interpretive data was last reviewed 2021. Blood 10/02/2024 9:27 PM MANAGER OF SOFTWARE DEVELOPMENT 10/02/2024 9:55 PM MANAGER OF SOFTWARE DEVELOPMENT Diana Gonzalez OBSERVER GRAVITY PROSPECTING LAB BLOOD ORDERABLES Lala wing Result [facility] [place] [address] * (ABNORMAL) Differential, auto (10/02/2024 9:27 PM MANAGER OF SOFTWARE DEVELOPMENT) Neutrophil abs 8.5(H) 1.5 - 6.5 K/cumm Imm gran abs 0.1 0.0 - 0.1 K/cumm [facility] Lymphocyte abs 1.9 0.8 - 3.3 K/cumm [facility] Monocyte abs 0.6 0.2 - 0.8 K/cumm [facility] Eosinophil abs 0.0 0.0 - 0.5 K/cumm [facility] Basophil abs 0.0 0.0 - 0.1 K/cumm [facility] Neutrophil pct 76.1 % [facility] Comment: Interpretive Data Percent cell count reference ranges are not reported, since discordance with absolute values may lead to misinterpretation of CBC data. Current Interpretive Data was last revised on 2017. Imm gran pct 0.4 % [facility] Comment: Interpretive Data Percent cell count reference ranges are not reported, since discordance with absolute values may lead to misinterpretation of CBC data. Current Interpretive Data was last revised on 2017. Lymphocyte pct 17.2 % [facility] Comment: Interpretive Data Percent cell count reference ranges are not reported, since discordance with absolute values may lead to misinterpretation of CBC data. Current Interpretive Data was last revised on 2017. Monocyte pct 5.7 % [facility] Comment: Interpretive Data Percent cell count reference ranges are not reported, since discordance with absolute values may lead to misinterpretation of CBC data. Current Interpretive Data was last revised on 2017. Eosinophil pct 0.2 % [facility] Comment: Interpretive Data Percent cell count reference ranges are not reported, since discordance with absolute values may lead to misinterpretation of CBC data. Current Interpretive Data was last revised on 2017. Basophil pct 0.4 % [facility] Comment: Interpretive Data Percent cell count reference ranges are not reported, since discordance with absolute values may lead to misinterpretation of CBC data. Current Interpretive Data was last revised on 2017. Blood 10/02/2024 9:27 PM MANAGER OF SOFTWARE DEVELOPMENT 10/02/2024 9:55 PM MANAGER OF SOFTWARE DEVELOPMENT us Diana Gonzalez NP LAB BLOOD ORDERABLES Lala wing Result [facility] [place] [address] * (ABNORMAL) CBC with auto differential (10/02/2024 9:27 PM MANAGER OF SOFTWARE DEVELOPMENT) WBC 11.2(H) 3.8 - 9.9 K/cumm Hgb 13.1 13.0 - 17.5 g/dL [facility] Hct 40.3 38.9 - 50.3 % [facility] Plt 446(H) 150 - 400 K/cumm [facility] MPV 9.7 9.1 - 12.3 fL [facility] RBC 4.35 4.30 - 5.80 M/cumm [facility] MCV 92.6 81.3 - 96.4 fL [facility] MCH 30.1 27.1 - 33.3 pg [facility] MCHC 32.5 32.3 - 35.7 g/dL [facility] RDW CV 13.5 11.1 - 14.9 % [facility] RDW SD 45.8 35.7 - 48.1 fL [facility] NRBC abs 0.00 0.00 - 0.01 K/cumm [facility] Blood 10/02/2024 9:27 PM MANAGER OF SOFTWARE DEVELOPMENT 10/02/2024 9:55 PM MANAGER OF SOFTWARE DEVELOPMENT Diana Gonzalez NP LAB BLOOD ORDERABLES Lala l Result Performing Organization Address [facility] de Phone Number [facility] [email or web address] [address] * (ABNORMAL) Hemoglobin A1c (10/02/2024 9:27 PM MANAGER OF SOFTWARE DEVELOPMENT) Pathologist [facility] Hgb A1C 8.6(H) 4.0 - 5.6 % Estimated Average Glucose 200 mg/dL [facility] Comment: The ADA recommends reporting an estimated Average Glucose (eAG) with all Hemoglobin A1c results using the equation derived from a study of 507 normal and diabetic adults. Minority populations were underrepresented and children were not included. (Diabetes Care 2020; 43(S1): S66-S76). The eAG is not equivalent to a fasting glucose. Blood 10/02/2024 9:27 PM MANAGER OF SOFTWARE DEVELOPMENT 10/02/2024 9:58 PM MANAGER OF SOFTWARE DEVELOPMENT Narrative [facility] - 10/03/2024 9:10 AM MANAGER OF SOFTWARE DEVELOPMENT Reflex Prashant Feledr MD LAB BLOOD ORDERABLES Final Result Performing Organization Address [facility] Co de Phone Number [facility] [email or web address] [place], [place] [id number] * (ABNORMAL) Lipid panel (10/02/2024 9:27 PM MANAGER OF SOFTWARE DEVELOPMENT) Cholesterol 126 30 - 199 mg/dL Comment: [...] revised on 2018. Triglycerides 85 <=149 mg/dL [facility] Comment: Interpretive Data Ages < or [...] revised on 2018. HDL 37(L) >=40 mg/dL [facility] Comment: Interpretive Data Ages < or [...] on 2018. LDL, calculated 72 <=129 mg/dL [facility] Comment: Interpretive Data Ages < or [...] revised on 2024. Non-HDL Cholesterol 89 mg/dL [facility] Comment: Interpretive Data Ages < or [...] last revised on 2018. Chol/HDL ratio 3 [facility] Blood 10/02/2024 9:27 PM MANAGER OF SOFTWARE DEVELOPMENT 10/02/2024 9:55 PM MANAGER OF SOFTWARE DEVELOPMENT Prashant Felder MD LAB BLOOD ORDERABLES Final Result [facility] [place] [address] * (ABNORMAL) Basic metabolic panel (10/02/2024 9:27 PM MANAGER OF SOFTWARE DEVELOPMENT) Sodium 131(L) 135 - 145 mmol/L Potassium, pl 5.2(H) 3.3 - 4.9 mmol/L [facility] Chloride 94(L) 97 - 110 mmol/L [facility] CO2 30 22 - 32 mmol/L [facility] Anion gap 7 2 - 15 mmol/L [facility] BUN 30(H) 6 - 25 mg/dL [facility] Creatinine 1.00 0.80 - 1.30 mg/dL [facility] Glucose 255(H) 70 - 199 mg/dL [facility] Comment: Interpretive Data Fasting glucose >/= [...] 2022. Calcium 8.6 8.5 - 10.3 mg/dL [facility] Blood 10/02/2024 9:27 PM MANAGER OF SOFTWARE DEVELOPMENT 10/02/2024 9:55 PM MANAGER OF SOFTWARE DEVELOPMENT us Diana Gonzalez NP LAB BLOOD ORDERABLES Lala l Result [facility] [email or web address] [address] * (ABNORMAL) POCT glucose (10/02/2024 7:51 PM MANAGER OF SOFTWARE DEVELOPMENT) Glucose, POC 254(H) 70 - 199 mg/dL Blood 10/02/2024 7:51 PM MANAGER OF SOFTWARE DEVELOPMENT 10/02/2024 7:51 PM MANAGER OF SOFTWARE DEVELOPMENT us Prashant Felder MD LAB POCT ORDERABLES - MAGALIE CE Final Result [facility] [email or web address] [address] * (ABNORMAL) POCT glucose (10/02/2024 5:40 PM MANAGER OF SOFTWARE DEVELOPMENT) Glucose, POC 285(H) 70 - 199 mg/dL Blood 10/02/2024 5:40 PM MANAGER OF SOFTWARE DEVELOPMENT 10/02/2024 5:40 PM MANAGER OF SOFTWARE DEVELOPMENT Prashant Felder MD LAB POCT ORDERABLES - MAGALIE CE Final Result Performing Organization Address [facility] de Phone Number [facility] [place] [address] * (ABNORMAL) POCT glucose (10/02/2024 5:37 PM MANAGER OF SOFTWARE DEVELOPMENT) Glucose, POC 302(H) 70 - 199 mg/dL Blood 10/02/2024 5:37 PM MANAGER OF SOFTWARE DEVELOPMENT 10/02/2024 5:37 PM MANAGER OF SOFTWARE DEVELOPMENT Prashant Felder MD LAB POCT ORDERABLES - MAGALIE CE Final Result Performing Organization Address [facility] de Phone Number [facility] [place] [address] * POCT glucose (10/02/2024 10:41 AM MANAGER OF SOFTWARE DEVELOPMENT) Glucose, POC 113 70 - 199 mg/dL Blood 10/02/2024 10:4 1 AM MANAGER OF SOFTWARE DEVELOPMENT 10/02/2024 10:41 AM MANAGER OF SOFTWARE DEVELOPMENT Prashant Felder MD LAB POCT ORDERABLES - MAGALIE CE Final Result Performing Organization Address [facility] de Phone Number [place] [address] * Tissue aerobic and anaerobic culture and gram stain Tissue Elbow, left (10/02/2024 9:19 AM MANAGER OF SOFTWARE DEVELOPMENT) [facility] Direct Specimen Exam Stain: Rare polymorphonuclear leukocytes seen. No organisms seen. Report Final Report: No growth [facility] Tissue (Elbow, left) 10/02/2024 9:19 AM MANAGER OF SOFTWARE DEVELOPMENT 10/02/2024 11:07 AM MANAGER OF SOFTWARE DEVELOPMENT Narrative CAITIE MCBRIDE - 10/07/2024 11:37 AM MANAGER OF SOFTWARE DEVELOPMENT LEFT ELBOW OLECRANON BURSA Testing performed by [facility] ([phone]) Specimens submitted from normally sterile body sites [...] GENERAL ORDERABLES Final Result Performing Organization Address City/[facility]/ZIP Co de Phone Number [facility] [place] [address] * Mycology (fungal) culture and stain Tissue Elbow, left (10/02/2024 9:19 AM MANAGER OF SOFTWARE DEVELOPMENT) Direct Specimen Exam Stain: No Fungal elements seen. Report Final Report: No growth of fungus [facility] Tissue (Elbow, left) 10/02/2024 9:19 AM MANAGER OF SOFTWARE DEVELOPMENT 10/02/2024 11:07 AM MANAGER OF SOFTWARE DEVELOPMENT Narrative CAITIE WARNER - 10/30/2024 7:55 AM CDT LEFT ELBOW OLECRANON BURSA Testing performed by [facility] ([phone]). Prashant Felder MD LAB MICROBIOLOGY - GENERAL ORDERABLES Final Result Performing Organization Address City/[facility]/ZIP Co de Phone Number [facility] [email or web address] [address] * Mycobacteriology (AFB) culture and acid-fast stain Tissue Elbow, left (10/02/2024 9:19 AM MANAGER OF SOFTWARE DEVELOPMENT) Direct Specimen Exam Stain: No Acid-fast bacilli seen Report Final Report: No growth of acid-fast bacilli [facility] Tissue (Elbow, left) 10/02/2024 9:19 AM MANAGER OF SOFTWARE DEVELOPMENT 10/02/2024 11:07 AM MANAGER OF SOFTWARE DEVELOPMENT Narrative CAITIE WARNER - 12/01/2024 1:44 PM CDT LEFT ELBOW OLECRANON BURSA Testing performed by [facility] ([phone]). Prashant Felder MD LAB MICROBIOLOGY - GENERAL ORDERABLES Final Result Performing Organization Address City/[facility]/ZIP Co de Phone Number CAITIE WARNER [facility] [place] [address] * Tissue aerobic and anaerobic culture and gram stain Tissue Elbow, left (10/02/2024 9:18 AM MANAGER OF SOFTWARE DEVELOPMENT) Direct Specimen Exam Stain: No polymorphonuclear leukocytes seen. No organisms seen. Report Final Report: No growth [facility] Tissue (Elbow, left) 10/02/2024 9:18 AM MANAGER OF SOFTWARE DEVELOPMENT 10/02/2024 11:05 AM MANAGER OF SOFTWARE DEVELOPMENT Narrative CAITIE WARNER - 10/07/2024 11:38 AM MANAGER OF SOFTWARE DEVELOPMENT LEFT ELBOW BURSA Testing performed by [facility] ([phone]) Specimens submitted from normally sterile body sites [...] GENERAL ORDERABLES Final Result Performing Organization Address [facility]/ZIP Co de Phone Number [facility] [place] [address] * Mycology (fungal) culture and stain Tissue Elbow, left (10/02/2024 9:18 AM MANAGER OF SOFTWARE DEVELOPMENT) Direct Specimen Exam Stain: No Fungal elements seen. Report Final Report: No growth of fungus [facility] Tissue (Elbow, left) 10/02/2024 9:18 AM MANAGER OF SOFTWARE DEVELOPMENT 10/02/2024 11:05 AM MANAGER OF SOFTWARE DEVELOPMENT Narrative CAITIE WARNER - 10/30/2024 7:54 AM CDT LEFT ELBOW BURSA Testing performed by [facility] ([phone]). Prashant Felder MD LAB MICROBIOLOGY - GENERAL ORDERABLES Final Result Performing Organization Address [facility] Co de Phone Number [facility] [place] [address] * Mycobacteriology (AFB) culture and acid-fast stain Tissue Elbow, left (10/02/2024 9:18 AM MANAGER OF SOFTWARE DEVELOPMENT) Direct Specimen Exam Stain: No Acid-fast bacilli seen Report Final Report: No growth of acid-fast bacilli [facility] Tissue (Elbow, left) 10/02/2024 9:18 AM MANAGER OF SOFTWARE DEVELOPMENT 10/02/2024 11:05 AM MANAGER OF SOFTWARE DEVELOPMENT Narrative [facility]IE [facility] - 12/01/2024 1:45 PM CDT LEFT ELBOW BURSA Testing performed by [facility] ([phone]). Prashant Felder MD LAB MICROBIOLOGY - GENERAL ORDERABLES Final Result Performing Organization Address [facility] de Phone Number [facility] [place] [address] * Tissue aerobic and anaerobic culture and gram stain Tissue Elbow, right (10/02/2024 8:58 AM MANAGER OF SOFTWARE DEVELOPMENT) Direct Specimen Exam Stain: No polymorphonuclear leukocytes seen. No organisms seen. Report Final Report: No growth [facility] Tissue (Elbow, right) 10/02/2024 8:58 AM MANAGER OF SOFTWARE DEVELOPMENT 10/02/2024 11:06 AM MANAGER OF SOFTWARE DEVELOPMENT Narrative [facility]IE [facility] - 10/07/2024 11:37 AM MANAGER OF SOFTWARE DEVELOPMENT Left Elbow Fluid Testing performed by [facility] ([phone]) Specimens submitted from normally sterile body sites [...] GENERAL ORDERABLES Final Result Performing Organization Address [facility] [place] [address] * Mycology (fungal) culture and stain Tissue Elbow, right (10/02/2024 8:58 AM MANAGER OF SOFTWARE DEVELOPMENT) Direct Specimen Exam Stain: No Fungal elements seen. Report Final Report: No growth of fungus [facility] Tissue (Elbow, right) 10/02/2024 8:58 AM MANAGER OF SOFTWARE DEVELOPMENT 10/02/2024 11:06 AM MANAGER OF SOFTWARE DEVELOPMENT Narrative CAITIE WARNER - 10/30/2024 7:47 AM CDT Left Elbow Fluid Testing performed by [facility] ([phone]). Prashant Felder MD LAB MICROBIOLOGY - GENERAL ORDERABLES Final Result Performing Organization Address City/[facility] Co de Phone Number [facility] [email or web address] [address] * Mycobacteriology (AFB) culture and acid-fast stain Tissue Elbow, right (10/02/2024 8:58 AM MANAGER OF SOFTWARE DEVELOPMENT) Direct Specimen Exam Stain: No Acid-fast bacilli seen Report Final Report: No growth of acid-fast bacilli [facility] Tissue (Elbow, right) 10/02/2024 8:58 AM MANAGER OF SOFTWARE DEVELOPMENT 10/02/2024 11:06 AM MANAGER OF SOFTWARE DEVELOPMENT Narrative CAITIE WARNER - 12/01/2024 1:44 PM CDT Left Elbow Fluid Testing performed by [facility] ([phone]). us Prashant Felder MD LAB MICROBIOLOGY - GENERAL ORDERABLES Final Result [facility] [place] [address] * WI AN ELECTIVE ENDOTRACHEAL AIRWAY, WI AN PROCEDURE PLACEHOLDER (10/02/2024 8:39 AM MANAGER OF SOFTWARE DEVELOPMENT) Narrative Shila Alcocer MD - 10/02/2024 8:39 AM MANAGER OF SOFTWARE DEVELOPMENT Shila Alcocer MD 10/02/2024 8:40 AM Airway [...] Result * POCT glucose (10/02/2024 6:36 AM MANAGER OF SOFTWARE DEVELOPMENT) Glucose, POC 117 70 - 199 mg/dL Blood 10/02/2024 6:36 AM MANAGER OF SOFTWARE DEVELOPMENT 10/02/2024 6:36 AM MANAGER OF SOFTWARE DEVELOPMENT us Prashant Felder MD LAB POCT ORDERABLES - MAGALIE CE Final Result [facility] [place] [address] * (ABNORMAL) Albumin Creatinine Ratio, Urine (10/16/2022 9:19 AM MANAGER OF SOFTWARE DEVELOPMENT) Microalb, Ur 321.7(H) 0.0 - 22.9 mg/L [facility] Comment:Repeated and Verifie d Random Urine Creatinine 62.7 mg/dL [facility] Microalb/Creat Ratio 513.1(H) 0.0 - 29.9 mg/g [facility] Urine 10/16/2022 9:19 AM MANAGER OF SOFTWARE DEVELOPMENT 10/16/2022 10:19 AM MANAGER OF SOFTWARE DEVELOPMENT us Hillary Carlson MD LAB URINE ORDERABLES Final Re sult [facility] from Last 3 Months or Most Recently Relevant to Health Maintenance Insurance MEDICARE [employer] SENIOR SUPPLEMENT MEDICARE [employer] SENIOR SUPPLEMENT MEDICARE [employer] SENIOR SUPPLEMENT Advance Directives For more information, please contact: [phone] * Full Code (Latest Code Status on File) Date Activated Date Inactivated Comments 10/02/2024 1:49 PM 10/06/2024 10:39 PM Care Teams Hat Block Maker Relationship Specialty Start Date End Date Tyrone Carvajal MD PCP - General Internal Medicine 11/06/19 Hetal Regan MD Referring Physician Endocrinology Diabetes & Metabolism 06/13/21 Jefferson Mora MD Consulting Physician Rheumatology 04/17/24 Swathi Diaz PA [address] [facility], [address] [address] Physician Electrician Powerhouse Physician [employer]ian [employer]house 04/19/24
--- OUTSIDE RECORDS SUMMARY | 2024-12-09 17:40 | XMS_ITS | Clinical Summary ---
Author Organization [facility] Address [address] [place] [address] Care Team Providers Care Driller'S Offsider Name Role Phone Tyrone Carvajal MD Primary Care Provider [phone] Hetal Regan MD Unavailable Jefferson Mora MD Unavailable [phone] Swathi Diaz Unavailable Allergies Active Allergy [...] hyperglycemia, with long-term current use of insulin ([facility]) Take 1 tablet by mouth daily 90 tablet 3 024 Active insulin degludec (TRESIBA) 100 unit/mL (3 mL) pen for injectionIndicati ons:Type 2 diabetes mellitus with hyperglycemia, with long-term current use of insulin ([facility]) INJECT 8 UNITS SUBCUTANEOUSLY DAILY/ 15 mL 3 024 Active ezetimibe (ZETIA) 10 mg tabletIndications :Type 2 diabetes mellitus with hyperglycemia, with long-term current use of insulin ([facility]),Hyperlipide denice associated with type 2 diabetes mellitus (HCC) Take 1 tablet (10 mg total) by mouth daily 90 tablet 3 024 Active pen needle, diabetic (BD Charu 2nd Gen Pen Needle) 32 gauge x 5/32 needleIndications :Type 2 diabetes mellitus with hyperglycemia, with long-term current use of insulin ([facility]) Use to inject insulin up [...] mouth every 6 (six) hours 90 tablet 025 Active senna-docusate (PERICOLACE) 8.6-50 mg Take 1 tablet by mouth 2 (two) times a day 60 tablet 025 Active oxyCODONE (ROXICODONE) 5 mg immediate release tabletIndications :Pain Take 1 tablet (5 mg total) by mouth every 4 (four) hours as needed for pain 30 tablet 025 Active blood-glucose sensor (FreeStyle Stacy 3 Plus Sensor) deviceIndications :Type 2 diabetes mellitus with hyperglycemia, without long-term current use of insulin ([facility]) Change sensor every 15 days 2 each 11 Active semaglutide (Ozempic) 0.25 mg or 0.5 [...] 09/15/2024 Assessment & Plan (10/23/2024 9:56 AM CERTIFIED NURSE OPERATING ROOM): Now s/p L olecranon bursectomy and I&D [...] concerns. Assessment & Plan (10/06/2024 2:15 PM CERTIFIED NURSE OPERATING ROOM): Chidi Eldridge is a 69yr old male with a PMH of DM-2, RA (not on immunosuppressive therapy), HTN, Dyslipidemia, was admitted to [facility] for management of chronic olecranon bursitis. [...] 08/04/2024 Assessment & Plan (08/04/2024 9:56 AM CERTIFIED NURSE OPERATING ROOM): - Potassium 5.7 on recent CMP (07/18/2024). - PCP recommended to avoid high potassium foods. Patient endorses leg cramps. - Advised to increase hydration of sugar-free fluids. Will send note to PCP with recommendation to decrease losartan to 50 mg daily and repeat renal function to see if hyperkalemia resolves. Microalbuminuria 05/12/2022 Assessment & Plan (08/04/2024 9:57 AM CERTIFIED NURSE OPERATING ROOM): - Recent UA negative for protein, this [...] Hyperlipidemia associated with type 2 diabetes gaby reva 06/13/2018 Assessment & Plan (11/09/2024 4:01 PM CDT): Continue statin, optimize glycemic control. Assessment & Plan (08/04/2024 9:58 AM CERTIFIED NURSE OPERATING ROOM): - Last LDL 127, TG 171 (06/2024), above goal - He has been out of Pravastatin for awhile - has been struggling to get refills (?) - Re-start pravastatin 80 mg daily and continue Zetia 10 mg daily. Refills sent. Assessment & Plan (12/27/2021 12:10 PM CDT): Continue statin therapy and optimize glycemic control. Assessment & Plan (09/15/2021 5:01 PM CERTIFIED NURSE OPERATING ROOM): Continue statin therapy and optimize glycemic control. [...] week Assessment & Plan (08/11/2020 11:05 AM CERTIFIED NURSE OPERATING ROOM): Continue pravastatin and focus on low fat [...] therapy Assessment & Plan (08/24/2018 6:43 PM CERTIFIED NURSE OPERATING ROOM): Continue statin therapy Assessment & Plan (06/13/2018 [...] mg/dL Assessment & Plan (10/20/2023 9:33 PM CERTIFIED NURSE OPERATING ROOM): Continue statin, optimize glycemic control. Assessment & Plan (03/14/2023 8:34 PM CDT): Continue statin, optimize glycemic control. Assessment & Plan (03/23/2022 9:48 AM CDT): Continue statin, optimize glycemic control. Recheck levels. Assessment & Plan (02/14/2018 10:50 AM CDT): Advised to have lipid panel done Assessment & Plan (11/01/2017 1:18 PM CDT): Will get lipid panel Assessment & Plan (07/10/2017 12:19 PM CERTIFIED NURSE OPERATING ROOM): Goal of treatment , LDL cholesterol less [...] hypoglycemia. Assessment & Plan (08/04/2024 9:54 AM CERTIFIED NURSE OPERATING ROOM): - Diabetes is complicated by microalbuminuria, hyperlipidemia, hypertension and other co-morbidities. Fairly well controlled - with today's GMI of 7.1%. Lab Results Component Value Date HGBA1C 7.4 01/16/2024 Per [place] [employer], goal A1c is less 7% [...] that I am available via phone or FreeATMhart if they have any concerns for hypo/hyperglycemia, medication refills, etc. Assessment & Plan (10/20/2023 9:35 PM CERTIFIED NURSE OPERATING ROOM): His Stacy device does not consistently match [...] daily. Assessment & Plan (10/17/2021 1:55 PM CERTIFIED NURSE OPERATING ROOM): FreeStyle Stacy report was reviewed today and [...] daily. Assessment & Plan (09/15/2021 5:10 PM CERTIFIED NURSE OPERATING ROOM): Hemoglobin A1c has increased to 9.8%. Continue [...] SE discussed. First injection now. Provided with Glassmap 2 reader as they are considering buy sensors OTC. Agree this would help with compliance with BG checks during the day and demonstrate action of food to BG. Assessment & Plan (08/11/2020 11:04 AM CERTIFIED NURSE OPERATING ROOM): A1c worsening at 9.5. Poor compliance with [...] misconceptions. Assessment & Plan (08/22/2018 11:21 AM CERTIFIED NURSE OPERATING ROOM): Continue same medication. Advised that glimepiride may [...] Rodolfo Assessment & Plan (07/10/2017 12:19 PM CERTIFIED NURSE OPERATING ROOM): Hba1c was 8.3 today, indicating worsening DM [...] Unspecified Assessment & Plan (08/04/2024 9:56 AM CERTIFIED NURSE OPERATING ROOM): - At goal today - Recommend to [...] plan. Assessment & Plan (08/11/2020 11:05 AM CERTIFIED NURSE OPERATING ROOM): Controlled on current medications. Continue plan. Assessment [...] medications. Assessment & Plan (08/24/2018 6:41 PM CERTIFIED NURSE OPERATING ROOM): Controlled on current medications. Assessment & Plan (06/13/2018 9:56 AM CDT): Goal blood pressure is less than 140/85 Low salt diet recommended Daily aerobic exercise Continue current meds, including TARA-I or ARB Assessment & Plan (02/14/2018 10:50 AM CDT): Controlled on current medications. Assessment & Plan (11/01/2017 1:18 PM CDT): Controlled on current medications. Assessment & Plan (07/10/2017 12:19 PM CERTIFIED NURSE OPERATING ROOM): Goal blood pressure is less than 140/85 Low salt diet recommended Daily aerobic exercise Continue current meds, including TARA-I or ARB Assessment & Plan (03/01/2017 10:17 AM CDT): Goal blood pressure is less than 140/85 Low salt diet recommended Daily aerobic exercise Continue current meds, including TARA-I or ARB Check BMP, microalbumin Encounters Date Type Department Care Team Description 12/04/2024 Orders Only [facility] Rheumatology [address] [facility] 5th [place] [address] [place] [address] Vilma Kimble MD Seronegative rheumatoid arthritis (HCC) (Primary Dx); High risk medication use 12/03/2024 12:00 PM CDT Lab [facility] [place] - Lab Collection [facility] Floor 6 [place] [address] Polycythemia; Leukocytosis, unspecified type; Thrombocytosis 12/03/2024 11:45 AM CDT Lab [facility] Oncology Lab [facility] Floor 6 [place] [address] 12/03/2024 10:45 AM CDT Office Visit [facility] Hematology [facility] Floor [address] [place] [address] Melinda Martino MD Polycythemia; Leukocytosis, unspecified type; Thrombocytosis 12/03/2024 9:15 AM CDT - 12/03/2024 11:59 PM CDT Hospital Encounter [facility] [address] [place] [address] Seronegative rheumatoid arthritis (HCC); High risk medication use Discharge Disposition: Discharge to home or self care 12/02/2024 Orders Only [facility] Rheumatology [address] [facility] [address] [place] [phone] Vilma Kimble MD 12/01/2024 11:10 AM CDT Lab [facility] Infectious Diseases [address] [facility] [address] [place] [phone] 12/01/2024 11:07 AM CDT - 12/01/2024 11:59 PM CDT Hospital Encounter [facility] [address] [place] [address] Seronegative rheumatoid arthritis (HCC); High risk medication use Discharge Disposition: Discharge to home or self care 12/01/2024 10:00 AM CDT Office Visit [facility] Rheumatology [address] [place] [address] [address] [place] [address] Vilma Kimble MD High risk medication use (Primary Dx); Seronegative rheumatoid arthritis (HCC); Raynaud's disease with gangrene (HCC); Positive NHUNG (antinuclear antibody) 11/26/2024 Telephone [facility] Hematology [address] [facility] [address] [place] [address] Marta Richter 11/05/2024 Telephone [facility] Endocrinology Metabolism and Lipid [address] [facility] 5th [place] [address] [place] [phone] Lexus Claudio RN ozempic dose clarification 11/04/2024 2:20 PM CDT Telemedicine [facility] Endocrinology Metabolism and Lipid [address] [facility] 13th [place] [address] [place] [phone] Hetal Regan MD Type 2 diabetes mellitus with hyperglycemia, without long-term current use of insulin (HCC) (Primary Dx); Hyperlipidemia associated with type 2 diabetes mellitus (HCC) 10/22/2024 9:10 AM CERTIFIED NURSE OPERATING ROOM Office Visit [facility] Orthopaedic Surgery [address] [facility] 2nd Floor [address] [place] [address] Prashant Felder MD Olecranon bursitis of left elbow (Primary Dx) 10/15/2024 2:20 PM CERTIFIED NURSE OPERATING ROOM Office Visit [facility] Infectious Diseases [address] [facility] [address] [place] [phone] Laurence Herrera NP Olecranon bursitis of left elbow (Primary Dx); Encounter for screening examination for sexually transmitted disease 10/15/2024 1:00 PM CERTIFIED NURSE OPERATING ROOM Office Visit [facility] Orthopaedic Surgery [address] [place] [address] 2nd Floor [address] [place] [address] Prashant Felder MD Olecranon bursitis of left elbow (Primary Dx) 10/02/2024 8:00 AM CERTIFIED NURSE OPERATING ROOM - 10/02/2024 10:40 AM CERTIFIED NURSE OPERATING ROOM Surgery [facility] 1 [place] [address] Prashant Felder MD Left Olecranon bursectomy 10/02/2024 7:56 AM CERTIFIED NURSE OPERATING ROOM Anesthesia Event [facility] [address] [place] [address] Shila Alcocer MD Dulle, Alison Renee, LOKESH 10/02/2024 5:56 AM CERTIFIED NURSE OPERATING ROOM - 10/06/2024 6:29 PM CERTIFIED NURSE OPERATING ROOM Hospital Encounter [address] [address] Prashant Felder MD Olecranon bursitis of left elbow (Primary Dx) Discharge Disposition: Discharge to home or self care 09/10/2024 8:40 AM CERTIFIED NURSE OPERATING ROOM Office Visit [facility] Orthopaedic Surgery [address] [place] [address] 2nd Floor [address] [place] [address] Prashant Felder MD Septic olecranon bursitis, left (Primary Dx) from Last 3 Months Surgical History Surgery [...] drink = 0.6 oz pur e alcohol) [facility] Utilities Answer Date Recorded In the past 12 months has th e electric, gas, oil, or water company threatened to shut off services in your [...] often do you attend chur ch or adventist services? Never 12/01/2024 Do you belong to any clubs o r organizations such as faith groups, unions, fraternal or athletic groups, or [...] Recorded Patient Health Questionnaire-2 Score 0 12/01/2024 [facility] of Occupat ional Health - Occupational Stress [...] on file Legal Sex Male 12:10 AM CERTIFIED NURSE OPERATING ROOM Gender Identity Male 02/14/2021 8:03 PM CDT Sexual Orientation Straight 02/14/2021 8: 02 PM CDT Occupation Industry Job Start Date Job End Date [employer] Not on file Not on file Not [...] 12/03/2024 10:29 AM CDT Plan of Treatment Health Maintenance Due Date Last Done Comments Colon Cancer Screening-Colonoscopy 1955 Dilated Eye Exam 1955 DTaP/Tdap/Td Vaccine (1 - Tdap) 01/08/1964 Pneumococcal vaccine 65+ (1 of 2 - PCV) 01/08/1972 Zoster Vaccine (1 of 2) 01/08/1972 Lung Cancer Screening 2003 Abdominal Aortic Aneurysm (A AA) Screen 2018 Well Visit 65+ 2018 Foot Exam 03/06/2020 03/06/2019, 06/13/2018 Albumin Creatinine Ratio, Urine 10/16/2023 , 02/23/2021 Covid-19 Vaccine (5 - 2023-2 5 season) 2024 01/20/2022, 07/05/2021, 10/29/2020, Additional history exists Hemoglobin A1C 04/02/2025 10/03/2024, 09/20, 01/16/2024, Additional history exists Influenza Vaccine (Season Ended) 2025 Lipid Panel 10/02/2025 10/02/2024, 09/21, 02/23/2021, Additional history exists Fall Risk Assessment 10/06/2025 10/06/2024 Depression Screening 12/01/2025 12/01/2024, 05/13/2020, 03/06/2019, Additional history exists eGFR 12/03/2025 12/03/2024, 11/18, 10/06/2024, Additional history exists Hepatitis B Screening Completed 12/01/2024 Hepatitis C Screening Completed 12/01/2024 Procedures Procedure Name Priority Date/Time Associated Diagnosis [...] POCT GLUCOSE DEVICE Routine 10/06/2024 12:27 PM CERTIFIED NURSE OPERATING ROOM POCT GLUCOSE DEVICE Routine 10/06/2024 8 :35 AM CERTIFIED NURSE OPERATING ROOM HEPATIC FUNCTION PANEL Routine 4:45 AM CERTIFIED NURSE OPERATING ROOM EGFR Routine 10/06/2024 4:45 AM CERTIFIED NURSE OPERATING ROOM DIFFERENTIAL AUTO Routine 10/06/2024 4:4 5 AM CERTIFIED NURSE OPERATING ROOM CBC WITH AUTO DIFFERENTIAL Routine 10/06/2024 4:45 AM CERTIFIED NURSE OPERATING ROOM BASIC METABOLIC PANEL Routine 10/06/2024 4:45 AM CERTIFIED NURSE OPERATING ROOM POCT GLUCOSE DEVICE Routine 10/06/2024 1 :25 AM CERTIFIED NURSE OPERATING ROOM POCT GLUCOSE DEVICE Routine 10/05/2024 7 :43 PM CERTIFIED NURSE OPERATING ROOM POCT GLUCOSE DEVICE Routine 10/05/2024 4 :27 PM CERTIFIED NURSE OPERATING ROOM POCT GLUCOSE DEVICE Routine 10/05/2024 11:38 AM CERTIFIED NURSE OPERATING ROOM POCT GLUCOSE DEVICE Routine 10/05/2024 7 :45 AM CERTIFIED NURSE OPERATING ROOM EGFR Routine 10/05/2024 5:17 AM CERTIFIED NURSE OPERATING ROOM DIFFERENTIAL AUTO Routine 10/05/2024 5:1 7 AM CERTIFIED NURSE OPERATING ROOM CBC WITH AUTO DIFFERENTIAL Routine 10/05/2024 5:17 AM CERTIFIED NURSE OPERATING ROOM BASIC METABOLIC PANEL Routine 10/05/2024 5:17 AM CERTIFIED NURSE OPERATING ROOM POCT GLUCOSE DEVICE Routine 10/05/2024 2 :24 AM CERTIFIED NURSE OPERATING ROOM VANCOMYCIN LEVEL TROUGH Routine 10/04/2024 10:17 PM CERTIFIED NURSE OPERATING ROOM POCT GLUCOSE DEVICE Routine 10/04/2024 8 :11 PM CERTIFIED NURSE OPERATING ROOM POCT GLUCOSE DEVICE Routine 10/04/2024 5 :00 PM CERTIFIED NURSE OPERATING ROOM POCT GLUCOSE DEVICE Routine 10/04/2024 12:04 PM CERTIFIED NURSE OPERATING ROOM POCT GLUCOSE DEVICE Routine 10/04/2024 7 :59 AM CERTIFIED NURSE OPERATING ROOM EGFR Routine 10/04/2024 4:04 AM CERTIFIED NURSE OPERATING ROOM DIFFERENTIAL AUTO Routine 10/04/2024 4:0 4 AM CERTIFIED NURSE OPERATING ROOM CBC WITH AUTO DIFFERENTIAL Routine 10/04/2024 4:04 AM CERTIFIED NURSE OPERATING ROOM BASIC METABOLIC PANEL Routine 10/04/2024 4:04 AM CERTIFIED NURSE OPERATING ROOM POCT GLUCOSE DEVICE Routine 10/04/2024 3 :56 AM CERTIFIED NURSE OPERATING ROOM POCT GLUCOSE DEVICE Routine 10/04/2024 3 :54 AM CERTIFIED NURSE OPERATING ROOM POCT GLUCOSE DEVICE Routine 10/03/2024 8 :44 PM CERTIFIED NURSE OPERATING ROOM POCT GLUCOSE DEVICE Routine 10/03/2024 5 :09 PM CERTIFIED NURSE OPERATING ROOM POCT GLUCOSE DEVICE Routine 10/03/2024 11:57 AM CERTIFIED NURSE OPERATING ROOM POCT GLUCOSE DEVICE Routine 10/03/2024 11:13 AM CERTIFIED NURSE OPERATING ROOM POCT GLUCOSE DEVICE Routine 10/03/2024 8 :06 AM CERTIFIED NURSE OPERATING ROOM HEMOGLOBIN A1C Routine 10/03/2024 4:41 AM CERTIFIED NURSE OPERATING ROOM EGFR Routine 10/03/2024 4:41 AM CERTIFIED NURSE OPERATING ROOM DIFFERENTIAL AUTO Routine 10/03/2024 4:4 1 AM CERTIFIED NURSE OPERATING ROOM POTASSIUM, WHOLE BLOOD Routine 4:41 AM CERTIFIED NURSE OPERATING ROOM CBC WITH AUTO DIFFERENTIAL Routine 10/03/2024 4:41 AM CERTIFIED NURSE OPERATING ROOM BASIC METABOLIC PANEL Routine 10/03/2024 4:41 AM CERTIFIED NURSE OPERATING ROOM POCT GLUCOSE DEVICE Routine 10/03/2024 1 :51 AM CERTIFIED NURSE OPERATING ROOM POTASSIUM, WHOLE BLOOD Routine 11:05 PM CERTIFIED NURSE OPERATING ROOM HEMOGLOBIN A1C Routine 10/02/2024 9:27 PM CERTIFIED NURSE OPERATING ROOM LIPID PANEL Routine 10/02/2024 9:27 PM CERTIFIED NURSE OPERATING ROOM EGFR Routine 10/02/2024 9:27 PM CERTIFIED NURSE OPERATING ROOM DIFFERENTIAL AUTO Routine 10/02/2024 9:2 7 PM CERTIFIED NURSE OPERATING ROOM CBC WITH AUTO DIFFERENTIAL Routine 10/02/2024 9:27 PM CERTIFIED NURSE OPERATING ROOM BASIC METABOLIC PANEL Routine 10/02/2024 9:27 PM CERTIFIED NURSE OPERATING ROOM POCT GLUCOSE DEVICE Routine 10/02/2024 7 :51 PM CERTIFIED NURSE OPERATING ROOM POCT GLUCOSE DEVICE Routine 10/02/2024 5 :40 PM CERTIFIED NURSE OPERATING ROOM POCT GLUCOSE DEVICE Routine 10/02/2024 5 :37 PM CERTIFIED NURSE OPERATING ROOM POCT GLUCOSE DEVICE Routine 10/02/2024 10:41 AM CERTIFIED NURSE OPERATING ROOM MYCOBACTERIOLOGY AFB CULTURE AND ACID-FAST STAIN Routine 10/02/2024 9:19 AM CERTIFIED NURSE OPERATING ROOM MYCOLOGY (FUNGAL) CULTURE AND STAIN Routine 10/02/2024 9:19 AM CERTIFIED NURSE OPERATING ROOM TISSUE AEROBIC AND ANAEROBIC CULTURE AND GRAM STAIN Routine 10/02/2024 9:19 AM CERTIFIED NURSE OPERATING ROOM MYCOBACTERIOLOGY AFB CULTURE AND ACID-FAST STAIN Routine 10/02/2024 9:18 AM CERTIFIED NURSE OPERATING ROOM MYCOLOGY (FUNGAL) CULTURE AND STAIN Routine 10/02/2024 9:18 AM CERTIFIED NURSE OPERATING ROOM TISSUE AEROBIC AND ANAEROBIC CULTURE AND GRAM STAIN Routine 10/02/2024 9:18 AM CERTIFIED NURSE OPERATING ROOM MYCOBACTERIOLOGY AFB CULTURE AND ACID-FAST STAIN Routine 10/02/2024 8:58 AM CERTIFIED NURSE OPERATING ROOM MYCOLOGY (FUNGAL) CULTURE AND STAIN Routine 10/02/2024 8:58 AM CERTIFIED NURSE OPERATING ROOM TISSUE AEROBIC AND ANAEROBIC CULTURE AND GRAM STAIN Routine 10/02/2024 8:58 AM CERTIFIED NURSE OPERATING ROOM NV AN PROCEDURE PLACEHOLDER Routine 10/02/2024 8:39 AM CERTIFIED NURSE OPERATING ROOM NV AN ELECTIVE ENDOTRACHEAL AIRWAY Routine 10/02/2024 8:39 AM CERTIFIED NURSE OPERATING ROOM IRRIGATION AND DEBRIDEMENT - ELBOW 10/02/2024 8:02 AM CERTIFIED NURSE OPERATING ROOM Olecranon bursitis of left elbow Case Notes 10/01@1336: Per Karen via phone call, changed patient class to Outpatient in Bed/Post op destination to Surgical Floor. [email or web address] Sent email to OR resource nurse about blank DPC. SR Special Needs 3 liters of saline and cysto tubing EXCISION CYST/LESION/MASS - ELBOW BURSA 10/02/2024 8:02 AM CERTIFIED NURSE OPERATING ROOM Olecranon bursitis of left elbow Case Notes 10/01@1336: Per Karen via phone call, changed patient class to Outpatient in Bed/Post op destination to Surgical Floor. [email or web address] Sent email to OR resource nurse about blank DPC. SR Special Needs 3 liters of saline and cysto tubing POCT GLUCOSE DEVICE Routine 10/02/2024 6 :36 AM CERTIFIED NURSE OPERATING ROOM ALBUMIN CREATININE RATIO, URINE Routine 10/16/2022 9:19 AM CERTIFIED NURSE OPERATING ROOM Type 2 diabetes mellitus with hyperglycemia, without long-term current use of insulin (HCC) from Last 3 Months or Most Recently Relevant to Health Maintenance Results * Cytogenetics Specimen Tracking Blood (12/03/2024 11:30 AM CDT) Pathologist [facility] Cytotenetics Tracking Order Received Blood 12/03/2024 11:3 0 AM CDT 12/03/2024 2:06 PM CDT Narrative [facility] - 12/03/2024 3:18 PM CDT Please read the Cytogenetics Epic requisition for specimen collection requirements. Melinda Howard MD LAB BODY FLUIDS AND STOOL S ORDERABLES Final Result [facility] [place] [address] * eGFR (12/03/2024 11:30 AM CDT) [facility] eGFR >90 >=60 mL/min/1. 73 m2 Comment: [...] MD LAB BLOOD ORDERABLES Lala wing Result [facility] One [facility] Department of Laboratories [place] [id number] * (ABNORMAL) Differential, auto (12/03/2024 11:30 AM CDT) Neutrophil abs 7.02(H) 1.50 - 6.50 K/cumm Comment:Testing performed by : [facility], [address] [place] [phone] Lymphocyte abs 2.53 0.80 - 3.30 K/cumm [facility] Comment:Testing performed by : [facility], [address] [place], [place] [phone] Monocyte abs 0.82(H) 0.20 - 0.80 K/cumm [facility]J Comment:Testing performed by : [facility], [address] [place], [place] [phone] Eosinophil abs 0.37 0.00 - 0.50 K/cumm [facility] Comment:Testing performed by : [facility], [address] [place] [phone] Basophil abs 0.13(H) 0.00 - 0.10 K/cumm [facility] Comment:Testing performed by : [facility], [address] [place] [phone] Neutrophil pct 64.5 % [facility] Comment: Interpretive Data Percent cell count reference ranges are not reported, since discordance with absolute values may lead to misinterpretation of CBC data. Current Interpretive Data was last revised on 2017. Testing performed by: [facility], [address] [place] [phone] Lymphocyte pct 23.2 % [facility] Comment: Interpretive Data Percent cell count reference ranges are not reported, since discordance with absolute values may lead to misinterpretation of CBC data. Current Interpretive Data was last revised on 2017. Testing performed by: [facility], [address] [place] [phone] Monocyte pct 7.6 % [facility] Comment: Interpretive Data Percent cell count reference ranges are not reported, since discordance with absolute values may lead to misinterpretation of CBC data. Current Interpretive Data was last revised on 2017. Testing performed by: [facility], [address] [place] [phone] Eosinophil pct 3.4 % [facility] Comment: Interpretive Data Percent cell count reference ranges are not reported, since discordance with absolute values may lead to misinterpretation of CBC data. Current Interpretive Data was last revised on 2017. Testing performed by: [facility], [address] [place] [phone] Basophil pct 1.2 % [facility] Comment: Interpretive Data Percent cell count reference ranges are not reported, since discordance with absolute values may lead to misinterpretation of CBC data. Current Interpretive Data was last revised on 2017. Testing performed by: [facility], [address] [place] [phone] Blood 12/03/2024 11:3 0 AM CDT 12/03/2024 12:00 PM CDT Melinda Howard MD LAB BLOOD ORDERABLES Lala l Result Performing Organization Address City/[facility]/ZIP Co de Phone Number [facility] Department [place] [address] * (ABNORMAL) Iron profile w/ IBC (12/03/2024 11:30 AM CDT) Iron 35(L) 50 - 150 mcg/dL TIBC 298 250 - 400 mcg/dL [facility] [facility] Transferrin saturation 12(L) 20 - 50 % [facility] Blood 12/03/2024 11:3 0 AM CDT 12/03/2024 12:05 PM CDT Melinda Howard MD LAB BLOOD ORDERABLES Lala l Result [facility]ER [facility] [place] [address] * (ABNORMAL) CBC with auto differential (12/03/2024 11:30 AM CDT) WBC 10.88(H) 3.80 - 9.90 K/cumm Comment:Testing performed by : [facility], [address] [place] [address] Hgb 15.4 13.0 - 17.5 g/dL CERNHAN BJ Comment:Testing performed by : [facility], [address] [place] [address] Hct 46.0 38.9 - 50.3 % [facility] Comment:Testing performed by : [facility], [address] [place] [address] Plt 468(H) 150 - 400 K/cumm [facility] Comment:Testing performed by : [facility], [address] [place] [address] MPV 7.7 6.8 - 10.4 fL CERNER BJ Comment:Testing performed by : [facility], [address] [place] [address] RBC 5.19 4.30 - 5.80 M/cumm [facility] Comment:Testing performed by : [facility], [address] [place] [address] MCV 88.7 81.3 - 96.4 fL [facility] Comment:Testing performed by : [facility], [address] [place] [address] MCH 29.6 27.1 - 33.3 pg CERNER BJ Comment:Testing performed by : [facility], [address] [place] [address] MCHC 33.4 32.3 - 35.7 g/dL [facility] Comment:Testing performed by : [facility], [address] [place] [address] RDW CV 14.1 11.1 - 14.9 % [facility] Comment:Testing performed by : [facility], [address] [place] [phone] NRBC abs 0.00 0.00 - 0.01 K/cumm [facility] Comment:Testing performed by : [facility], [address] [place] [phone] Blood 12/03/2024 11:3 0 AM CDT 12/03/2024 12:00 PM CDT Melinda Howard MD LAB BLOOD ORDERABLES Lala l Result Performing Organization Address City/[facility] Co de Phone Number [facility] [place] [address] * Erythropoietin (12/03/2024 11:30 AM CDT) Erythropoietin 7.0 2.6 - 18.5 mIUnits/mL [facility] Comment: Test Performed by: [facility] [address] [place] [address] Garbage Pick Up Worker: Solitario Whatley Ph.D.; CLIA# [id number] Blood 12/03/2024 11:3 0 AM CDT 12/03/2024 2:04 PM CDT us Melinda Howard MD LAB BLOOD ORDERABLES Lala l Result Performing Organization Address City/[facility] Co de Phone Number [facility] [place] [address] [facility] * Lactate dehydrogenase (LD) (12/03/2024 11:30 AM CDT) Lactate dehydrogenase (LDH) 193 100 - 250 Units/L Blood 12/03/2024 11:3 0 AM CDT 12/03/2024 12:05 PM CDT Melinda Howard MD LAB BLOOD ORDERABLES Lala l Result [facility] Department [place] [address] * Ferritin (12/03/2024 11:30 AM CDT) [facility] Ferritin 47 30 - 400 ng/mL Blood 12/03/2024 11:3 0 AM CDT 12/03/2024 12:05 PM CDT Melinda Howard MD LAB BLOOD ORDERABLES Lala l Result Performing Organization Address [facility] Co de Phone Number [facility] Department [place] [address] * Comprehensive metabolic panel (12/03/2024 11:30 AM CDT) [facility] Sodium 138 135 - 145 mmol/L Potassium, pl 4.6 3.3 - 4.9 mmol/L [facility] Chloride 100 97 - 110 mmol/L [facility] CO2 28 22 - 32 mmol/L [facility] Anion gap 10 2 - 15 mmol/L [facility] BUN 18 6 - 25 mg/dL [facility] Creatinine 0.81 0.80 - 1.30 mg/dL [facility] Glucose 132 70 - 199 mg/dL [facility] Comment: Interpretive Data Fasting glucose [...] 2022. Calcium 9.8 8.5 - 10.3 mg/dL [facility] Bilirubin, total 0.3 0.1 - 1.2 mg/dL [facility] Protein, pl 8.1 6.5 - 8.5 g/dL [facility] Albumin 4.1 3.5 - 5.0 g/dL [facility] Alk phos 102 40 - 130 Units/L [facility] ALT 17 7 - 55 Units/L [facility] AST 21 10 - 50 Units/L [facility] Blood 12/03/2024 11:3 0 AM CDT 12/03/2024 12:05 PM CDT Narrative CAITIE [facility] - 12/03/2024 12:32 PM CDT Has the patient fasted?->No us Melinda Howard MD LAB BLOOD ORDERABLES Lala wing Result [facility] [place] [address] * Cytogenetics Blood (12/03/2024 11:24 AM CDT) Blood (Peripheral Blood For Pathologist Review) 12/03/2024 11:24 AM CDT 12/03/2024 11:24 AM CDT Narrative [facility] - 12/05/2024 6:37 PM CDT EPIC results best viewed via link to PDF [facility] Department of Pathol [address] [place] [id number] Patient Information Name: CHIDI ELDRIDGE Gender: Gaby : 1955 (Age: 69) Tissue: FISH Only Leukemic Blood Visit Information Hospital #: [id number] Facility: [facility] Service: [facility] Location: [facility] OUTREACH Patient Type: [facility] Specimen Information: Culture #: [id number] Date Collected: 12/03/2024 Date Accessioned: 12/03/2024 Date [...] probe in the Clinical Genomics [facility] at [facility]. Variant signal pattern was observed in 7/200 [...] developed and its performance characteristics determined by [facility]. It has not been cleared or approved by the FDA. The laboratory is regulated under CLIA as qualified to perform high-complexity testing. This test is used for clinical purposes. It should not be regarded as investigational or for research. Professional component performed by Betzy Johnson, Ph.D., [facility], [address] [place], [place] (CLIA #: [id number]). Chromosome analysis and Fluorescence In Situ Hybridization (FISH) analysis are performed using the [employer] Imaging System. Report Electronically Reviewed and Signed Out By Betzy Johnson, PhDDate Reported: 12/05/2024 us Melinda Howard MD LAB GENETIC TESTING Final Result [facility] [address] [place] [address] * XR Foot Right 3 or More [...] by: Jimmy Huff M.D. Vilma Esparza MD IM XR PROCEDURES Final Result * XR Knee [...] last revised on 2020. Testing performed by: [facility], [address] [place] [address]., [address] NHUNG, quant 1:160 titer CAITIE CAVANAUGH Comment:Testing performed by : [address] [address] NHUNG, interp Homogeneous (A) CAITIE CAVANAUGH Comment:Testing performed by : [facility], [address] [place] [address]., [address] Blood 12/01/2024 11:0 7 AM CDT 12/02/2024 10:08 AM CDT Vilma Esparza MD LAB BL OOD ORDERABLES Final Result CAITIE CAVANAUGH [address] [place] [address] * Anti-double stranded DNA abs (12/01/2024 11:07 AM CDT) dsDNA Ab 1.0 <=4.0 IUnits/mL Comment: Interpretive Data Negative: < or = 4 IUnits/mL Indeterminate: 5 - 9 IUnits/mL Positive: > or = 10 IUnits/mL Current interpretive data was last revised on 2017. Testing performed by: [facility], [address] [place]., [address] Blood 12/01/2024 11:0 7 AM CDT 12/02/2024 10:08 AM CDT Vilma Esparza MD LAB BL OOD ORDERABLES Final Result [facility] [address] Department [place] [address] * T-SPOT.TB Blood (12/01/2024 11:07 AM CDT) Pathologist [facility] T-SPOT.TB Negative SeeBelow Comment: Normal Value: Negative [...] test. T-SPOT.TB Panel A Spot Count 0 [facility] [place] T-SPOT.TB Panel B Spot Count 0 [facility] T-SPOT.TB Negative Control Passed [facility] T-SPOT.TB Positive Control Passed [facility] Comment: Test Performed at: [employer] [facility], [employer] [address] [place] [address] LEXA ALTAMIRANO,PHD Blood 12/01/2024 11:0 7 AM CDT 12/01/2024 2:47 PM CDT Vilma Esparza MD LAB MICROBIOLOGY - GENERAL ORDERABLES Final Result [facility] [place] [address] [address] [place] [address] * eGFR (12/01/2024 11:07 AM [...] LAB BL OOD ORDERABLES Final Result CAITIE [address] Department of [employer] [place], [place] [id number] * (ABNORMAL) Differential, auto (12/01/2024 11:07 AM CDT) Neutrophil abs 8.99(H) 1.50 - 6.50 K/cumm Imm gran abs 0.08 0.00 - 0.10 K/cumm CERNER CH Lymphocyte abs 1.68 0.80 - 3.30 K/cumm CERNER CH Monocyte abs 0.51 0.20 - 0.80 K/cumm CERNER Eosinophil abs 0.19 0.00 - 0.50 K/cumm CERNER Basophil abs 0.15(H) 0.00 - 0.10 K/cumm [facility] Neutrophil pct 77.5 % CERNER Comment: Interpretive Data Percent cell count reference ranges are not reported, since discordance with absolute values may lead to misinterpretation of CBC data. Current Interpretive Data was last revised on 2017. Imm gran pct 0.7 % CERNER Comment: Interpretive Data Percent cell count reference ranges are not reported, since discordance with absolute values may lead to misinterpretation of CBC data. Current Interpretive Data was last revised on 2017. Lymphocyte pct 14.5 % CERNER Comment: Interpretive Data Percent cell count reference ranges are not reported, since discordance with absolute values may lead to misinterpretation of CBC data. Current Interpretive Data was last revised on 2017. Monocyte pct 4.4 % CERNER Comment: Interpretive Data Percent cell count reference ranges are not reported, since discordance with absolute values may lead to misinterpretation of CBC data. Current Interpretive Data was last revised on 2017. Eosinophil pct 1.6 % [facility] Comment: Interpretive Data Percent cell count reference ranges are not reported, since discordance with absolute values may lead to misinterpretation of CBC data. Current Interpretive Data was last revised on 2017. Basophil pct 1.3 % CERNER Comment: Interpretive Data Percent cell count reference ranges are not reported, since discordance with absolute values may lead to misinterpretation of CBC data. Current Interpretive Data was last revised on 2017. Blood 12/01/2024 11:0 7 AM CDT 12/01/2024 3:35 PM CDT us Vilma Esparza MD LAB BL OOD ORDERABLES Final Result CAITIE CAVANAUGH [address] [address] [place] [address] * C4 complement (12/01/2024 11:07 AM CDT) Complement C4 26 10 - 40 mg/dL Blood 12/01/2024 11:0 7 AM CDT 12/01/2024 3:35 PM CDT Vilma Esparza MD LAB BL OOD ORDERABLES Final Result Performing Organization Address [facility] Co de Phone Number CAITIE CAVANAUGH [address] [address] [facility] [employer] [place], [place] [id number] * REGAN ab eval w/reflex (12/01/2024 11:07 AM CDT) Pathologist [facility] REGAN ab Negative Negative Comment: Interpretive Data Positive Screens will be reflexed to specific testing for Antibodies against the following antigens: Svetlana-1 Ab, WELT TREATER Ab, Scl-70 Ab, Slater Ab, SS-A/Ro Ab, and SS- B/La Ab. Further testing for dsDNA, Centromere, or Ribosomal P antibodies is suggested in patient with a positive screen and negative specific antibodies. Current interpretive data was last revised on 2023. Testing performed by: [facility], [address] [place]., [address] Blood 12/01/2024 11:0 7 AM CDT 12/02/2024 10:08 AM CDT Vilma Esparza MD LAB BL OOD ORDERABLES Final Result Performing Organization Address City/[facility]/ZIP Co de Phone Number CAITIE CAVANAUGH [address] Department of [employer] [place], [place] [id number] * (ABNORMAL) Urinalysis reflex to microscopic and [...] tendency for uric acid stone formation. Source: [facility] Current Interpretive Data was last revised on [...] MICROBIOLOGY - GENERAL ORDERABLES Final Result CERNER [address] [place] [address] * (ABNORMAL) CBC with auto [...] CH MCV 92.4 81.3 - 96.4 fL CERNER CH MCH 29.1 27.1 - 33.3 pg [facility] MCHC 31.5(L) 32.3 - 35.7 g/dL [facility] RDW CV 13.8 11.1 - 14.9 % [facility] RDW SD 46.8 35.7 - 48.1 fL [facility] NRBC abs 0.00 0.00 - 0.01 K/cumm [facility] Blood 12/01/2024 11:0 7 AM CDT 12/01/2024 3:35 PM CDT Vilma Esparza MD LAB BL OOD ORDERABLES Final Result Performing Organization Address [facility] de Phone Number CAITIE [address] [place] [address] * Hepatitis C antibody Blood [...] GENERAL ORDERABLES Final Result Performing Organization Address [facility] Co de Phone Number [facility] [address] [place] [address] * Cyclic citrul peptide antibody, IgG (12/01/2024 11:07 AM CDT) CCP Ab <0.5 <=2.9 units/mL Comment: Interpretive data Negative: <3 units/mL Positive: > or equal to 3 units/mL Current interpretive data was last revised on 2016. Testing performed by: [facility], [address] [place]., [address] Blood 12/01/2024 11:0 7 AM CDT 12/02/2024 9:58 AM CDT Vilma Esparza MD LAB BL OOD ORDERABLES Final Result Performing Organization Address [facility] Co de Phone Number [facility] [address] Department [place] [address] * (ABNORMAL) Protein / creatinine ratio, urine, random (12/01/2024 11:07 AM CDT) Pathologist [facility] Protein, ur, quant 38.3 mg/dL Comment: Interpretive Data No reference range established. Current interpretive data was last revised 2018. Creatinine Ur 49.6 mg/dL [facility] Comment: Interpretive Data No reference range established. Current interpretive data was last revised 2018. Protein/creatinin e ratio 772.2(H) 0.0 - 180.0 mg/g CR [facility] Urine 12/01/2024 11:0 7 AM CDT 12/01/2024 3:35 PM CDT Vilma Esparza MD LAB UR INE ORDERABLES Final Result Performing Organization Address [facility] Co de Phone Number [facility] [address] [address] [place] [address] * Hepatitis B core antibody, total Blood (12/01/2024 11:07 AM CDT) Pathologist [facility] Hep B core IgG/IgM Nonreactive Nonreactive Comment:Testing performed by : [facility], [address] [place] [address], [place]., [address] Blood 12/01/2024 11:0 7 AM CDT 12/02/2024 10:08 AM CDT Vilma Esparza MD LAB MICROBIOLOGY - GENERAL ORDERABLES Final Result Performing Organization Address City/[facility] Co de Phone Number CAITIE CAVANAUGH [address] [facility] [place] [address] * Vitamin D 25 hydroxy (12/01/2024 11:07 AM CDT) Vitamin D 25-OH 32 30 - 80 ng/mL Blood 12/01/2024 11:0 7 AM CDT 12/01/2024 3:35 PM CDT Result [facility] Vilma Esparza MD LAB BL OOD ORDERABLES Edited Result - Final Performing Organization Address [facility] de Phone Number CAITIE [address] [facility] [place] [address] * Hepatitis B surface antibody (immune status) Blood (12/01/2024 11:07 AM CDT) Pathologist [facility] HBsAb (immune status) Nonreactive Comment: Interpretive Data [...] GENERAL ORDERABLES Final Result Performing Organization Address [facility] Co de Phone Number KPNHAN [address] [facility] [place] [address] * Hepatitis B Surface Antigen Blood (12/01/2024 11:07 AM CDT) HepBsAg Nonreactive Nonreactive Blood 12/01/2024 11:0 7 AM CDT 12/01/2024 3:35 PM CDT Vilma Esparza MD LAB MICROBIOLOGY - GENERAL ORDERABLES Final Result CAITIE MAO [address] [address] Department [place] [address] * Urinalysis, microscopic only (12/01/2024 11:07 AM CDT) WBC, ur 0-5 0 - 5 /HPF RBC, ur 0-2 0 - 2 /HPF [facility] Culture Reflex Comment Reflex conditions for urine culture (WBC >10) not met. [facility] Urine 12/01/2024 11:0 7 AM CDT 12/01/2024 3:35 PM CDT Vilma Esparza MD LAB UR INE ORDERABLES Final Result Performing Organization Address City/[facility]/ZIP Co de Phone Number CAITIE MAO [address] [address] [place] [address] * Erythrocyte sedimentation rate (12/01/2024 11:07 AM CDT) Pathologist [facility] Erythrocyte sedimentation rate 12 1 - 20 mm/hr Comment:Testing performed by : [facility], [facility], [place], [address] Blood 12/01/2024 11:0 7 AM CDT 12/01/2024 2:49 PM CDT Vilma Esparza MD LAB BL OOD ORDERABLES Final Result CAITIE CAVANAUGH [address] [address] Department [place] [address] * Rheumatoid factor (12/01/2024 11:07 AM CDT) Rheumatoid factor, quant <10 <=15 IUnits/mL Blood 12/01/2024 11:0 7 AM CDT 12/01/2024 3:35 PM CDT Vilma Esparza MD LAB BL OOD ORDERABLES Final Result Performing Organization Address City/[facility]/ZIP Co de Phone Number CAITIE CAVANAUGH [address] [address] [facility] [place] [address] * C3 complement (12/01/2024 11:07 AM CDT) Pathologist [facility] Complement C3 150 90 - 180 mg/dL Blood 12/01/2024 11:0 7 AM CDT 12/01/2024 3:35 PM CDT Vilma Esparza MD LAB BL OOD ORDERABLES Final Result Performing Organization Address [facility] Co de Phone Number CAITIE MAO [address] [address] [facility] [place] [address] * CRP (acute phase) (12/01/2024 11:07 AM CDT) Pathologist [facility] CRP <3.0 <=10.0 mg/L Blood 12/01/2024 11:0 7 AM CDT 12/01/2024 3:35 PM CDT Vilma Esparza MD LAB BL OOD ORDERABLES Final Result Performing Organization Address City/[facility] Co de Phone Number CAITIE [address] [address] [facility] [place] [address] * (ABNORMAL) Comprehensive metabolic panel (12/01/2024 11:07 AM CDT) Pathologist [facility] Sodium 135 135 - 145 mmol/L Potassium, [...] LAB BL OOD ORDERABLES Final Result CAITIE [address] [address] Department [place] [address] * POCT glucose (10/06/2024 12:27 PM CERTIFIED NURSE OPERATING ROOM) Glucose, POC 158 70 - 199 mg/dL Blood 10/06/2024 12:2 7 PM CERTIFIED NURSE OPERATING ROOM 10/06/2024 12:27 PM CERTIFIED NURSE OPERATING ROOM Prashant Felder MD LAB POCT ORDERABLES - MAGALIE CE Final Result Performing Organization Address City/[facility] Co de Phone Number [facility] [place] [address] * POCT glucose (10/06/2024 8:35 AM CERTIFIED NURSE OPERATING ROOM) Glucose, POC 138 70 - 199 mg/dL Blood 10/06/2024 8:35 AM CERTIFIED NURSE OPERATING ROOM 10/06/2024 8:35 AM CERTIFIED NURSE OPERATING ROOM Prashant Felder MD LAB POCT ORDERABLES - MAGALIE CE Final Result Performing Organization Address [facility] de Phone Number CAITIE [facility] [place] [address] * eGFR (10/06/2024 4:45 AM CERTIFIED NURSE OPERATING ROOM) eGFR >90 >=60 mL/min/1. 73 m2 Comment: [...] last reviewed 2021. Blood 10/06/2024 4:45 AM CERTIFIED NURSE OPERATING ROOM 10/06/2024 4:56 AM CERTIFIED NURSE OPERATING ROOM us Diana Gonzalez NP LAB BLOOD ORDERABLES Lala wing Result CAITIE [facility] [place] [address] * (ABNORMAL) Differential, auto (10/06/2024 4:45 AM CERTIFIED NURSE OPERATING ROOM) Neutrophil abs 6.4 1.5 - 6.5 K/cumm Imm gran abs 0.0 0.0 - 0.1 K/cumm CERNER [facility] Lymphocyte abs 2.9 0.8 - 3.3 K/cumm [facility] Monocyte abs 1.1(H) 0.2 - 0.8 K/cumm CERNER [facility] Eosinophil abs 1.0(H) 0.0 - 0.5 K/cumm [facility] Basophil abs 0.2(H) 0.0 - 0.1 K/cumm [facility] Neutrophil pct 55.0 % [facility] Comment: Interpretive Data Percent cell count reference ranges are not reported, since discordance with absolute values may lead to misinterpretation of CBC data. Current Interpretive Data was last revised on 2017. Imm gran pct 0.3 % [facility] Comment: Interpretive Data Percent cell count reference ranges are not reported, since discordance with absolute values may lead to misinterpretation of CBC data. Current Interpretive Data was last revised on 2017. Lymphocyte pct 25.1 % [facility] Comment: Interpretive Data Percent cell count reference ranges are not reported, since discordance with absolute values may lead to misinterpretation of CBC data. Current Interpretive Data was last revised on 2017. Monocyte pct 9.3 % [facility] Comment: Interpretive Data Percent cell count reference ranges are not reported, since discordance with absolute values may lead to misinterpretation of CBC data. Current Interpretive Data was last revised on 2017. Eosinophil pct 8.8 % [facility] Comment: Interpretive Data Percent cell count reference ranges are not reported, since discordance with absolute values may lead to misinterpretation of CBC data. Current Interpretive Data was last revised on 2017. Basophil pct 1.5 % [facility] Comment: Interpretive Data Percent cell count reference ranges are not reported, since discordance with absolute values may lead to misinterpretation of CBC data. Current Interpretive Data was last revised on 2017. Blood 10/06/2024 4:45 AM CERTIFIED NURSE OPERATING ROOM 10/06/2024 4:56 AM CERTIFIED NURSE OPERATING ROOM Diana Gonzalez NP LAB BLOOD ORDERABLES Lala l Result Performing Organization Address City/[facility]/ZIP Co de Phone Number [facility] Department [place] [address] * (ABNORMAL) CBC with auto differential (10/06/2024 4:45 AM CERTIFIED NURSE OPERATING ROOM) WBC 11.6(H) 3.8 - 9.9 K/cumm Hgb 13.7 13.0 - 17.5 g/dL [facility] Hct 42.1 38.9 - 50.3 % [facility] Plt 469(H) 150 - 400 K/cumm [facility] MPV 9.4 9.1 - 12.3 fL [facility] RBC 4.58 4.30 - 5.80 M/cumm [facility] MCV 91.9 81.3 - 96.4 fL [facility] MCH 29.9 27.1 - 33.3 pg [facility] MCHC 32.5 32.3 - 35.7 g/dL [facility] RDW CV 13.6 11.1 - 14.9 % [facility] RDW SD 45.3 35.7 - 48.1 fL [facility] NRBC abs 0.00 0.00 - 0.01 K/cumm [facility] Blood 10/06/2024 4:45 AM CERTIFIED NURSE OPERATING ROOM 10/06/2024 4:56 AM CERTIFIED NURSE OPERATING ROOM Diana Gonzalez GENERATOR MECHANIC LAB BLOOD ORDERABLES Lala l Result Performing Organization Address City/[facility]/ZIP Co de Phone Number [facility] Department [place] [address] * Hepatic function panel (10/06/2024 4:45 AM CERTIFIED NURSE OPERATING ROOM) Bilirubin, total 0.3 0.1 - 1.2 mg/dL Bilirubin, direct <0.2 0.1 - 0.3 mg/dL [facility] Protein, pl 6.9 6.5 - 8.5 g/dL [facility] Albumin 3.6 3.5 - 5.0 g/dL [facility] Alk phos 83 40 - 130 Units/L [facility] ALT 18 7 - 55 Units/L [facility] AST 22 10 - 50 Units/L [facility] Blood 10/06/2024 4:45 AM CERTIFIED NURSE OPERATING ROOM 10/06/2024 4:56 AM CERTIFIED NURSE OPERATING ROOM Prashant Felder MD LAB BLOOD ORDERABLES Final Result [facility] Department [place] [address] * Basic metabolic panel (10/06/2024 4:45 AM CERTIFIED NURSE OPERATING ROOM) Pathologist [facility] Sodium 135 135 - 145 mmol/L Potassium, pl 4.9 3.3 - 4.9 mmol/L [facility] Chloride 100 97 - 110 mmol/L [facility] CO2 29 22 - 32 mmol/L [facility] Anion gap 6 2 - 15 mmol/L [facility] BUN 19 6 - 25 mg/dL [facility] Creatinine 0.83 0.80 - 1.30 mg/dL [facility] Glucose 100 70 - 199 mg/dL [facility] Comment: Interpretive Data Fasting glucose [...] 2022. Calcium 9.6 8.5 - 10.3 mg/dL [facility] Blood 10/06/2024 4:45 AM CERTIFIED NURSE OPERATING ROOM 10/06/2024 4:56 AM CERTIFIED NURSE OPERATING ROOM Diana Gonzalez GENERATOR MECHANIC LAB BLOOD ORDERABLES Lala l Result Performing Organization Address [facility] Co de Phone Number [facility] [place] [address] * POCT glucose (10/06/2024 1:25 AM CERTIFIED NURSE OPERATING ROOM) Glucose, POC 118 70 - 199 mg/dL Blood 10/06/2024 1:25 AM CERTIFIED NURSE OPERATING ROOM 10/06/2024 1:25 AM CERTIFIED NURSE OPERATING ROOM Prashant Felder MD LAB POCT ORDERABLES - MAGALIE CE Final Result Performing Organization Address [facility] de Phone Number [facility] [place] [address] * POCT glucose (10/05/2024 7:43 PM CERTIFIED NURSE OPERATING ROOM) Glucose, POC 190 70 - 199 mg/dL Blood 10/05/2024 7:43 PM CERTIFIED NURSE OPERATING ROOM 10/05/2024 7:43 PM CERTIFIED NURSE OPERATING ROOM Prashant Felder MD LAB POCT ORDERABLES - MAGALIE CE Final Result Performing Organization Address [facility] Co de Phone Number [facility] [place] [address] * POCT glucose (10/05/2024 4:27 PM CERTIFIED NURSE OPERATING ROOM) Glucose, POC 108 70 - 199 mg/dL Blood 10/05/2024 4:27 PM CERTIFIED NURSE OPERATING ROOM 10/05/2024 4:27 PM CERTIFIED NURSE OPERATING ROOM Prashant Felder MD LAB POCT ORDERABLES - MAGALIE CE Final Result Performing Organization Address City/[facility]/ZIP Co de Phone Number [facility] [place] [address] * POCT glucose (10/05/2024 11:38 AM CERTIFIED NURSE OPERATING ROOM) Glucose, POC 116 70 - 199 mg/dL Blood 10/05/2024 11:3 8 AM CERTIFIED NURSE OPERATING ROOM 10/05/2024 11:38 AM CERTIFIED NURSE OPERATING ROOM Prashant Felder MD LAB POCT ORDERABLES - MAGALIE CE Final Result Performing Organization Address City/[facility] Co de Phone Number [facility] [place] [address] * POCT glucose (10/05/2024 7:45 AM CERTIFIED NURSE OPERATING ROOM) Glucose, POC 102 70 - 199 mg/dL Blood 10/05/2024 7:45 AM CERTIFIED NURSE OPERATING ROOM 10/05/2024 7:45 AM CERTIFIED NURSE OPERATING ROOM Prashant Felder MD LAB POCT ORDERABLES - MAGALIE CE Final Result Performing Organization Address City/[facility] Co de Phone Number [facility] [place] [address] * eGFR (10/05/2024 5:17 AM CERTIFIED NURSE OPERATING ROOM) eGFR >90 >=60 mL/min/1. 73 m2 Comment: [...] last reviewed 2021. Blood 10/05/2024 5:17 AM CERTIFIED NURSE OPERATING ROOM 10/05/2024 5:29 AM CERTIFIED NURSE OPERATING ROOM us Diana Gonzalez NP LAB BLOOD ORDERABLES Lala l Result [facility] Department [place] [address] * (ABNORMAL) Differential, auto (10/05/2024 5:17 AM CERTIFIED NURSE OPERATING ROOM) Neutrophil abs 6.9(H) 1.5 - 6.5 K/cumm Imm gran abs 0.1 0.0 - 0.1 K/cumm [facility] Lymphocyte abs 3.1 0.8 - 3.3 K/cumm [facility] Monocyte abs 0.9(H) 0.2 - 0.8 K/cumm [facility] Eosinophil abs 0.8(H) 0.0 - 0.5 K/cumm [facility] Basophil abs 0.1 0.0 - 0.1 K/cumm [facility] Neutrophil pct 58.0 % [facility] Comment: Interpretive Data Percent cell count reference ranges are not reported, since discordance with absolute values may lead to misinterpretation of CBC data. Current Interpretive Data was last revised on 2017. Imm gran pct 0.4 % [facility] Comment: Interpretive Data Percent cell count reference ranges are not reported, since discordance with absolute values may lead to misinterpretation of CBC data. Current Interpretive Data was last revised on 2017. Lymphocyte pct 25.9 % [facility] Comment: Interpretive Data Percent cell count reference ranges are not reported, since discordance with absolute values may lead to misinterpretation of CBC data. Current Interpretive Data was last revised on 2017. Monocyte pct 7.8 % [facility] Comment: Interpretive Data Percent cell count reference ranges are not reported, since discordance with absolute values may lead to misinterpretation of CBC data. Current Interpretive Data was last revised on 2017. Eosinophil pct 6.8 % [facility] Comment: Interpretive Data Percent cell count reference ranges are not reported, since discordance with absolute values may lead to misinterpretation of CBC data. Current Interpretive Data was last revised on 2017. Basophil pct 1.1 % [facility] Comment: Interpretive Data Percent cell count reference ranges are not reported, since discordance with absolute values may lead to misinterpretation of CBC data. Current Interpretive Data was last revised on 2017. Blood 10/05/2024 5:17 AM CERTIFIED NURSE OPERATING ROOM 10/05/2024 5:29 AM CERTIFIED NURSE OPERATING ROOM us Diana Gonzalez NP LAB BLOOD ORDERABLES Lala wing Result [facility] Department [place] [address] * (ABNORMAL) CBC with auto differential (10/05/2024 5:17 AM CERTIFIED NURSE OPERATING ROOM) WBC 11.9(H) 3.8 - 9.9 K/cumm Hgb 13.6 13.0 - 17.5 g/dL [facility] Hct 41.7 38.9 - 50.3 % [facility] Plt 432(H) 150 - 400 K/cumm [facility] MPV 9.5 9.1 - 12.3 fL [facility] RBC 4.52 4.30 - 5.80 M/cumm [facility] MCV 92.3 81.3 - 96.4 fL [facility] MCH 30.1 27.1 - 33.3 pg [facility] MCHC 32.6 32.3 - 35.7 g/dL [facility] RDW CV 13.3 11.1 - 14.9 % [facility] RDW SD 45.0 35.7 - 48.1 fL [facility] NRBC abs 0.00 0.00 - 0.01 K/cumm [facility] Blood 10/05/2024 5:17 AM CERTIFIED NURSE OPERATING ROOM 10/05/2024 5:29 AM CERTIFIED NURSE OPERATING ROOM Diana Gonzalez NP LAB BLOOD ORDERABLES Lala l Result Performing Organization Address [facility] Co de Phone Number [facility] Department [place] [address] * (ABNORMAL) Basic metabolic panel (10/05/2024 5:17 AM CERTIFIED NURSE OPERATING ROOM) Pathologist [facility] Sodium 135 135 - 145 mmol/L Potassium, pl 4.4 3.3 - 4.9 mmol/L [facility] Chloride 100 97 - 110 mmol/L [facility] CO2 25 22 - 32 mmol/L [facility] Anion gap 10 2 - 15 mmol/L [facility] BUN 18 6 - 25 mg/dL [facility] Creatinine 0.74(L) 0.80 - 1.30 mg/dL [facility] Glucose 90 70 - 199 mg/dL [facility] Comment: Interpretive Data Fasting glucose [...] 2022. Calcium 9.0 8.5 - 10.3 mg/dL [facility] Blood 10/05/2024 5:17 AM CERTIFIED NURSE OPERATING ROOM 10/05/2024 5:29 AM CERTIFIED NURSE OPERATING ROOM Diana Gonzalez NP LAB BLOOD ORDERABLES Lala l Result Performing Organization Address [facility]/ZIP Co de Phone Number [facility] Department [place] [address] * POCT glucose (10/05/2024 2:24 AM CERTIFIED NURSE OPERATING ROOM) Glucose, POC 101 70 - 199 mg/dL Blood 10/05/2024 2:24 AM CERTIFIED NURSE OPERATING ROOM 10/05/2024 2:24 AM CERTIFIED NURSE OPERATING ROOM Prashant Felder MD LAB POCT ORDERABLES - MAGALIE CE Final Result Performing Organization Address City/[facility] Co de Phone Number [facility] [place] [address] * Vancomycin level trough At least 30 minutes prior to vancomycin dose (10/04/2024 10:17 PM CERTIFIED NURSE OPERATING ROOM) Vancomycin trough 11.4 10.0 - 20.0 mcg/mL Blood 10/04/2024 10:1 7 PM CERTIFIED NURSE OPERATING ROOM 10/04/2024 11:50 PM CERTIFIED NURSE OPERATING ROOM Narrative [facility] - 10/05/2024 12:19 AM CERTIFIED NURSE OPERATING ROOM At least 30 minutes prior to vancomycin dose Severino Peñaloza MD LAB BLOOD ORDERABLES Final Res ult Performing Organization Address [facility] Co de Phone Number [facility] Department [place] [address] * (ABNORMAL) POCT glucose (10/04/2024 8:11 PM CERTIFIED NURSE OPERATING ROOM) Glucose, POC 210(H) 70 - 199 mg/dL Blood 10/04/2024 8:11 PM CERTIFIED NURSE OPERATING ROOM 10/04/2024 8:11 PM CERTIFIED NURSE OPERATING ROOM Prashant Felder MD LAB POCT ORDERABLES - MAGALIE CE Final Result Performing Organization Address [facility] Co de Phone Number [facility] [place] [address] * POCT glucose (10/04/2024 5:00 PM CERTIFIED NURSE OPERATING ROOM) Glucose, POC 94 70 - 199 mg/dL Blood 10/04/2024 5:00 PM CERTIFIED NURSE OPERATING ROOM 10/04/2024 5:00 PM CERTIFIED NURSE OPERATING ROOM Prashant Felder MD LAB POCT ORDERABLES - MAGALIE CE Final Result Performing Organization Address [facility] Co de Phone Number [facility] [place] [address] * POCT glucose (10/04/2024 12:04 PM CERTIFIED NURSE OPERATING ROOM) Glucose, POC 117 70 - 199 mg/dL Blood 10/04/2024 12:0 4 PM CERTIFIED NURSE OPERATING ROOM 10/04/2024 12:04 PM CERTIFIED NURSE OPERATING ROOM Prashant Felder MD LAB POCT ORDERABLES - MAGALIE CE Final Result Performing Organization Address [facility] Co de Phone Number [facility] [place] [address] * POCT glucose (10/04/2024 7:59 AM CERTIFIED NURSE OPERATING ROOM) [facility] Glucose, POC 107 70 - 199 mg/dL Blood 10/04/2024 7:59 AM CERTIFIED NURSE OPERATING ROOM 10/04/2024 7:59 AM CERTIFIED NURSE OPERATING ROOM Prashant Felder MD LAB POCT ORDERABLES - MAGALIE CE Final Result Performing Organization Address [facility] Co de Phone Number [facility] [place] [address] * eGFR (10/04/2024 4:04 AM CERTIFIED NURSE OPERATING ROOM) [facility] eGFR >90 >=60 mL/min/1. 73 m2 Comment: [...] last reviewed 2021. Blood 10/04/2024 4:04 AM CERTIFIED NURSE OPERATING ROOM 10/04/2024 4:16 AM CERTIFIED NURSE OPERATING ROOM us Diana Gonzalez NP LAB BLOOD ORDERABLES Lala wing Result [facility] Department [place] [address] * (ABNORMAL) Differential, auto (10/04/2024 4:04 AM CERTIFIED NURSE OPERATING ROOM) Neutrophil abs 8.1(H) 1.5 - 6.5 K/cumm Imm gran abs 0.1 0.0 - 0.1 K/cumm [facility] Lymphocyte abs 3.6(H) 0.8 - 3.3 K/cumm [facility] Monocyte abs 1.2(H) 0.2 - 0.8 K/cumm [facility] Eosinophil abs 0.7(H) 0.0 - 0.5 K/cumm [facility] Basophil abs 0.2(H) 0.0 - 0.1 K/cumm [facility] Neutrophil pct 58.7 % [facility] Comment: Interpretive Data Percent cell count reference ranges are not reported, since discordance with absolute values may lead to misinterpretation of CBC data. Current Interpretive Data was last revised on 2017. Imm gran pct 0.4 % [facility] Comment: Interpretive Data Percent cell count reference ranges are not reported, since discordance with absolute values may lead to misinterpretation of CBC data. Current Interpretive Data was last revised on 2017. Lymphocyte pct 26.1 % [facility] Comment: Interpretive Data Percent cell count reference ranges are not reported, since discordance with absolute values may lead to misinterpretation of CBC data. Current Interpretive Data was last revised on 2017. Monocyte pct 8.4 % [facility] Comment: Interpretive Data Percent cell count reference ranges are not reported, since discordance with absolute values may lead to misinterpretation of CBC data. Current Interpretive Data was last revised on 2017. Eosinophil pct 5.3 % [facility] Comment: Interpretive Data Percent cell count reference ranges are not reported, since discordance with absolute values may lead to misinterpretation of CBC data. Current Interpretive Data was last revised on 2017. Basophil pct 1.1 % [facility] Comment: Interpretive Data Percent cell count reference ranges are not reported, since discordance with absolute values may lead to misinterpretation of CBC data. Current Interpretive Data was last revised on 2017. Blood 10/04/2024 4:04 AM CERTIFIED NURSE OPERATING ROOM 10/04/2024 4:17 AM CERTIFIED NURSE OPERATING ROOM Diana Gonzalez NP LAB BLOOD ORDERABLES Lala wing Result [facility] Department [place] [address] * (ABNORMAL) CBC with auto differential (10/04/2024 4:04 AM CERTIFIED NURSE OPERATING ROOM) WBC 13.7(H) 3.8 - 9.9 K/cumm Hgb 13.8 13.0 - 17.5 g/dL [facility] Hct 41.5 38.9 - 50.3 % [facility] Plt 473(H) 150 - 400 K/cumm [facility] MPV 9.3 9.1 - 12.3 fL [facility] RBC 4.50 4.30 - 5.80 M/cumm [facility] MCV 92.2 81.3 - 96.4 fL [facility] MCH 30.7 27.1 - 33.3 pg [facility] MCHC 33.3 32.3 - 35.7 g/dL [facility] RDW CV 13.7 11.1 - 14.9 % [facility] RDW SD 46.1 35.7 - 48.1 fL [facility] NRBC abs 0.00 0.00 - 0.01 K/cumm [facility] Blood 10/04/2024 4:04 AM CERTIFIED NURSE OPERATING ROOM 10/04/2024 4:17 AM CERTIFIED NURSE OPERATING ROOM us Diana Gonzalez NP LAB BLOOD ORDERABLES Lala wing Result [facility] Department [place] [address] * Basic metabolic panel (10/04/2024 4:04 AM CERTIFIED NURSE OPERATING ROOM) Sodium 137 135 - 145 mmol/L Potassium, pl 4.4 3.3 - 4.9 mmol/L [facility] Chloride 102 97 - 110 mmol/L [facility] CO2 27 22 - 32 mmol/L [facility] Anion gap 8 2 - 15 mmol/L [facility] BUN 24 6 - 25 mg/dL [facility] Creatinine 0.86 0.80 - 1.30 mg/dL [facility] Glucose 73 70 - 199 mg/dL [facility] Comment: Interpretive Data Fasting glucose [...] 2022. Calcium 9.3 8.5 - 10.3 mg/dL [facility] Blood 10/04/2024 4:04 AM CERTIFIED NURSE OPERATING ROOM 10/04/2024 4:16 AM CERTIFIED NURSE OPERATING ROOM Diana Gonzalez NP LAB BLOOD ORDERABLES Lala l Result Performing Organization Address [facility] Co de Phone Number [facility] [place] [address] * POCT glucose (10/04/2024 3:56 AM CERTIFIED NURSE OPERATING ROOM) Glucose, POC 89 70 - 199 mg/dL Blood 10/04/2024 3:56 AM CERTIFIED NURSE OPERATING ROOM 10/04/2024 3:56 AM CERTIFIED NURSE OPERATING ROOM Prashant Felder MD LAB POCT ORDERABLES - MAGALIE CE Final Result Performing Organization Address [facility] [place] [address] * (ABNORMAL) POCT glucose (10/04/2024 3:54 AM CERTIFIED NURSE OPERATING ROOM) Glucose, POC 68(L) 70 - 199 mg/dL Blood 10/04/2024 3:54 AM CERTIFIED NURSE OPERATING ROOM 10/04/2024 3:54 AM CERTIFIED NURSE OPERATING ROOM Prashant Felder MD LAB POCT ORDERABLES - MAGALIE CE Final Result Performing Organization Address [facility] [place] [address] * POCT glucose (10/03/2024 8:44 PM CERTIFIED NURSE OPERATING ROOM) Glucose, POC 153 70 - 199 mg/dL Blood 10/03/2024 8:44 PM CERTIFIED NURSE OPERATING ROOM 10/03/2024 8:44 PM CERTIFIED NURSE OPERATING ROOM Prashant Felder MD LAB POCT ORDERABLES - MAGALIE CE Final Result Performing Organization Address [facility] Co de Phone Number [facility] [place] [address] * POCT glucose (10/03/2024 5:09 PM CERTIFIED NURSE OPERATING ROOM) Glucose, POC 145 70 - 199 mg/dL Blood 10/03/2024 5:09 PM CERTIFIED NURSE OPERATING ROOM 10/03/2024 5:09 PM CERTIFIED NURSE OPERATING ROOM Prashant Felder MD LAB POCT ORDERABLES - MAGALIE CE Final Result Performing Organization Address [facility] [place] [address] * POCT glucose (10/03/2024 11:57 AM CERTIFIED NURSE OPERATING ROOM) Glucose, POC 168 70 - 199 mg/dL Blood 10/03/2024 11:5 7 AM CERTIFIED NURSE OPERATING ROOM 10/03/2024 11:57 AM CERTIFIED NURSE OPERATING ROOM Prashant Felder MD LAB POCT ORDERABLES - MAGALIE CE Final Result Performing Organization Address [facility] [place] [address] * POCT glucose (10/03/2024 11:13 AM CERTIFIED NURSE OPERATING ROOM) Glucose, POC 170 70 - 199 mg/dL Blood 10/03/2024 11:1 3 AM CERTIFIED NURSE OPERATING ROOM 10/03/2024 11:13 AM CERTIFIED NURSE OPERATING ROOM Prashant Felder MD LAB POCT ORDERABLES - MAGALIE CE Final Result Performing Organization Address [facility] [place] [address] * (ABNORMAL) POCT glucose (10/03/2024 8:06 AM CERTIFIED NURSE OPERATING ROOM) Glucose, POC 229(H) 70 - 199 mg/dL Blood 10/03/2024 8:06 AM CERTIFIED NURSE OPERATING ROOM 10/03/2024 8:06 AM CERTIFIED NURSE OPERATING ROOM Prashant Felder MD LAB POCT ORDERABLES - MAGALIE CE Final Result [facility] [place] [address] * Potassium, whole blood (10/03/2024 4:41 AM CERTIFIED NURSE OPERATING ROOM) Potassium, bld 4.3 3.3 - 4.9 mmol/L Blood 10/03/2024 4:41 AM CERTIFIED NURSE OPERATING ROOM 10/03/2024 4:52 AM CERTIFIED NURSE OPERATING ROOM Prashant Felder MD LAB BLOOD ORDERABLES Final Result Performing Organization Address City/[facility] Co de Phone Number [facility] [place] [address] * eGFR (10/03/2024 4:41 AM CERTIFIED NURSE OPERATING ROOM) eGFR 88 >=60 mL/min/1. 73 m2 Comment: [...] last reviewed 2021. Blood 10/03/2024 4:41 AM CERTIFIED NURSE OPERATING ROOM 10/03/2024 4:54 AM CERTIFIED NURSE OPERATING ROOM us Diana Gonzalez NP LAB BLOOD ORDERABLES Lala wing Result [facility] Department [place] [address] * (ABNORMAL) Differential, auto (10/03/2024 4:41 AM CERTIFIED NURSE OPERATING ROOM) Pathologist [facility] Neutrophil abs 9.3(H) 1.5 - 6.5 K/cumm Imm gran abs 0.0 0.0 - 0.1 K/cumm [facility] Lymphocyte abs 3.2 0.8 - 3.3 K/cumm [facility] Monocyte abs 1.2(H) 0.2 - 0.8 K/cumm [facility] Eosinophil abs 0.3 0.0 - 0.5 K/cumm [facility] Basophil abs 0.1 0.0 - 0.1 K/cumm [facility] Neutrophil pct 66.1 % [facility] Comment: Interpretive Data Percent cell count reference ranges are not reported, since discordance with absolute values may lead to misinterpretation of CBC data. Current Interpretive Data was last revised on 2017. Imm gran pct 0.3 % [facility] Comment: Interpretive Data Percent cell count reference ranges are not reported, since discordance with absolute values may lead to misinterpretation of CBC data. Current Interpretive Data was last revised on 2017. Lymphocyte pct 22.5 % [facility] Comment: Interpretive Data Percent cell count reference ranges are not reported, since discordance with absolute values may lead to misinterpretation of CBC data. Current Interpretive Data was last revised on 2017. Monocyte pct 8.4 % [facility] Comment: Interpretive Data Percent cell count reference ranges are not reported, since discordance with absolute values may lead to misinterpretation of CBC data. Current Interpretive Data was last revised on 2017. Eosinophil pct 2.1 % [facility] Comment: Interpretive Data Percent cell count reference ranges are not reported, since discordance with absolute values may lead to misinterpretation of CBC data. Current Interpretive Data was last revised on 2017. Basophil pct 0.6 % [facility] Comment: Interpretive Data Percent cell count reference ranges are not reported, since discordance with absolute values may lead to misinterpretation of CBC data. Current Interpretive Data was last revised on 2017. Blood 10/03/2024 4:41 AM CERTIFIED NURSE OPERATING ROOM 10/03/2024 4:55 AM CERTIFIED NURSE OPERATING ROOM Diana Gonzalez GENERATOR MECHANIC LAB BLOOD ORDERABLES Lala l Result [facility] [place] [address] * (ABNORMAL) CBC with auto differential (10/03/2024 4:41 AM CERTIFIED NURSE OPERATING ROOM) WBC 14.1(H) 3.8 - 9.9 K/cumm Hgb 13.4 13.0 - 17.5 g/dL [facility] Hct 40.8 38.9 - 50.3 % [facility] Plt 434(H) 150 - 400 K/cumm [facility] MPV 9.5 9.1 - 12.3 fL [facility] RBC 4.37 4.30 - 5.80 M/cumm [facility] MCV 93.4 81.3 - 96.4 fL [facility] MCH 30.7 27.1 - 33.3 pg [facility] MCHC 32.8 32.3 - 35.7 g/dL [facility] RDW CV 13.6 11.1 - 14.9 % [facility] RDW SD 46.2 35.7 - 48.1 fL [facility] NRBC abs 0.00 0.00 - 0.01 K/cumm [facility] Blood 10/03/2024 4:41 AM CERTIFIED NURSE OPERATING ROOM 10/03/2024 4:55 AM CERTIFIED NURSE OPERATING ROOM Diana Gonzalez GENERATOR MECHANIC LAB BLOOD ORDERABLES Lala l Result Performing Organization Address City/[facility]/ZIP Co de Phone Number [facility] [place] [address] * (ABNORMAL) Hemoglobin A1c (10/03/2024 4:41 AM CERTIFIED NURSE OPERATING ROOM) Hgb A1C 8.7(H) 4.0 - 5.6 % Estimated Average Glucose 203 mg/dL [facility] Comment: The ADA recommends reporting an estimated Average Glucose (eAG) with all Hemoglobin A1c results using the equation derived from a study of 507 normal and diabetic adults. Minority populations were underrepresented and children were not included. (Diabetes Care 2020; 43(S1): S66-S76). The eAG is not equivalent to a fasting glucose. Blood 10/03/2024 4:41 AM CERTIFIED NURSE OPERATING ROOM 10/03/2024 5:00 AM CERTIFIED NURSE OPERATING ROOM Prashant Felder MD LAB BLOOD ORDERABLES Final Result [facility] Department [place] [address] * (ABNORMAL) Basic metabolic panel (10/03/2024 4:41 AM CERTIFIED NURSE OPERATING ROOM) Pathologist [facility] Sodium 133(L) 135 - 145 mmol/L Potassium, pl 4.7 3.3 - 4.9 mmol/L [facility] Chloride 97 97 - 110 mmol/L [facility] CO2 27 22 - 32 mmol/L [facility] Anion gap 9 2 - 15 mmol/L [facility] BUN 28(H) 6 - 25 mg/dL [facility] Creatinine 0.93 0.80 - 1.30 mg/dL [facility] Glucose 185 70 - 199 mg/dL [facility] Comment: Interpretive Data Fasting glucose [...] classification and Diagnosis of Diabetes Diabetes Care 2022; 46: S19-S40. Current interpretive data was last revised 2022. Calcium 8.8 8.5 - 10.3 mg/dL [facility] Blood 10/03/2024 4:41 AM CERTIFIED NURSE OPERATING ROOM 10/03/2024 4:54 AM CERTIFIED NURSE OPERATING ROOM Diana Gonzalez GENERATOR MECHANIC LAB BLOOD ORDERABLES Lala l Result Performing Organization Address City/[facility] Co de Phone Number [facility] [place] [address] * POCT glucose (10/03/2024 1:51 AM CERTIFIED NURSE OPERATING ROOM) [facility] Glucose, POC 167 70 - 199 mg/dL Blood 10/03/2024 1:51 AM CERTIFIED NURSE OPERATING ROOM 10/03/2024 1:51 AM CERTIFIED NURSE OPERATING ROOM Prashant Felder MD LAB POCT ORDERABLES - MAGALIE CE Final Result Performing Organization Address [facility] de Phone Number [facility] [place] [address] * (ABNORMAL) Potassium, whole blood (10/02/2024 11:05 PM CERTIFIED NURSE OPERATING ROOM) [facility] Potassium, bld 5.0(H) 3.3 - 4.9 mmol/L Blood 10/02/2024 11:0 5 PM CERTIFIED NURSE OPERATING ROOM 10/02/2024 11:23 PM CERTIFIED NURSE OPERATING ROOM Prashant Felder MD LAB BLOOD ORDERABLES Final Result Performing Organization Address [facility] Co de Phone Number [facility] [place] [address] * eGFR (10/02/2024 9:27 PM CERTIFIED NURSE OPERATING ROOM) [facility] eGFR 80 >=60 mL/min/1. 73 m2 Comment: [...] last reviewed 2021. Blood 10/02/2024 9:27 PM CERTIFIED NURSE OPERATING ROOM 10/02/2024 9:55 PM CERTIFIED NURSE OPERATING ROOM Diana Gonzalez NP LAB BLOOD ORDERABLES Lala wing Result [facility] Department [place] [address] * (ABNORMAL) Differential, auto (10/02/2024 9:27 PM CERTIFIED NURSE OPERATING ROOM) Neutrophil abs 8.5(H) 1.5 - 6.5 K/cumm Imm gran abs 0.1 0.0 - 0.1 K/cumm [facility] Lymphocyte abs 1.9 0.8 - 3.3 K/cumm [facility] Monocyte abs 0.6 0.2 - 0.8 K/cumm [facility] Eosinophil abs 0.0 0.0 - 0.5 K/cumm [facility] Basophil abs 0.0 0.0 - 0.1 K/cumm [facility] Neutrophil pct 76.1 % [facility] Comment: Interpretive Data Percent cell count reference ranges are not reported, since discordance with absolute values may lead to misinterpretation of CBC data. Current Interpretive Data was last revised on 2017. Imm gran pct 0.4 % [facility] Comment: Interpretive Data Percent cell count reference ranges are not reported, since discordance with absolute values may lead to misinterpretation of CBC data. Current Interpretive Data was last revised on 2017. Lymphocyte pct 17.2 % [facility] Comment: Interpretive Data Percent cell count reference ranges are not reported, since discordance with absolute values may lead to misinterpretation of CBC data. Current Interpretive Data was last revised on 2017. Monocyte pct 5.7 % [facility] Comment: Interpretive Data Percent cell count reference ranges are not reported, since discordance with absolute values may lead to misinterpretation of CBC data. Current Interpretive Data was last revised on 2017. Eosinophil pct 0.2 % [facility] Comment: Interpretive Data Percent cell count reference ranges are not reported, since discordance with absolute values may lead to misinterpretation of CBC data. Current Interpretive Data was last revised on 2017. Basophil pct 0.4 % [facility] Comment: Interpretive Data Percent cell count reference ranges are not reported, since discordance with absolute values may lead to misinterpretation of CBC data. Current Interpretive Data was last revised on 2017. Blood 10/02/2024 9:27 PM CERTIFIED NURSE OPERATING ROOM 10/02/2024 9:55 PM CERTIFIED NURSE OPERATING ROOM Diana Gonzalez GENERATOR MECHANIC LAB BLOOD ORDERABLES Lala wing Result [facility] Department [place] [address] * (ABNORMAL) CBC with auto differential (10/02/2024 9:27 PM CERTIFIED NURSE OPERATING ROOM) WBC 11.2(H) 3.8 - 9.9 K/cumm Hgb 13.1 13.0 - 17.5 g/dL [facility] Hct 40.3 38.9 - 50.3 % [facility] Plt 446(H) 150 - 400 K/cumm [facility] MPV 9.7 9.1 - 12.3 fL [facility] RBC 4.35 4.30 - 5.80 M/cumm [facility] MCV 92.6 81.3 - 96.4 fL [facility] MCH 30.1 27.1 - 33.3 pg [facility] MCHC 32.5 32.3 - 35.7 g/dL [facility] RDW CV 13.5 11.1 - 14.9 % [facility] RDW SD 45.8 35.7 - 48.1 fL [facility] NRBC abs 0.00 0.00 - 0.01 K/cumm [facility] Blood 10/02/2024 9:27 PM CERTIFIED NURSE OPERATING ROOM 10/02/2024 9:55 PM CERTIFIED NURSE OPERATING ROOM Diana Gonzalez NP LAB BLOOD ORDERABLES Lala l Result Performing Organization Address City/[facility]/ZIP Co de Phone Number [facility] [place] [address] * (ABNORMAL) Hemoglobin A1c (10/02/2024 9:27 PM CERTIFIED NURSE OPERATING ROOM) Pathologist [facility] Hgb A1C 8.6(H) 4.0 - 5.6 % Estimated Average Glucose 200 mg/dL [facility] Comment: The ADA recommends reporting an estimated Average Glucose (eAG) with all Hemoglobin A1c results using the equation derived from a study of 507 normal and diabetic adults. Minority populations were underrepresented and children were not included. (Diabetes Care 2020; 43(S1): S66-S76). The eAG is not equivalent to a fasting glucose. Blood 10/02/2024 9:27 PM CERTIFIED NURSE OPERATING ROOM 10/02/2024 9:58 PM CERTIFIED NURSE OPERATING ROOM Narrative [facility] - 10/03/2024 9:10 AM CERTIFIED NURSE OPERATING ROOM Reflex Prashant Felder MD LAB BLOOD ORDERABLES Final Result [facility] Department of [employer] [place], [place] [id number] * (ABNORMAL) Lipid panel (10/02/2024 9:27 PM CERTIFIED NURSE OPERATING ROOM) Pathologist [facility] Cholesterol 126 30 - 199 mg/dL Comment: [...] revised on 2018. Triglycerides 85 <=149 mg/dL [facility] Comment: Interpretive Data Ages < [...] revised on 2018. HDL 37(L) >=40 mg/dL [facility] Comment: Interpretive Data Ages < [...] on 2018. LDL, calculated 72 <=129 mg/dL [facility] Comment: Interpretive Data Ages < or = 19 years Acceptable: <110 mg/dL Borderline high: 110-129 mg/dL High: >or= 130 mg/dL Ages > or = 20 years Optimal: <100 mg/dL Near optimal: 100-129 mg/dL Borderline high: 130-159 mg/dL High: >160 mg/dL Calculated using the De [place] Rosa LDL-C estimating equation. This equation was implemented [...] revised on 2024. Non-HDL Cholesterol 89 mg/dL [facility] Comment: Interpretive Data Ages < [...] last revised on 2018. Chol/HDL ratio 3 [facility] Blood 10/02/2024 9:27 PM CERTIFIED NURSE OPERATING ROOM 10/02/2024 9:55 PM CERTIFIED NURSE OPERATING ROOM Prashant Felder MD LAB BLOOD ORDERABLES Final Result [facility] Department [place] [address] * (ABNORMAL) Basic metabolic panel (10/02/2024 9:27 PM CERTIFIED NURSE OPERATING ROOM) Sodium 131(L) 135 - 145 mmol/L Potassium, pl 5.2(H) 3.3 - 4.9 mmol/L [facility] Chloride 94(L) 97 - 110 mmol/L [facility] CO2 30 22 - 32 mmol/L [facility] Anion gap 7 2 - 15 mmol/L [facility] BUN 30(H) 6 - 25 mg/dL [facility] Creatinine 1.00 0.80 - 1.30 mg/dL [facility] Glucose 255(H) 70 - 199 mg/dL [facility] Comment: Interpretive Data Fasting glucose [...] 2022. Calcium 8.6 8.5 - 10.3 mg/dL [facility] Blood 10/02/2024 9:27 PM CERTIFIED NURSE OPERATING ROOM 10/02/2024 9:55 PM CERTIFIED NURSE OPERATING ROOM us Diana Gonzalez NP LAB BLOOD ORDERABLES Lala l Result [facility] Department [place] [address] * (ABNORMAL) POCT glucose (10/02/2024 7:51 PM CERTIFIED NURSE OPERATING ROOM) Glucose, POC 254(H) 70 - 199 mg/dL Blood 10/02/2024 7:51 PM CERTIFIED NURSE OPERATING ROOM 10/02/2024 7:51 PM CERTIFIED NURSE OPERATING ROOM us Prashant Felder MD LAB POCT ORDERABLES - MAGALIE CE Final Result [facility] [place] [address] * (ABNORMAL) POCT glucose (10/02/2024 5:40 PM CERTIFIED NURSE OPERATING ROOM) Glucose, POC 285(H) 70 - 199 mg/dL Blood 10/02/2024 5:40 PM CERTIFIED NURSE OPERATING ROOM 10/02/2024 5:40 PM CERTIFIED NURSE OPERATING ROOM Prashant Felder MD LAB POCT ORDERABLES - MAGALIE CE Final Result Performing Organization Address [facility] de Phone Number [facility] [place] [address] * (ABNORMAL) POCT glucose (10/02/2024 5:37 PM CERTIFIED NURSE OPERATING ROOM) Glucose, POC 302(H) 70 - 199 mg/dL Blood 10/02/2024 5:37 PM CERTIFIED NURSE OPERATING ROOM 10/02/2024 5:37 PM CERTIFIED NURSE OPERATING ROOM Prashant Felder MD LAB POCT ORDERABLES - MAGALIE CE Final Result Performing Organization Address [facility] de Phone Number [facility] [place] [address] * POCT glucose (10/02/2024 10:41 AM CERTIFIED NURSE OPERATING ROOM) Glucose, POC 113 70 - 199 mg/dL Blood 10/02/2024 10:4 1 AM CERTIFIED NURSE OPERATING ROOM 10/02/2024 10:41 AM CERTIFIED NURSE OPERATING ROOM Prashant Felder MD LAB POCT ORDERABLES - MAGALIE CE Final Result Performing Organization Address [facility] [place] [address] * Tissue aerobic and anaerobic culture and gram stain Tissue Elbow, left (10/02/2024 9:19 AM CERTIFIED NURSE OPERATING ROOM) Direct Specimen Exam Stain: Rare polymorphonuclear leukocytes seen. No organisms seen. Report Final Report: No growth [facility] Tissue (Elbow, left) 10/02/2024 9:19 AM CERTIFIED NURSE OPERATING ROOM 10/02/2024 11:07 AM CERTIFIED NURSE OPERATING ROOM Narrative [facility] - 10/07/2024 11:37 AM CERTIFIED NURSE OPERATING ROOM LEFT ELBOW OLECRANON BURSA Testing performed by [facility] ([phone]) Specimens submitted from normally sterile body sites [...] GENERAL ORDERABLES Final Result Performing Organization Address City/[facility]/ZIP Co de Phone Number [facility] Department [place] [address] * Mycology (fungal) culture and stain Tissue Elbow, left (10/02/2024 9:19 AM CERTIFIED NURSE OPERATING ROOM) Direct Specimen Exam Stain: No Fungal elements seen. Report Final Report: No growth of fungus [facility] Tissue (Elbow, left) 10/02/2024 9:19 AM CERTIFIED NURSE OPERATING ROOM 10/02/2024 11:07 AM CERTIFIED NURSE OPERATING ROOM Narrative [facility] - 10/30/2024 7:55 AM CDT LEFT ELBOW OLECRANON BURSA Testing performed by [facility] ([phone]). Prashant Felder MD LAB MICROBIOLOGY - GENERAL ORDERABLES Final Result [facility] Department [place] [address] * Mycobacteriology (AFB) culture and acid-fast stain Tissue Elbow, left (10/02/2024 9:19 AM CERTIFIED NURSE OPERATING ROOM) Direct Specimen Exam Stain: No Acid-fast bacilli seen Report Final Report: No growth of acid-fast bacilli [facility] Tissue (Elbow, left) 10/02/2024 9:19 AM CERTIFIED NURSE OPERATING ROOM 10/02/2024 11:07 AM CERTIFIED NURSE OPERATING ROOM Narrative [facility] - 12/01/2024 1:44 PM CDT LEFT ELBOW OLECRANON BURSA Testing performed by [facility] ([phone]). Prashant Felder MD LAB MICROBIOLOGY - GENERAL ORDERABLES Final Result Performing Organization Address City/[facility]/ZIP Co de Phone Number [facility] [place] [address] * Tissue aerobic and anaerobic culture and gram stain Tissue Elbow, left (10/02/2024 9:18 AM CERTIFIED NURSE OPERATING ROOM) Direct Specimen Exam Stain: No polymorphonuclear leukocytes seen. No organisms seen. Report Final Report: No growth [facility] Tissue (Elbow, left) 10/02/2024 9:18 AM CERTIFIED NURSE OPERATING ROOM 10/02/2024 11:05 AM CERTIFIED NURSE OPERATING ROOM Narrative [facility] - 10/07/2024 11:38 AM CERTIFIED NURSE OPERATING ROOM LEFT ELBOW BURSA Testing performed by [facility] ([phone]) Specimens submitted from normally sterile body sites [...] GENERAL ORDERABLES Final Result Performing Organization Address City/[facility]/ZIP Co de Phone Number [facility] WARNER Radha [facility] [place] [address] * Mycology (fungal) culture and stain Tissue Elbow, left (10/02/2024 9:18 AM CERTIFIED NURSE OPERATING ROOM) Direct Specimen Exam Stain: No Fungal elements seen. Report Final Report: No growth of fungus [facility] Tissue (Elbow, left) 10/02/2024 9:18 AM CERTIFIED NURSE OPERATING ROOM 10/02/2024 11:05 AM CERTIFIED NURSE OPERATING ROOM Narrative [facility] - 10/30/2024 7:54 AM CDT LEFT ELBOW BURSA Testing performed by [facility] ([phone]). Prashant Felder MD LAB MICROBIOLOGY - GENERAL ORDERABLES Final Result Performing Organization Address [facility] Co de Phone Number [facility] [place] [address] * Mycobacteriology (AFB) culture and acid-fast stain Tissue Elbow, left (10/02/2024 9:18 AM CERTIFIED NURSE OPERATING ROOM) Direct Specimen Exam Stain: No Acid-fast bacilli seen Report Final Report: No growth of acid-fast bacilli [facility] Tissue (Elbow, left) 10/02/2024 9:18 AM CERTIFIED NURSE OPERATING ROOM 10/02/2024 11:05 AM CERTIFIED NURSE OPERATING ROOM Narrative [facility] - 12/01/2024 1:45 PM CDT LEFT ELBOW BURSA Testing performed by [facility] ([phone]). Prashant Felder MD LAB MICROBIOLOGY - GENERAL ORDERABLES Final Result Performing Organization Address [facility] Co de Phone Number [facility] [place] [address] * Tissue aerobic and anaerobic culture and gram stain Tissue Elbow, right (10/02/2024 8:58 AM CERTIFIED NURSE OPERATING ROOM) Direct Specimen Exam Stain: No polymorphonuclear leukocytes seen. No organisms seen. Report Final Report: No growth [facility] Tissue (Elbow, right) 10/02/2024 8:58 AM CERTIFIED NURSE OPERATING ROOM 10/02/2024 11:06 AM CERTIFIED NURSE OPERATING ROOM Narrative [facility] - 10/07/2024 11:37 AM CERTIFIED NURSE OPERATING ROOM Left Elbow Fluid Testing performed by [facility] ([phone]) Specimens submitted from normally sterile body sites [...] GENERAL ORDERABLES Final Result Performing Organization Address [facility] Co de Phone Number [facility] Department [place] [address] * Mycology (fungal) culture and stain Tissue Elbow, right (10/02/2024 8:58 AM CERTIFIED NURSE OPERATING ROOM) Direct Specimen Exam Stain: No Fungal elements seen. Report Final Report: No growth of fungus [facility] Tissue (Elbow, right) 10/02/2024 8:58 AM CERTIFIED NURSE OPERATING ROOM 10/02/2024 11:06 AM CERTIFIED NURSE OPERATING ROOM Narrative [facility] - 10/30/2024 7:47 AM CDT Left Elbow Fluid Testing performed by [facility] ([phone]). Prashant Felder MD LAB MICROBIOLOGY - GENERAL ORDERABLES Final Result Performing Organization Address [facility] Co de Phone Number [facility] Department [place] [address] * Mycobacteriology (AFB) culture and acid-fast stain Tissue Elbow, right (10/02/2024 8:58 AM CERTIFIED NURSE OPERATING ROOM) Direct Specimen Exam Stain: No Acid-fast bacilli seen Report Final Report: No growth of acid-fast bacilli [facility] Tissue (Elbow, right) 10/02/2024 8:58 AM CERTIFIED NURSE OPERATING ROOM 10/02/2024 11:06 AM CERTIFIED NURSE OPERATING ROOM Narrative [facility] - 12/01/2024 1:44 PM CDT Left Elbow Fluid Testing performed by [facility] ([phone]). us Prashant Felder MD LAB MICROBIOLOGY - GENERAL ORDERABLES Final Result [facility] [place] [address] * [place] AN ELECTIVE ENDOTRACHEAL AIRWAY, [place] AN PROCEDURE PLACEHOLDER (10/02/2024 8:39 AM CERTIFIED NURSE OPERATING ROOM) Narrative Shila Alcocer MD - 10/02/2024 8:39 AM CERTIFIED NURSE OPERATING ROOM Shila Alcocer MD 10/02/2024 8:40 AM Airway [...] or mouth. Eyes taped/protected. Peterson 4 used. us Shila Alcocer MD ANESTHE MADDI ORDERABLES Final Result * POCT glucose (10/02/2024 6:36 AM CERTIFIED NURSE OPERATING ROOM) Glucose, POC 117 70 - 199 mg/dL Blood 10/02/2024 6:36 AM CERTIFIED NURSE OPERATING ROOM 10/02/2024 6:36 AM CERTIFIED NURSE OPERATING ROOM us Prashant Felder MD LAB POCT ORDERABLES - MAGALIE CE Final Result [facility] [place] [address] * (ABNORMAL) Albumin Creatinine Ratio, Urine (10/16/2022 9:19 AM CERTIFIED NURSE OPERATING ROOM) Microalb, Ur 321.7(H) 0.0 - 22.9 mg/L [facility] Comment:Repeated and Verifie d Random Urine Creatinine 62.7 mg/dL [facility] Microalb/Creat Ratio 513.1(H) 0.0 - 29.9 mg/g [facility] Urine 10/16/2022 9:19 AM CERTIFIED NURSE OPERATING ROOM 10/16/2022 10:19 AM CERTIFIED NURSE OPERATING ROOM us Hillary Carlson MD LAB URINE ORDERABLES Final Re sult [facility] from Last 3 Months or Most Recently Relevant to Health Maintenance Insurance MEDICARE [employer] SENIOR SUPPLEMENT MEDICARE [facility] SENIOR SUPPLEMENT MEDICARE [employer] SENIOR SUPPLEMENT Advance Directives For more information, please contact: [phone] * Full Code (Latest Code Status on File) Date Activated Date Inactivated Comments 10/02/2024 1:49 PM 10/06/2024 10:39 PM Care Teams Driller'S Offsider Relationship Specialty Start Date End Date Tyrone Carvajal MD PCP - General Internal Medicine 11/06/19 Hetal Regan MD Referring Physician Endocrinology Diabetes & Metabolism 06/13/21 Jefferson Mora MD Consulting Physician Rheumatology 04/17/24 Swathi Diaz PA [address] [facility] END[facility] [address] Physician Interior Design Professor Physician Interior Design Professor 04/19/24
== END 2024-12-09 15:30 | disposition home or self-care (01) ==
LOC: CHSLAB 15:32
PROVIDERS: PCP Internal Medicine; Visit Provider Internal Medicine
DX: J06.9 Acute upper respiratory infection, unspecified (principal)
CPT/HCPCS: 87637

== ENCOUNTER 2025-05-22 14:49 | Outpatient (CLI) | payer MEDICARE, SELFPAY ==
--- NOTE | ~2025-05-22 | US_ITS ---
EXAMINATION: US scrotum doppler, 05/22/2025 14:56 CDT HISTORY: testicular pain and swelling Comparison: None Technique: Carrero-scale and color Doppler images were obtained of the testes with spectral analysis to document arterial and venous flow. Findings: Right Testicle:Right testicle 3.7 x 3.4 x 2.6 cm, normal parenchyma, normal flow. Right Epidiymis:Unremarkable. Normal flow. Left Testicle: Left testicle 3.2 x 2 x 1.6 cm, heterogeneous echotexture, no abnormal flow. Left Epidiymis: Unremarkable. Normal flow. Hydrocele: Large simple appearing right hydrocele. . Varicocele: None Scrotum: Unremarkable. No skin thickening. Impression: 1. Negative for torsion. 2. Nonspecific heterogeneity in the left testicle. Outpatient urology consult and follow-up recommended. 3. Large right simple appearing hydrocele Reviewed, dictated and finalized at location P. Impression: 1. Negative for torsion. 2. Nonspecific heterogeneity in the left testicle. Outpatient urology consult a nd follow-up recommended. 3. Large right simple appearing hydrocele
--- OUTSIDE RECORDS SUMMARY | 2025-05-22 14:52 | XMS_ITS | Encounter Summary ---
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 END[facility]CR[facility], [address] [address] Physician Cow Tender Physician Cow Tender 04/19/24 documented as of this encounter
--- OUTSIDE RECORDS SUMMARY | 2025-05-22 14:52 | XMS_ITS | Encounter Summary ---
Author Organization [facility] Address [address] [place] [address] Phone Care Team Providers Care Multiple Slide Operator Name Role Phone Tyrone Carvajal MD Primary Care Provider [phone] Hetal Regan MD Unavailable [phone] Jefferson Mora MD Unavailable [phone] Swathi Jimenez Unavailable [phone] Encounter Details Date Type Department Care Team (Late st Contact Info) Description 05/21/2025 Telephone [facility] Medicine Pulmonary [address] [facility] Advanced Medicine 8th [place] [address] [place] [address] Marion Bui, EDISON Social History Tobacco Use Types Packs/Day Years Used Date Smoking Tobacco: Every Day Cigarettes 1.5 50 Smokeless Tobacco: Never Comments:Smoking History Pac ks/day: 30 Cigarettes Alcohol Use Standard Drinks/Week Comments Yes 0 (1 standard drink = 0.6 oz pur e alcohol) [facility] Utilities Answer Date Recorded In the past 12 months has e electric, gas, oil, or water company threatened to shut off services in your home? No 02/23/2025 Social Connection and Isolation Panel Answer Date Recorded In a typical week, how many times do you talk on the phone with family, friends, or neighbors? Never 02/23/2025 How often do you get togethe r with friends or relatives? More than three times a week 02/23/2025 How often do you attend chur ch or shinto services? Never 02/23/2025 Do you belong to any clubs o r organizations such as rastafarian groups, unions, fraternal or athletic groups, or school groups? Yes 02/23/2025 How often do you attend meet ings of the clubs or organizations you belong to? Patient declined 02/23/2025 Are you , , di vorced, , never , or living with a partner? 02/23/2025 AUDIT-C Answer Date Recorded Q1: How often [...] like food, housing, medical care, and heating? Not hard at all 02/23/2025 PHQ-2 Answer Date Recorded Patient Health Questionnaire-2 Score 0 02/23/2025 [facility] - Occupational Stress Questionnaire Answer Date Recorded Do you feel stress - tense, restless, nervous, or anxious, or unable to sleep at night because your mind is troubled all the time - these days? Not at all 02/23/2025 Exercise Vital Sign Answer Date Recorde d On average, how many days pe r week do you engage in moderate to strenuous exercise (like a brisk walk)? 0 days 02/23/2025 On average, how many minutes do you engage in exercise at this level? 0 min 02/23/2025 Hunger Vital Sign Answer Date Recorded Within the past 12 months, y ou worried that your food would run out before you got the money to buy more. Never true 02/24/20 25 Within the past 12 months, t he food you bought just didn't last and you didn't have money to get more. Never true 02/23/2025 PRAPARE - Transportation Answer Date Re corded In the past 12 months, has l ack of transportation kept you from medical appointments or from getting medications? No 02/2025 In the past 12 months, has l ack of transportation kept you from meetings, work, or from getting things needed for daily living? No 02/23/2025 Housing Stability Vital Sign Answer Trip e Recorded In the last 12 months, was t here a time when you were not able to pay the mortgage or rent on time? No 02/23/2025 Number of Times Moved in the Last Year Not on fi le 02/23/2025 At any time in the past 12 m [facility], were you homeless or living in a long-term (including now)? No 02/23/2025 Personal Safety Answer Date Recorded Have you ever been in or are you currently in a harmful physical or emotional relationship or is someone making you feel afraid or unsafe? 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 Pt requested call later about 12:30 or can call pt's spouse. Emily GOMEZ will contact to assist with scheduling. documented in this encounter Plan of Treatment Not on file documented as of this encounter Visit Diagnoses Not on filedocumented in this encounter Care Teams Multiple Slide Operator Relationship Specialty Start Date End Date Tyrone Carvajal MD PCP - General Internal Medicine 11/06/19 Hetal Regan MD Referring Physician Endocrinology Diabetes & Metabolism 06/13/21 Jefferson Mora MD Consulting Physician Rheumatology 04/17/24 Swathi Jimenez PA [address] [facility] ENDOCRINOLOGY, [address] [address] Physician Bindery Machine Feeder Offbearer Physician Bindery Machine Feeder Offbearer 04/19/24 documented as of this encounter
--- OUTSIDE RECORDS SUMMARY | 2025-05-22 14:52 | XMS_ITS | Encounter Summary ---
Author Organization [facility] Address [address] [place] [address] Phone Care Team Providers Care Body Masker Name Role Phone Tyrone Carvajal MD Primary Care Provider [phone] Hetal Regan MD Unavailable Jefferson Mora MD Unavailable [phone] Swathi Jimenez Unavailable [phone] Encounter Details Date Type Department Care Team (Late st Contact Info) Description 05/21/2025 Telephone [facility] Medicine Pulmonary [address] [facility] Advanced Medicine 8th [place] [address] [place] [address] Emily Almonte CMA Social History Tobacco Use Types Packs/Day Years Used Date Smoking Tobacco: Every Day Cigarettes 1.5 50 Smokeless Tobacco: Never Comments:Smoking History Pac ks/day: 30 Cigarettes Alcohol Use Standard Drinks/Week Comments Yes 0 (1 standard drink = 0.6 oz pur e alcohol) [facility] Utilities Answer Date Recorded In the [...] often do you attend chur ch or restoration services? Never 02/23/2025 Do you belong to any clubs o r organizations such as muslim groups, unions, fraternal or athletic groups, or [...] Recorded Patient Health Questionnaire-2 Score 0 02/23/2025 [facility] - Occupational Stress [...] any time in the past 12 m [facility], were you homeless or living in a mcc (including now)? No 02/23/2025 Personal Safety Answer Date Recorded Have you ever been in or are you currently in a harmful physical or emotional relationship or is someone making you feel afraid or unsafe? 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 documented in this encounter Plan of Treatment Not on file documented as of this encounter Visit Diagnoses Not on filedocumented in this encounter Care Teams Body Masker Relationship Specialty Start Date End Date Tyrone Carvajal MD PCP - General Internal Medicine 11/06/19 Hetal Regan MD Referring Physician Endocrinology Diabetes & Metabolism 06/13/21 Jefferson Mora MD Consulting Physician Rheumatology 04/17/24 Swathi Jimenez PA [address] [facility] ENDOCRINOLOGY, [address] [address] Physician Dial Equipment Engineer Physician Dial Equipment Engineer 04/19/24 documented as of this encounter
--- OUTSIDE RECORDS SUMMARY | 2025-05-22 14:53 | XMS_ITS | Encounter Summary ---
Author Organization [facility] Healthcare Address [address] [place] [address] Care Team Providers Care Anesthesiologist Physician Name Role Phone Tyrone Carvajal MD Primary Care Provider [phone] Hetal Regan MD Unavailable Jefferson Mora MD Unavailable [phone] Swathi Jimenez Unavailable [phone] Encounter Details Date Type Department Care Team (Late st Contact Info) Description 04/13/2025 Results Follow-Up [facility] Emergency Department [address] [place] [id number] Asim Yo RN CBC without differential, aPTT, Hemoglobin A1c, Additional followed-up results: 4 Social History Tobacco Use Types Packs/Day Years Used Date Smoking Tobacco: Heavy Smoker Cigarettes 1.5 50 Smokeless Tobacco: Never Comments:Smoking History Pac ks/day: 30 Cigarettes Alcohol Use Standard Drinks/Week Comments Yes 0 (1 standard drink = 0.6 oz pur e alcohol) [facility] Utilities Answer Date Recorded In the [...] often do you attend chur ch or voodoo services? Never 02/23/2025 Do you belong to any clubs o r organizations such as uatsdin groups, unions, fraternal or athletic groups, or [...] Recorded Patient Health Questionnaire-2 Score 0 02/23/2025 [facility] - Occupational [...] any time in the past 12 m [facility], were you homeless or living in a snf (including now)? No 02/23/2025 Personal Safety Answer Date Recorded Have you ever been in or are you currently in a harmful physical or emotional relationship or is someone making you feel afraid or unsafe? 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 Not on file documented as of this encounter Plan of Treatment Not on file documented as of this encounter Visit Diagnoses Not on filedocumented in this encounter Care Teams Anesthesiologist Physician Relationship Specialty Start Date End Date Tyrone Carvajal MD PCP - General Internal Medicine 11/06/19 Hetal Regan MD Referring Physician Endocrinology Diabetes & Metabolism 06/13/21 Jefferson Mora MD Consulting Physician Rheumatology 04/17/24 Swathi Jimenez PA [address] [facility] [address] ENDOCRINOLOGY, [address] [address] Physician Floor Coverings Salesperson Physician Floor Coverings Salesperson 04/19/24 documented as of this encounter
--- OUTSIDE RECORDS SUMMARY | 2025-05-22 14:53 | XMS_ITS | Clinical Summary ---
Author Organization [facility] Address [address] [place] [address] Care Team Providers Care Entry Level Accountant Name Role Phone Tyrone Carvajal MD Primary Care Provider [phone] Hetal Regan MD Unavailable Jefferson Mora MD Unavailable [phone] Swathi Jimenez Unavailable [phone] Allergies Active Allergy Reactions Criticality Noted Date Comments Penicillins Other (See comments),Nausea & Vomiting Medium 06/06/2021 Reported as unknown. Tolerated cefepime during 09/2024 [...] 2 (two) times a day 022 Active empagliflozin-met formin (Synjardy XR) 25-1,000 mg tablet, IR & ER, biphasic 24hrIndications:T ype 2 diabetes mellitus with hyperglycemia, with long-term current use of insulin (HCC) Take 1 tablet by mouth daily 90 tablet 3 024 Active pen needle, diabetic (BD Charu 2nd Gen Pen Needle) 32 gauge x 5/32 needleIndications :Type 2 diabetes mellitus with hyperglycemia, with long-term current use of insulin ([facility]) Use to inject insulin up to 4 times daily. 200 each 11 024 Active cyclobenzaprine (FLEXERIL) 10 mg tabletIndications :Muscle Spasm Take 1 tablet (10 mg total) by mouth nightly Active pravastatin (PRAVACHOL) 40 mg tabletIndications :hyperlipidemia Take 1 tablet (40 mg total) by mouth nightly Active blood-glucose sensor (FreeStyle Stacy 3 Plus Sensor) deviceIndications :Type 2 diabetes mellitus with hyperglycemia, without long-term current use of insulin ([facility]) Change sensor every 15 days 2 each 025 Active semaglutide (Ozempic) 0.25 mg or 0.5 mg(2 mg/1.5 mL) pen injector injectionIndicati ons:type 2 diabetes mellitus Inject 0.25 mg under the skin once a week 2 mL 6 025 Active folic acid (FOLVITE) 1 mg tablet Take 3 tablets (3 mg total) by mouth daily 90 tablet 5 025 2024 Active hydroxychloroquin e (PLAQUENIL) 200 mg tablet Take 1 tablet (200 mg total) by mouth daily 30 tablet 5 025 2025 Active methotrexate 2.5 mg tabletIndications :Rheumatoid Arthritis Take 8 tablets (20 mg total) by mouth once a week 32 tablet 3 025 2024 Active clopidogreL (PLAVIX) 75 mg tablet Take 1 tablet (75 mg total) by mouth daily 30 tablet 11 025 2025 Active ondansetron ODT (ZOFRAN-ODT) 4 mg disintegrating tablet DISSOLVE ONE TABLET ON THE TONGUE TWICE A DAY NEEDED FOR NAUSEA 20 tablet [address] (PROTONIX) 40 mg EC tablet 025 Active meloxicam (MOBIC) 7.5 mg tablet Take 1 tablet (7.5 mg total) by mouth daily 30 tablet 11 025 2025 Active prednisoLONE acetate (PRED FORTE) 1 % ophthalmic suspension Active insulin glargine 100 unit/mL (3 mL) pen for injectionIndicati ons:Type 2 diabetes mellitus with hyperglycemia, with long-term current use of insulin ([facility]) INJECT 13 UNITS SUBCUTANEOUSLY DAILY BEDTIME Active pu-pcp-wgyyr-K1-l ycopen-lutein 235-47-755-300 mcg tablet Take 1 tablet by mouth daily Active ezetimibe (ZETIA) 10 mg tabletIndications :Type 2 diabetes mellitus with hyperglycemia, with long-term current use of insulin ([facility]),Hyperlipide tessie associated with type 2 diabetes mellitus ([facility]) TAKE ONE TABLET BY MOUTH DAILY 90 tablet 3 025 Active ezetimibe (ZETIA) 10 mg tabletIndications :Type 2 diabetes mellitus with hyperglycemia, with long-term current use of insulin ([facility]),Hyperlipide tessie associated with type 2 diabetes mellitus (HCC) Take 1 tablet (10 mg total) by mouth daily 90 tablet 3 024 2024 Discontinued insulin glargine 100 unit/mL (3 mL) pen for injectionIndicati ons:Type 2 diabetes mellitus with hyperglycemia, with long-term current use of insulin ([facility]) INJECT 15 UNITS SUBCUTANEOUSLY DAILY 15 mL 3 025 2024 Discontinued Active Problems Problem Noted Date Diagnosed Date ILD (interstitial lung disease) 05/08/2025 Postop check 04/12/2025 Pain of left lower extremity 04/12/2025 Assessment & Plan (04/13/2025 12:47 PM CDT): Stenosis of the left external iliac, Bilateral lower extremity claudication S/p Rt SFA stent 04/01/25 & left SFA stent 04/09/25 CTA AP 04/12/25 compared to 03/11/2025 showed interval placement of Rt SFA stent, Lt EIA stent, both patent, mild to mod stenosis of RLE arteries IR consulted in ED, and planning angio 04/13/25 in AM Plan S/p Lt LE angio by IR 04/13/25 Discharge by IR Continue ASA, Plavix Continue pravastatin, ezetimibe Pain controled as only during walking Assessment & Plan (04/12/2025 1:29 PM CDT): Stenosis of the left external iliac, Bilateral lower extremity claudication S/p Rt SFA stent 04/01/25 & left SFA stent 04/09/25 CTA AP 04/12/25 compared to 03/11/2025 showed interval placement of Rt SFA stent, Lt EIA stent, both patent, mild to mod stenosis of RLE arteries IR consulted in ED, and planning angio 04/13/25 in AM Plan Planned for Lt LE angio by IR 04/13/25, NPO midnight Continue heparin drip Continue ASA, Plavix, Continue pravastatin, ezetimibe Pain controled as only during walking PAD (peripheral artery disease) 04/12/2025 Assessment & Plan (04/13/2025 12:47 PM CDT): Stenosis of the left external iliac, Bilateral lower extremity claudication S/p Rt SFA stent 04/01/25 & left SFA stent 04/09/25 CTA AP 04/12/25 compared to 03/11/2025 showed interval placement of Rt SFA stent, Lt EIA stent, both patent, mild to mod stenosis of RLE arteries IR consulted in ED, and planning angio 04/13/25 in AM Plan S/p Lt LE angio by IR 04/13/25 Discharge by IR Continue ASA, Plavix Continue pravastatin, ezetimibe Pain controled as only during walking Assessment & Plan (04/12/2025 1:29 PM CDT): Stenosis of the left external iliac, Bilateral lower extremity claudication S/p Rt SFA stent 04/01/25 & left SFA stent 04/09/25 CTA AP 04/12/25 compared to 03/11/2025 showed interval placement of Rt SFA stent, Lt EIA stent, both patent, mild to mod stenosis of RLE arteries IR consulted in ED, and planning angio 04/13/25 in AM Plan Planned for Lt LE angio by IR 04/13/25, NPO midnight Continue heparin drip Continue ASA, Plavix, Continue pravastatin, ezetimibe Pain controled as only during walking Seronegative rheumatoid arthritis 04/12/2025 Assessment & Plan (04/13/2025 12:47 PM CDT): On home methotrexate, resumed Assessment & Plan (04/12/2025 12:11 PM CDT): On home methotrexate, resumed Olecranon bursitis of left elbow 09/15/2024 Assessment & Plan (10/23/2024 9:56 AM 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): Now s/p L olecranon bursectomy and I&D [...] concerns. Assessment & Plan (10/06/2024 2:15 PM 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): Chidi Eldridge is a 69yr old male with a PMH of DM-2, RA (not on immunosuppressive therapy), HTN, Dyslipidemia, was admitted to [facility] for management of chronic olecranon bursitis. [...] 08/04/2024 Assessment & Plan (08/04/2024 9:56 AM 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): - Potassium 5.7 on recent CMP (07/18/2024). - PCP recommended to avoid high potassium foods. Patient endorses leg cramps. - Advised to increase hydration of sugar-free fluids. Will send note to PCP with recommendation to decrease losartan to 50 mg daily and repeat renal function to see if hyperkalemia resolves. Microalbuminuria 05/12/2022 Assessment & Plan (02/02/2025 9:49 AM CDT): - Need to repeat UACR with next labs - Continue losartan and Synjardy XR - Need to optimize glycemic and blood pressure control Assessment & Plan (08/04/2024 9:57 AM 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): - Recent UA negative for protein, this [...] diabetes gaby ardon 06/13/2018 Assessment & Plan (04/13/2025 12:47 PM CDT): Continue pravastatin, ezetimibe Assessment & Plan (04/12/2025 12:11 PM CDT): Continue pravastatin, ezetimibe Assessment & Plan (02/02/2025 9:47 AM CDT): - Last LDL 72, TG 85 (09/2024), last LDL just above goal - Continue pravastatin 40 mg and Zetia 10 mg daily - Continue to optimize glycemic control Assessment & Plan (11/09/2024 4:01 PM CDT): Continue statin, optimize glycemic control. Assessment & Plan (08/04/2024 9:58 AM 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): - Last LDL 127, TG 171 (06/2024), above goal - He has been out of Pravastatin for awhile - has been struggling to get refills (?) - Re-start pravastatin 80 mg daily and continue Zetia 10 mg daily. Refills sent. Assessment & Plan (12/27/2021 12:10 PM CDT): Continue statin therapy and optimize glycemic control. Assessment & Plan (09/15/2021 5:01 PM 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): Continue statin therapy and optimize glycemic control. [...] week Assessment & Plan (08/11/2020 11:05 AM 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): Continue pravastatin and focus on low fat [...] therapy Assessment & Plan (08/24/2018 6:43 PM 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): Continue statin therapy Assessment & Plan (06/13/2018 [...] Overview (11/22/2016): PURE HYPERCHOLESTEROLEM Assessment & Plan (05/10/2025 7:53 PM CDT): Continue statin, ezetimibe andoptimize glycemic control. Assessment & Plan (04/19/2024 9:17 PM CDT): [...] mg/dL Assessment & Plan (10/20/2023 9:33 PM 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): Continue statin, optimize glycemic control. Assessment & Plan (03/14/2023 8:34 PM CDT): Continue statin, optimize glycemic control. Assessment & Plan (03/23/2022 9:48 AM CDT): Continue statin, optimize glycemic control. Recheck levels. Assessment & Plan (02/14/2018 10:50 AM CDT): Advised to have lipid panel done Assessment & Plan (11/01/2017 1:18 PM CDT): Will get lipid panel Assessment & Plan (07/10/2017 12:19 PM 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): Goal of treatment , LDL cholesterol less [...] Type 2 diabetes mellitus wit h hyperglycemia, with long-term current use of insulin 01/03/2014 Overview (06/15/2021): Dx 2010 Assessment & Plan (05/10/2025 7:53 PM CDT): Overall improving. Recent changes in weight, activity and need to see how things stabilize before changing his regimen. Assessment & Plan (04/13/2025 12:47 PM CDT): A1C 8.2 on 02/02/2025 On home insulin glargin 15, ozempic, empagliflozin-metformin Plan Restart all other meds on discharge Follow with the PCP Assessment & Plan (04/12/2025 1:29 PM CDT): A1C 8.2 on 02/02/2025 On home insulin glargin 15, ozempic, empagliflozin-metformin Plan Inpatient insulin protocol, SSi Restart all other meds on discharge Assessment & Plan (02/02/2025 9:48 AM CDT): - Diabetes is complicated by albuminuria, hypertension, hyperlipidemia and other co-morbidities. Control is above goal. GMI of 6.9% is reassuring of improvement. Lab Results Component Value Date HGBA1C 8.2 (A) 02/02/2025 Per [place] [employer], goal A1c is less 7.5% without significant hypoglycemia. - Management Goal: A1c <7.5% - Continue Synjardy and Ozempic 0.25 mg once weekly - Continue basaglar 15 units daily - Discussed various lifestyle recommendations including diet and exercise today. - Continue management with Stacy 3 CGM. - Advised annual dilated eye exam - DUE. - Advised checking blood glucose before driving - Discussed hypoglycemia risk, and treatment such as the rule of 15s - Annual labs are up to date. - Update me on consistent glycemia excursions or if there is any hypoglycemia. - Advised and ensured that I am available via phone or prolliehart if they have any concerns for hypo/hyperglycemia, medication refills, etc. Assessment & Plan (11/09/2024 4:00 PM CDT): Markedly higher glucoses with meals, but multifactorial. Would first restart Ozempic but may well need other medication adjustments. Has poor appetite so need to minimize risk of hypoglycemia. Assessment & Plan (08/04/2024 9:54 AM 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): - Diabetes is complicated by microalbuminuria, hyperlipidemia, hypertension and other co-morbidities. Fairly well controlled - with today's GMI of 7.1%. Lab Results Component Value Date HGBA1C 7.4 01/16/2024 Per [place] [employer], goal A1c is less 7% [...] etc. Assessment & Plan (10/20/2023 9:35 PM 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): His Stacy device does not consistently match [...] daily. Assessment & Plan (10/17/2021 1:55 PM 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): FreeStyle Stacy report was reviewed today and [...] daily. Assessment & Plan (09/15/2021 5:10 PM 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): Hemoglobin A1c has increased to 9.8%. Continue [...] BG. Assessment & Plan (08/11/2020 11:04 AM 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): A1c worsening at 9.5. Poor compliance with [...] misconceptions. Assessment & Plan (08/22/2018 11:21 AM 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): Continue same medication. Advised that glimepiride may [...] Rodolfo Assessment & Plan (07/10/2017 12:19 PM 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): Hba1c was 8.3 today, indicating worsening DM [...] discused. Prevention and treatment of hyypoglcyemia discussed. HTN (hypertension), benign 07/16/2012 Overview (11/24/2016): Hypertension, Unspecified Assessment & Plan (04/13/2025 12:47 PM CDT): Controlled On home losartan 100, resumed Assessment & Plan (04/12/2025 12:11 PM CDT): Controlled On home losartan 100, resumed Assessment & Plan (02/02/2025 9:46 AM CDT): - Above goal today - Continue current management. Will continue to monitor. - Consider increasing and/or adding another medication to further reduce blood pressure to goal <130/80 mmHg Assessment & Plan (08/04/2024 9:56 AM 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): - At goal today - Recommend to [...] plan. Assessment & Plan (08/11/2020 11:05 AM 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): Controlled on current medications. Continue plan. Assessment [...] medications. Assessment & Plan (08/24/2018 6:41 PM 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): Controlled on current medications. Assessment & Plan (06/13/2018 9:56 AM CDT): Goal blood pressure is less than 140/85 Low salt diet recommended Daily aerobic exercise Continue current meds, including TARA-I or ARB Assessment & Plan (02/14/2018 10:50 AM CDT): Controlled on current medications. Assessment & Plan (11/01/2017 1:18 PM CDT): Controlled on current medications. Assessment & Plan (07/10/2017 12:19 PM 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): Goal blood pressure is less than 140/85 Low salt diet recommended Daily aerobic exercise Continue current meds, including TARA-I or ARB Assessment & Plan (03/01/2017 10:17 AM CDT): Goal blood pressure is less than 140/85 Low salt diet recommended Daily aerobic exercise Continue current meds, including TARA-I or ARB Check BMP, microalbumin Encounters Date Type Department Care Team Description 05/21/2025 Telephone [facility] Pulmonary [facility] [address] [place] [address] [place] [address] Emily Almonte CMA 05/21/2025 Telephone [facility] Pulmonary [address] [place] [address] [place] [address] Marion Bui RN 05/19/2025 11:00 AM CDT Office Visit [facility] Radiology, Interventional Radiology [address] [facility] [address] [place] [address] Tami Guzmán PA PAD (peripheral artery disease) (Primary Dx); S/P peripheral artery angioplasty with stent placement; Tobacco dependence; Atherosclerosis of inaja arteries of extremities with intermittent claudication, bilateral legs 05/19/2025 8:45 AM CDT Ancillary Procedure [facility] Medicine Vascular Lab at the [address] [place] [address] [place] [address] Atherosclerosis of inaja arteries of extremities with intermittent claudication, bilateral legs 05/19/2025 8:00 AM CDT Ancillary Procedure [facility] Medicine Vascular Lab at the [address] [place] [address] [place] [address] Atherosclerosis of inaja arteries of extremities with intermittent claudication, bilateral legs 05/19/2025 Telephone [facility] Medicine Pulmonary [address] [facility] Medicine 8th [place] [address] [place] [address] Marion Bui, EDISON 05/18/2025 10:54 AM CDT - 05/18/2025 11:59 PM CDT Hospital Encounter [facility] [address] [place] [address] Discharge Disposition: Discharge to home or self care 05/18/2025 Telephone [facility] Medicine Pulmonary [address] [facility] [address] [place] [address] [place] [address] Ayala Khan RN 05/18/2025 Telephone [facility] Medicine Pulmonary [address] [place] [address] [place] [address] [place] [address] Emily Almonte CMA 05/08/2025 11:40 AM CDT Lab [facility] [address] [place] [phone] ILD (interstitial lung disease) (HCC); Seronegative rheumatoid arthritis (HCC); PAD (peripheral artery disease); HTN (hypertension), benign; Type 2 diabetes mellitus with hyperglycemia, with long-term current use of insulin (HCC) 05/08/2025 10:07 AM CDT - 05/08/2025 11:59 PM CDT Hospital Encounter [facility] Radiology [facility] [address] [place] [address] Arnulfo Olmos MD ILD (interstitial lung disease) (HCC); Seronegative rheumatoid arthritis (HCC); PAD (peripheral artery disease); HTN (hypertension), benign; Type 2 diabetes mellitus with hyperglycemia, with long-term current use of insulin ([facility]) Discharge Disposition: Discharge to home or self care 05/08/2025 9:15 AM CDT [facility] [address] [facility] [place] Medicine 8th [place] [address] [place] [address] Arnulfo Olmos MD ILD (interstitial lung disease) (HCC) (Primary Dx); Seronegative rheumatoid arthritis (HCC); PAD (peripheral artery disease); HTN (hypertension), benign; Type 2 diabetes mellitus with hyperglycemia, with long-term current use of insulin (HCC) 05/08/2025 8:36 AM CDT - 05/08/2025 11:59 PM CDT Hospital Encounter [facility] Radiology [facility] [address] [place] [address] ILD (interstitial lung disease) (HCC) Discharge Disposition: Discharge to home or self care 05/08/2025 7:12 AM CDT - 05/08/2025 11:59 PM CDT Hospital Encounter [facility] Medicine Pulmonary [address] [facility] [address] [place] [address] ILD (interstitial lung disease) (HCC) Discharge Disposition: Discharge to home or self care 05/07/2025 2:00 PM CDT Telemedicine [facility] Endocrinology Metabolism and Lipid [address] [facility] [place] Medicine 13th [place] [address] [place] [address] Hetal Regan MD Type 2 diabetes mellitus with hyperglycemia, with long-term current use of insulin (HCC) (Primary Dx); Pure hypercholesterolemia 04/23/2025 Telephone [facility] Radiology [address] [place] [address] Gwen Vital, RN 04/22/2025 Telephone [facility] Radiology 1 [place] [address] Gwen Vital, RN 04/22/2025 Orders Only [facility] Radiology [address] [place] [address] Gwen Vital, RN Atherosclerosis of inaja arteries of extremities with intermittent claudication, bilateral legs (Primary Dx) 04/14/2025 Orders Only [facility] Medicine Scheduling [address] [place] [address] Arnulfo Olmos MD ILD (interstitial lung disease) (HCC) (Primary Dx) 04/13/2025 Results Follow-Up [facility] Emergency Department 1 [place] [address] Asim Yo RN CBC without differential, aPTT, Hemoglobin A1c, Additional followed-up results: 4 04/12/2025 2:00 AM CDT - 04/13/2025 3:31 PM CDT Emergency [facility] Emergency Department [address] [place] [address] Darrick Hicks MD Ahsan, Salman, MD Martin, Nathan R., MD Farrag, Briseida Jacob MD Pain of left lower extremity (Primary Dx); Postop check Discharge Disposition: Discharge to home or self care 04/11/2025 Telephone Radiology [address] [place] [address] Handy Pablo MD 04/09/2025 6:11 AM CDT - 04/09/2025 11:59 PM CDT Hospital Encounter [facility] Radiology [facility] [address] [place] [address] Phong Adler MD Atherosclerosis of inaja artery of left lower extremity with other clinical manifestation; PAD (peripheral artery disease); Atherosclerosis of inaja artery of left lower extremity with rest pain (HCC) Discharge Disposition: Discharge to home or self care 04/08/2025 7:55 PM CDT Lab [facility] ([facility]) [address] [place] [phone] Seronegative rheumatoid arthritis (HCC); High risk medication use 04/08/2025 4:00 PM CDT [facility] [address] [place] [address] Medicine 5th [place] [address] [place] [address] Vilma Kimble MD Seronegative rheumatoid arthritis (HCC) (Primary Dx); High risk medication use; ILD (interstitial lung disease) (HCC); PAD (peripheral artery disease); Positive NHUNG (antinuclear antibody); Osteoarthritis, unspecified osteoarthritis type, unspecified site 04/06/2025 Telephone [facility] Radiology 1 [place] [address] Camila Regalado RN 04/01/2025 5:45 AM CDT - 04/01/2025 11:59 PM CDT Hospital Encounter [facility] Radiology [address] [place] [address] Phong Adler MD Atherosclerosis of inaja artery of left lower extremity with other clinical manifestation; PAD (peripheral artery disease); Atherosclerosis of inaja artery of right leg with rest pain (HCC) Discharge Disposition: Discharge to home or self care 03/27/2025 Telephone [facility] Radiology [address] [place] [address] Erica Gallegos RN 03/19/2025 Telephone [facility] Medicine Scheduling [address] [place] [address] Swathi Jimenez PA Prior Auth (Lantus) 03/17/2025 1:18 PM CDT - 03/17/2025 11:59 PM CDT Hospital Encounter [facility] Radiology [facility] [address] [place] [address] Discharge Disposition: Discharge to home or self care 03/17/2025 Telephone [facility] Radiology [address] [place] [address] Gwen Vital, EDISON 03/16/2025 3:00 PM CDT Telemedicine [facility] Radiology, Interventional Radiology [address] [facility] [address] [place] [address] Phong Adler MD Pure hypercholesterolemia (Primary Dx); Hyperlipidemia associated with type 2 diabetes mellitus (HCC); Hypertension associated with diabetes (HCC); PAD (peripheral artery disease); Seronegative rheumatoid arthritis (HCC) 03/12/2025 Orders Only [facility] Radiology [address] [place] [address] Gwen Vital, RN 03/12/2025 Telephone [facility] Medicine Rheumatology [address] [place] [address] for Advanced Medicine 5th [place] [address] [place] [address] Vilma Kimble MD 03/12/2025 Telephone [facility] Radiology [address] [place] [address] Gwen Vital, EDISON 03/12/2025 Telephone [facility] Radiology [address] [place] [address] Gwen Vital, EDISON 03/12/2025 Orders Only [facility] Medicine Rheumatology [address] [facility] Medicine 5th [place] [address] Vilma Kimble MD ILD (interstitial lung disease) (HCC) (Primary Dx) 03/11/2025 10:31 AM CDT - 03/11/2025 11:59 PM CDT Hospital Encounter [facility] Radiology [facility] [address] [place] [address] Vilma Kimble MD Claudication Discharge Disposition: Discharge to home or self care 03/11/2025 [facility] [address] [place] [address] 5th [place] [phone] Vilma Kimble MD PAD (peripheral artery disease) (Primary Dx) 02/23/2025 12:13 PM CDT - 02/23/2025 11:59 PM CDT Hospital Encounter [address] [address] Seronegative rheumatoid arthritis (HCC); High risk medication use Discharge Disposition: Discharge to home or self care 02/23/2025 12:00 PM CDT Lab [facility] Medicine Infectious Diseases [address] [facility] [address] [place] [phone] 02/23/2025 11:00 AM CDT Office Visit [facility] Medicine Rheumatology [address] [facility] [address] [place] [id number] Vilma Kimble MD Seronegative rheumatoid arthritis (HCC) (Primary Dx); High risk medication use; Claudication; Osteoarthritis, unspecified osteoarthritis type, unspecified site; Smoking addiction; PAD (peripheral artery disease) from Last 3 Months Surgical History Surgery Date Site/Laterality Comments COLONOSCOPY 06/06/2021 Medical History Medical History Date Comments Type 2 diabetes mellitus Diabete s type 2 Arthritis ? Infection 2-3 weeks Hypertension Family History Medical History Relation Name Comments [...] Day Cigarettes 1.5 50 Smokeless Tobacco: Never Tobacco Cessation:Ready to Q uit: Yes; Counseling Given: No Comments:Smoking History Packs/day: 30 Cigarettes Alcohol Use Standard Drinks/Week Comments Yes 0 (1 standard drink = 0.6 oz pur e alcohol) [facility] Utilities Answer Date Recorded In the past 12 months has [employer], gas, oil, or water G3 threatened to shut off services in your home? No 02/23/2025 Social Connection and Isolation Panel Answer Date Recorded In a typical week, how many times do you talk on the phone with family, friends, or neighbors? Never 02/23/2025 How often do you get togethe r with friends or relatives? More than three times a week 02/23/2025 How often do you attend [facility] or faith services? Never 02/23/2025 Do you belong to any clubs o r organizations such as methodist groups, unions, fraternal or athletic groups, or [...] Recorded Patient Health Questionnaire-2 Score 0 02/23/2025 [facility] - Occupational Stress Questionnaire Answer Date Recorded [...] any time in the past 12 m [facility], were you homeless or living in a skilled nursing (including now)? No 02/23/2025 Personal Safety Answer Date Recorded Have you ever been in or are you currently in a harmful physical or emotional relationship or is someone making you feel afraid or unsafe? 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 Not on file Not on file Obstetrics History Last Filed Vital Signs Vital Sign Reading Time Taken Comments Blood Pressure 157/70 05/19/2025 10:34 AM CDT Pulse 76 05/19/2025 10:34 AM CDT Temperature 36.5 C (97.7 F) 05/19/2025 10:34 AM CDT Respiratory Rate 18 05/08/2025 8:52 AM CDT Oxygen Saturation 99% 05/19/2025 10:34 AM CDT Inhaled Oxygen Concentration - - Weight 68 kg (150 lb) 05/19/2025 10:34 AM CDT Height 182.9 cm (6') 05/19/2025 10:34 AM CDT Body Mass Index 20.34 05/19/2025 10:34 AM CDT Plan of Treatment Health Maintenance Due Date Last Done Comments Colon Cancer Screening-Colonoscopy 1955 Dilated Eye Exam 1955 DTaP/Tdap/Td Vaccine (1 - Tdap) 01/08/1964 Pneumococcal vaccine 65+ (1 of 2 - PCV) 01/08/1972 Zoster Vaccine (1 of 2) 01/08/1972 Lung Cancer Screening 2003 Well Visit 65+ 2018 Foot Exam 03/06/2020 03/06/2019, 06/13/2018 Albumin Creatinine Ratio, Urine 10/16/2023 , 02/23/2021 Covid-19 Vaccine (5 - 2024-2 6 season) 2025 01/20/2022, 07/05/2021, 10/29/2020, Additional history exists Influenza Vaccine (#1) 2025 Lipid Panel 10/02/2025 10/02/2024, 09/21, 02/23/2021, Additional history exists Hemoglobin A1C 10/13/2025 04/12/2025, 01/18, 10/03/2024, Additional history exists Depression Screening 02/23/2026 02/23/2025, 12/01/2024, 05/13/2020, Additional history exists eGFR 04/12/2026 04/12/2025, 03/21, 04/08/2025, Additional history exists Fall Risk Assessment 04/13/2026 04/13/2025 Hepatitis B Screening Completed 12/01/2024 Hepatitis C Screening Completed 12/01/2024 Abdominal Aortic Aneurysm (A AA) Screen Completed 04/12/2025, 03/11/2025 Medical Devices Implanted Type Area Director Of Kids Device Identifier Shelf Expiration Date Model / Serial / Lot [employer] Stent Peripheral Over The Wire Zilver Ptx [id number] Nitinol [id number] - [id number] Implanted:Qty: 1 on 04/01/[address] [facility] [employer] 12/09/2026 [id number] / / [id number] [employer] Kit Clip Closure 6fr Celt Acd Vasc Implant Strl Plus Device Clt-06 - [id number] Implanted:Qty: 1 on 04/01/[address] [facility] [employer] 10/20/2027 CLT-06 / / [id number] SvitStyle Angio-Seal Vip 6fr Closere Device [id number] - [id number] Implanted:Qty: 1 on 04/09/2025 at [facility] [employer] 11/17/2025 [id number] / / [id number] Point Blank Range Stent Peripheral Over The Wire Zilver Ptx [id number] m Nitinol [id number] - [id number] Implanted:Qty: 1 on 04/09/2025 by Phong Adler MD at [facility] [employer] 12/19/2026 [id number] / / [id number] Activaero Peripheral Vascular Lifestar 10mm 80mm 80cm Stent Biliary [id number] - [id number] Implanted:Qty: 1 on 04/13/2025 by Jefferson Veronica MD at [facility] [employer] 01/21/2027 [id number] / / [id number] Ter[employer] Angio-Seal Vip 6fr Closere Device [id number] - [id number] Implanted:Qty: 1 on 04/13/[facility]/17/2025 [id number] / / [id number] Procedures Procedure Name Priority Date/Time Associated Diagnosis Comments US DUPLEX SCAN OF AORTA: INFERIOR VENA CAVA, ILIAC, LIMITED OR UNILATERAL Schedule Routine, Read Routine (OP Routine) 05/19/2025 10:30 AM CDT Atherosclerosis of inaja arteries of extremities with intermittent claudication, bilateral legs VL US ARTERIAL DUPLEX LOWER EXTREMITY BILATERAL Schedule Routine, Read Routine (OP Routine) 05/19/2025 10:30 AM CDT Atherosclerosis of inaja arteries of extremities with intermittent claudication, bilateral legs US KRYSTINA Schedule Routine, Read Routine (OP Routine) 05/19/2025 10:30 AM CDT Atherosclerosis of inaja arteries of extremities with intermittent claudication, bilateral legs CT BODY OUTSIDE REFERENCE Routine 05/18/2025 10:[address] CHEST HIGH RESOLUTION WO CONTRAST Routine 05/08/2025 11:20 AM CDT ILD (interstitial lung disease) (HCC) Seronegative rheumatoid arthritis (HCC) PAD (peripheral artery disease) HTN (hypertension), benign Type 2 diabetes mellitus with hyperglycemia, with long-term current use of insulin ([facility]) ANTI-NEUTROPHILIC CYTOPLASMIC ANTIBODY (ANCA) WITH REFLEX TO MPO AND PR3 ABS Routine 05/08/2025 10:19 AM CDT ILD (interstitial lung disease) (HCC) Seronegative rheumatoid arthritis (HCC) PAD (peripheral artery disease) HTN (hypertension), benign Type 2 diabetes mellitus with hyperglycemia, with long-term current use of insulin ([facility]) MYELOPEROXIDASE ANTIBODY Routine 05/08/2025 10:19 AM CDT ILD (interstitial lung disease) (HCC) Seronegative rheumatoid arthritis (HCC) PAD (peripheral artery disease) HTN (hypertension), benign Type 2 diabetes mellitus with hyperglycemia, with long-term current use of insulin ([facility]) PROTEINASE-3 ANTIBODY Routine 05/08/2025 10:19 AM CDT ILD (interstitial lung disease) (HCC) Seronegative rheumatoid arthritis (HCC) PAD (peripheral artery disease) HTN (hypertension), benign Type 2 diabetes mellitus with hyperglycemia, with long-term current use of insulin (HCC) XR CHEST PA LATERAL 2 VIEWS Schedule Routine, Read Routine (OP Routine) 05/08/2025 8:42 AM CDT ILD (interstitial lung disease) (HCC) PULMONARY FUNCTION TEST (PFT) Routine 05/08/2025 8:28 AM CDT ILD (interstitial lung disease) (HCC) ANGIOGRAM LOWER EXTREMITY LEFT ED Urgent/IP Urgent 04/13/2025 9:53 AM CDT POCT ACTIVATED CLOTTING TIME, LOW RANGE Routine 04/13/2025 9:18 AM CDT APTT STAT 04/13/2025 4:32 AM CDT APTT STAT 04/12/2025 10:11 PM CDT POCT GLUCOSE DEVICE Routine 04/12/2025 8 :30 PM CDT POCT GLUCOSE DEVICE Routine 04/12/2025 6 :17 PM CDT HEMOGLOBIN A1C STAT 04/12/2025 2:39 PM CDT APTT STAT 04/12/2025 2:39 PM CDT CBC WITHOUT DIFFERENTIAL STAT 04/12/2025 2:39 PM CDT PROTIME-INR STAT 04/12/2025 2:39 PM CDT POCT GLUCOSE DEVICE Routine 04/12/2025 1 :01 PM CDT POCT GLUCOSE DEVICE Routine 04/12/2025 8 :09 AM CDT POCT GLUCOSE DEVICE Routine 04/12/2025 5 :35 AM CDT EGFR STAT 04/12/2025 5:32 AM CDT COMPREHENSIVE METABOLIC PANEL STAT 04/12/2025 5:32 AM CDT CBC WITHOUT DIFFERENTIAL STAT 04/12/2025 5:31 AM CDT PROTIME-INR STAT 04/12/2025 5:31 AM CDT APTT STAT 04/12/2025 5:31 AM CDT CTA ABDOMINAL AORTA AND BILATERAL ILIOFEMORAL RUNOFF ED 04/12/2025 4:52 AM CDT EGFR STAT 04/12/2025 4:19 AM CDT COMPREHENSIVE METABOLIC PANEL STAT 04/12/2025 4:19 AM CDT B CHECK SAMPLE STAT 04/12/2025 4:19 AM CDT DIFFERENTIAL AUTO STAT 04/12/2025 2:3 1 AM CDT CBC WITH AUTO DIFFERENTIAL STAT 04/12/2025 2:31 AM CDT TYPE AND SCREEN STAT 04/12/2025 2:31 AM CDT POCT GLUCOSE DEVICE Routine 04/12/2025 12:58 AM CDT POCT KETONE, BLOOD Routine 04/11/2025 9: 55 PM CDT POCT GLUCOSE DEVICE Routine 04/11/2025 9 :55 PM CDT ANGIOGRAM LOWER EXTREMITY LEFT Schedule Routine, Read Routine (OP Routine) 04/09/2025 9:51 AM CDT Atherosclerosis of inaja artery of left lower extremity with other clinical manifestation PAD (peripheral artery disease) Atherosclerosis of inaja artery of left lower extremity with rest pain (HCC) POCT ACTIVATED CLOTTING TIME, LOW RANGE Routine 04/09/2025 9:17 AM CDT EGFR Routine 04/08/2025 5:15 PM CDT Seronegative rheumatoid arthritis (HCC) High risk medication use DIFFERENTIAL AUTO Routine 04/08/2025 5:1 5 PM CDT Seronegative rheumatoid arthritis (HCC) High risk medication use CBC WITH AUTO DIFFERENTIAL Routine 04/08/2025 5:15 PM CDT Seronegative rheumatoid arthritis (HCC) High risk medication use COMPREHENSIVE METABOLIC PANEL Routine 04/08/2025 5:15 PM CDT Seronegative rheumatoid arthritis (HCC) High risk medication use POCT ACTIVATED CLOTTING TIME, LOW RANGE Routine 04/01/2025 10:14 AM CDT ANGIOGRAM LOWER EXTREMITY RIGHT Schedule Routine, Read Routine (OP Routine) 04/01/2025 10:00 AM CDT Atherosclerosis of inaja artery of left lower extremity with other clinical manifestation PAD (peripheral artery disease) Atherosclerosis of inaja artery of right leg with rest pain (HCC) POCT ACTIVATED CLOTTING TIME, LOW RANGE Routine 04/01/2025 9:41 AM CDT POCT ACTIVATED CLOTTING TIME, LOW RANGE Routine 04/01/2025 9:[address] BODY OUTSIDE REFERENCE Routine 03/17/2025 1:18 PM CDT CTA ABDOMINAL AORTA AND BILATERAL ILIOFEMORAL RUNOFF Schedule Routine, Read Routine (OP Routine) 03/11/2025 11:29 AM CDT Claudication EGFR Routine 02/23/2025 12:13 PM CDT Seronegative rheumatoid arthritis (HCC) High risk medication use DIFFERENTIAL AUTO Routine 02/23/2025 12:13 PM CDT Seronegative rheumatoid arthritis (HCC) High risk medication use CRP (ACUTE PHASE) Routine 02/23/2025 12:13 PM CDT Seronegative rheumatoid arthritis (HCC) CBC WITH AUTO DIFFERENTIAL Routine 02/23/2025 12:13 PM CDT Seronegative rheumatoid arthritis (HCC) High risk medication use COMPREHENSIVE METABOLIC PANEL Routine 02/23/2025 12:13 PM CDT Seronegative rheumatoid arthritis (HCC) High risk medication use ERYTHROCYTE SEDIMENTATION RATE Routine 02/23/2025 12:13 PM CDT Seronegative rheumatoid arthritis (HCC) HEPATITIS C ANTIBODY Routine 12/01/2024 11:07 AM CDT Seronegative rheumatoid arthritis (HCC) High risk medication use LIPID PANEL Routine 10/02/2024 9:27 PM 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 ALBUMIN CREATININE RATIO, URINE Routine 10/16/2022 9:19 AM 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 Type 2 diabetes mellitus with hyperglycemia, without long-term current use of insulin (HCC) from Last 3 Months or Most Recently Relevant to Health Maintenance Results * US Duplex Scan of Aorta; Inferior Vena Cava, Iliac, Limited or Unilateral (05/19/2025 10:30 AM CDT) Anatomical Region Laterality Modality Vascular Ultrasound 05/19/2025 8:37 AM CDT Narrative 05/19/2025 1:55 PM CDT [facility] - Department of Vascular Surgery, Vascular Laboratory [address] [place] [address] Vascular Ultrasound Report Patient Name: CHIDI ELDRIDGE : 1955 Study Date: 05/19/2025 8:37:51 AM Sex: M Tech: Location: [facility] Ref Provider: PHONG ADLER Quality: Adequate Order Provider: PHONG ADLER PROCEDURES: Vascular Report: Imaging of the left common iliac and external iliac arteries, s / post op. INDICATIONS: I70.213 Atherosclerosis of inaja arteries of extremities with intermittent claudication, bilateral legs. HISTORY: 04/13/2025 - taken for angiogram and stenting across the acute thrombus in the left common to external iliac artery - PREVIOUS STUDIES: No previous studies for comparison. FINDINGS: Performing Recycling Director: Evelyn Zurita RVT. Left: Technically difficult study due to bowel gas, limited imaging of proximal external iliac artery . Patent common iliac artery with multiphasic waveforms and following velocities : Proximal 108 cm/s, Mid 149 cm/s, Distal 122cm/s Patent external iliac artery with multiphasic waveforms and following velocities: Proximal 107cm/s, Mid 153 cm/s, Distal 174cm/s Patent common iliac to proximal external iliac artery stent. DISCLAIMER: The study images and the final report will be retained in the patient chart by the Vascular Laboratory for the legally required time period. This chart constitutes the legal record of any testing performed. ATTESTATION: I have reviewed and interpreted the pertinent images and measurements of this study. I attest to the conclusions in the final report that is provided above. CONCLUSIONS: 1. Patent common iliac artery and external iliac artery with multiphasic waveforms. 2. Technically difficult study due to bowel gas, limited imaging of proximal external iliac artery . Electronically Signed By: Gualberto Chandler MD FACS 05/19/2025 1:21:54 PM CDT CC: Phong Adler MD INA Procedure Note Gualberto Chandler MD - 05/19/2025 [facility] - Department of Vascular Surgery,Vascular Laboratory [address] [place] [id number] Vascular Ultrasound Report Patient Name: CHIDI ELDRIDGE : 1955 Study Date: 05/19/2025 8:37:51 AM Sex: M Tech: Location: [facility] Provider: PHONG ADLER Quality: Adequate Order Provider: PHONG ADLER PROCEDURES: Vascular Report: Imaging of the left common iliac and external iliac arteries, s / postop. 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 HISTORY: 04/13/2025 - taken for angiogram and stenting across the acute thrombus inthe left common to external iliac artery - PREVIOUS STUDIES: No previous studies for comparison. FINDINGS: Performing Recycling Director: Evelyn Zurita RVT. Left: Technically difficult study due to bowel gas, limited imaging of proximalexternal iliac artery . Patent common iliac artery with multiphasic waveforms and followingvelocities : Proximal 108 cm/s, Mid 149 cm/s, Distal 122cm/s Patent external iliac artery with multiphasic waveforms and followingvelocities: Proximal 107cm/s, Mid 153 cm/s, Distal 174cm/s Patent common iliac to proximal external iliac artery stent. DISCLAIMER: The study images and the final report will be retained in the patientchart by the Vascular Laboratory for the legally required time period. This chartconstitutes the legal record of any testing performed. ATTESTATION: I have reviewed and interpreted the pertinent images and measurements ofthis study. I attest to the conclusions in the final report that is provided above. CONCLUSIONS: 1. Patent common iliac artery and external iliac artery with multiphasicwaveforms. 2. Technically difficult study due to bowel gas, limited imaging ofproximal external iliac artery . Electronically Signed By: Gualberto Chandler MD [facility] 05/19/2025 1:21:54 PM CDT CC: Phong Adler MD [facility] Phong Adler MD IMG US PROCEDURES Final Result * US Arterial Duplex Lower Extremity Bilateral (05/19/2025 10:30 AM CDT) Anatomical Region Laterality Modality Vascular Bilateral Ultrasound 05/19/2025 7:56 AM CDT Narrative 05/19/2025 1:54 PM CDT [facility] - Department of Vascular Surgery, Vascular Laboratory [address] [place] [id number] [place] Lower Extremity Arterial Duplex Report Patient Name: CHIDI ELDRIDGE : 1955 Study Date: 05/19/2025 7:56:26 AM Sex: M Tech: Location: [facility] Ref Provider: PHONG ADLER Quality: Adequate Order Provider: PHONG ADLER PROCEDURES: Arterial Report: Bilateral Lower Extremity Arterial Duplex Exam. INDICATIONS: I70.213 Atherosclerosis of inaja arteries of extremities with intermittent claudication, bilateral legs. 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 Dst PSV 194 cm/s Lt SLAB DEPILER OPERATOR Dst PSV 167 cm/s Rt Profunda Dst PSV 156 cm/s Lt Profunda Dst PSV 193 cm/s Rt Superficial Femoral Prx PSV 128 cm/s Lt Superficial Femoral Prx PSV 134 cm/s Rt Superficial Femoral Mid PSV 160 cm/s Lt Superficial Femoral Mid PSV 88 cm/s Rt Superficial Femoral Dst PSV 68 cm/s Lt Superficial Femoral Dst PSV 85 cm/s Rt Pop Dst PSV 90 cm/s Lt Pop Dst PSV 86 cm/s Rt Pop Prx PSV 64 cm/s Lt Pop Prx PSV 63 cm/s Rt Post Tibial Prx PSV 88 cm/s Lt Post Tibial Prx PSV 61 cm/s Rt Post Tibial Mid PSV 62 cm/s Lt Post Tibial Mid PSV 44 cm/s Rt Post Tibial Dst PSV 56 cm/s Lt Post Tibial Dst PSV 57 cm/s Rt Ant Tibial Prx PSV 37 cm/s Lt Ant Tibial Prx PSV 82 cm/s Rt Ant Tibial Dst PSV 43 cm/s Lt Ant Tibial Mid PSV 61 cm/s Rt Peroneal Prx PSV 64 cm/s Lt Ant Tibial Dst PSV 57 cm/s Rt Peroneal Mid PSV 53 cm/s Lt Peroneal Prx PSV 40 cm/s Rt Peroneal Dst PSV 42 cm/s Lt Peroneal Mid PSV 46 cm/s Rt Proximal Stent 111 cm/s Lt Peroneal Dst PSV 31 cm/s Rt Mid Stent 83 cm/s Lt Mid Stent 101 cm/s Rt Distal Stent 70 cm/s Right Value Units Left Value Units FINDINGS: Performing Recycling Director: Evelyn Zurita RVT. Right Common Femoral: The right common femoral waveform is multiphasic. Right Profunda: The right profunda waveform is multiphasic. Right Proximal Superficial Femoral Artery: The right proximal femoral artery waveform is multiphasic. Right Mid Superficial Femoral Artery: The right mid femoral artery waveform is multiphasic. Right Distal Superficial Femoral Artery: The right distal femoral artery waveform is multiphasic. Right Popliteal: The right popliteal waveform is multiphasic. Right Posterior Tibial: The right posterior tibial waveform is multiphasic. Right Anterior Tibial: The right proximal anterior tibial waveform is multiphasic. Unable to locate mid CROIN consistent with severe stenosis or occlussion, multiple collaterals noted. Distal CORIN waveform is monophasic. Systolic velocity ratio in the right proximal anterior tibial artery is 4.73 which is consistent with a >75% stenosis. Right Peroneal: The right peroneal artery waveform is multiphasic. Left Common Femoral: The left common femoral waveform is multiphasic with increased velocity at distal SLAB DEPILER OPERATOR of 222 cm/s. Unable to evaluate 0.412 cm of SFA origin due to calcified shadowing. Left Profunda: The left profunda waveform is multiphasic. Left Proximal Superficial Femoral Artery: The left proximal femoral artery waveform is multiphasic with calcified shadowing noted. Left Mid Superficial Femoral Artery: The left mid femoral artery waveform is multiphasic. Left Distal Superficial Femoral Artery: The left distal femoral artery waveform is multiphasic. Left Popliteal: The left popliteal waveform is multiphasic. Left Posterior Tibial: The left posterior tibial waveform is multiphasic. Left Anterior Tibial: The left anterior tibial waveform is multiphasic. Left Peroneal: The left peroneal artery waveform is multiphasic. Provider Notification: Results called on the above date to VENICE Holman at 10:05am. The patient was sent to clinic per previously scheduled appointment. CONCLUSIONS: 1. OCCLUDED RIGHT mid anterior tibial artery. 2. Patent right SFA stent. 3. A >75% stenosis is noted on the right: proximal anterior tibial artery. 4. Patent left SFA stent. 5. See Ankle/ Brachial Index report. HISTORY: Not identified. PREVIOUS STUDIES: No previous studies for comparison. DISCLAIMER: The study images and the final report will be retained in the patient chart by the Vascular Laboratory for the legally required time period. This chart constitutes the legal record of any testing performed. ATTESTATION: I have reviewed and interpreted the pertinent images and measurements of this study. I attest to the conclusions in the final report that is provided above. Electronically Signed By: Gualberto Chandler MD FACS 05/19/2025 1:19:36 PM CDT CC: Phong Adler MD INA Procedure Note Gualberto Chandler MD - 05/19/2025 [facility] - Department of Vascular Surgery,Vascular Laboratory [address] [place] [address] [place] Lower Extremity Arterial Duplex Report Patient Name: CHIDI ELDRIDGE : 1955 Study Date: 05/19/2025 7:56:26 AM Sex: M Tech: Location: [facility] Provider: PHONG ADLER Quality: Adequate Order Provider: PHONG ADLER PROCEDURES: Arterial Report: Bilateral Lower Extremity Arterial Duplex Exam. 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 Dst PSV 194 cm/s Lt SLAB DEPILER OPERATOR Dst PSV 167 cm/s Rt Profunda Dst PSV 156 cm/s Lt Profunda Dst PSV 193 cm/s Rt Superficial Femoral Prx PSV 128 cm/s Lt Superficial Femoral Prx PSV 134cm/s Rt Superficial Femoral Mid PSV 160 cm/s Lt Superficial Femoral Mid PSV 88cm/s Rt Superficial Femoral Dst PSV 68 cm/s Lt Superficial Femoral Dst PSV 85cm/s Rt Pop Dst PSV 90 cm/s Lt Pop Dst PSV 86 cm/s Rt Pop Prx PSV 64 cm/s Lt Pop Prx PSV 63 cm/s Rt Post Tibial Prx PSV 88 cm/s Lt Post Tibial Prx PSV 61 cm/s Rt Post Tibial Mid PSV 62 cm/s Lt Post Tibial Mid PSV 44 cm/s Rt Post Tibial Dst PSV 56 cm/s Lt Post Tibial Dst PSV 57 cm/s Rt Ant Tibial Prx PSV 37 cm/s Lt Ant Tibial Prx PSV 82 cm/s Rt Ant Tibial Dst PSV 43 cm/s Lt Ant Tibial Mid PSV 61 cm/s Rt Peroneal Prx PSV 64 cm/s Lt Ant Tibial Dst PSV 57 cm/s Rt Peroneal Mid PSV 53 cm/s Lt Peroneal Prx PSV 40 cm/s Rt Peroneal Dst PSV 42 cm/s Lt Peroneal Mid PSV 46 cm/s Rt Proximal Stent 111 cm/s Lt Peroneal Dst PSV 31 cm/s Rt Mid Stent 83 cm/s Lt Mid Stent 101 cm/s Rt Distal Stent 70 cm/s Right Value Units Left Value Units FINDINGS: Performing Recycling Director: Evelyn Zurita RVT. Right Common Femoral: The right common femoral waveform is multiphasic. Right Profunda: The right profunda waveform is multiphasic. Right Proximal Superficial Femoral Artery: The right proximal femoral artery waveform is multiphasic. Right Mid Superficial Femoral Artery: The right mid femoral artery waveform is multiphasic. Right Distal Superficial Femoral Artery: The right distal femoral artery waveform is multiphasic. Right Popliteal: The right popliteal waveform is multiphasic. Right Posterior Tibial: The right posterior tibial waveform is multiphasic. Right Anterior Tibial: The right proximal anterior tibial waveform is multiphasic. Unable tolocate mid CORIN consistent with severe stenosis or occlussion, multiple collaterals noted.Distal CORIN waveform is monophasic. Systolic velocity ratio in the right proximalanterior tibial artery is 4.73 which is consistent with a >75% stenosis. Right Peroneal: The right peroneal artery waveform is multiphasic. Left Common Femoral: The left common femoral waveform is multiphasic with increased velocity atdistal SLAB DEPILER OPERATOR of 222 cm/s. Unable to evaluate 0.412 cm of SFA origin due to calcifiedshadowing. Left Profunda: The left profunda waveform is multiphasic. Left Proximal Superficial Femoral Artery: The left proximal femoral artery waveform is multiphasic with calcifiedshadowing noted. Left Mid Superficial Femoral Artery: The left mid femoral artery waveform is multiphasic. Left Distal Superficial Femoral Artery: The left distal femoral artery waveform is multiphasic. Left Popliteal: The left popliteal waveform is multiphasic. Left Posterior Tibial: The left posterior tibial waveform is multiphasic. Left Anterior Tibial: The left anterior tibial waveform is multiphasic. Left Peroneal: The left peroneal artery waveform is multiphasic. Provider Notification: Results called on the above date to VENICE Holman at 10:05am. Thepatient was sent to clinic per previously scheduled appointment. CONCLUSIONS: 1. OCCLUDED RIGHT mid anterior tibial artery. 2. Patent right SFA stent. 3. A >75% stenosis is noted on the right: proximal anterior tibialartery. 4. Patent left SFA stent. 5. See Ankle/ Brachial Index report. HISTORY: Not identified. PREVIOUS STUDIES: No previous studies for comparison. DISCLAIMER: The study images and the final report will be retained in the patientchart by the Vascular Laboratory for the legally required time period. This chartconstitutes the legal record of any testing performed. ATTESTATION: I have reviewed and interpreted the pertinent images and measurements ofthis study. I attest to the conclusions in the final report that is provided above. Electronically Signed By: Gualberto Chandler MD [facility] 05/19/2025 1:19:36 PM CDT CC: Phong Adler MD [facility] Phong Adler MD IMG US PROCEDURES Final Result * US KRYSTINA (05/19/2025 10:30 AM CDT) Anatomical Region Laterality Modality Vascular N/A Ultrasound 05/19/2025 8:53 AM CDT Narrative 05/19/2025 1:54 PM CDT [facility] - Department of Vascular Surgery, Vascular Laboratory [address] [place] [address] Lower Extremity Arterial Doppler Report Patient Name: CHIDI ELDRIDGE : 1955 Study Date: 05/19/2025 8:53:00 AM Sex: M Tech: Evelyn Zurita Location: [facility] Provider: PHONG ADLER Quality: Adequate Order Provider: PHONG ADLER PROCEDURES: Arterial Report: Ankle - Brachial Index Doppler exam. INDICATIONS: I70.213 Atherosclerosis of inaja arteries of extremities with intermittent claudication, bilateral legs. MEASUREMENTS: Right Value Units Left Value Units Rt Brachial Pressure 131 mmHg Lt Brachial Pressure 143 mmHg Rt POLICY ADVISER Pressure 148 mmHg Lt POLICY ADVISER Pressure 150 mmHg Rt DPA Pressure 90 mmHg Lt DPA Pressure 143 mmHg Rt 1st Digit Pressure 98 mmHg Lt 1st Digit Pressure 73 mmHg Rt PT KRYSTINA Resting 1.03 Lt PT KRYSTINA Resting 1.05 Rt AT KRYSTINA Resting 0.63 Lt AT KRYSTINA Resting 1 Rt Digit/Arm Index 0.69 Lt Digit/Arm Index 0.51 Right Value Units Left Value Units FINDINGS: Performing Recycling Director: Evelyn Zurita RVT. Right Posterior Tibial Artery Analysis: The posterior tibial waveform is multiphasic. Right Anterior Tibial Artery Analysis: The anterior tibial waveform is monophasic. Left Posterior Tibial Artery Analysis: The posterior tibial waveform is multiphasic. Left Anterior Tibial Artery Analysis: The anterior tibial waveform is multiphasic. CONCLUSIONS: 1. The above listed Ankle/Brachial Indices at rest are within normal limits bilaterally (for reference, normal resting KRYSTINA is 0.9 to 1.4; KRYSTINA >1.4 due to non- compressible arteries is not diagnostic). 2. Right Digit/Arm Index is within normal limits (for reference, normal BRISA is >0.6). 3. Left Digit/Arm Index is abnormal (for reference, abnormal BRISA is <0.6). 4. There is evidence of right leg arterial insufficiency at the level of anterior tibial artery. HISTORY: HTN, HLD, DM, RA, bilateral lower extremity claudication status post right lower extremity revascularization (04/01/2025) with significant symptomatic improvement. He recently underwent left lower extremity revascularization for claudication (04/09/25) showing severe focal stenosis of the mid left superficial femoral artery status post laser atherectomy, balloon angioplasty drug-eluting stent placement. 04/13/2025 - taken for angiogram and stenting across the acute thrombus in the left common to external iliac artery - PREVIOUS STUDIES: Previous study on 12/10/2024 - KRYSTINA R 0.99 L0.95. DISCLAIMER: The study images and the final report will be retained in the patient chart by the Vascular Laboratory for the legally required time period. This chart constitutes the legal record of any testing performed. ATTESTATION: I have reviewed and interpreted the pertinent images and measurements of this study. I attest to the conclusions in the final report that is provided above. Electronically Signed By: Gualberto Chandler MD FACS 05/19/2025 1:18:05 PM CDT CC: Phong Adler MD INA Procedure Note Gualberto Chandler MD - 05/19/2025 [facility] - Department of Vascular Surgery,Vascular Laboratory [address] [place] [id number] Lower Extremity Arterial Doppler Report Patient Name: CHIDI ELDRIDGE : 1955 Study Date: 05/19/2025 8:53:00 AM Sex: M Tech: Evelyn Zurita Location: [facility] Provider: PHONG ADLER Quality: Adequate Order Provider: PHONG ADLER PROCEDURES: Arterial Report: Ankle - Brachial Index Doppler exam. 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 MEASUREMENTS: Right Value Units Left Value Units Rt Brachial Pressure 131 mmHg Lt Brachial Pressure 143 mmHg Rt POLICY ADVISER Pressure 148 mmHg Lt POLICY ADVISER Pressure 150 mmHg Rt DPA Pressure 90 mmHg Lt DPA Pressure 143 mmHg Rt 1st Digit Pressure 98 mmHg Lt 1st Digit Pressure 73 mmHg Rt PT KRYSTINA Resting 1.03 Lt PT KRYSTINA Resting 1.05 Rt AT KRYSTINA Resting 0.63 Lt AT KRYSTINA Resting 1 Rt Digit/Arm Index 0.69 Lt Digit/Arm Index 0.51 Right Value Units Left Value Units FINDINGS: Performing Recycling Director: Evelyn Zurita RVT. Right Posterior Tibial Artery Analysis: The posterior tibial waveform is multiphasic. Right Anterior Tibial Artery Analysis: The anterior tibial waveform is monophasic. Left Posterior Tibial Artery Analysis: The posterior tibial waveform is multiphasic. Left Anterior Tibial Artery Analysis: The anterior tibial waveform is multiphasic. CONCLUSIONS: 1. The above listed Ankle/Brachial Indices at rest are within normallimits bilaterally (for reference, normal resting KRYSTINA is 0.9 to 1.4; KRYSTINA >1.4 due tonon- compressible arteries is not diagnostic). 2. Right Digit/Arm Index is within normal limits (for reference, normalDAI is >0.6). 3. Left Digit/Arm Index is abnormal (for reference, abnormal BRISA is<0.6). 4. There is evidence of right leg arterial insufficiency at the level ofanterior tibial artery. HISTORY: HTN, HLD, DM, RA, bilateral lower extremity claudication status post rightlower extremity revascularization (04/01/2025) with significant symptomaticimprovement. He recently underwent left lower extremity revascularization for claudication(04/09/25) showing severe focal stenosis of the mid left superficial femoral arterystatus post laser atherectomy, balloon angioplasty drug-eluting stent placement. 04/13/2025 - taken for angiogram and stenting across the acute thrombus inthe left common to external iliac artery - PREVIOUS STUDIES: Previous study on 12/10/2024 - KRYSTINA R 0.99 L0.95. DISCLAIMER: The study images and the final report will be retained in the patientchart by the Vascular Laboratory for the legally required time period. This chartconstitutes the legal record of any testing performed. ATTESTATION: I have reviewed and interpreted the pertinent images and measurements ofthis study. I attest to the conclusions in the final report that is provided above. Electronically Signed By: Gualberto Chandler MD [facility] 05/19/2025 1:18:05 PM CDT CC: Phong Adlre MD [facility] Phong Adler MD [facility] PROCEDURES Final Result * CT Body Outside Reference (05/18/2025 10:54 AM CDT) Impressions [facility] - 05/18/2025 10:54 AM CDT These images are for Reference purposes only and have not been reviewed by [facility] Radiology. There will be no report generated by a [facility] Radiologist. Narrative [facility] - 05/18/2025 10:54 AM CDT EXAMINATION: Images For Reference Purposes Only us Arnulfo Olmos MD IMG CT PROCEDURES Final Result [facility] * CT Chest High Resolution WO Contrast (05/08/2025 11:20 AM CDT) Anatomical Region Laterality Modality Chest N/A Computed Tomogra phy 05/08/2025 11:5 7 AM CDT Impressions 05/08/2025 12:14 PM CDT Redemonstrated peripheral reticulations and honeycombing of the lower lobes, which appears overall similar to CT 01/15/2024, in keeping with patient's rheumatoid arthritis related interstitial lung disease, with a UIP pattern. There are mildly increased groundglass opacities in the lung bases, which are favored to represent atelectasis and not true disease progression. Dictated by: Louis Tena MD The radiology attending physician has personally reviewed this study, and had reviewed and/or edited this written report and agrees with it. Electronically signed by: Corey Benavides M.D. Narrative 05/08/2025 12:14 PM CDT EXAMINATION: Computed tomography of the chest without intravenous contrast HISTORY: 70-year-old gentleman with interstitial lung disease, history of seronegative rheumatoid arthritis. TECHNIQUE: Transaxial computed tomographic images of the chest were obtained without intravenous contrast according to the high-resolution protocol. COMPARISON: CT 01/15/2024 FINDINGS: Again seen are peripheral reticulations and honeycombing of the lower lobes which appears overall similar to CT 01/15/2024. There are increased ground glass opacities in the lower lobes, which is favored to represent atelectasis and not true disease progression. A suspicious pulmonary nodule or mass. Small tracheal diverticula are again seen. No pleural effusion. No pneumothorax. Again seen is a prominent mediastinal lymph nodes, measuring up to 1.1 cm in short axis, see series 2, image 60. This is not significantly changed from prior CT and likely related to patient's rheumatologic disease. No cervical or axillary lymphadenopathy. There are severe coronary artery calcifications. Normal caliber thoracic aorta. Diffuse vascular calcifications of the aorta and aortic valve. No pericardial effusion. No acute findings within the partially imaged upper abdomen. Moderate degenerative changes of the spine. No suspicious osseous lesion. Procedure Note Corey Benavides MD - 05/08/2025 EXAMINATION: Computed tomography of the chest without intravenous contrast HISTORY: 70-year-old gentleman with interstitial lung disease, history of seronegative rheumatoid arthritis. TECHNIQUE: Transaxial computed tomographic images of the chest were obtained without intravenous contrast according to the high-resolution protocol. COMPARISON: CT 01/15/2024 FINDINGS: Again seen are peripheral reticulations and honeycombing of the lower lobes which appears overall similar to CT 01/15/2024. There are increased ground glass opacities in the lower lobes, which is favored to represent atelectasis and not true disease progression. A suspicious pulmonary nodule or mass. Small tracheal diverticula are again seen. No pleural effusion. No pneumothorax. Again seen is a prominent mediastinal lymph nodes, measuring up to 1.1 cm in short axis, see series 2, image 60. This is not significantly changed from prior CT and likely related to patient's rheumatologic disease. No cervical or axillary lymphadenopathy. There are severe coronary artery calcifications. Normal caliber thoracic aorta. Diffuse vascular calcifications of the aorta and aortic valve. No pericardial effusion. No acute findings within the partially imaged upper abdomen. Moderate degenerative changes of the spine. No suspicious osseous lesion. IMPRESSION: Redemonstrated peripheral reticulations and honeycombing of the lower lobes, which appears overall similar to CT 01/15/2024, in keeping with patient's rheumatoid arthritis related interstitial lung disease, with a UIP pattern. There are mildly increased groundglass opacities in the lung bases, which are favored to represent atelectasis and not true disease progression. Dictated by: Louis Tena MD The radiology attending physician has personally reviewed this study, and had reviewed and/or edited this written report and agrees with it. Electronically signed by: Corey Benavides M.D. Arnulfo Olmos MD IM CT PROCEDURES Final Result * PR3 - proteinase 3, Ab (05/08/2025 10:19 AM CDT) Proteinase 3 ab <0.2 <=0.9 Ab Index Comment: Interpretive Data Negative: <1 Ab Index Positive: > or = 1 Ab Index Current interpretive data was last revised on 2017. Blood 05/08/2025 10:1 9 AM CDT 05/08/2025 10:42 AM CDT Arnulfo Olmos MD LAB BLOOD ORDERABLES Final Res ult Performing Organization Address [facility] de Phone Number [facility] [place] [address] * MPO - myeloperoxidase antibody (05/08/2025 10:19 AM CDT) Myeloperoxidase ab <0.2 <=0.9 Ab Index Comment: Interpretive Data Negative: <1 Ab Index Positive: > or = 1 Ab Index Current interpretive data was last revised on 2017. Blood 05/08/2025 10:1 9 AM CDT 05/08/2025 10:42 AM CDT Arnulfo Olmos MD LAB BLOOD ORDERABLES Final Res ult Performing Organization Address [facility] de Phone Number [facility] Department of [place] [address] * (ABNORMAL) Anti-Neutrophilic Cytoplasmic Antibody (ANCA) with Reflex to MPO and PR3 Abs (0:19 AM CDT) ANCA Indetermi mark(A) Negative Comment:Indeterminate for P- ANCA - Results by antigen specific immunoassay (MPO & PR3) to follow. May indicate ulcerative colitis or Crohn's disease. Blood 05/08/2025 10:1 9 AM CDT 05/08/2025 10:42 AM CDT Arnulfo Olmos MD LAB BLOOD ORDERABLES Final Res ult [facility] Department [place] [address] * XR Chest Pa Lateral 2 Views (05/08/2025 8:42 AM CDT) Anatomical Region Laterality Modality Body, Chest N/A Computed Radiogr aphy 05/08/2025 8:55 AM CDT Impressions 05/08/2025 8:55 AM CDT Prior comparison exam is a CT scan dated 01/15/2024. The lungs are well-expanded. There is bibasilar pulmonary reticulation compatible with pulmonary fibrosis. No suspicious pulmonary nodules are seen. There is aortic and coronary calcification. Electronically signed by: Roger Cox M.D. Narrative 05/08/2025 8:55 AM CDT EXAMINATION: 2 view chest radiograph Procedure Note Roger Cox MD - 05/08/2025 EXAMINATION: 2 view chest radiograph IMPRESSION: Prior comparison exam is a CT scan dated 01/15/2024. The lungs are well-expanded. There is bibasilar pulmonary reticulation compatible with pulmonary fibrosis. No suspicious pulmonary nodules are seen. There is aortic and coronary calcification. Electronically signed by: Roger Cox M.D. us Arnulfo Olmos MD IMG XR PROCEDURES Final Result * Pulmonary Function Test - (05/08/2025 8:28 AM CDT) FVC PRE 4.78 L [facility] FVC %PRE PRED 119 % [facility] FVC POST 4.75 L [facility] FVC %POST PRED 118 % [facility] FEV1 PRE 3.58 L [facility] FEV1 %PRE PRED 119 % [facility] FEV1 POST 3.61 L [facility] FEV1 %POST PRED 120 % [facility] FEV1/FVC PRE 74.9 % [facility] FEV1/FVC POST 76.0 % [facility] FRC PL PRE 4.[address] [facility] [address] %PRE PRED 126 % [facility] RV PRE 2.75 L [facility] RV %PRE PRED 110 % [facility] TLC PRE 7.55 L [facility] TLC %PRE PRED 107 % [facility] DLCO PRE 8.7 ml/min/mmH g [facility] DLCO %PRE PRED 33 % [facility] FIO2 % 21.00 % [facility] PaO2 81.0 mmHg [facility] PaCO2 37.0 mmHg [facility] pH 7.43 [facility] A-aDO2 POC 22.0 mmHg [facility] METHGB % 0.5 % [facility] COHb POC 6.0 % [facility] HCO3 24.6 mEq/L [facility] Anatomical Region Laterality Modality PFT 05/08/2025 7:28 AM CDT Narrative 05/08/2025 4:43 PM CDT Table formatting from the original result was not included. [facility] Division of Pulmonary & Critical Care Medicine [address] [place] [address]; [place] [address] [facility]; [place] [address]; [phone] Pulmonary Function Laboratory Pulmonary Stress Test Simple/Oxygen Assessment Patient: Chidi Eldridge Date: 05/08/2025 : 1955 Ht: 70 IN Wt: 147 LBS Time (min) Distance (ft)/ [place] O2 L/M SpO2 HR Gen* BP FEV1 % Pred Rest: RA 98 83 0 122/67 3.58 119 % Walk/Bike: 1 RA 98 100 0 2 RA 95 111 0 3 RA 94 117 0 4 RA 94 116 0 5 RA 94 117 0 6 min 0 sec RA 97 118 0 Recovery: 1 RA 96 119 0 149/77 3.63 121% 3 RA 96 103 0 *Gen rate of perceived exertion (1-10 dyspnea scale) Prudencio, CHEST 2003; [id number] Walk Test Summary: Six Minute Walk Distance: 1095 ft Six-minute Walk Work [distance (m) x body wt (kg)]: 81142 kg.m (normal >60,000kg.m) Oxygen required to maintain SpO2 greater than 90% during six minutes of walkin L/M Comments: O2A Interpretation: Breathing room air, SpO2 is normal at rest and during exercise sufficient to increase pulse, SpO2 falls but remains normoxemic . On this basis, SpO2 is adequate at rest breathing room air and while walking breathing room air. This level of exercise is associated with no significant change of FEV1. By signing this report, the attending pulmonary physician certifies that he/she has personally reviewed and interpreted the graphic and numerical data associated with this pulmonary function study and has reviewed and /or edited a preliminary draft report and agrees with the written final report. PFT performed at:->[facility] Adult PFT Lab- [id number] Procedure:->Complete/Full PFT Procedure:->Oxygen Assessment Titration Procedure:->ABG with Co-oximetry Standard:->Spirometry, Spirometry w/bronchodilator, DLCO and Lung Volumes Air Type:->Room Air Pulmonary Function Test Interpretation SPIROMETRY: Spirometry is normal. There is no significant improvement after inhaling a single dose of albuterol. The inspiratory loop is normal. LUNG VOLUMES: TLC measured by plethysmography is normal. DLCO: The diffusing capacity corrected for hemoglobin level (DLCO ADJ) is decreased. A decreased diffusing capacity may be due to loss of pulmonary capillary surface area. Causes include pulmonary fibrosis (altered V/Q relationship), pulmonary vascular disease, emphysema, or interstitial pneumonitis. ARTERIAL BLOOD GAS: The pH and pCO2 are normal. The arterial pO2 is normal at rest. O2 saturation measured by oximetry is adequate at rest. The COHb level is 6.0%. Normal is less than 2%. Impression: There is no ventilatory defect. There is a moderate impairment of alveolar gas exchange by DLCO. There is no impairment of gas exchange at rest by ABG. The COHb level is consistent with current smoking status. The attending pulmonary physician certifies a physician presence in the [facility] during the administration of aerosolized bronchodilator. The attending pulmonary physician certifies that he/she has reviewed and interpreted the graphic and numerical data of this pulmonary function study and agrees with the written final report. The lower limit of normal for PaO2 and %HbO2 is age dependent. However, the [facility] Pulmonary Function Laboratory defines hypoxemia as a PaO2 <56 mm Hg or a %HbO2 <89%. Starting on August of 2024 the [facility] Pulmonary Function Laboratory utilizes race neutral GLI Global normative equations. us Arnulfo Olmos MD PFT ORDERABLES Final Result * IR Angiogram Lower Extremity Left (04/13/2025 9:53 AM CDT) Anatomical Region Laterality Modality Extremity Left X-Ray Angiograph y 04/13/2025 4:14 PM CDT Impressions 04/13/2025 8:42 PM CDT 1. Pelvic and left lower extremity angiogram demonstrates severe stenosis of the left external iliac artery due to acute on chronic thrombus and a patent left superficial femoral artery stent. 2. Successful deployment of a left common to external iliac artery stent covering acute on chronic thrombus, with cheondoism of inflow to the leg and improved three-vessel run-off to the foot. PLAN: The patient will continue aspirin 81 mg daily and clopidogrel 75 mg daily. He was discharged to home directly from Interventional Radiology rather than from the Emergency Department. Dictated by: Breanne Walton MD The radiology attending physician has personally reviewed this study, and had reviewed and/or edited this written report and agrees with it. Electronically signed by: Jefferson Veronica M.D. Narrative 04/13/2025 8:42 PM CDT EXAMINATION: LEFT LOWER EXTREMITY ANGIOGRAM WITH REVASCULARIZATION PROCEDURES: 1. Ultrasound-guided access right common femoral artery. 2. Bilateral pelvic and left lower extremity angiogram in stations down to the foot 3. Stent placement in the left common to external iliac artery 4. Post intervention angiography 5. Angioseal closure device deployment HISTORY: 70-year-old male with history of diabetes, hypercholesterolemia, hypertension, smoking, and right greater than left lower extremity claudication. He is status post right lower extremity revascularization (04/01/2025) with significant symptomatic improvement and left lower extremity revascularization for claudication (04/09/25) showing severe focal stenosis of the mid left superficial femoral artery status post laser atherectomy, balloon angioplasty drug-eluting stent placement. He now presents with severe pain in the left anterior thigh and monophasic left DP and PT. CTA was concerning for worsening severe stenosis of the left external iliac artery likely due to acute on chronic thrombus. ATTENDING PRESENCE: Jefferson Veronica MD, the attending radiologist was present from the beginning to the end of the procedure. SEDATION: Procedural sedation was administered under the attending physician's direction and continuous monitoring by a trained nurse specialist who was independent from those actually performing the procedure. Total monitored sedation time was 80 minutes. TECHNIQUE: The risks, benefits and alternatives were discussed and informed consent was obtained. Prior to beginning the procedure, [place] Protocol was performed to confirm the patient's identity and the planned procedure. The fluoroscopy time has been recorded in the electronic medical record. Maximum sterile barriers including cap, mask, hand hygiene, sterile gloves, sterile gown, large sterile drape and 2% chlorhexidine for cutaneous antisepsis were used. Intravenous heparin was administered throughout the case to maintain a goal ACT greater than 270. No protamine reversal was required. After sterile prep, the skin over the right groin was infiltrated with 1% lidocaine. The right common femoral artery was punctured under real time ultrasound guidance. An image of the patent vessel was recorded. A 6Fr Portuguese sheath was placed. A limited common femoral artery angiogram was performed to confirm satisfactory position of arterial puncture site. Bilateral pelvic and left lower extremity angiogram was performed in stations to the foot. The angiographic catheter was advanced to the left common femoral artery . A 6-Portuguese 45 cm sheath was advanced to the left common femoral artery. A LifeStar 10 mm x 8 cm stent deployed across the left common to external iliac artery covering the region of acute on chronic thrombus. Left common femoral artery angioplasty and dilation of the stent were performed with a 6 mm high-pressure balloon. The stent was then dilated up to 8 mm with a high-pressure balloon. Completion angiography was performed. AngioSeal device was deployed to accomplish successful closure of the arteriotomy. The dermatotomy was closed with skin glue. ESTIMATED BLOOD LOSS: minimal. CONDITION: Stable DISCHARGED TO: Home from PACU. FINDINGS: Ultrasound evaluation of the right common femoral artery demonstrates a patent vessel with mild calcified atherosclerosis. Bilateral pelvic angiography demonstrates severe narrowing of the left external iliac artery in the region of acute on chronic thrombus questioned on CTA. No significant stenosis on the right. Left lower extremity angiogram demonstrates a widely patent left superficial femoral artery stent. No significant flow-limiting stenosis of the popliteal, anterior tibial, posterior tibial, or peroneal arteries, however there is sluggish flow favored to be due to diminished inflow. Limited evaluation of the dorsalis pedis and plantar arteries due to sluggish flow. Nonopacification of the plantar loop. Post-intervention angiogram demonstrates cheondoism of normal caliber and flow in the left external iliac artery. The proximal aspect of the stent covers the left internal iliac artery which remains patent. Completion left lower extremity angiogram shows no evidence of embolic complication. There is improved antegrade flow with three-vessel run-off to the foot. Patent plantar loop. At the conclusion of the procedure the patient has multiphasic DP and PT pulses bilaterally. Procedure Note Jefferson Veronica MD - 04/13/2025 EXAMINATION: LEFT LOWER EXTREMITY ANGIOGRAM WITH REVASCULARIZATION PROCEDURES: 1. Ultrasound-guided access right common femoral artery. 2. Bilateral pelvic and left lower extremity angiogram in stations down to the foot 3. Stent placement in the left common to external iliac artery 4. Post intervention angiography 5. Angioseal closure device deployment HISTORY: 70-year-old male with history of diabetes, hypercholesterolemia, hypertension, smoking, and right greater than left lower extremity claudication. He is status post right lower extremity revascularization (04/01/2025) with significant symptomatic improvement and left lower extremity revascularization for claudication (04/09/25) showing severe focal stenosis of the mid left superficial femoral artery status post laser atherectomy, balloon angioplasty drug-eluting stent placement. He now presents with severe pain in the left anterior thigh and monophasic left DP and PT. CTA was concerning for worsening severe stenosis of the left external iliac artery likely due to acute on chronic thrombus. ATTENDING PRESENCE: Jefferson Veronica MD, the attending radiologist was present from the beginning to the end of the procedure. SEDATION: Procedural sedation was administered under the attending physician's direction and continuous monitoring by a trained nurse specialist who was independent from those actually performing the procedure. Total monitored sedation time was 80 minutes. TECHNIQUE: The risks, benefits and alternatives were discussed and informed consent was obtained. Prior to beginning the procedure, [place] Protocol was performed to confirm the patient's identity and the planned procedure. The fluoroscopy time has been recorded in the electronic medical record. Maximum sterile barriers including cap, mask, hand hygiene, sterile gloves, sterile gown, large sterile drape and 2% chlorhexidine for cutaneous antisepsis were used. Intravenous heparin was administered throughout the case to maintain a goal ACT greater than 270. No protamine reversal was required. After sterile prep, the skin over the right groin was infiltrated with 1% lidocaine. The right common femoral artery was punctured under real time ultrasound guidance. An image of the patent vessel was recorded. A 6Fr Portuguese sheath was placed. A limited common femoral artery angiogram was performed to confirm satisfactory position of arterial puncture site. Bilateral pelvic and left lower extremity angiogram was performed in stations to the foot. The angiographic catheter was advanced to the left common femoral artery . A 6-Portuguese 45 cm sheath was advanced to the left common femoral artery. A LifeStar 10 mm x 8 cm stent deployed across the left common to external iliac artery covering the region of acute on chronic thrombus. Left common femoral artery angioplasty and dilation of the stent were performed with a 6 mm high-pressure balloon. The stent was then dilated up to 8 mm with a high-pressure balloon. Completion angiography was performed. AngioSeal device was deployed to accomplish successful closure of the arteriotomy. The dermatotomy was closed with skin glue. ESTIMATED BLOOD LOSS: minimal. CONDITION: Stable DISCHARGED TO: Home from PACU. FINDINGS: Ultrasound evaluation of the right common femoral artery demonstrates a patent vessel with mild calcified atherosclerosis. Bilateral pelvic angiography demonstrates severe narrowing of the left external iliac artery in the region of acute on chronic thrombus questioned on CTA. No significant stenosis on the right. Left lower extremity angiogram demonstrates a widely patent left superficial femoral artery stent. No significant flow-limiting stenosis of the popliteal, anterior tibial, posterior tibial, or peroneal arteries, however there is sluggish flow favored to be due to diminished inflow. Limited evaluation of the dorsalis pedis and plantar arteries due to sluggish flow. Nonopacification of the plantar loop. Post-intervention angiogram demonstrates cheondoism of normal caliber and flow in the left external iliac artery. The proximal aspect of the stent covers the left internal iliac artery which remains patent. Completion left lower extremity angiogram shows no evidence of embolic complication. There is improved antegrade flow with three-vessel run-off to the foot. Patent plantar loop. At the conclusion of the procedure the patient has multiphasic DP and PT pulses bilaterally. IMPRESSION: 1. Pelvic and left lower extremity angiogram demonstrates severe stenosis of the left external iliac artery due to acute on chronic thrombus and a patent left superficial femoral artery stent. 2. Successful deployment of a left common to external iliac artery stent covering acute on chronic thrombus, with cheondoism of inflow to the leg and improved three-vessel run-off to the foot. PLAN: The patient will continue aspirin 81 mg daily and clopidogrel 75 mg daily. He was discharged to home directly from Interventional Radiology rather than from the Emergency Department. Dictated by: Breanne Walton MD The radiology attending physician has personally reviewed this study, and had reviewed and/or edited this written report and agrees with it. Electronically signed by: Jefferson Veronica M.D. Lalit Mccray MD IMG IR PROCEDURE S Final Result * (ABNORMAL) POCT Activated clotting time, low range (04/13/2025 9:18 AM CDT) ACT 297(H) 123 - 168 sec POC Device Number [id number] [facility] Blood 04/13/2025 9:18 AM CDT 04/13/2025 9:18 AM CDT Rodney Irizarry MD LAB POCT ORDERABLES - DEVICE Final Result [facility] Department [place] [address] * (ABNORMAL) aPTT (04/13/2025 4:32 AM CDT) [facility] aPTT 89(H) 26 - 38 sec Comment: Interpretive Data Heparin therapeutic range: 66.0 - 100.0 seconds. Range based on correlation with therapeutic heparin activity range of 0.3 - 0.7 Units/mL. Current interpretive data was last revised on 2023. Blood 04/13/2025 4:32 AM CDT 04/13/2025 4:51 AM CDT Narrative [facility] - 04/13/2025 5:01 AM CDT STAT PTT timing: - Draw 6 hours after heparin infusion initiation - Draw 6 hours after every dose change until 2 consecutive PTTs are therapeutic - Once 2 consecutive PTTs are therapeutic, obtain with daily labs until infusion is discontinued - - Restart every 6 hour lab draws and follow instructions accordingly if PTT is outside of therapeutic range Do not draw lab from IV line that is actively infusing heparin. Use the opposite arm. If arm with actively infusing heparin must be used, pause the infusion for at least 2 minutes, and draw specimen below the IV site. For patients with a central venous catheter (CVC), lab must be drawn peripherally (not from CVC). Sandie Estevez MD LAB BLOOD ORDERABLES Fi nal Result Performing Organization Address [facility] Co de Phone Number [facility] Department [place] [address] * (ABNORMAL) aPTT (04/12/2025 10:11 PM CDT) [facility] aPTT 83(H) 26 - 38 sec Comment: Interpretive Data Heparin therapeutic range: 66.0 - 100.0 seconds. Range based on correlation with therapeutic heparin activity range of 0.3 - 0.7 Units/mL. Current interpretive data was last revised on 2023. Blood 04/12/2025 10:1 1 PM CDT 04/12/2025 10:24 PM CDT [facility] - 04/12/2025 10:34 PM CDT STAT PTT timing: - Draw 6 hours after heparin infusion initiation - Draw 6 hours after every dose change until 2 consecutive PTTs are therapeutic - Once 2 consecutive PTTs are therapeutic, obtain with daily labs until infusion is discontinued - - Restart every 6 hour lab draws and follow instructions accordingly if PTT is outside of therapeutic range Do not draw lab from IV line that is actively infusing heparin. Use the opposite arm. If arm with actively infusing heparin must be used, pause the infusion for at least 2 minutes, and draw specimen below the IV site. For patients with a central venous catheter (CVC), lab must be drawn peripherally (not from CVC). Sandie Estevez MD LAB BLOOD ORDERABLES nal Result Performing Organization Address [facility]/ZIP Co de Phone Number [facility] Department [place] [address] * (ABNORMAL) POCT glucose (04/12/2025 8:30 PM CDT) [facility] Glucose, POC 262(H) 70 - 199 mg/dL Blood 04/12/2025 8:30 PM CDT 04/12/2025 8:30 PM CDT Rodney Irizarry MD LAB POCT ORDERABLES - DEVICE Final Result Performing Organization Address [facility] de Phone Number [facility] [place] [address] * POCT glucose (04/12/2025 6:17 PM CDT) Glucose, POC 149 70 - 199 mg/dL Blood 04/12/2025 6:17 PM CDT 04/12/2025 6:17 PM CDT Rodney Irizarry MD LAB POCT ORDERABLES - DEVICE Final Result Performing Organization Address [facility] Phone Number [facility] [place] [address] * (ABNORMAL) aPTT (04/12/2025 2:39 PM CDT) aPTT 52(H) 26 - 38 sec Comment: Interpretive Data Heparin therapeutic range: 66.0 - 100.0 seconds. Range based on correlation with therapeutic heparin activity range of 0.3 - 0.7 Units/mL. Current interpretive data was last revised on 2023. Blood 04/12/2025 2:3 9 PM CDT 04/12/2025 2:56 PM CDT Narrative [facility] - 04/12/2025 3:22 PM CDT Baseline prior to heparin initiation Sandie Estevez MD LAB BLOOD ORDERABLES Fi nal Result Performing Organization Address [facility] Co de Phone Number [facility] [place] [address] * Protime-INR (04/12/2025 2:39 PM CDT) Pathologist [facility] PT 11.0 10.2 - 13.5 sec INR 0.97 0.90 - 1.20 [facility] Comment: Interpretive data Oral anticoagulant therapeutic ranges: Venous thromboembolism prophylaxis or treatment: 2.0-3.0 CARDIOLOGY Standard range: 2.0-3.0 High-intensity range: 2.5-3.5 Refer to indication-specific guidelines for appropriate target ranges for prosthetic heart valve replacement. Current interpretive data was last revised on 2019. Blood 04/12/2025 2:39 PM CDT 04/12/2025 2:56 PM CDT Narrative [facility] - 04/12/2025 3:22 PM CDT Baseline prior to heparin initiation us Sandie Estevez MD LAB BLOOD ORDERABLES Fi nal Result [facility] Department [place] [address] * (ABNORMAL) CBC without differential (04/12/2025 2:39 PM CDT) [facility] WBC 10.53(H) 3.80 - 9.90 K/cumm Hgb 14.8 13.0 - 17.5 g/dL [facility] Hct 42.6 38.9 - 50.3 % [facility] Plt 482(H) 150 - 400 K/cumm [facility] MPV 9.5 9.1 - 12.3 fL [facility] RBC 4.68 4.30 - 5.80 M/cumm [facility] MCV 91.0 81.3 - 96.4 fL [facility] MCH 31.6 27.1 - 33.3 pg [facility] MCHC 34.7 32.3 - 35.7 g/dL [facility] RDW CV 15.4(H) 11.1 - 14.9 % [facility] RDW SD 50.4(H) 35.7 - 48.1 fL [facility] NRBC abs 0.00 0.00 - 0.01 K/cumm [facility] Blood 04/12/2025 2:39 PM CDT 04/12/2025 2:54 PM CDT Narrative [facility] - 04/12/2025 3:01 PM CDT Baseline prior to heparin initiation Sandie Estevez MD LAB BLOOD ORDERABLES Fi nal Result Performing Organization Address [facility] Co de Phone Number [facility] [place] [address] * (ABNORMAL) Hemoglobin A1c (04/12/2025 2:39 PM CDT) Hgb A1C 7.9(H) 4.0 - 5.6 % Estimated Average Glucose 180 mg/dL [facility] Comment: The ADA recommends reporting an estimated Average Glucose (eAG) with all Hemoglobin A1c results using the equation derived from a study of 507 normal and diabetic adults. Minority populations were underrepresented and children were not included. (Diabetes Care 2020; 43(S1): S66-S76). The eAG is not equivalent to a fasting glucose. Blood 04/12/2025 2:39 PM CDT 04/12/2025 2:59 PM CDT Narrative [facility] - 04/12/2025 4:06 PM CDT reflex us Rodney Irizarry MD LAB BLOOD ORDERABLES Final R esult Performing Organization Address [facility] Co de Phone Number [facility] [place] [address] * POCT glucose (04/12/2025 1:01 PM CDT) Glucose, POC 199 70 - 199 mg/dL Blood 04/12/2025 1:01 PM CDT 04/12/2025 1:01 PM CDT Rodney Irizarry MD LAB POCT ORDERABLES - DEVICE Final Result Performing Organization Address [facility] Co de Phone Number [facility] [place] [address] * POCT glucose (04/12/2025 8:09 AM CDT) Glucose, POC 108 70 - 199 mg/dL Blood 04/12/2025 8:09 AM CDT 04/12/2025 8:09 AM CDT Stephen Esteban MD LAB POCT ORDERABLES - DEVICE Fin al Result Performing Organization Address City/[facility]/ZIP Co de Phone Number [facility] [place] [address] * POCT glucose (04/12/2025 5:35 AM CDT) Glucose, POC 125 70 - 199 mg/dL Blood 04/12/2025 5:35 AM CDT 04/12/2025 5:35 AM CDT us Darrick Hicks MD LAB POCT ORDERABLES - DEVICE Final Result Performing Organization Address [facility] Co de Phone Number [facility] Department [place] [address] * eGFR (04/12/2025 5:32 AM CDT) eGFR >90 >=60 mL/min/1. 73 [...] Inclusion of Race in Diagnosing Kidney Disease, ISELA 2020). The CKD-EPI equation should not be used for patients with unstable renal function and has not been validated in children and those over 70. Current interpretive data was last reviewed 2021. Blood 04/12/2025 5:32 AM CDT 04/12/2025 5:45 AM CDT Lalit Mccray MD LAB BLOOD ORDERA BLES Final Result [facility] Department [place] [address] * (ABNORMAL) Comprehensive metabolic panel (04/12/2025 5:32 AM CDT) Sodium 134(L) 135 - 145 mmol/L Comment:Repeated and Verifie d Potassium, pl 4.8 3.3 - 4.9 mmol/L [facility] Comment:Repeated and Verifie d Chloride 98 97 - 110 mmol/L [facility] Comment:Repeated and Verifie d CO2 28 22 - 32 mmol/L [facility] Comment:Reviewed Anion gap 9 2 - 15 mmol/L [facility] BUN 15 6 - 25 mg/dL [facility] Comment:Reviewed Creatinine 0.84 0.80 - 1.30 mg/dL [facility] Comment:Reviewed Glucose 121 70 - 199 mg/dL [facility] Comment: Interpretive Data Fasting glucose [...] 2022. Calcium 9.6 8.5 - 10.3 mg/dL [facility] Comment:Reviewed Bilirubin, total 0.5 0.1 - 1.2 mg/dL [facility] Comment:Reviewed Protein, pl 7.6 6.5 - 8.5 g/dL [facility] Comment:Reviewed Albumin 4.0 3.5 - 5.0 g/dL [facility] Comment:Reviewed Alk phos 87 40 - 130 Units/L [facility] Comment:Reviewed ALT 20 7 - 55 Units/L [facility] Comment:Reviewed AST 17 10 - 50 Units/L [facility] Comment:Reviewed Blood 04/12/2025 5:32 AM CDT 04/12/2025 5:45 AM CDT Lalit Mccray MD LAB BLOOD ORDERA BLES Final Result Performing Organization Address [facility] de Phone Number [facility] [place] [address] * aPTT (04/12/2025 5:31 AM CDT) aPTT 32 26 - 38 sec Comment: Interpretive Data Heparin therapeutic range: 66.0 - 100.0 seconds. Range based on correlation with therapeutic heparin activity range of 0.3 - 0.7 Units/mL. Current interpretive data was last revised on 2023. Blood 04/12/2025 5:31 AM CDT 04/12/2025 5:51 AM CDT Lalit Mccray MD LAB BLOOD ORDERA BLES Final Result Performing Organization Address [facility] Co de Phone Number [facility] [place] [address] * Protime-INR (04/12/2025 5:31 AM CDT) PT 11.5 10.2 - 13.5 sec INR 1.02 0.90 - 1.20 [facility] Comment: Interpretive data Oral anticoagulant therapeutic ranges: Venous thromboembolism prophylaxis or treatment: 2.0-3.0 CARDIOLOGY Standard range: 2.0-3.0 High-intensity range: 2.5-3.5 Refer to indication-specific guidelines for appropriate target ranges for prosthetic heart valve replacement. Current interpretive data was last revised on 2019. Blood 04/12/2025 5:31 AM CDT 04/12/2025 5:51 AM CDT Lalit Mccray MD LAB BLOOD ORDERA BLES Final Result [facility] Department [place] [address] * (ABNORMAL) CBC without differential (04/12/2025 5:31 AM CDT) WBC 11.49(H) 3.80 - 9.90 K/cumm Hgb 13.8 13.0 - 17.5 g/dL [facility] Hct 41.4 38.9 - 50.3 % [facility] Plt 440(H) 150 - 400 K/cumm [facility] MPV 9.3 9.1 - 12.3 fL [facility] RBC 4.44 4.30 - 5.80 M/cumm [facility] MCV 93.2 81.3 - 96.4 fL [facility] MCH 31.1 27.1 - 33.3 pg [facility] MCHC 33.3 32.3 - 35.7 g/dL [facility] RDW CV 15.4(H) 11.1 - 14.9 % [facility] RDW SD 51.8(H) 35.7 - 48.1 fL [facility] NRBC abs 0.00 0.00 - 0.01 K/cumm [facility] Blood 04/12/2025 5:31 AM CDT 04/12/2025 5:44 AM CDT Narrative [facility] - 04/12/2025 5:51 AM CDT Baseline prior to heparin initiation Lalit Mccray MD LAB BLOOD ORDERA BLES Final Result [facility] Department [place] [address] * CTA Abdominal Aorta And Bilateral Iliofemoral Runoff (04/12/2025 4:52 AM CDT) Anatomical Region Laterality Modality Body Bilateral Computed Tomogra phy 04/12/2025 5:55 AM CDT Impressions 04/12/2025 10:55 AM CDT 1. Right lower extremity: Interval placement of a right superficial femoral artery stent which extends into the popliteal artery and is patent. There is multifocal mild to moderate stenosis of the arterial supply to the right lower extremity with severe multifocal stenosis of the anterior tibial artery with distal reconstitution. Three-vessel runoff to the ankle. 2. Left lower extremity: Increased now severe stenosis of the left external iliac artery with interval placement of a left superficial femoral artery stent extending into the popliteal artery. The stent is patent. Three-vessel runoff to the ankle. Dictated by: Vega Poole M.D. The radiology attending physician has personally reviewed this study, and had reviewed and/or edited this written report and agrees with it. Electronically signed by: Ashley Fong M.D. Narrative 04/12/2025 10:55 AM CDT EXAMINATION: CT ANGIOGRAPHY OF THE ABDOMEN, PELVIS, AND LOWER EXTREMITIES WITH CONTRAST HISTORY: 70-year-old male with peripheral artery disease status post left superficial femoral artery stent 04/09/2025 presenting with claudication symptoms within the left thigh TECHNIQUE: CT angiography of the abdomen, pelvis, and lower extremities was performed following the uneventful intravenous administration of 120 ml [id number]. Vascular 3D images were generated on a dedicated workstation and also reviewed. COMPARISON: CTA 03/11/2025. FINDINGS: VASCULAR FINDINGS: Abdominal Aorta and Branches: Celiac axis: no significant stenosis SMA: no significant stenosis DAMIÁN: no significant stenosis Right renal vessels: Mild stenosis secondary to soft and calcified atherosclerosis. Left renal vessels: no significant stenosis Infrarenal aorta: Severe atherosclerosis of the infrarenal abdominal aorta with atherosclerotic ulcers without significant stenosis. Pelvic Vessels: R. Common iliac artery: [id number] stenosis secondary to atherosclerosis R. External iliac artery: Mild stenosis secondary to atherosclerosis. R. Internal iliac artery: Moderate to severe stenosis at the origin of the right internal iliac L. Common iliac artery: Mild multifocal stenosis secondary to atherosclerosis. Each L. External iliac artery: Severe stenosis of the left external iliac artery (series 4, image 303) which has worsened compared to prior exam L. Internal iliac artery: Mild multifocal stenosis secondary to atherosclerosis. Unchanged occlusion of the distal internal iliac artery with reconstitution distally. Right Lower Extremity: R. Common femoral artery: Mild stenosis with penetrating ulcers. R. Profunda femoris artery: no significant stenosis R. Superficial femoral artery: Mild multifocal stenosis of the proximal and mid superficial femoral artery. There is a stent within the distal superficial femoral artery extending into the popliteal artery. R. Popliteal artery: Popliteal artery stent is patent with mild multifocal stenosis of the distal popliteal artery. R. Anterior tibial artery: Multifocal severe stenosis with distal reconstitution similar to prior exam. R. Tibioperoneal trunk: Mild multifocal stenosis R. Posterior tibial artery: no significant stenosis R. Peroneal artery: no significant stenosis R. Dorsalis pedis artery: no significant stenosis R. Plantar artery: no significant stenosis Left Lower Extremity: L. Common femoral artery: Multiple focal moderate stenosis L. Profunda femoris artery: no significant stenosis L. Superficial femoral artery: Mild multifocal stenosis within the proximal and mid superficial femoral artery with stent within the distal superficial femoral artery extending into the proximal portion of the popliteal artery. L. Popliteal artery: Mild multifocal stenosis L. Anterior tibial artery: Moderate to severe stenosis proximally with patent vessels distally. L. Tibioperoneal trunk: Multifocal moderate to severe L. Posterior tibial artery: Multifocal moderate to severe approximately with distal reconstitution L. Peroneal artery: Multifocal moderate to severe proximally with distal reconstitution. L. Dorsalis pedis artery: no significant stenosis L. Plantar artery: no significant stenosis NON-VASCULAR FINDINGS: Heart size is normal. No pericardial effusion. Honeycombing within the lung bases consistent with a usual interstitial pneumonia. Normal angiographic appearance of the liver, gallbladder, pancreas, spleen, and adrenal glands. Kidneys are symmetrically enhancing without evidence of hydronephrosis or nephrolithiasis. Urinary bladder is distended but appears normal. Bowel is normal in course and caliber without evidence of obstruction. No abdominal or pelvic lymphadenopathy. Multilevel degenerative changes of the lumbar spine with grade 2 anterolisthesis of L5 on S1 as well as severe degenerative disc disease at L2-L3. Pars defects at L5-S1. No severe central canal stenosis. Small right greater than left joint effusions. Procedure Note Ashley Fong MD - 04/12/2025 EXAMINATION: CT ANGIOGRAPHY OF THE ABDOMEN, PELVIS, AND LOWER EXTREMITIES WITH CONTRAST HISTORY: 70-year-old male with peripheral artery disease status post left superficial femoral artery stent 04/09/2025 presenting with claudication symptoms within the left thigh TECHNIQUE: CT angiography of the abdomen, pelvis, and lower extremities was performed following the uneventful intravenous administration of 120 ml Optiray-350. Vascular 3D images were generated on a dedicated workstation and also reviewed. COMPARISON: CTA 03/11/2025. FINDINGS: VASCULAR FINDINGS: Abdominal Aorta and Branches: Celiac axis: no significant stenosis SMA: no significant stenosis DAMIÁN: no significant stenosis Right renal vessels: Mild stenosis secondary to soft and calcified atherosclerosis. Left renal vessels: no significant stenosis Infrarenal aorta: Severe atherosclerosis of the infrarenal abdominal aorta with atherosclerotic ulcers without significant stenosis. Pelvic Vessels: R. Common iliac artery: [id number] stenosis secondary to atherosclerosis R. External iliac artery: Mild stenosis secondary to atherosclerosis. R. Internal iliac artery: Moderate to severe stenosis at the origin of the right internal iliac L. Common iliac artery: Mild multifocal stenosis secondary to atherosclerosis. Each L. External iliac artery: Severe stenosis of the left external iliac artery (series 4, image 303) which has worsened compared to prior exam L. Internal iliac artery: Mild multifocal stenosis secondary to atherosclerosis. Unchanged occlusion of the distal internal iliac artery with reconstitution distally. Right Lower Extremity: R. Common femoral artery: Mild stenosis with penetrating ulcers. R. Profunda femoris artery: no significant stenosis R. Superficial femoral artery: Mild multifocal stenosis of the proximal and mid superficial femoral artery. There is a stent within the distal superficial femoral artery extending into the popliteal artery. R. Popliteal artery: Popliteal artery stent is patent with mild multifocal stenosis of the distal popliteal artery. R. Anterior tibial artery: Multifocal severe stenosis with distal reconstitution similar to prior exam. R. Tibioperoneal trunk: Mild multifocal stenosis R. Posterior tibial artery: no significant stenosis R. Peroneal artery: no significant stenosis R. Dorsalis pedis artery: no significant stenosis R. Plantar artery: no significant stenosis Left Lower Extremity: L. Common femoral artery: Multiple focal moderate stenosis L. Profunda femoris artery: no significant stenosis L. Superficial femoral artery: Mild multifocal stenosis within the proximal and mid superficial femoral artery with stent within the distal superficial femoral artery extending into the proximal portion of the popliteal artery. L. Popliteal artery: Mild multifocal stenosis L. Anterior tibial artery: Moderate to severe stenosis proximally with patent vessels distally. L. Tibioperoneal trunk: Multifocal moderate to severe L. Posterior tibial artery: Multifocal moderate to severe approximately with distal reconstitution L. Peroneal artery: Multifocal moderate to severe proximally with distal reconstitution. L. Dorsalis pedis artery: no significant stenosis L. Plantar artery: no significant stenosis NON-VASCULAR FINDINGS: Heart size is normal. No pericardial effusion. Honeycombing within the lung bases consistent with a usual interstitial pneumonia. Normal angiographic appearance of the liver, gallbladder, pancreas, spleen, and adrenal glands. Kidneys are symmetrically enhancing without evidence of hydronephrosis or nephrolithiasis. Urinary bladder is distended but appears normal. Bowel is normal in course and caliber without evidence of obstruction. No abdominal or pelvic lymphadenopathy. Multilevel degenerative changes of the lumbar spine with grade 2 anterolisthesis of L5 on S1 as well as severe degenerative disc disease at L2-L3. Pars defects at L5-S1. No severe central canal stenosis. Small right greater than left joint effusions. IMPRESSION: 1. Right lower extremity: Interval placement of a right superficial femoral artery stent which extends into the popliteal artery and is patent. There is multifocal mild to moderate stenosis of the arterial supply to the right lower extremity with severe multifocal stenosis of the anterior tibial artery with distal reconstitution. Three-vessel runoff to the ankle. 2. Left lower extremity: Increased now severe stenosis of the left external iliac artery with interval placement of a left superficial femoral artery stent extending into the popliteal artery. The stent is patent. Three-vessel runoff to the ankle. Dictated by: Vega Poole M.D. The radiology attending physician has personally reviewed this study, and had reviewed and/or edited this written report and agrees with it. Electronically signed by: Ashley Fong M.D. Darrick Hicks MD IMG CT PROCEDURES Final Resul t * eGFR (04/12/2025 4:19 AM CDT) eGFR See Comment >=60 Comment: Hemolyzed Telephone report made to: Gwen Lovett RN on 04/12/2025 05:25:11 CDT by JESUS . Interpretive Data Reference Interval Normal >/= 90 [...] interpretive data was last reviewed 2021. Blood 04/12/2025 4:19 AM CDT 04/12/2025 4:48 AM CDT Darrick Hicks MD LAB BLOOD ORDERABLES Final Re sult Performing Organization Address [facility] de Phone Number [facility] Department of [place] [address] * Check Sample (04/12/2025 4:19 AM CDT) ABO Rh O Positive [facility] OTHER 04/12/2025 4:19 AM CDT 04/12/2025 5:58 AM CDT Darrick Hicks MD LAB BLOOD ORDERABLES Final Re sult Performing Organization Address [facility] Co de Phone Number [facility] Department [place] [address] [facility] * Comprehensive metabolic panel (04/12/2025 4:19 AM CDT) Sodium See Comment 135 - 145 mmol/L Comment: Credited; Hemolyzed Specimen Hemolyzed Telephone report made to: Gwen Lovett RN on 04/12/2025 05:25:11 CDT by MD . Potassium, pl See Comment 3.3 - 4.9 mmol/L [facility] Comment: Credited; Hemolyzed Specimen Hemolyzed Telephone report made to: Gwen Lovett RN on 04/12/2025 05:25:11 CDT by MD . Chloride See Comment 97 - 110 mmol/L [facility] Comment: Credited; Hemolyzed Specimen Hemolyzed Telephone report made to: Gwen Lovett RN on 04/12/2025 05:25:11 CDT by MD . CO2 See Comment 22 - 32 mmol/L [facility] Comment: Credited; Hemolyzed Specimen Hemolyzed Telephone report made to: Gwen Lovett RN on 04/12/2025 05:25:11 CDT by MD . Anion gap See Comment 2 - 15 mmol/L [facility] Comment: Unable to calculate Hemolyzed Telephone report made to: Gwen Lovett RN on 04/12/2025 05:25:11 CDT by MD . BUN See Comment 6 - 25 mg/dL [facility] Comment: Credited; Hemolyzed Specimen Hemolyzed Telephone report made to: Gwen Lovett RN on 04/12/2025 05:25:11 CDT by MD . Creatinine See Comment 0.80 - 1.30 mg/dL [facility] Comment: Credited; Hemolyzed Specimen Hemolyzed Telephone report made to: Gwen Lovett RN on 04/12/2025 05:25:11 CDT by GA . Glucose See Comment 70 - 199 mg/dL [facility] Comment: Credited; Hemolyzed Specimen Hemolyzed Telephone report made to: Gwen Lovett RN on 04/12/2025 05:25:11 CDT by MD . Interpretive Data Fasting glucose >/= 126 mg/dl [...] interpretive data was last revised 2022. Calcium See Comment 8.5 - 10.3 mg/dL [facility] Comment: Credited; Hemolyzed Specimen Hemolyzed Telephone report made to: Gwen Lovett RN on 04/12/2025 05:25:11 CDT by MD . Bilirubin, total See Comment 0.1 - 1.2 mg/dL [facility] Comment: Credited; Hemolyzed Specimen Hemolyzed Telephone report made to: Gwen Lovett RN on 04/12/2025 05:25:11 CDT by GA . Protein, pl See Comment 6.5 - 8.5 g/dL [facility] Comment: Credited; Hemolyzed Specimen Hemolyzed Telephone report made to: Gwen Lovett RN on 04/12/2025 05:25:11 CDT by MD . Albumin See Comment 3.5 - 5.0 g/dL [facility] Comment: Credited; Hemolyzed Specimen Hemolyzed Telephone report made to: Gwen Lovett RN on 04/12/2025 05:25:11 CDT by GA . Alk phos See Comment 40 - 130 Units/L [facility] Comment: Credited; Hemolyzed Specimen Hemolyzed Telephone report made to: Gwen Lovett RN on 04/12/2025 05:25:11 CDT by GA . ALT See Comment 7 - 55 Units/L [facility] Comment: Hemolyzed Telephone report made to: Gwen Lovett RN on 04/12/2025 05:25:11 CDT by GA . AST See Comment 10 - 50 Units/L [facility] Comment: Hemolyzed Telephone report made to: Gwen Lovett RN on 04/12/2025 05:25:11 CDT by GA . Blood 04/12/2025 4:19 AM CDT 04/12/2025 4:48 AM CDT Darrick Hicks MD LAB BLOOD ORDERABLES Edited R esult - Final [facility] Department [place] [address] * (ABNORMAL) Differential, auto (04/12/2025 2:31 AM CDT) Neutrophil abs 7.95(H) 1.50 - 6.50 K/cumm Imm gran abs 0.05 0.00 - 0.10 K/cumm [facility] Lymphocyte abs 2.64 0.80 - 3.30 K/cumm [facility] Monocyte abs 0.68 0.20 - 0.80 K/cumm [facility] Eosinophil abs 0.46 0.00 - 0.50 K/cumm [facility] Basophil abs 0.11(H) 0.00 - 0.10 K/cumm [facility] Neutrophil pct 66.9 % [facility] Comment: Interpretive Data Percent cell count reference ranges are not reported, since discordance with absolute values may lead to misinterpretation of CBC data. Current Interpretive Data was last revised on 2017. Imm gran pct 0.4 % [facility] Comment: Interpretive Data Percent cell count reference ranges are not reported, since discordance with absolute values may lead to misinterpretation of CBC data. Current Interpretive Data was last revised on 2017. Lymphocyte pct 22.2 % [facility] Comment: Interpretive Data Percent cell count reference ranges are not reported, since discordance with absolute values may lead to misinterpretation of CBC data. Current Interpretive Data was last revised on 2017. Monocyte pct 5.7 % [facility] Comment: Interpretive Data Percent cell count reference ranges are not reported, since discordance with absolute values may lead to misinterpretation of CBC data. Current Interpretive Data was last revised on 2017. Eosinophil pct 3.9 % [facility] Comment: Interpretive Data Percent cell count reference ranges are not reported, since discordance with absolute values may lead to misinterpretation of CBC data. Current Interpretive Data was last revised on 2017. Basophil pct 0.9 % [facility] Comment: Interpretive Data Percent cell count reference ranges are not reported, since discordance with absolute values may lead to misinterpretation of CBC data. Current Interpretive Data was last revised on 2017. Blood 04/12/2025 2:31 AM CDT 04/12/2025 3:17 AM CDT Darrick Hicks MD LAB BLOOD ORDERABLES Final Re sult Performing Organization Address [facility]/ZIP Co de Phone Number [facility] [place] [address] * (ABNORMAL) CBC with auto differential (04/12/2025 2:31 AM CDT) Pathologist [facility] WBC 11.89(H) 3.80 - 9.90 K/cumm Hgb 15.6 13.0 - 17.5 g/dL [facility] Hct 45.5 38.9 - 50.3 % [facility] Plt 344 150 - 400 K/cumm [facility] MPV 9.5 9.1 - 12.3 fL [facility] RBC 4.95 4.30 - 5.80 M/cumm [facility] MCV 91.9 81.3 - 96.4 fL [facility] MCH 31.5 27.1 - 33.3 pg [facility] MCHC 34.3 32.3 - 35.7 g/dL [facility] RDW CV 16.5(H) 11.1 - 14.9 % [facility] RDW SD 52.3(H) 35.7 - 48.1 fL [facility] NRBC abs 0.00 0.00 - 0.01 K/cumm [facility] Blood 04/12/2025 2:31 AM CDT 04/12/2025 3:17 AM CDT Darrick Hicks MD LAB BLOOD ORDERABLES Final Re sult Performing Organization Address City/[facility]/ZIP Co de Phone Number [facility] [place] [address] * Type and screen (04/12/2025 2:31 AM CDT) Pathologist [facility] Patsy, indirect Negative ABO Rh O Positive [facility] Blood 04/12/2025 2:31 AM CDT 04/12/2025 3:16 AM CDT Narrative [facility] - 04/12/2025 4:04 AM CDT Has the patient had Daratumumab or Isatuximab in the past 6 months?->Unknown Darrick Hicks MD LAB BLOOD BANK TEST ORDERABLE S Final Result Performing Organization Address [facility] Co de Phone Number [facility] [place] [address] * POCT glucose (04/12/2025 12:58 AM CDT) [facility] Glucose, POC 123 70 - 199 mg/dL Blood 04/12/2025 12:5 8 AM CDT 04/12/2025 12:58 AM CDT us Notinfile Unknown LAB POCT ORDERABLES - DEVICE F inal Result Performing Organization Address [facility] Co de Phone Number [facility] [place] [address] * POCT glucose (04/11/2025 9:55 PM CDT) [facility] Glucose, POC 118 70 - 199 mg/dL Blood 04/11/2025 9:55 PM CDT 04/11/2025 9:55 PM CDT Notinfile Unknown LAB POCT ORDERABLES - DEVICE F inal Result Performing Organization Address [facility] Co de Phone Number [facility] [place] [address] * POCT ketone, blood (04/11/2025 9:55 PM CDT) [facility] Beta-Hydroxybut yrate, POC 0.2 0.0 - 0.5 mmol/L Blood 04/11/2025 9:55 PM CDT 04/11/2025 9:55 PM CDT us Notinfile Unknown LAB POCT ORDERABLES - DEVICE F inal Result [facility] Department [place] [address] * IR Angiogram Lower Extremity Left (04/09/2025 9:51 AM CDT) Anatomical Region Laterality Modality Extremity Left Ultrasound 04/09/2025 4:22 PM CDT Impressions 04/21/2025 7:29 AM CDT 1. 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 2. Successful laser atherectomy, balloon angioplasty with drug coated balloon, and placement of drug coated stent in the left superficial femoral artery with cheondoism of blood flow to the left lower extremity. PLAN: - Continue the Plavix and 81 mg aspirin - They will return in 1 month to IR clinic for follow-up with an arterial duplex of the lower extremities. Dictated by: Fritz Mayes MD The radiology attending physician has personally reviewed this study, and had reviewed and/or edited this written report and agrees with it. Electronically signed by: Phong Adler M.D. Narrative 04/21/2025 7:29 AM CDT EXAMINATION: LEFT LOWER EXTREMITY ANGIOGRAM WITH REVASCULARIZATION PROCEDURES: 1. Ultrasound-guided retrograde access via the left common femoral artery. 2. Angiography of the left lower extremity in stations down to the foot. 3. Laser atherectomy of the left superficial femoral artery 4. Drug coated balloon angioplasty of the left superficial femoral artery. 5. Drug eluting stent placement in the distal left superficial femoral artery. 6. Post intervention left lower extremity angiography. HISTORY/INDICATION: 70 year old male with history of DM, hypercholesterolemia, RA, smoking, HTN, and bilateral lower extremity claudication who recently underwent revascularization of the right lower extremity on 04/01/2025 with significant symptom improvement and now presents for evaluation of left lower extremity claudication. ATTENDING PRESENCE: Phong Adler M.D., the attending radiologist was present from the beginning to the end of the procedure. SEDATION: Procedural sedation was administered under the attending physician's direction and continuous monitoring by a trained nurse specialist who was independent from those actually performing the procedure. Total monitored sedation time was 75 minutes. TECHNIQUE: The risks, benefits and alternatives were discussed and informed consent was obtained. Prior to beginning the procedure, [place] Protocol was performed to confirm the patient's identity and the planned procedure. The fluoroscopy time has been recorded in the electronic medical record. Maximum sterile barriers including cap, mask, hand hygiene, sterile gloves, sterile gown, large sterile drape and 2% chlorhexidine for cutaneous antisepsis were used. After sterile prep, the skin over the right groin area was infiltrated with 1% lidocaine. The right common femoral artery was punctured in a retrograde direction under real time ultrasound guidance. An image of the patent vessel was recorded. A 6 Fr Portuguese sheath was placed in the artery. [id number] units of heparin were given. A limited angiogram was performed through the sheath side arm to assess the arterial puncture site. An Omni-flush catheter was advanced into the abdominal aorta. The Omni Flush catheter was advanced to the right external iliac artery. Angiogram of the left lower extremity was performed in stations down to the foot. The existing sheath was exchanged for a long 6-Portuguese 60 cm sheath which was advanced into the proximal SFA. During the procedure the patient was given a total of 1000 units of heparin with multiple ACT checks to maintain ACT greater than 270. At the conclusion of the procedure, the patient was given 15 mg of Protamine for heparin reversal. Equipment used for selective catheterization/crossing areas of stenosis: 0.035 stiff glidewire, 0.014 glidewire advantage Equipment used for intervention: 1.7 mm Auryon laser atherectomy was performed across the left superficial femoral artery. Balloon angioplasty of the left superficial femoral artery was then performed in stations using a 5 mm x 150 mm drug coated balloon. A 5 mm x 140 mm PTX, drug coated stent was then deployed in the distal left superficial femoral artery. At the end of the procedure, an Angioseal device was deployed under ultrasound guidance to accomplish successful closure of the arteriotomy. Almyra-talbert was applied to the skin site. FINDINGS: Ultrasound evaluation of the right common femoral artery demonstrates a patent vessel. Initial angiogram of the extremity demonstrates: Severe focal stenosis of the mid left superficial femoral artery. Post intervention angiogram demonstrates: Left superficial femoral artery is patent and normal in caliber with improved flow to normal caliber tibioperoneal trunk, anterior tibial artery, and posterior tibial artery and two-vessel runoff into the foot. Procedure Note Phong Adler MD - 04/21/2025 EXAMINATION: LEFT LOWER EXTREMITY ANGIOGRAM WITH REVASCULARIZATION PROCEDURES: 1. Ultrasound-guided retrograde access via the left common femoral artery. 2. Angiography of the left lower extremity in stations down to the foot. 3. Laser atherectomy of the left superficial femoral artery 4. Drug coated balloon angioplasty of the left superficial femoral artery. 5. Drug eluting stent placement in the distal left superficial femoral artery. 6. Post intervention left lower extremity angiography. HISTORY/INDICATION: 70 year old male with history of DM, hypercholesterolemia, RA, smoking, HTN, and bilateral lower extremity claudication who recently underwent revascularization of the right lower extremity on 04/01/2025 with significant symptom improvement and now presents for evaluation of left lower extremity claudication. ATTENDING PRESENCE: Phong Adler M.D., the attending radiologist was present from the beginning to the end of the procedure. SEDATION: Procedural sedation was administered under the attending physician's direction and continuous monitoring by a trained nurse specialist who was independent from those actually performing the procedure. Total monitored sedation time was 75 minutes. TECHNIQUE: The risks, benefits and alternatives were discussed and informed consent was obtained. Prior to beginning the procedure, [place] Protocol was performed to confirm the patient's identity and the planned procedure. The fluoroscopy time has been recorded in the electronic medical record. Maximum sterile barriers including cap, mask, hand hygiene, sterile gloves, sterile gown, large sterile drape and 2% chlorhexidine for cutaneous antisepsis were used. After sterile prep, the skin over the right groin area was infiltrated with 1% lidocaine. The right common femoral artery was punctured in a retrograde direction under real time ultrasound guidance. An image of the patent vessel was recorded. A 6 Fr Portuguese sheath was placed in the artery. 48490 units of heparin were given. A limited angiogram was performed through the sheath side arm to assess the arterial puncture site. An Omni-flush catheter was advanced into the abdominal aorta. The Omni Flush catheter was advanced to the right external iliac artery. Angiogram of the left lower extremity was performed in stations down to the foot. The existing sheath was exchanged for a long 6-Portuguese 60 cm sheath which was advanced into the proximal SFA. During the procedure the patient was given a total of 1000 units of heparin with multiple ACT checks to maintain ACT greater than 270. At the conclusion of the procedure, the patient was given 15 mg of Protamine for heparin reversal. Equipment used for selective catheterization/crossing areas of stenosis: 0.035 stiff glidewire, 0.014 glidewire advantage Equipment used for intervention: 1.7 mm Auryon laser atherectomy was performed across the left superficial femoral artery. Balloon angioplasty of the left superficial femoral artery was then performed in stations using a 5 mm x 150 mm drug coated balloon. A 5 mm x 140 mm PTX, drug coated stent was then deployed in the distal left superficial femoral artery. At the end of the procedure, an Angioseal device was deployed under ultrasound guidance to accomplish successful closure of the arteriotomy. Almyra-talbert was applied to the skin site. FINDINGS: Ultrasound evaluation of the right common femoral artery demonstrates a patent vessel. Initial angiogram of the extremity demonstrates: Severe focal stenosis of the mid left superficial femoral artery. Post intervention angiogram demonstrates: Left superficial femoral artery is patent and normal in caliber with improved flow to normal caliber tibioperoneal trunk, anterior tibial artery, and posterior tibial artery and two-vessel runoff into the foot. IMPRESSION: 1. 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 2. Successful laser atherectomy, balloon angioplasty with drug coated balloon, and placement of drug coated stent in the left superficial femoral artery with cheondoism of blood flow to the left lower extremity. PLAN: - Continue the Plavix and 81 mg aspirin - They will return in 1 month to IR clinic for follow-up with an arterial duplex of the lower extremities. Dictated by: Fritz Mayes MD The radiology attending physician has personally reviewed this study, and had reviewed and/or edited this written report and agrees with it. Electronically signed by: Phong Adler M.D. Phong Adler MD IM IR PROCEDURES Final Result * (ABNORMAL) POCT Activated clotting time, low range (04/09/2025 9:17 AM CDT) ACT 374(H) 123 - 168 sec POC Device Number [id number] [facility] Blood 04/09/2025 9:17 AM CDT 04/09/2025 9:17 AM CDT us Phong Adler MD LAB POCT ORDERABLES - D EVICE Final Result Performing Organization Address City/[facility]/ZIP Co de Phone Number [facility] Department [place] [address] * eGFR (04/08/2025 5:15 PM CDT) eGFR 84 >=60 mL/min/1. 73 m2 Comment: Interpretive Data [...] interpretive data was last reviewed 2021. Blood 04/08/2025 5:15 PM CDT 04/08/2025 6:16 PM CDT us Vilma Esparza MD LAB BL OOD ORDERABLES Final Result Performing Organization Address City/[facility]/ZIP Co de Phone Number [facility] Department [place] [address] * (ABNORMAL) Differential, auto (04/08/2025 5:15 PM CDT) Pathologist [facility] Neutrophil abs 5.81 1.50 - 6.50 K/cumm Imm gran abs 0.03 0.00 - 0.10 K/cumm [facility] Lymphocyte abs 2.94 0.80 - 3.30 K/cumm [facility] Monocyte abs 0.99(H) 0.20 - 0.80 K/cumm [facility] Eosinophil abs 0.51(H) 0.00 - 0.50 K/cumm [facility] Basophil abs 0.11(H) 0.00 - 0.10 K/cumm [facility] Neutrophil pct 55.9 % [facility] Comment: Interpretive Data Percent cell count reference ranges are not reported, since discordance with absolute values may lead to misinterpretation of CBC data. Current Interpretive Data was last revised on 2017. Imm gran pct 0.3 % [facility] Comment: Interpretive Data Percent cell count reference ranges are not reported, since discordance with absolute values may lead to misinterpretation of CBC data. Current Interpretive Data was last revised on 2017. Lymphocyte pct 28.3 % [facility] Comment: Interpretive Data Percent cell count reference ranges are not reported, since discordance with absolute values may lead to misinterpretation of CBC data. Current Interpretive Data was last revised on 2017. Monocyte pct 9.5 % [facility] Comment: Interpretive Data Percent cell count reference ranges are not reported, since discordance with absolute values may lead to misinterpretation of CBC data. Current Interpretive Data was last revised on 2017. Eosinophil pct 4.9 % [facility] Comment: Interpretive Data Percent cell count reference ranges are not reported, since discordance with absolute values may lead to misinterpretation of CBC data. Current Interpretive Data was last revised on 2017. Basophil pct 1.1 % [facility] Comment: Interpretive Data Percent cell count reference ranges are not reported, since discordance with absolute values may lead to misinterpretation of CBC data. Current Interpretive Data was last revised on 2017. Blood 04/08/2025 5:15 PM CDT 04/08/2025 6:11 PM CDT us Vilma Esparza MD LAB BL OOD ORDERABLES Final Result [facility] Department [place] [address] * (ABNORMAL) CBC with auto differential (04/08/2025 5:15 PM CDT) Pathologist [facility] WBC 10.39(H) 3.80 - 9.90 K/cumm Hgb 14.5 13.0 - 17.5 g/dL [facility] Hct 42.2 38.9 - 50.3 % [facility] Plt 433(H) 150 - 400 K/cumm [facility] MPV 9.5 9.1 - 12.3 fL [facility] RBC 4.57 4.30 - 5.80 M/cumm [facility] MCV 92.3 81.3 - 96.4 fL [facility] MCH 31.7 27.1 - 33.3 pg [facility] MCHC 34.4 32.3 - 35.7 g/dL [facility] RDW CV 15.7(H) 11.1 - 14.9 % [facility] RDW SD 51.8(H) 35.7 - 48.1 fL [facility] NRBC abs 0.00 0.00 - 0.01 K/cumm [facility] Blood 04/08/2025 5:15 PM CDT 04/08/2025 6:11 PM CDT Vilma Esparza MD LAB BL OOD ORDERABLES Final Result [facility] Department [place] [address] * (ABNORMAL) Comprehensive metabolic panel (04/08/2025 5:15 PM CDT) Pathologist [facility] Sodium 135 135 - 145 mmol/L Potassium, pl 5.1(H) 3.3 - 4.9 mmol/L [facility] Chloride 97 97 - 110 mmol/L [facility] CO2 29 22 - 32 mmol/L [facility] Anion gap 9 2 - 15 mmol/L [facility] BUN 23 6 - 25 mg/dL [facility] Creatinine 0.96 0.80 - 1.30 mg/dL [facility] Glucose 112 70 - 199 mg/dL [facility] Comment: Interpretive Data Fasting glucose [...] 2022. Calcium 10.2 8.5 - 10.3 mg/dL [facility] Bilirubin, total 0.3 0.1 - 1.2 mg/dL [facility] Protein, pl 7.7 6.5 - 8.5 g/dL [facility] Albumin 4.1 3.5 - 5.0 g/dL [facility] Alk phos 85 40 - 130 Units/L [facility] ALT 33 7 - 55 Units/L [facility] AST 29 10 - 50 Units/L [facility] Blood 04/08/2025 5:15 PM CDT 04/08/2025 6:11 PM CDT Vilma Esparza MD LAB BL OOD ORDERABLES Final Result [facility] Department [place] [address] * (ABNORMAL) POCT Activated clotting time, low range (04/01/2025 10:14 AM CDT) ACT 186(H) 123 - 168 sec POC Device Number [id number] [facility] Blood 04/01/2025 10:1 4 AM CDT 04/01/2025 10:14 AM CDT us Phong Adler MD LAB POCT ORDERABLES - D EVICE Final Result [facility] Department [place] [address] * IR Angiogram Lower Extremity Right (04/01/2025 10:00 AM CDT) Anatomical Region Laterality Modality Extremity Right X-Ray Angiograph y 04/01/2025 2:59 PM CDT Impressions 04/01/2025 5:47 PM CDT Successful revascularization of the distal right superficial femoral artery and P1 segment of the popliteal artery PLAN: The patient will be loaded with 600mg Plavix and begin a regimen of Plavix 75mg and ASA 81 daily. They will return in 1 month to IR clinic for follow-up with an arterial duplex of the lower extremities. Dictated by: Aaron Watts M.D. The radiology attending physician has personally reviewed this study, and had reviewed and/or edited this written report and agrees with it. Electronically signed by: Phong Adler M.D. Narrative 04/01/2025 5:47 PM CDT EXAMINATION: RIGHT LOWER EXTREMITY ANGIOGRAM WITH REVASCULARIZATION PROCEDURES: 1. Ultrasound-guided access left common femoral artery. 2. Abdominal aortogram 3. Right lower extremity angiogram in stations down to the foot 4. Balloon angioplasty of the distal superficial femoral artery and popliteal artery 5. Drug eluting stent placement in the distal superficial femoral artery 6. Post intervention angiography 7. Celt closure device deployment HISTORY: 70-year-old male with history of diabetes, hypercholesterolemia, hypertension, smoking, and right greater than left lower extremity claudication. He notes leg soreness after mowing the lawn for short periods, requiring frequent resting. Currently on 81 mg aspirin. ATTENDING PRESENCE: PHONG ADLER, the attending radiologist was present from the beginning to the end of the procedure. SEDATION: Procedural sedation was administered under the attending physician's direction and continuous monitoring by a trained nurse specialist who was independent from those actually performing the procedure. Total monitored sedation time was 110 minutes. TECHNIQUE: The risks, benefits and alternatives were discussed and informed consent was obtained. Prior to beginning the procedure, [place] Protocol was performed to confirm the patient's identity and the planned procedure. The fluoroscopy time has been recorded in the electronic medical record. Maximum sterile barriers including cap, mask, hand hygiene, sterile gloves, sterile gown, large sterile drape and 2% chlorhexidine for cutaneous antisepsis were used. Intravenous heparin was administered throughout the case to maintain a goal ACT greater than 270. Protamine was administered at the conclusion of the case for heparin reversal. After sterile prep, the skin over the left groin was infiltrated with 1% lidocaine. The left common femoral artery was punctured under real time ultrasound guidance. An image of the patent vessel was recorded. A 6Fr Portuguese sheath was placed. An abdominal aortogram was performed. The angiographic catheter was advanced to the right common femoral artery and the right lower extremity angiogram was performed in stations to the foot A 6-Portuguese 45 cm sheath was advanced to the right common femoral artery. The 0.014 system was advanced into the peroneal artery. Angioplasty of the right mid to distal superficial femoral artery and the P1 to proximal P2 segment of the popliteal artery was performed with 5 mm balloon. Repeat angiogram was performed. This was followed by deployment of a 5 mm x 100 mm Zilver PTX stent. A completion angiogram was performed. After completion of revascularization, a limited common femoral artery angiogram was performed to confirm satisfactory position of arterial puncture site. Celt device was deployed under ultrasound guidance to accomplish successful closure of the arteriotomy. A sterile dressing was applied. ESTIMATED BLOOD LOSS: minimal. CONDITION: Stable DISCHARGED TO: outpatient recovery and then home. FINDINGS: Ultrasound evaluation of the left common femoral artery demonstrates a patent vessel with moderate calcified atherosclerosis. Abdominal aortogram demonstrates patent renal arteries bilaterally and no abdominal aortic aneurysm. Mild atherosclerosis of the iliac arteries bilaterally. Initial angiogram of the extremity demonstrates mild multifocal stenoses of the superficial femoral artery proximally with moderate stenosis of the distal superficial femoral artery and P1 segment of the popliteal artery. Additional mild stenoses in the P2 segment of the popliteal artery. Runoff to the foot via the anterior tibial and posterior tibial arteries with note of a poorly opacified peroneal artery at the level of the ankle. Sluggish flow in the tibial arteries is likely secondary to cardiac dysfunction. After intervention, the angiogram demonstrates significant improvement in distal superficial femoral artery stenosis and improvement in the P1 segment stenosis with mild residual stenosis. Persistent sluggish flow in the tibial arteries. Procedure Note Phong Adler MD - 04/01/2025 EXAMINATION: RIGHT LOWER EXTREMITY ANGIOGRAM WITH REVASCULARIZATION PROCEDURES: 1. Ultrasound-guided access left common femoral artery. 2. Abdominal aortogram 3. Right lower extremity angiogram in stations down to the foot 4. Balloon angioplasty of the distal superficial femoral artery and popliteal artery 5. Drug eluting stent placement in the distal superficial femoral artery 6. Post intervention angiography 7. Celt closure device deployment HISTORY: 70-year-old male with history of diabetes, hypercholesterolemia, hypertension, smoking, and right greater than left lower extremity claudication. He notes leg soreness after mowing the lawn for short periods, requiring frequent resting. Currently on 81 mg aspirin. ATTENDING PRESENCE: PHONG ADLER, the attending radiologist was present from the beginning to the end of the procedure. SEDATION: Procedural sedation was administered under the attending physician's direction and continuous monitoring by a trained nurse specialist who was independent from those actually performing the procedure. Total monitored sedation time was 110 minutes. TECHNIQUE: The risks, benefits and alternatives were discussed and informed consent was obtained. Prior to beginning the procedure, [place] Protocol was performed to confirm the patient's identity and the planned procedure. The fluoroscopy time has been recorded in the electronic medical record. Maximum sterile barriers including cap, mask, hand hygiene, sterile gloves, sterile gown, large sterile drape and 2% chlorhexidine for cutaneous antisepsis were used. Intravenous heparin was administered throughout the case to maintain a goal ACT greater than 270. Protamine was administered at the conclusion of the case for heparin reversal. After sterile prep, the skin over the left groin was infiltrated with 1% lidocaine. The left common femoral artery was punctured under real time ultrasound guidance. An image of the patent vessel was recorded. A 6Fr Portuguese sheath was placed. An abdominal aortogram was performed. The angiographic catheter was advanced to the right common femoral artery and the right lower extremity angiogram was performed in stations to the foot A 6-Portuguese 45 cm sheath was advanced to the right common femoral artery. The 0.014 system was advanced into the peroneal artery. Angioplasty of the right mid to distal superficial femoral artery and the P1 to proximal P2 segment of the popliteal artery was performed with 5 mm balloon. Repeat angiogram was performed. This was followed by deployment of a 5 mm x 100 mm Zilver PTX stent. A completion angiogram was performed. After completion of revascularization, a limited common femoral artery angiogram was performed to confirm satisfactory position of arterial puncture site. Celt device was deployed under ultrasound guidance to accomplish successful closure of the arteriotomy. A sterile dressing was applied. ESTIMATED BLOOD LOSS: minimal. CONDITION: Stable DISCHARGED TO: outpatient recovery and then home. FINDINGS: Ultrasound evaluation of the left common femoral artery demonstrates a patent vessel with moderate calcified atherosclerosis. Abdominal aortogram demonstrates patent renal arteries bilaterally and no abdominal aortic aneurysm. Mild atherosclerosis of the iliac arteries bilaterally. Initial angiogram of the extremity demonstrates mild multifocal stenoses of the superficial femoral artery proximally with moderate stenosis of the distal superficial femoral artery and P1 segment of the popliteal artery. Additional mild stenoses in the P2 segment of the popliteal artery. Runoff to the foot via the anterior tibial and posterior tibial arteries with note of a poorly opacified peroneal artery at the level of the ankle. Sluggish flow in the tibial arteries is likely secondary to cardiac dysfunction. After intervention, the angiogram demonstrates significant improvement in distal superficial femoral artery stenosis and improvement in the P1 segment stenosis with mild residual stenosis. Persistent sluggish flow in the tibial arteries. IMPRESSION: Successful revascularization of the distal right superficial femoral artery and P1 segment of the popliteal artery PLAN: The patient will be loaded with 600mg Plavix and begin a regimen of Plavix 75mg and ASA 81 daily. They will return in 1 month to IR clinic for follow-up with an arterial duplex of the lower extremities. Dictated by: Aaron Watts M.D. The radiology attending physician has personally reviewed this study, and had reviewed and/or edited this written report and agrees with it. Electronically signed by: Phong Adler M.D. Phong Adler MD [facility] IR PROCEDURES Final Result * (ABNORMAL) POCT Activated clotting time, low range (04/01/2025 9:41 AM CDT) ACT 308(H) 123 - 168 sec POC Device Number [id number] [facility] Blood 04/01/2025 9:41 AM CDT 04/01/2025 9:41 AM CDT Phong Adler MD LAB POCT ORDERABLES - D EVICE Final Result Performing Organization Address [facility] de Phone Number [facility] [place] [address] * (ABNORMAL) POCT Activated clotting time, low range (04/01/2025 9:15 AM CDT) ACT 339(H) 123 - 168 sec POC Device Number [id number] [facility] Blood 04/01/2025 9:15 AM CDT 04/01/2025 9:15 AM CDT Phong Adler MD LAB POCT ORDERABLES - D EVICE Final Result Performing Organization Address [facility] de Phone Number [facility] [place] [address] * CT Body Outside Reference (03/17/2025 1:18 PM CDT) Impressions [email or web address] - 03/17/2025 1:18 PM CDT These images are for Reference purposes only and have not been reviewed by [facility] Radiology. There will be no report generated by a [facility] Radiologist. Narrative [facility] - 03/17/2025 1:18 PM CDT EXAMINATION: Images For Reference Purposes Only Vilma Esparza MD IMG CT PROCEDURES Final Result Performing Organization Address [facility] Co de Phone Number [email or web address] * CTA Abdominal Aorta And Bilateral Iliofemoral Runoff (03/11/2025 11:29 AM CDT) Anatomical Region Laterality Modality Body Bilateral Computed Tomogra phy 03/11/2025 3:15 PM CDT Impressions 03/12/2025 12:11 PM CDT 1. Right lower extremity: Focal severe stenosis within the distal superficial femoral artery with two-vessel runoff to the right lower extremity. 2. Left lower extremity: Multifocal stenosis throughout the left superficial femoral artery with near complete occlusion distally. There is three-vessel runoff to the left lower extremity. 3. 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 4. Partially imaged honeycombing within the bilateral lower lobes compatible with interstitial lung disease with usual interstitial pneumonia pattern in this patient with known rheumatoid arthritis. Dictated by: Isaias Almanza MD The radiology attending physician has personally reviewed this study, and had reviewed and/or edited this written report and agrees with it. Electronically signed by: Nyla Dunn M.D. Narrative 03/12/2025 12:11 PM CDT EXAMINATION: CT ANGIOGRAPHY OF THE ABDOMEN, PELVIS, AND LOWER EXTREMITIES WITH CONTRAST HISTORY: Seronegative rheumatoid arthritis, peripheral artery disease TECHNIQUE: CT angiography of the abdomen, pelvis, and lower extremities was performed following the uneventful intravenous administration of 115 ml Optiray-350. Vascular 3D images were generated on a dedicated workstation and also reviewed. COMPARISON: None FINDINGS: VASCULAR FINDINGS: Abdominal Aorta and Branches: Celiac axis: no significant stenosis SMA: no significant stenosis DAMIÁN: no significant stenosis Right renal vessels: no significant stenosis Left renal vessels: no significant stenosis Infrarenal aorta: Ulcerated atherosclerosis without significant stenosis. No aneurysm. Accessory left hepatic artery arising from left gastric artery. Pelvic Vessels: R. Common iliac artery: no significant stenosis R. External iliac artery: no significant stenosis R. Internal iliac artery: Mild to moderate stenosis at the origin L. Common iliac artery: no significant stenosis L. External iliac artery: Moderate multifocal stenosis L. Internal iliac artery: Focal occlusion distally (series 6, image 294) with distal reconstitution Right Lower Extremity: R. Common femoral artery: no significant stenosis R. Profunda femoris artery: no significant stenosis R. Superficial femoral artery: There is moderate stenosis distally R. Popliteal artery: Severe stenosis proximally R. Anterior tibial artery: Multifocal severe stenosis and focal occlusion proximally with distal reconstitution R. Tibioperoneal trunk: no significant stenosis R. Posterior tibial artery: no significant stenosis R. Peroneal artery: no significant stenosis R. Dorsalis pedis artery: no significant stenosis R. Plantar artery: no significant stenosis Left Lower Extremity: L. Common femoral artery: Moderate stenosis L. Profunda femoris artery: no significant stenosis L. Superficial femoral artery: Multifocal stenosis with near complete occlusion at the level of the mid to distal femoral shaft (series 6, image 638). L. Popliteal artery: Moderate stenosis L. Anterior tibial artery: no significant stenosis L. Tibioperoneal trunk: no significant stenosis L. Posterior tibial artery: no significant stenosis L. Peroneal artery: no significant stenosis L. Dorsalis pedis artery: no significant stenosis L. Plantar artery: no significant stenosis NON-VASCULAR FINDINGS: Partially imaged honeycombing within the bilateral lower lobes. Imaged heart size is normal. No pericardial effusion. No suspicious hepatic lesion. Gallbladder is normal. No biliary duct dilatation. Normal angiographic appearance of the spleen, pancreas, and bilateral adrenal glands. No hydronephrosis or nephrolithiasis. Large and small bowel are normal caliber. Stomach and duodenum are normal. No bowel obstruction, pneumoperitoneum, organized intra-abdominal fluid collection. No abdominal or pelvic lymphadenopathy. Urinary bladder is normal. Prostate is present. Right-sided hydrocele. Right iliopsoas bursitis. Right greater than left bilateral knee joint effusions. Mild bilateral hip osteophytosis. Severe bilateral knee osteoarthritis. No suspicious osseous lesion. No sacroiliitis. Grade 2 anterolisthesis of L5 on S1 secondary to bilateral pars defects. Left knee Huff's cyst. Procedure Note Nyla Dunn MD - 03/12/2025 EXAMINATION: CT ANGIOGRAPHY OF THE ABDOMEN, PELVIS, AND LOWER EXTREMITIES WITH CONTRAST HISTORY: Seronegative rheumatoid arthritis, peripheral artery disease TECHNIQUE: CT angiography of the abdomen, pelvis, and lower extremities was performed following the uneventful intravenous administration of 115 ml Optiray-350. Vascular 3D images were generated on a dedicated workstation and also reviewed. COMPARISON: None FINDINGS: VASCULAR FINDINGS: Abdominal Aorta and Branches: Celiac axis: no significant stenosis SMA: no significant stenosis DAMIÁN: no significant stenosis Right renal vessels: no significant stenosis Left renal vessels: no significant stenosis Infrarenal aorta: Ulcerated atherosclerosis without significant stenosis. No aneurysm. Accessory left hepatic artery arising from left gastric artery. Pelvic Vessels: R. Common iliac artery: no significant stenosis R. External iliac artery: no significant stenosis R. Internal iliac artery: Mild to moderate stenosis at the origin L. Common iliac artery: no significant stenosis L. External iliac artery: Moderate multifocal stenosis L. Internal iliac artery: Focal occlusion distally (series 6, image 294) with distal reconstitution Right Lower Extremity: R. Common femoral artery: no significant stenosis R. Profunda femoris artery: no significant stenosis R. Superficial femoral artery: There is moderate stenosis distally R. Popliteal artery: Severe stenosis proximally R. Anterior tibial artery: Multifocal severe stenosis and focal occlusion proximally with distal reconstitution R. Tibioperoneal trunk: no significant stenosis R. Posterior tibial artery: no significant stenosis R. Peroneal artery: no significant stenosis R. Dorsalis pedis artery: no significant stenosis R. Plantar artery: no significant stenosis Left Lower Extremity: L. Common femoral artery: Moderate stenosis L. Profunda femoris artery: no significant stenosis L. Superficial femoral artery: Multifocal stenosis with near complete occlusion at the level of the mid to distal femoral shaft (series 6, image [id number]). L. Popliteal artery: Moderate stenosis L. Anterior tibial artery: no significant stenosis L. Tibioperoneal trunk: no significant stenosis L. Posterior tibial artery: no significant stenosis L. Peroneal artery: no significant stenosis L. Dorsalis pedis artery: no significant stenosis L. Plantar artery: no significant stenosis NON-VASCULAR FINDINGS: Partially imaged honeycombing within the bilateral lower lobes. Imaged heart size is normal. No pericardial effusion. No suspicious hepatic lesion. Gallbladder is normal. No biliary duct dilatation. Normal angiographic appearance of the spleen, pancreas, and bilateral adrenal glands. No hydronephrosis or nephrolithiasis. Large and small bowel are normal caliber. Stomach and duodenum are normal. No bowel obstruction, pneumoperitoneum, organized intra-abdominal fluid collection. No abdominal or pelvic lymphadenopathy. Urinary bladder is normal. Prostate is present. Right-sided hydrocele. Right iliopsoas bursitis. Right greater than left bilateral knee joint effusions. Mild bilateral hip osteophytosis. Severe bilateral knee osteoarthritis. No suspicious osseous lesion. No sacroiliitis. Grade 2 anterolisthesis of L5 on S1 secondary to bilateral pars defects. Left knee Huff's cyst. IMPRESSION: 1. Right lower extremity: Focal severe stenosis within the distal superficial femoral artery with two-vessel runoff to the right lower extremity. 2. Left lower extremity: Multifocal stenosis throughout the left superficial femoral artery with near complete occlusion distally. There is three-vessel runoff to the left lower extremity. 3. 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 4. Partially imaged honeycombing within the bilateral lower lobes compatible with interstitial lung disease with usual interstitial pneumonia pattern in this patient with known rheumatoid arthritis. Dictated by: Isaias Almanza MD The radiology attending physician has personally reviewed this study, and had reviewed and/or edited this written report and agrees with it. Electronically signed by: Nyla Dunn M.D. Vilma Esparza MD IMG CT PROCEDURES Final Result * eGFR (02/23/2025 12:13 PM CDT) eGFR >90 >=60 mL/min/1. 73 m2 [...] interpretive data was last reviewed 2021. Blood 02/23/2025 12:1 3 PM CDT 02/23/2025 3:20 PM CDT Vilma Esparza MD LAB BL OOD ORDERABLES Final Result [facility] [id number] Department [place] [address] * (ABNORMAL) Differential, auto (02/23/2025 12:13 PM CDT) Neutrophil abs 7.06(H) 1.50 - 6.50 K/cumm Imm gran abs 0.03 0.00 - 0.10 K/cumm [facility] Lymphocyte abs 2.59 0.80 - 3.30 K/cumm [facility] Monocyte abs 0.68 0.20 - 0.80 K/cumm [facility] Eosinophil abs 0.37 0.00 - 0.50 K/cumm [facility] Basophil abs 0.12(H) 0.00 - 0.10 K/cumm [facility] Neutrophil pct 65.0 % [facility] Comment: Interpretive Data Percent cell count reference ranges are not reported, since discordance with absolute values may lead to misinterpretation of CBC data. Current Interpretive Data was last revised on 2017. Imm gran pct 0.3 % [facility] Comment: Interpretive Data Percent cell count reference ranges are not reported, since discordance with absolute values may lead to misinterpretation of CBC data. Current Interpretive Data was last revised on 2017. Lymphocyte pct 23.9 % [facility] Comment: Interpretive Data Percent cell count reference ranges are not reported, since discordance with absolute values may lead to misinterpretation of CBC data. Current Interpretive Data was last revised on 2017. Monocyte pct 6.3 % [facility] Comment: Interpretive Data Percent cell count reference ranges are not reported, since discordance with absolute values may lead to misinterpretation of CBC data. Current Interpretive Data was last revised on 2017. Eosinophil pct 3.4 % [facility] Comment: Interpretive Data Percent cell count reference ranges are not reported, since discordance with absolute values may lead to misinterpretation of CBC data. Current Interpretive Data was last revised on 2017. Basophil pct 1.1 % [facility] Comment: Interpretive Data Percent cell count reference ranges are not reported, since discordance with absolute values may lead to misinterpretation of CBC data. Current Interpretive Data was last revised on 2017. Blood 02/23/2025 12:1 3 PM CDT 02/23/2025 3:13 PM CDT Vilma Esparza MD LAB BL OOD ORDERABLES Final Result [facility] [address] Department [employer] [place] [address] * (ABNORMAL) CBC with auto differential (02/23/2025 12:13 PM CDT) WBC 10.85(H) 3.80 - 9.90 K/cumm Hgb 15.2 13.0 - 17.5 g/dL [facility] Hct 46.6 38.9 - 50.3 % [facility] Plt 454(H) 150 - 400 K/cumm [facility] MPV 9.9 9.1 - 12.3 fL [facility] RBC 4.98 4.30 - 5.80 M/cumm [facility] MCV 93.6 81.3 - 96.4 fL [facility] MCH 30.5 27.1 - 33.3 pg [facility] MCHC 32.6 32.3 - 35.7 g/dL [facility] RDW CV 16.6(H) 11.1 - 14.9 % [facility] RDW SD 55.1(H) 35.7 - 48.1 fL [facility] NRBC abs 0.00 0.00 - 0.01 K/cumm [facility] Blood 02/23/2025 12:1 3 PM CDT 02/23/2025 3:13 PM CDT Vilma Esparza MD LAB BL OOD ORDERABLES Final Result [facility] [address] Department of [place], [place] [id number] * Erythrocyte sedimentation rate (02/23/2025 12:13 PM CDT) Erythrocyte sedimentation rate 11 1 - 20 mm/hr Blood 02/23/2025 12:1 3 PM CDT 02/23/2025 3:13 PM CDT Vilma Esparza MD LAB BL OOD ORDERABLES Final Result Performing Organization Address City/[facility]/ZIP Co de Phone Number [facility] [address] Department [place] [address] * CRP (acute phase) (02/23/2025 12:13 PM CDT) CRP <3.0 <=10.0 mg/L Blood 02/23/2025 12:1 3 PM CDT 02/23/2025 3:13 PM CDT Vilma Esparza MD LAB BL OOD ORDERABLES Final Result Performing Organization Address [facility] de Phone Number [facility] [address] Department [place] [address] * (ABNORMAL) Comprehensive metabolic panel (02/23/2025 12:13 PM CDT) Sodium 135 135 - 145 mmol/L Potassium, pl 4.6 3.3 - 4.9 mmol/L [facility] Chloride 99 97 - 110 mmol/L [facility] CO2 24 22 - 32 mmol/L [facility] Anion gap 12 2 - 15 mmol/L [facility] BUN 21 6 - 25 mg/dL [facility] Creatinine 0.63(L) 0.80 - 1.30 mg/dL [facility] Glucose 88 70 - 199 mg/dL [facility] Comment: Interpretive Data Fasting glucose >/= 126 [...] 2022. Calcium 9.8 8.5 - 10.3 mg/dL [facility] Bilirubin, total 0.3 0.1 - 1.2 mg/dL [facility] Protein, pl 7.6 6.5 - 8.5 g/dL [facility] Albumin 3.9 3.5 - 5.0 g/dL [facility] Alk phos 95 40 - 130 Units/L [facility] ALT 18 7 - 55 Units/L [facility] AST 33 10 - 50 Units/L [facility] Blood 02/23/2025 12:1 3 PM CDT 02/23/2025 3:13 PM CDT Result [facility] Vilma Esparza MD LAB BL OOD ORDERABLES Final Result Performing Organization Address [facility] de Phone Number [facility] [address] [place] [address] * Hepatitis C antibody Blood (12/01/2024 11:07 [...] AM CDT 12/01/2024 3:35 PM CDT Result [facility] Vilma Esparza MD LAB MICROBIOLOGY - GENERAL ORDERABLES Final Result Performing Organization Address [facility] Co de Phone Number [facility] [address] Department [employer] [place] [address] * (ABNORMAL) Lipid panel (10/02/2024 9:27 PM 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) Cholesterol 126 30 - 199 mg/dL Comment: [...] revised on 2018. Triglycerides 85 <=149 mg/dL [facility] Comment: Interpretive Data Ages < or [...] revised on 2018. HDL 37(L) >=40 mg/dL [facility] Comment: Interpretive Data Ages < or [...] on 2018. LDL, calculated 72 <=129 mg/dL [facility] Comment: Interpretive Data Ages < or [...] revised on 2024. Non-HDL Cholesterol 89 mg/dL [facility] Comment: Interpretive Data Ages < [...] last revised on 2018. Chol/HDL ratio 3 [facility] Blood 10/02/2024 9:27 PM 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 10/02/2024 9:55 PM 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 Prashant Felder MD LAB BLOOD ORDERABLES Final Result [facility] Department [place] [address] * (ABNORMAL) Albumin Creatinine Ratio, Urine (10/16/2022 9:19 AM 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) Microalb, Ur 321.7(H) 0.0 - 22.9 mg/L [facility] Comment:Repeated and Verifie d Random Urine Creatinine 62.7 mg/dL [facility] Microalb/Creat Ratio 513.1(H) 0.0 - 29.9 mg/g [facility] Urine 10/16/2022 9:19 AM 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 10/16/2022 10:19 AM 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 us Hillary Carlson MD LAB URINE ORDERABLES Final Re sult [facility] from Last 3 Months or Most Recently Relevant to Health Maintenance Insurance MEDICARE [facility] Address: [address] [address] AET [facility] MEDICARE T SENIOR SUPPLEMENT MEDICARE T SENIOR SUPPLEMENT Advance Directives For more information, please contact: [phone] * Full Code (Latest Code Status on File) Date Activated Date Inactivated Comments 04/13/2025 7:11 AM 04/13/2025 7:37 PM * Full Code Date Activated Date Inactivated Comments 04/09/2025 7:12 AM 04/10/2025 5:10 AM * Full Code Date Activated Date Inactivated Comments 04/01/2025 6:53 AM 04/02/2025 5:10 AM * Full Code Date Activated Date Inactivated Comments 04/01/2025 6:53 AM 04/01/2025 6:53 AM * Full Code Date Activated Date Inactivated Comments 10/02/2024 1:49 PM 10/06/2024 10:39 PM Care Teams Entry Level Accountant Relationship Specialty Start Date End Date Tyrone Carvajal MD PCP - General Internal Medicine 11/06/19 Hetal Regan MD Referring Physician Endocrinology Diabetes & Metabolism 06/13/21 Jefferson Mora MD Consulting Physician Rheumatology 04/17/24 Swathi Jimenez PA [address] [facility], [address] [address] Physician Supervisor Phosphorus Processing Physician Supervisor Phosphorus Processing 04/19/24
--- OUTSIDE RECORDS SUMMARY | 2025-05-22 14:53 | XMS_ITS | Encounter Summary ---
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 Gender Identity Male 02/14/2021 8:03 PM CDT [...] on filedocumented in this encounter Care Teams Nuclear Scientist Relationship Specialty Start Date End Date Tyrone Carvajal MD PCP - General Internal Medicine 11/06/19 Hetal Regan MD Referring Physician Endocrinology Diabetes & Metabolism 06/13/21 Stephanie Barth PA Physician Passementerie Worker Physician Passementerie Worker 03/21/22 4 Jefferson Mora MD Consulting Physician Rheumatology 04/17/24 Swathi Jimenez PA [address] [facility] ENDOCR[facility]OLOG[facility], [address] [address] Physician Passementerie Worker Physician Passementerie Worker 04/19/24 documented as of this encounter
--- OUTSIDE RECORDS SUMMARY | 2025-05-22 14:53 | XMS_ITS | Encounter Summary ---
Author Organization [facility] Healthcare Address [address] [place] [address] Care Team Providers Care Navy Seal Name Role Phone Tyrone Carvajal MD Primary Care Provider [phone] Hetal Regan MD Unavailable Jefferson Mora MD Unavailable [phone] Swathi Jimenez Unavailable [phone] Encounter Details Date Type Department Care Team (Late st Contact Info) Description 03/27/2025 Telephone [facility] Radiology [address] [place] [address] Erica Gallegos RN Social History Tobacco Use Types Packs/Day Years Used Date Smoking Tobacco: Heavy Smoker Cigarettes 1.5 50 Smokeless Tobacco: Never Comments:Smoking History Pac ks/day: 30 Cigarettes Alcohol Use Standard Drinks/Week Comments Yes 0 (1 standard drink = 0.6 oz pur e alcohol) [facility] Utilities Answer Date Recorded In the past 12 months has [employer], gas, oil, or water company threatened to [...] often do you attend chur ch or protestant services? Never 02/23/2025 Do you belong to any clubs o r organizations such as mormon groups, unions, fraternal or athletic groups, or [...] Recorded Patient Health Questionnaire-2 Score 0 02/23/2025 [facility] of Occupat ional Health - Occupational Stress [...] [facility] time in the [facility] were you homeless or living in a intermediate (including now)? No 02/23/2025 Personal Safety Answer Date Recorded Have you ever been in or are you currently in a harmful physical or emotional relationship or is someone making you feel afraid or unsafe? 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 Not on file Not on file documented as of this encounter Plan of Treatment Not on file documented as of this encounter Visit Diagnoses Not on filedocumented in this encounter Care Teams Navy Seal Relationship Specialty Start Date End Date Tyrone Carvajal MD PCP - General Internal Medicine 11/06/19 Hetal Regan MD Referring Physician Endocrinology Diabetes & Metabolism 06/13/21 Jefferson Mora MD Consulting Physician Rheumatology 04/17/24 Swathi Jimenez PA [address] [facility], [address] [address] Physician Trommel Tender Physician Trommel Tender 04/19/24 documented as of this encounter
[2025-05-22 15:24] LABS: Add Urine Microscopic? YES; Appearance Urine Clear (Clear); Glucose Urine UA 3+ (Negative); Leukocyte Esterase Ur Negative (Negative); Nitrate Urine Negative (Negative); Specific Grav Ur 1.015 (1.010-1.020)
== END 2025-05-22 14:50 | disposition home or self-care (01) ==
LOC: CHSIMG 14:51
PROVIDERS: PCP Internal Medicine; Visit Provider Internal Medicine
DX: N50.811 Right testicular pain (principal); M79.89 Other specified soft tissue disorders; N43.3 Hydrocele, unspecified
CPT/HCPCS: 76870; 81001; 87086; 93976

== ENCOUNTER 2025-06-16 08:20 | Outpatient (CLI) | payer MEDICARE, SELFPAY ==
--- NOTE | 2025-06-16 08:27 | ECHO_ITS ---
Patient Info Name: Larry Bennett Age: 70 years : 1955 Gender: Male Ht: 72 in Wt: 145 lbs BSA: 1.82 m2 HR: 70 bpm BP: 149 / 78 mmHg Technical Quality: Good Exam Date: 06/16/2025 8:36 AM Patient Status: O Admit Date: 06/16/2025 Exam Type: CA echo doppler w bubble study Complete two-dimensional, color flow and Doppler transthoracic echocardiogram is performed with agitated saline. Campaign Analyst: Jacquelyn Field Contrast/Agitated Saline Contrast/Ag. Saline: Agitated Saline Amount: 10.00 ml Summary 1. Left ventricular chamber dimension is normal. 2. Left ventricular systolic function is normal, estimated at 60-65. 3. The left ventricular diastolic function is grade I diastolic dysfunction. 4. E/e' 9 is minimally elevated. 5. There is mild aortic valve sclerosis. 6. The mitral valve has a mildly calcified annulus. 7. There is trace mitral valve regurgitation. 8. There is trace tricuspid valve regurgitation. Left Ventricle E/e' 9 is minimally elevated. Left ventricular chamber dimension is normal. Left ventricular systolic function is normal, estimated at 60-65. The left ventricular diastolic function is grade I diastolic dysfunction. Right Ventricle Right ventricular chamber dimension is normal. Right ventricular systolic function is normal and with normal TAPSE 2.0 cm. Left Atria Left atrial chamber dimension is normal. Right Atria Right atrial chamber dimension is normal. Atrial Septum Intact interatrial septum visualized by 2D and agitated saline imaging. Agitated saline injection with and without valsalva maneuver opacified right side cardiac chambers without shunt to left side cardiac chambers. Aortic Valve The aortic valve is trileaflet. There is mild aortic valve sclerosis. There is no aortic valve stenosis. There is no aortic valve regurgitation. Pulmonic Valve There is no pulmonic regurgitation. Mitral Valve The mitral valve has a mildly calcified annulus. There is no mitral valve stenosis. There is trace mitral valve regurgitation. Tricuspid Valve There is trace tricuspid valve regurgitation. RVSP is not measured due to an inadequate TR jet. Pericardium/Pleural There is no pericardial effusion. Inferior Vena Cava Normal inferior vena cava with >50% collapse upon inspiration consistent with normal right atrial pressure, 5 mmHg. Aorta The aortic root size at the sinus of Valsalva is normal. Left Ventricular Outflow Tract Name Value Normal LVOT 2D LVOT Diameter 2.1 cm LVOT Doppler LVOT Peak Velocity 93 cm/s LVOT Peak Gradient 3 mmHg LVOT Mean Gradient 2 mmHg LVOT VTI 22 cm LVOT Stroke Volume 73 ml LVOT CO 5.1 l/min LVOT CI 2.8 l/min/m2 Pulmonic Valve Name Value Normal RVOT Doppler RVOT Peak Velocity 85 cm/s RVOT Peak Gradient 3 mmHg PV Doppler PV Peak Velocity 118 cm/s PV Peak Gradient 6 mmHg Mitral Valve Name Value Normal MV Diastolic Function MV E Peak Velocity 83 cm/s MV A Peak Velocity 114 cm/s MV E/A 0.7 MV Decel Time (PW) 267 ms MV Annular TDI MV E/e' (Septal) 10.6 MV E/e' (Lateral) 9.0 MV E/e' (Average) 9.8 Tricuspid Valve Name Value Normal Estimated PAP/RSVP RA Pressure 5 mmHg <=5 Aortic Valve Name Value Normal AV Doppler AV Peak Velocity 128 cm/s AV Peak Gradient 7 mmHg AV Area (Cont Eq Kolton) 2.4 cm2 AV DI (Kolton) 0.73 AV Regurgitation 2D LVOT Area 3.3 cm2 Ventricles Name Value Normal LV Dimensions 2D/MM IVS Diastolic Thickness (2D) 1.0 cm 0.6-1.0 LVID Diastole (2D) 3.8 cm 4.2-5.8 LVIW Diastolic Thickness (2D) 1.1 cm 0.6-1.0 LVID Systole (2D) 2.2 cm 2.5-4.0 LVOT Diameter 2.1 cm LV Mass (2D Cubed) 125.39 g 88.00-224.00 LV Mass Index (2D Cubed) 69 g/m2 49-115 Relative Wall Thickness (2D) 0.58 <=0.42 LV Fractional Shortening/Ejection Fraction 2D/MM LV Fractional Shortening (2D) 41 % 25-43 LV EF (2D Teichholz) 73 % LV Diastolic Volume (4C MOD) 92 ml LV EF (4C MOD) 66 % LV Diastolic Volume (2C MOD) 85 ml LV EF (2C MOD) 60 % LV Diastolic Volume (BP MOD) 89 ml 62-150 LV Diastolic Volume Index (BP MOD) 49 ml/m2 34-74 LV Systolic Volume (BP MOD) 33 ml 21-61 LV Systolic Volume Index (BP MOD) 18 ml/m2 11-31 LV EF (BP MOD) 63 % 52-72 LV Diastolic Length (4C) 7.3 cm LV Systolic Length (4C) 5.9 cm LV Stroke Volume (4C MOD) 61 ml Atria Name Value Normal LA Dimensions LA Volume (4C A-L) 37 ml LA Volume (BP A-L) 38 ml RA Dimensions RA Systolic Major Raleigh Length (4C) 4.1 cm 2.1-2.7 RA Area (4C) 9.8 cm2 <=18.0 Report Signatures
--- OUTSIDE RECORDS SUMMARY | 2025-06-16 08:40 | XMS_ITS | Encounter Summary ---
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 Gender Identity Male 02/14/2021 8:03 PM CDT [...] on filedocumented in this encounter Care Teams Shellfish Weigher Relationship Specialty Start Date End Date Tyrone Carvajal MD PCP - General Internal Medicine 11/06/19 Hetal Regan MD Referring Physician Endocrinology Diabetes & Metabolism 06/13/21 Stephanie Barth PA Physician Senior Production Planner Physician Senior Production Planner 03/21/22 4 Jefferson Moar MD Consulting Physician Rheumatology 04/17/24 Swathi Jimenez PA [address] [facility] END[facility]CR[facility], [address] [address] Physician Senior Production Planner Physician Senior Production Planner 04/19/24 documented as of this encounter
--- OUTSIDE RECORDS SUMMARY | 2025-06-16 08:40 | XMS_ITS | Clinical Summary ---
Author Organization [facility] Address [address] [place] [address] Care Team Providers Care Public Health Technician Name Role Phone Tyrone Carvajal MD Primary Care Provider [phone] Hetal Regan MD Unavailable Jefferson Mora MD Unavailable [phone] Swathi Jimenez Unavailable [phone] Allergies Active Allergy Reactions Criticality Noted Date [...] with long-term current use of insulin (HCC) INJECT 13 UNITS SUBCUTANEOUSLY DAILY BEDTIME Active we-bzg-flunp-K1-l ycopen-lutein [phone] mcg tablet Take 1 tablet by mouth daily Active ezetimibe (ZETIA) 10 mg tabletIndications :Type 2 diabetes mellitus with hyperglycemia, with long-term current use of insulin ([facility]),Hyperlipide tessie associated with type 2 diabetes mellitus ([facility]) TAKE ONE TABLET BY MOUTH DAILY 90 tablet 3 025 Active ezetimibe (ZETIA) 10 mg tabletIndications :Type 2 diabetes mellitus with hyperglycemia, with long-term current use of insulin ([facility]),Hyperlipide tessie associated with type 2 diabetes mellitus ([facility]) Take 1 tablet (10 mg total) by mouth daily 90 tablet 3 024 2024 Discontinued Active Problems Problem Noted Date [...] 09/15/2024 Assessment & Plan (10/23/2024 9:56 AM RELATIONS SPECIALIST): Now s/p L olecranon bursectomy and I&D [...] concerns. Assessment & Plan (10/06/2024 2:15 PM RELATIONS SPECIALIST): Chidi Eldridge is a 69yr old male with a PMH of DM-2, RA (not on immunosuppressive therapy), HTN, Dyslipidemia, was admitted to [facility] for management of chronic olecranon bursitis. [...] 08/04/2024 Assessment & Plan (08/04/2024 9:56 AM RELATIONS SPECIALIST): - Potassium 5.7 on recent CMP (07/18/2024). [...] control Assessment & Plan (08/04/2024 9:57 AM RELATIONS SPECIALIST): - Recent UA negative for protein, this [...] Hyperlipidemia associated with type 2 diabetes gaby [email or web address] 06/13/2018 Assessment & Plan (04/13/2025 12:47 PM [...] control. Assessment & Plan (08/04/2024 9:58 AM RELATIONS SPECIALIST): - Last LDL 127, TG 171 (06/2024), above goal - He has been out of Pravastatin for awhile - has been struggling to get refills (?) - Re-start pravastatin 80 mg daily and continue Zetia 10 mg daily. Refills sent. Assessment & Plan (12/27/2021 12:10 PM CDT): Continue statin therapy and optimize glycemic control. Assessment & Plan (09/15/2021 5:01 PM RELATIONS SPECIALIST): Continue statin therapy and optimize glycemic control. [...] week Assessment & Plan (08/11/2020 11:05 AM RELATIONS SPECIALIST): Continue pravastatin and focus on low fat [...] therapy Assessment & Plan (08/24/2018 6:43 PM RELATIONS SPECIALIST): Continue statin therapy Assessment & Plan (06/13/2018 [...] mg/dL Assessment & Plan (10/20/2023 9:33 PM RELATIONS SPECIALIST): Continue statin, optimize glycemic control. Assessment & Plan (03/14/2023 8:34 PM CDT): Continue statin, optimize glycemic control. Assessment & Plan (03/23/2022 9:48 AM CDT): Continue statin, optimize glycemic control. Recheck levels. Assessment & Plan (02/14/2018 10:50 AM CDT): Advised to have lipid panel done Assessment & Plan (11/01/2017 1:18 PM CDT): Will get lipid panel Assessment & Plan (07/10/2017 12:19 PM RELATIONS SPECIALIST): Goal of treatment , LDL cholesterol less [...] Value Date HGBA1C 8.2 (A) 02/02/2025 Per [place] [employer], goal A1c is less 7.5% [...] hypoglycemia. Assessment & Plan (08/04/2024 9:54 AM RELATIONS SPECIALIST): - Diabetes is complicated by microalbuminuria, hyperlipidemia, hypertension and other co-morbidities. Fairly well controlled - with today's GMI of 7.1%. Lab Results Component Value Date HGBA1C 7.4 01/16/2024 Per [place] [employer], goal A1c is less 7% [...] etc. Assessment & Plan (10/20/2023 9:35 PM RELATIONS SPECIALIST): His Stacy device does not consistently match [...] daily. Assessment & Plan (10/17/2021 1:55 PM RELATIONS SPECIALIST): FreeStyle Stacy report was reviewed today and [...] daily. Assessment & Plan (09/15/2021 5:10 PM RELATIONS SPECIALIST): Hemoglobin A1c has increased to 9.8%. Continue [...] BG. Assessment & Plan (08/11/2020 11:04 AM RELATIONS SPECIALIST): A1c worsening at 9.5. Poor compliance with [...] misconceptions. Assessment & Plan (08/22/2018 11:21 AM RELATIONS SPECIALIST): Continue same medication. Advised that glimepiride may [...] Rodolfo Assessment & Plan (07/10/2017 12:19 PM RELATIONS SPECIALIST): Hba1c was 8.3 today, indicating worsening DM [...] mmHg Assessment & Plan (08/04/2024 9:56 AM RELATIONS SPECIALIST): - At goal today - Recommend to [...] plan. Assessment & Plan (08/11/2020 11:05 AM RELATIONS SPECIALIST): Controlled on current medications. Continue plan. Assessment [...] medications. Assessment & Plan (08/24/2018 6:41 PM RELATIONS SPECIALIST): Controlled on current medications. Assessment & Plan (06/13/2018 9:56 AM CDT): Goal blood pressure is less than 140/85 Low salt diet recommended Daily aerobic exercise Continue current meds, including TARA-I or ARB Assessment & Plan (02/14/2018 10:50 AM CDT): Controlled on current medications. Assessment & Plan (11/01/2017 1:18 PM CDT): Controlled on current medications. Assessment & Plan (07/10/2017 12:19 PM RELATIONS SPECIALIST): Goal blood pressure is less than 140/85 Low salt diet recommended Daily aerobic exercise Continue current meds, including TARA-I or ARB Assessment & Plan (03/01/2017 10:17 AM CDT): Goal blood pressure is less than 140/85 Low salt diet recommended Daily aerobic exercise Continue current meds, including TARA-I or ARB Check BMP, microalbumin Encounters Date Type Department Care Team Description 05/21/2025 Telephone [facility] Pulmonary [address] [place] [address] [place] [address] Emily Almonte CMA 05/21/2025 Telephone [facility] Pulmonary [address] [place] [address] [place] [address] Marion Bui RN 05/19/2025 11:00 AM CDT Office Visit [facility] Radiology, Interventional Radiology [address] [facility] [address] [place] [address] Tami Guzmán PA PAD (peripheral artery disease) (Primary Dx); S/P peripheral artery angioplasty with stent placement; Tobacco dependence; Atherosclerosis of [place] arteries of extremities with intermittent claudication, bilateral legs 05/19/2025 8:45 AM CDT Ancillary Procedure [facility] Medicine Vascular Lab at the [address] [place] [address] [place] [address] Atherosclerosis of [place] arteries of extremities with intermittent claudication, bilateral legs 05/19/2025 8:00 AM CDT Ancillary Procedure [facility] Medicine Vascular Lab at the [address] [place] [address] [place] [address] Atherosclerosis of [place] arteries of extremities with intermittent claudication, bilateral legs 05/19/2025 Telephone [facility] Medicine Pulmonary [address] [place] [address] [place] [address] Marion Bui, EDISON 05/18/2025 10:54 AM CDT - 05/18/2025 11:59 PM CDT Hospital Encounter [facility] ([facility]) [address] [place] [address] Discharge Disposition: Discharge to home or self care 05/18/2025 Telephone [facility] Medicine Pulmonary [address] [facility] Advanced Medicine 8th [place] [address] [place] [address] Ayala Khan RN 05/18/2025 Telephone [facility] Medicine Pulmonary [address] [place] [address] Advanced [facility] 8th [place] [address] [place] [address] Emily Almonte CMA 05/08/2025 11:40 AM CDT Lab [facility] Advanced [facility] ([facility]) [address] [place] [address] ILD (interstitial lung disease) (HCC); Seronegative rheumatoid arthritis (HCC); PAD (peripheral artery disease); HTN (hypertension), benign; Type 2 diabetes mellitus with hyperglycemia, with long-term current use of insulin (HCC) 05/08/2025 10:07 AM CDT - 05/08/2025 11:59 PM CDT Hospital Encounter [facility] Radiology [facility] ([facility]) [address] [place] [address] Arnulfo Olmos MD ILD (interstitial lung disease) (HCC); Seronegative rheumatoid arthritis (HCC); PAD (peripheral artery disease); HTN (hypertension), benign; Type 2 diabetes mellitus with hyperglycemia, with long-term current use of insulin (HCC) Discharge Disposition: Discharge to home or self care 05/08/2025 9:15 AM CDT Office Visit [facility] Medicine Pulmonary [address] [place] [address] Medicine [facility] [place] [address] [place] [address] Arnulfo Olmos MD ILD (interstitial lung disease) (HCC) (Primary Dx); Seronegative rheumatoid arthritis (HCC); PAD (peripheral artery disease); HTN (hypertension), benign; Type 2 diabetes mellitus with hyperglycemia, with long-term current use of insulin (HCC) 05/08/2025 8:36 AM CDT - 05/08/2025 11:59 PM CDT Hospital Encounter [facility] Rad[facility] ([facility]) [address] [place] [address] ILD (interstitial lung disease) (HCC) Discharge Disposition: Discharge to home or self care 05/08/2025 7:12 AM CDT - 05/08/2025 11:59 PM CDT Hospital Encounter [facility] Medicine Pulmonary [address] [facility] [address] [place] [phone] ILD (interstitial lung disease) (HCC) Discharge Disposition: Discharge to home or self care 05/07/2025 2:00 PM CDT Telemedicine [facility] Endocrinology Metabolism and Lipid [address] [facility] Medicine 13th [place] [address] [place] [address] Hetal Regan MD Type 2 diabetes mellitus with hyperglycemia, with long-term current use of insulin (HCC) (Primary Dx); Pure hypercholesterolemia 04/23/2025 Telephone [facility] Radiology [address] [place] [address] Gwen Vital, EDISON 04/22/2025 Telephone [facility] Radiology [address] [place] [address] Gwen Vital, RN 04/22/2025 Orders Only [facility] Radiology [address] [place] [address] Gwen Vital, RN Atherosclerosis of hop[place] arteries of extremities with intermittent claudication, bilateral legs (Primary Dx) 04/14/2025 Orders Only [facility] Medicine Scheduling [address] [place] [address] Arnulfo Olmos MD ILD (interstitial lung disease) (HCC) (Primary Dx) 04/13/2025 Results Follow-Up [facility] Emergency Department [address] [place] [address] Asim Yo RN CBC without differential, aPTT, Hemoglobin A1c, Additional followed-up results: 4 04/12/2025 2:00 AM CDT - 04/13/2025 3:31 PM CDT Emergency [facility] Emergency Department [address] [place] [address] Darrick Hicks MD Ahsan, Salman, MD Martin, Nathan R., MD Farrag, Safa Elsebai, MD Pain of left lower extremity (Primary Dx); Postop check Discharge Disposition: Discharge to home or self care 04/11/2025 Telephone [address]iology [address] [place] [address] Handy Pablo MD 04/09/2025 6:11 AM CDT - 04/09/2025 11:59 PM CDT Hospital Encounter [facility] Radiology [address] [address] Phong Adler MD Atherosclerosis of [place] artery of left lower extremity with other clinical manifestation; PAD (peripheral artery disease); Atherosclerosis of [place] artery of left lower extremity with rest pain (HCC) Discharge Disposition: Discharge to home or self care 04/08/2025 7:55 PM CDT Lab [facility] Advanced [facility] ([facility]) [address] [place] [phone] Seronegative rheumatoid arthritis (HCC); High risk medication use 04/08/2025 4:00 PM CDT Office Visit [facility] Medicine Rheumatology [address] [place] [address] Medicine 5th [place] [address] [place] [address] Vilma Kimble MD Seronegative rheumatoid arthritis (HCC) (Primary Dx); High risk medication use; ILD (interstitial lung disease) (HCC); PAD (peripheral artery disease); Positive NHUNG (antinuclear antibody); Osteoarthritis, unspecified osteoarthritis type, unspecified site 04/06/2025 Telephone [facility] Radiology [address] [place] [address] Camila Regalado RN 04/01/2025 5:45 AM CDT - 04/01/2025 11:59 PM CDT Hospital Encounter [facility] Radiology [address] [place] [address] Phong Adler MD Atherosclerosis of [place] artery of left lower extremity with other clinical manifestation; PAD (peripheral artery disease); Atherosclerosis of hop[place] artery of right leg with rest pain (HCC) Discharge Disposition: Discharge to home or self care 03/27/2025 Telephone [facility] Radiology [address] [place] [address] Erica Gallegos, RN 03/19/2025 Telephone [facility] Medicine Scheduling [address] [place] [address] Swathi Jimenez PA Prior Auth (Lantus) 03/17/2025 1:18 PM CDT - 03/17/2025 11:59 PM CDT Hospital Encounter [facility] [address] [place] [address] Discharge Disposition: Discharge to home or self care 03/17/2025 Telephone [facility] Radiology [address] [place] [address] Gwen Vital, EDISON 03/16/2025 3:00 PM CDT Telemedicine [facility] Radiology, Interventional Radiology [address] [facility] [address] [phone] Phong Adler MD Pure hypercholesterolemia (Primary Dx); Hyperlipidemia associated with type 2 diabetes mellitus (HCC); Hypertension associated with diabetes (HCC); PAD (peripheral artery disease); Seronegative rheumatoid arthritis (HCC) from Last 3 Months Surgical History Surgery [...] drink = 0.6 oz pur e alcohol) [facility] Utilities Answer Date Recorded In the [...] any clubs o r organizations such as sabianist groups, unions, fraternal or athletic groups, or [...] Recorded Patient Health Questionnaire-2 Score 0 02/23/2025 [facility] [place] of Occupat ional Health - Occupational Stress [...] any time in the past 12 m [facility], were you homeless or living in a nursing home (including now)? No 02/23/2025 Personal Safety Answer Date Recorded Have you ever been in or are you currently in a harmful physical or emotional relationship or is someone making you feel afraid or unsafe? 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 Not on file Not on file Not [...] 04/12/2025, 03/11/2025 Medical Devices Implanted Type Area Warp Doffer Device Identifier Shelf Expiration Date Model / Serial / Lot [employer] Stent Peripheral Over The Wire Zilver Ptx [id number] m Nitinol [id number] - [id number] Implanted:Qty: 1 on 04/01/2025 at [facility] [employer] 12/09/2026 [id number] / / [id number] [employer] Kit Clip Closure 6fr Celt Acd Vasc Implant Strl Plus Device Clt-06 - [id number] Implanted:Qty: 1 on 04/01/2025 at [facility] [employer] 10/20/2027 CLT-06 / / [id number] Bubbl Angio-Seal Vip 6fr Closere Device [id number] - [id number] Implanted:Qty: 1 on 04/09/2025 at [facility] [employer] Delivery System 11/17/2025 [id number] / / [id number] [employer] Stent Peripheral Over The Wire Zilver Ptx [id number] m Nitinol [id number] - [id number] Implanted:Qty: 1 on 04/09/2025 by Phong Adler MD at [facility] [employer] 12/19/2026 [id number] / / [id number] [place] Peripheral Vascular Lifestar 10mm 80mm 80cm Stent Biliary [id number] - [id number] Implanted:Qty: 1 on 04/13/2025 by Jfeferson Veronica MD at [facility] [employer] Peripheral Vascular 01/21/2027 [id number] / / [id number] [employer] D[employer]en Delivery System Angio-Seal Vip 6fr Closere Device [id number] - [id number] Implanted:Qty: 1 on 04/13/2025 by Breanne Walton MD at [facility] [employer] 11/17/2025 [id number] / / [id number] Procedures Procedure Name Priority Date/Time Associated Diagnosis Comments US DUPLEX SCAN OF AORTA: INFERIOR VENA CAVA, ILIAC, LIMITED OR UNILATERAL Schedule Routine, Read Routine (OP Routine) 05/19/2025 10:30 AM CDT Atherosclerosis of [place] arteries of extremities with intermittent claudication, bilateral legs US ARTERIAL DUPLEX LOWER EXTREMITY BILATERAL Schedule Routine, Read Routine (OP Routine) 05/19/2025 10:30 AM CDT Atherosclerosis of [place] arteries of extremities with intermittent claudication, bilateral legs US KRYSTINA Schedule Routine, Read Routine (OP Routine) 05/19/2025 10:30 AM CDT Atherosclerosis of [place] arteries of extremities with intermittent claudication, bilateral legs CT BODY OUTSIDE REFERENCE Routine 05/18/2025 10:[address] CHEST HIGH RESOLUTION WO CONTRAST Routine 05/08/2025 11:20 AM CDT ILD (interstitial lung disease) (HCC) Seronegative rheumatoid arthritis (HCC) PAD (peripheral artery disease) HTN (hypertension), benign Type 2 diabetes mellitus with hyperglycemia, with long-term current use of insulin (HCC) MYOMARKER PANEL 3 Routine 05/08/2025 10:19 AM CDT ANTI-NEUTROPHILIC CYTOPLASMIC ANTIBODY (ANCA) WITH REFLEX TO MPO AND PR3 ABS Routine 05/08/2025 10:19 AM CDT ILD (interstitial lung disease) (HCC) Seronegative rheumatoid arthritis (HCC) PAD (peripheral artery disease) HTN (hypertension), benign Type 2 diabetes mellitus with hyperglycemia, with long-term current use of insulin (HCC) MYELOPEROXIDASE ANTIBODY Routine 05/08/2025 10:19 AM CDT ILD (interstitial lung disease) (HCC) Seronegative rheumatoid arthritis (HCC) PAD (peripheral artery disease) HTN (hypertension), benign Type 2 diabetes mellitus with hyperglycemia, with long-term current use of insulin (HCC) PROTEINASE-3 ANTIBODY Routine 05/08/2025 10:19 AM CDT [...] Routine) 04/09/2025 9:51 AM CDT Atherosclerosis of [place] artery of left lower extremity with other clinical manifestation PAD (peripheral artery disease) Atherosclerosis of [place] artery of left lower extremity with rest [...] Routine) 04/01/2025 10:00 AM CDT Atherosclerosis of [place] artery of left lower extremity with other clinical manifestation PAD (peripheral artery disease) Atherosclerosis of [place] artery of right leg with rest pain (HCC) POCT ACTIVATED CLOTTING TIME, LOW RANGE Routine 04/01/2025 9:41 AM CDT POCT ACTIVATED CLOTTING TIME, LOW RANGE Routine 04/01/2025 9:[address] BODY OUTSIDE REFERENCE Routine 03/17/2025 1:18 PM CDT HEPATITIS C ANTIBODY Routine 12/01/2024 11:07 AM CDT Seronegative rheumatoid arthritis (HCC) High risk medication use LIPID PANEL Routine 10/02/2024 9:27 PM RELATIONS SPECIALIST ALBUMIN CREATININE RATIO, URINE Routine 10/16/2022 9:19 AM RELATIONS SPECIALIST Type 2 diabetes mellitus with hyperglycemia, without long-term current use of insulin (HCC) from Last 3 Months or Most Recently Relevant to Health Maintenance Results * US Duplex Scan of Aorta; Inferior Vena Cava, Iliac, Limited or Unilateral (05/19/2025 10:30 AM CDT) Anatomical Region Laterality Modality Vascular Ultrasound 05/19/2025 8:37 AM CDT Narrative 05/19/2025 1:[address] [facility] - Department of Vascular Surgery, Vascular Laboratory [address] [place] [address] Vascular Ultrasound Report Patient Name: CHIDI ELDRIDGE : 1955 Study Date: 05/19/2025 8:37:51 AM Sex: M Tech: Location: [facility] Provider: PHONG ADLER Quality: Adequate Order Provider: PHONG ADLER PROCEDURES: Vascular Report: Imaging of the left common iliac and external iliac arteries, s / post op. INDICATIONS: I70.213 Atherosclerosis of [place] arteries of extremities with intermittent claudication, bilateral legs. HISTORY: 04/13/2025 - taken for angiogram and stenting across the acute thrombus in the left common to external iliac artery - PREVIOUS STUDIES: No previous studies for comparison. FINDINGS: Performing Automotive Lot Attendant: Evelyn Zurita RVT. Left: Technically difficult study [...] Procedure Note Gualberto Chandler MD - 05/19/2025 [facility] - Department of Vascular Surgery,Vascular Laboratory [address] [place] [address] Vascular Ultrasound Report Patient Name: CHIDI ELDRIDGE : 1955 Study Date: 05/19/2025 8:37:51 AM Sex: M Tech: Location: [facility] Provider: PHONG ADLER Quality: Adequate Order Provider: PHONG ADLER PROCEDURES: Vascular Report: Imaging of the left common iliac and external iliac arteries, s / postop. INDICATIONS: I70.213 Atherosclerosis of [place] arteries of extremities withintermittent claudication, bilateral legs. HISTORY: 04/13/2025 - taken for angiogram and stenting across the acute thrombus inthe left common to external iliac artery - PREVIOUS STUDIES: No previous studies for comparison. FINDINGS: Performing Automotive Lot Attendant: Evelyn Zurita RVT. Left: Technically difficult study [...] . Electronically Signed By: Gualberto Chandler MD [facility] 05/19/2025 1:21:54 PM CDT CC: Phong Adler MD INA Phong Adler MD IMG US PROCEDURES Final Result * US Arterial Duplex Lower Extremity Bilateral (05/19/2025 10:30 AM CDT) Anatomical Region Laterality Modality Vascular Bilateral Ultrasound 05/19/2025 7:56 AM CDT Narrative 05/19/2025 1:54 PM CDT [facility] - Department of Vascular Surgery, Vascular Laboratory [address] [place] [address] [place] Lower Extremity Arterial Duplex Report Patient Name: CHIDI ELDRIDGE : 1955 Study Date: 05/19/2025 7:56:26 AM Sex: M Tech: Location: [facility] Ref Provider: PHONG ADLER Quality: Adequate Order Provider: PHONG ADLER PROCEDURES: Arterial Report: Bilateral Lower Extremity Arterial Duplex Exam. INDICATIONS: I70.213 Atherosclerosis of [place] arteries of extremities with intermittent claudication, bilateral legs. MEASUREMENTS: Right Value Units Left Value Units Rt COPPER MINER BLASTING Dst PSV 194 cm/s Lt COPPER MINER BLASTING Dst PSV 167 cm/s Rt Profunda Dst [...] Value Units Left Value Units FINDINGS: Performing Automotive Lot Attendant: Evelyn Zurita RVT. Right Common Femoral: The [...] waveform is multiphasic. Unable to locate mid CORIN consistent with severe stenosis or occlussion, multiple collaterals noted. Distal CORIN waveform is monophasic. Systolic velocity ratio in the right proximal anterior tibial artery is 4.73 which is consistent with a >75% stenosis. Right Peroneal: The right peroneal artery waveform is multiphasic. Left Common Femoral: The left common femoral waveform is multiphasic with increased velocity at distal COPPER MINER BLASTING of 222 cm/s. Unable to evaluate 0.412 [...] Procedure Note Gualberto Chandler MD - 05/19/2025 [facility] - Department of Vascular Surgery,Vascular Laboratory [address] [place] [address] [place] Lower Extremity Arterial Duplex Report Patient Name: CHIDI ELDRIDGE : 1955 Study Date: 05/19/2025 7:56:26 AM Sex: M Tech: Location: [facility] Provider: PHONG ADLER Quality: Adequate Order Provider: PHONG ADLER PROCEDURES: Arterial Report: Bilateral Lower Extremity Arterial Duplex Exam. INDICATIONS: I70.213 Atherosclerosis of [place] arteries of extremities withintermittent claudication, bilateral legs. MEASUREMENTS: Right Value Units Left Value Units Rt COPPER MINER BLASTING Dst PSV 194 cm/s Lt COPPER MINER BLASTING Dst PSV 167 cm/s Rt Profunda Dst [...] Value Units Left Value Units FINDINGS: Performing Automotive Lot Attendant: Evelyn Zurita RVT. Right Common Femoral: The [...] waveform is multiphasic with increased velocity atdistal COPPER MINER BLASTING of 222 cm/s. Unable to evaluate 0.412 [...] above. Electronically Signed By: Gualberto Chandler MD [facility] 05/19/2025 1:19:36 PM CDT CC: Phong Adler MD [facility] Phong Adler MD IM US PROCEDURES Final Result * US KRYSTINA (05/19/2025 10:30 AM CDT) Anatomical Region Laterality Modality Vascular N/A Ultrasound 05/19/2025 8:53 AM CDT Narrative 05/19/2025 1:[address] [facility] - Department of Vascular Surgery, Vascular Laboratory [address] [place] [id number] Lower Extremity Arterial Doppler Report Patient Name: CHIDI ELDRIDGE : 1955 Study Date: 05/19/2025 8:53:00 AM Sex: M Tech: Evelyn Zurita Location: [facility] Provider: PHONG ADLER Quality: Adequate Order Provider: PHONG ADLER PROCEDURES: Arterial Report: Ankle - Brachial Index Doppler exam. INDICATIONS: I70.213 Atherosclerosis of [place] arteries of extremities with intermittent claudication, bilateral legs. MEASUREMENTS: Right Value Units Left Value Units Rt Brachial Pressure 131 mmHg Lt Brachial Pressure 143 mmHg Rt HEALTH TECH Pressure 148 mmHg Lt HEALTH TECH Pressure 150 mmHg Rt DPA Pressure 90 mmHg Lt DPA Pressure 143 mmHg Rt 1st Digit Pressure 98 mmHg Lt 1st Digit Pressure 73 mmHg Rt PT KRYSTINA Resting 1.03 Lt PT KRYSTINA Resting 1.05 Rt AT KRYSTINA Resting 0.63 Lt AT KRYSTINA Resting 1 Rt Digit/Arm Index 0.69 Lt Digit/Arm Index 0.51 Right Value Units Left Value Units FINDINGS: Performing Automotive Lot Attendant: Evelyn Zurita RVT. Right Posterior Tibial Artery [...] Procedure Note Gualberto Chandler MD - 05/19/2025 [facility] - Department of Vascular Surgery,Vascular Laboratory [address] [place] [address] Lower Extremity Arterial Doppler Report Patient Name: CHIDI ELDRIDGE : 1955 Study Date: 05/19/2025 8:53:00 AM Sex: M Tech: Evelyn Zurita Location: [facility] Provider: PHONG ADLER Quality: Adequate Order Provider: PHONG ADLER PROCEDURES: Arterial Report: Ankle - Brachial Index Doppler exam. INDICATIONS: I70.213 Atherosclerosis of [place] arteries of extremities withintermittent claudication, bilateral legs. MEASUREMENTS: Right Value Units Left Value Units Rt Brachial Pressure 131 mmHg Lt Brachial Pressure 143 mmHg Rt HEALTH TECH Pressure 148 mmHg Lt HEALTH TECH Pressure 150 mmHg Rt DPA Pressure 90 mmHg Lt DPA Pressure 143 mmHg Rt 1st Digit Pressure 98 mmHg Lt 1st Digit Pressure 73 mmHg Rt PT KRYSTINA Resting 1.03 Lt PT KRYSTINA Resting 1.05 Rt AT KRYSTINA Resting 0.63 Lt AT KRYSTINA Resting 1 Rt Digit/Arm Index 0.69 Lt Digit/Arm Index 0.51 Right Value Units Left Value Units FINDINGS: Performing Automotive Lot Attendant: Evelyn Zurita RVT. Right Posterior Tibial Artery [...] above. Electronically Signed By: Gualberto Chandler MD [facility] 05/19/2025 1:18:05 PM CDT CC: Phong Adler MD INA us Phong Adler MD IMG US PROCEDURES Final Result * CT Body Outside Reference (05/18/2025 10:54 AM CDT) Impressions [facility] - 05/18/2025 10:54 AM CDT These images are for Reference purposes only and have not been reviewed by [facility]iology. There will be no report generated by a [facility] Radiologist. Narrative [facility] - 05/18/2025 10:54 AM CDT EXAMINATION: Images For Reference Purposes Only Arnulfo Olmos MD [facility] [place] CT PROCEDURES Final Result [facility] * CT [...] by: Corey Benavides M.D. Arnulfo Olmos MD IMG CT PROCEDURES Final Result * Myomarker panel 3 (05/08/2025 10:19 AM CDT) Anti-Svetlana-1 ab <20 <20 Units [facility] ref [facility] Anti PL-7 ab Negative Negative [facility] Comment: This test was developed and its performance characteristics determined by [facility]. It has not been cleared or approved by the Food and Drug Administration. Anti PL-12 ab Negative Negative [facility] Comment: This test was developed and its performance characteristics determined by [facility]. It has not been cleared or approved by the Food and Drug Administration. Anti EJ ab Negative Negative [facility] Comment: This test was developed and its performance characteristics determined by [facility]. It has not been cleared or approved by the Food and Drug Administration. Anti OJ ab Negative Negative [facility] Comment: This test was developed and its performance characteristics determined by [facility]. It has not been cleared or approved by the Food and Drug Administration. Anti SRP ab Negative Negative [facility] Comment: This test was developed and its performance characteristics determined by [facility]. It has not been cleared or approved by the Food and Drug Administration. Anti Mi-2 ab Negative Negative [facility] Comment: This test was developed and its performance characteristics determined by [facility]. It has not been cleared or approved by the Food and Drug Administration. Polymyositis PM-SCL ab <20 <20 Units [facility] Comment: This test was developed and its performance characteristics determined by [facility]. It has not been cleared or approved by the Food and Drug Administration. Fibrillarin U3 ab Negative Negative [facility] Comment: This test was developed and its performance characteristics determined by [facility]. It has not been cleared or approved by the Food and Drug Administration. Interpretation for Anti-Svetlana-1, [id number], Anti-MDA-5, Anti-NXP-2, Anti-PM/Scl-100, Anti-SS-A 52 kD, Anti-U1 PRINTER REPAIR TECHNICIAN: Negative: <20 Weak Positive: 20 - 39 Moderate Positive: 40 - 80 Strong Positive: >80 . Test Performed by: [facility] [address] [place] [address] Anti U2 SN PRINTER REPAIR TECHNICIAN ab Negative Negative [facility] Comment: This test was developed and its performance characteristics determined by [facility]. It has not been cleared or approved by the Food and Drug Administration. Anti U1RNP ab <20 <20 Units [facility] Anti KU ab Negative Negative [facility] Comment: This test was developed and its performance characteristics determined by [facility]. It has not been cleared or approved by the Food and Drug Administration. P155/140 ab <20 <20 Units [facility] Comment: This test was developed and its performance characteristics determined by [facility]. It has not been cleared or approved by the Food and Drug Administration. MDA-5 P140 ab <20 <20 Units [facility] Comment: This test was developed and its performance characteristics determined by [facility]. It has not been cleared or approved by the Food and Drug Administration. NXP-2 P140 ab <20 <20 Units [facility] Comment: This test was developed and its performance characteristics determined by [facility]. It has not been cleared or approved by the Food and Drug Administration. SSA52 KD ab IgG <20 <20 Units [facility] Comment: This test was developed and its performance characteristics determined by [facility]. It has not been cleared or approved by the Food and Drug Administration. Blood 05/08/2025 10:1 9 AM CDT 05/08/2025 12:25 PM CDT us Arnulfo Olmos MD LAB BLOOD ORDERABLES Final Res ult [facility] [place] [address] [facility] * PR3 - proteinase 3, Ab (05/08/2025 10:19 AM CDT) Proteinase 3 ab <0.2 <=0.9 Ab Index Comment: Interpretive Data Negative: <1 Ab Index Positive: > or = 1 Ab Index Current interpretive data was last revised on 2017. Blood 05/08/2025 10:1 9 AM CDT 05/08/2025 10:42 AM CDT Arnulfo Olmos MD LAB BLOOD ORDERABLES Final Res ult [facility] [place] [address] * MPO - myeloperoxidase antibody (05/08/2025 10:19 AM CDT) Myeloperoxidase ab <0.2 <=0.9 Ab Index Comment: Interpretive Data Negative: <1 Ab Index Positive: > or = 1 Ab Index Current interpretive data was last revised on 2017. Blood 05/08/2025 10:1 9 AM CDT 05/08/2025 10:42 AM CDT Arnulfo Olmos MD LAB BLOOD ORDERABLES Final Res ult Performing Organization Address [facility] Co de Phone Number [facility] [place] [address] * (ABNORMAL) Anti-Neutrophilic Cytoplasmic Antibody (ANCA) with Reflex to MPO and PR3 Abs (0:19 AM CDT) ANCA Indetermina te(A) Negative Comment:Indeterminate for P- ANCA - Results by antigen specific immunoassay (MPO & PR3) to follow. May indicate ulcerative colitis or Crohn's disease. ANCA Titer See Comment titer [facility] Comment:Credited, lab order error. ANCA Pattern See Comment [facility]IE WARNER Comment: IFA Testing is suggestive of P-ANCA. Results by antigen specific Immunoassay (MPO & PR3) to follow. Credited, lab order error. Blood 05/08/2025 10:1 9 AM CDT 05/08/2025 10:42 AM CDT us Arnulfo Olmos MD LAB BLOOD ORDERABLES Edited Re sult - Final [facility]IE WARNER [facility] Department [place] [address] * XR Chest Pa Lateral 2 Views [...] signed by: Roger Cox M.D. us Arnulfo Olmso MD IMG XR PROCEDURES Final Result * [...] [facility] FRC PL PRE 4.75 L [facility] FRC PL %PRE PRED 126 % [facility] RV PRE 2.75 L [facility] RV %PRE PRED 110 % [facility] TLC PRE 7.55 L [facility] TLC %PRE PRED 107 % [facility] DLCO PRE 8.7 ml/min/mmH g [facility] DLCO %PRE PRED 33 % [facility] FIO2 % 21.00 % [facility] PaO2 81.0 mmHg [facility] PaCO2 37.0 mmHg [facility] pH 7.43 [facility] A-aDO2 POC 22.0 mmHg [facility] METHGB % 0.5 % [facility] COHb POC 6.0 % [facility] HCO3 24.6 mEq/L [facility] Anatomical Region Laterality Modality PFT 05/08/2025 7:28 AM CDT Narrative 05/08/2025 4:43 PM CDT Table formatting from the original result was not included. [facility] Division of Pulmonary & Critical Care Medicine [address] [place] [address]; [address] [facility]; [place] [address]; [phone] Pulmonary Function Laboratory Pulmonary Stress Test Simple/Oxygen [...] Work [distance (m) x body wt (kg)]: 61418 kg.m (normal >60,000kg.m) Oxygen required to maintain [...] with the written final report. PFT performed at:->[facility] Adult PFT Lab- CAM-8D Procedure:->Complete/Full PFT Procedure:->Oxygen [...] and %HbO2 is age dependent. However, the [facility] Pulmonary Function Laboratory defines hypoxemia as a PaO2 <56 mm Hg or a %HbO2 <89%. Starting on August of [address] [facility] Pulmonary Function Laboratory utilizes race neutral [...] stent covering acute on chronic thrombus, with latter day of inflow to the leg and improved [...] was obtained. Prior to beginning the procedure, Forgan Protocol was performed to confirm the patient's [...] the patent vessel was recorded. A 6Fr Norwegian sheath was placed. A limited common femoral artery angiogram was performed to confirm satisfactory position of arterial puncture site. Bilateral pelvic and left lower extremity angiogram was performed in stations to the foot. The angiographic catheter was advanced to the left common femoral artery . A 6-Norwegian 45 cm sheath was advanced to the [...] of the plantar loop. Post-intervention angiogram demonstrates latter day of normal caliber and flow in the [...] was obtained. Prior to beginning the procedure, Forgan Protocol was performed to confirm the patient's [...] the patent vessel was recorded. A 6Fr Norwegian sheath was placed. A limited common femoral artery angiogram was performed to confirm satisfactory position of arterial puncture site. Bilateral pelvic and left lower extremity angiogram was performed in stations to the foot. The angiographic catheter was advanced to the left common femoral artery . A 6-Norwegian 45 cm sheath was advanced to the [...] of the plantar loop. Post-intervention angiogram demonstrates latter day of normal caliber and flow in the [...] stent covering acute on chronic thrombus, with latter day of inflow to the leg and improved [...] time, low range (04/13/2025 9:18 AM CDT) Pathologist [facility] ACT 297(H) 123 - 168 sec POC Device Number [id number] [facility] Blood 04/13/2025 9:18 AM CDT 04/13/2025 9:18 AM CDT us Rodney Irizarry MD LAB POCT ORDERABLES - DEVICE Final Result [facility] Department [place] [address] * (ABNORMAL) aPTT (04/13/2025 4:32 AM CDT) [facility] aPTT 89(H) 26 - 38 sec Comment: Interpretive Data Heparin therapeutic range: 66.0 - 100.0 seconds. Range based on correlation with therapeutic heparin activity range of 0.3 - 0.7 Units/mL. Current interpretive data was last revised on 2023. Blood 04/13/2025 4:32 AM CDT 04/13/2025 4:51 AM CDT Narrative [facility] - 04/13/2025 5:01 AM CDT STAT PTT [...] must be drawn peripherally (not from CVC). us Sandie Estevez MD LAB BLOOD ORDERABLES nal Result Performing Organization Address [facility] Co de Phone Number [facility] [place] [address] * (ABNORMAL) aPTT (04/12/2025 10:11 PM CDT) [facility] aPTT 83(H) 26 - 38 sec Comment: Interpretive Data Heparin therapeutic range: 66.0 - 100.0 seconds. Range based on correlation with therapeutic heparin activity range of 0.3 - 0.7 Units/mL. Current interpretive data was last revised on 2023. Blood 04/12/2025 10:1 1 PM CDT 04/12/2025 10:24 PM CDT [facility] - 04/12/2025 10:34 PM CDT STAT PTT [...] must be drawn peripherally (not from CVC). us Sandie Estevez MD LAB BLOOD ORDERABLES Fi nal Result Performing Organization Address [facility]/ZIP Co de Phone Number [facility] Department [place] [address] * (ABNORMAL) POCT glucose (04/12/2025 8:30 PM CDT) Glucose, POC 262(H) 70 - 199 mg/dL Blood 04/12/2025 8:30 PM CDT 04/12/2025 8:30 PM CDT Rodney Irizarry MD LAB POCT ORDERABLES - DEVICE Final Result Performing Organization Address [facility] de Phone Number [facility] [place] [address] * POCT glucose (04/12/2025 6:17 PM CDT) Glucose, POC 149 70 - 199 mg/dL Blood 04/12/2025 6:17 PM CDT 04/12/2025 6:17 PM CDT Rodney Irizarry MD LAB POCT ORDERABLES - DEVICE Final Result Performing Organization Address [facility] Phone Number [facility] [place] [address] * (ABNORMAL) aPTT (04/12/2025 2:39 PM CDT) Pathologist [facility] aPTT 52(H) 26 - 38 sec Comment: Interpretive Data Heparin therapeutic range: 66.0 - 100.0 seconds. Range based on correlation with therapeutic heparin activity range of 0.3 - 0.7 Units/mL. Current interpretive data was last revised on 2023. Blood 04/12/2025 2:39 PM CDT 04/12/2025 2:56 PM CDT Narrative [facility] - 04/12/2025 3:22 PM CDT Baseline prior to heparin initiation Sandie Estevez MD LAB BLOOD ORDERABLES Fi nal Result Performing Organization Address [facility] Co de Phone Number [facility] [place] [address] * Protime-INR (04/12/2025 2:39 PM CDT) [facility] PT 11.0 10.2 - 13.5 sec INR 0.97 0.90 - 1.20 [facility] Comment: Interpretive data Oral anticoagulant therapeutic ranges: Venous thromboembolism prophylaxis or treatment: 2.0-3.0 CARDIOLOGY Standard range: 2.0-3.0 High-intensity range: 2.5-3.5 Refer to indication-specific guidelines for appropriate target ranges for prosthetic heart valve replacement. Current interpretive data was last revised on 2019. Blood 04/12/2025 2:39 PM CDT 04/12/2025 2:56 PM CDT Narrative [facility] - 04/12/2025 3:22 PM CDT Baseline prior to heparin initiation us Sandie Estevez MD LAB BLOOD ORDERABLES Fi nal Result [facility] Department [place] [address] * (ABNORMAL) CBC without differential (04/12/2025 2:39 PM CDT) [facility] WBC 10.53(H) 3.80 - 9.90 K/cumm Hgb 14.8 13.0 - 17.5 g/dL [facility] Hct 42.6 38.9 - 50.3 % [facility] Plt 482(H) 150 - 400 K/cumm [facility] MPV 9.5 9.1 - 12.3 fL [facility] RBC 4.68 4.30 - 5.80 M/cumm [facility] MCV 91.0 81.3 - 96.4 fL [facility] MCH 31.6 27.1 - 33.3 pg [facility] MCHC 34.7 32.3 - 35.7 g/dL [facility] RDW CV 15.4(H) 11.1 - 14.9 % [facility] RDW SD 50.4(H) 35.7 - 48.1 fL [facility] NRBC abs 0.00 0.00 - 0.01 K/cumm [facility] Blood 04/12/2025 2:39 PM CDT 04/12/2025 2:54 PM CDT Narrative [facility] - 04/12/2025 3:01 PM CDT Baseline prior to heparin initiation Sandie Estevez MD LAB BLOOD ORDERABLES Fi nal Result Performing Organization Address [facility] Co de Phone Number [facility] [place] [address] * (ABNORMAL) Hemoglobin A1c (04/12/2025 2:39 PM CDT) Hgb A1C 7.9(H) 4.0 - 5.6 % Estimated Average Glucose 180 mg/dL [facility] Comment: The ADA recommends reporting an estimated Average Glucose (eAG) with all Hemoglobin A1c results using the equation derived from a study of 507 normal and diabetic adults. Minority populations were underrepresented and children were not included. (Diabetes Care 2020; 43(S1): S66-S76). The eAG is not equivalent to a fasting glucose. Blood 04/12/2025 2:39 PM CDT 04/12/2025 2:59 PM CDT Narrative [facility] - 04/12/2025 4:06 PM CDT reflex us Rodney Irizarry MD LAB BLOOD ORDERABLES Final R esult Performing Organization Address [facility] Co de Phone Number [facility] [place] [address] * POCT glucose (04/12/2025 1:01 PM CDT) Glucose, POC 199 70 - 199 mg/dL Blood 04/12/2025 1:01 PM CDT 04/12/2025 1:01 PM CDT Rodney Irizarry MD LAB POCT ORDERABLES - DEVICE Final Result [facility] [place] [address] * POCT glucose (04/12/2025 8:09 AM CDT) Glucose, POC 108 70 - 199 mg/dL Blood 04/12/2025 8:09 AM CDT 04/12/2025 8:09 AM CDT Stephen Esteban MD LAB POCT ORDERABLES - DEVICE Fin al Result Performing Organization Address [facility] Co de Phone Number [facility] [place] [address] * POCT glucose (04/12/2025 5:35 AM CDT) Glucose, POC 125 70 - 199 mg/dL Blood 04/12/2025 5:35 AM CDT 04/12/2025 5:35 AM CDT us Darrick Hicks MD LAB POCT ORDERABLES - DEVICE Final Result Performing Organization Address [facility] Co de Phone Number [facility] [place] [address] * eGFR (04/12/2025 5:32 AM CDT) eGFR [...] Inclusion of Race in Diagnosing Kidney Disease, LEROYSN 2020). The CKD-EPI equation should not be used for patients with unstable renal function and has not been validated in children and those over 70. Current interpretive data was last reviewed 2021. Blood 04/12/2025 5:32 AM CDT 04/12/2025 5:45 AM CDT Lalit Mccray MD LAB BLOOD ORDERA BLES Final Result [facility] [place] [address] * (ABNORMAL) Comprehensive metabolic panel (04/12/2025 5:32 AM CDT) Sodium 134(L) 135 - 145 mmol/L Comment:Repeated and Verifie d Potassium, pl 4.8 3.3 - 4.9 mmol/L [facility] Comment:Repeated and Verifie d Chloride 98 97 - 110 mmol/L [facility] Comment:Repeated and Verifie d CO2 28 22 - 32 mmol/L [facility] Comment:Reviewed Anion gap 9 2 - 15 mmol/L [facility] BUN 15 6 - 25 mg/dL [facility] Comment:Reviewed Creatinine 0.84 0.80 - 1.30 mg/dL [facility] Comment:Reviewed Glucose 121 70 - 199 mg/dL [facility] Comment: Interpretive Data Fasting glucose >/= 126 [...] 2022. Calcium 9.6 8.5 - 10.3 mg/dL [facility] Comment:Reviewed Bilirubin, total 0.5 0.1 - 1.2 mg/dL [facility] Comment:Reviewed Protein, pl 7.6 6.5 - 8.5 g/dL [facility] Comment:Reviewed Albumin 4.0 3.5 - 5.0 g/dL [facility] Comment:Reviewed Alk phos 87 40 - 130 Units/L [facility] Comment:Reviewed ALT 20 7 - 55 Units/L [facility] Comment:Reviewed AST 17 10 - 50 Units/L [facility] Comment:Reviewed Blood 04/12/2025 5:32 AM CDT 04/12/2025 5:45 AM CDT Lalit Mccray MD LAB BLOOD ORDERA BLES Final Result Performing Organization Address [facility] de Phone Number [facility] [place] [address] * aPTT (04/12/2025 5:31 AM CDT) aPTT [...] ORDERA BLES Final Result Performing Organization Address [facility] Co de Phone Number [facility] [place] [address] * Protime-INR (04/12/2025 5:31 AM CDT) PT 11.5 10.2 - 13.5 sec INR 1.02 0.90 - 1.20 [facility] Comment: Interpretive data Oral anticoagulant therapeutic ranges: Venous thromboembolism prophylaxis or treatment: 2.0-3.0 CARDIOLOGY Standard range: 2.0-3.0 High-intensity range: 2.5-3.5 Refer to indication-specific guidelines for appropriate target ranges for prosthetic heart valve replacement. Current interpretive data was last revised on 2019. Blood 04/12/2025 5:31 AM CDT 04/12/2025 5:51 AM CDT Lalit Mccray MD LAB BLOOD ORDERA BLES Final Result [facility] [place] [address] * (ABNORMAL) CBC without differential (04/12/2025 5:31 AM CDT) WBC 11.49(H) 3.80 - 9.90 K/cumm Hgb 13.8 13.0 - 17.5 g/dL [facility] Hct 41.4 38.9 - 50.3 % [facility] Plt 440(H) 150 - 400 K/cumm [facility] MPV 9.3 9.1 - 12.3 fL [facility] RBC 4.44 4.30 - 5.80 M/cumm [facility] MCV 93.2 81.3 - 96.4 fL [facility] MCH 31.1 27.1 - 33.3 pg [facility] MCHC 33.3 32.3 - 35.7 g/dL [facility] RDW CV 15.4(H) 11.1 - 14.9 % [facility] RDW SD 51.8(H) 35.7 - 48.1 fL [facility] NRBC abs 0.00 0.00 - 0.01 K/cumm [facility] Blood 04/12/2025 5:31 AM CDT 04/12/2025 5:44 AM CDT Narrative [facility] - 04/12/2025 5:51 AM CDT Baseline prior to heparin initiation Lalit Mccray MD LAB BLOOD ORDERA BLES Final Result [facility] Department [place] [address] * CTA Abdominal Aorta And Bilateral Iliofemoral [...] stenosis. Pelvic Vessels: R. 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 External iliac [...] stenosis. Pelvic Vessels: R. Common iliac artery: [id number] stenosis secondary to atherosclerosis R. External iliac [...] by: Ashley Fong M.D. Darrick Hicks MD IM CT PROCEDURES Final Resul t * eGFR [...] ORDERABLES Final Re sult Performing Organization Address [facility] de Phone Number [facility] [place] [address] * Check Sample (04/12/2025 4:19 AM CDT) ABO Rh O Positive [facility] HCLL OTHER 04/12/2025 4:19 AM CDT 04/12/2025 5:58 AM CDT Darrick Hicks MD LAB BLOOD ORDERABLES Final Re sult Performing Organization Address [facility] Co de Phone Number [facility] [place] [address] [facility] * Comprehensive metabolic panel (04/12/2025 4:19 AM CDT) Sodium See Comment 135 - 145 mmol/L Comment: Credited; Hemolyzed Specimen Hemolyzed Telephone report made to: Gwen Lovett RN on 04/12/2025 05:25:11 CDT by [place] . Potassium, pl See Comment 3.3 - 4.9 mmol/L [facility] Comment: Credited; Hemolyzed Specimen Hemolyzed Telephone report made to: Gwen Lovett RN on 04/12/2025 05:25:11 CDT by [place] . Chloride See Comment 97 - 110 mmol/L [facility] Comment: Credited; Hemolyzed Specimen Hemolyzed Telephone report made to: Gwen Lovett RN on 04/12/2025 05:25:11 CDT by [place] . CO2 See Comment 22 - 32 mmol/L [facility] Comment: Credited; Hemolyzed Specimen Hemolyzed Telephone report made to: Gwen Lovett RN on 04/12/2025 05:25:11 CDT by [place] . Anion gap See Comment 2 - 15 mmol/L [facility] Comment: Unable to calculate Hemolyzed Telephone report made to: Gwen Lovett RN on 04/12/2025 05:25:11 CDT by [place] . BUN See Comment 6 - 25 mg/dL [facility] Comment: Credited; Hemolyzed Specimen Hemolyzed Telephone report made to: Gwen Lovett RN on 04/12/2025 05:25:11 CDT by [place] . Creatinine See Comment 0.80 - 1.30 mg/dL [facility] Comment: Credited; Hemolyzed Specimen Hemolyzed Telephone report made to: Gwen Lovett RN on 04/12/2025 05:25:11 CDT by [place] . Glucose See Comment 70 - 199 mg/dL [facility] Comment: Credited; Hemolyzed Specimen Hemolyzed Telephone report made to: Gwen Lovett RN on 04/12/2025 05:25:11 CDT by [place] . Interpretive Data Fasting glucose >/= 126 [...] Calcium See Comment 8.5 - 10.3 mg/dL [facility] Comment: Credited; Hemolyzed Specimen Hemolyzed Telephone report made to: Gwen Lovett RN on 04/12/2025 05:25:11 CDT by [place] . Bilirubin, total See Comment 0.1 - 1.2 mg/dL [facility] Comment: Credited; Hemolyzed Specimen Hemolyzed Telephone report made to: Gwen Lovett RN on 04/12/2025 05:25:11 CDT by [place] . Protein, pl See Comment 6.5 - 8.5 g/dL [facility] Comment: Credited; Hemolyzed Specimen Hemolyzed Telephone report made to: Gwen Lovett RN on 04/12/2025 05:25:11 CDT by [place] . Albumin See Comment 3.5 - 5.0 g/dL [facility] Comment: Credited; Hemolyzed Specimen Hemolyzed Telephone report made to: Gwen Lovett RN on 04/12/2025 05:25:11 CDT by [place] . Alk phos See Comment 40 - 130 Units/L [facility] Comment: Credited; Hemolyzed Specimen Hemolyzed Telephone report made to: Gwen Lovett RN on 04/12/2025 05:25:11 CDT by [place] . ALT See Comment 7 - 55 Units/L [facility] Comment: Hemolyzed Telephone report made to: Gwen Lovett RN on 04/12/2025 05:25:11 CDT by [place] . AST See Comment 10 - 50 Units/L [facility] Comment: Hemolyzed Telephone report made to: Gwen Lovett RN on 04/12/2025 05:25:11 CDT by [place] . Blood 04/12/2025 4:19 AM CDT 04/12/2025 4:48 AM CDT Darrick Hicks MD LAB BLOOD ORDERABLES Edited R alexander - Final [facility] Department [place] [address] * (ABNORMAL) Differential, auto (04/12/2025 2:31 AM CDT) Neutrophil abs 7.95(H) 1.50 - 6.50 K/cumm Imm gran abs 0.05 0.00 - 0.10 K/cumm [facility] Lymphocyte abs 2.64 0.80 - 3.30 K/cumm [facility] Monocyte abs 0.68 0.20 - 0.80 K/cumm [facility] Eosinophil abs 0.46 0.00 - 0.50 K/cumm [facility] Basophil abs 0.11(H) 0.00 - 0.10 K/cumm [facility] Neutrophil pct 66.9 % [facility] Comment: Interpretive Data Percent cell count reference ranges are not reported, since discordance with absolute values may lead to misinterpretation of CBC data. Current Interpretive Data was last revised on 2017. Imm gran pct 0.4 % [facility] Comment: Interpretive Data Percent cell count reference ranges are not reported, since discordance with absolute values may lead to misinterpretation of CBC data. Current Interpretive Data was last revised on 2017. Lymphocyte pct 22.2 % [facility] Comment: Interpretive Data Percent cell count reference ranges are not reported, since discordance with absolute values may lead to misinterpretation of CBC data. Current Interpretive Data was last revised on 2017. Monocyte pct 5.7 % [facility] Comment: Interpretive Data Percent cell count reference ranges are not reported, since discordance with absolute values may lead to misinterpretation of CBC data. Current Interpretive Data was last revised on 2017. Eosinophil pct 3.9 % [facility] Comment: Interpretive Data Percent cell count reference ranges are not reported, since discordance with absolute values may lead to misinterpretation of CBC data. Current Interpretive Data was last revised on 2017. Basophil pct 0.9 % [facility] Comment: Interpretive Data Percent cell count reference ranges are not reported, since discordance with absolute values may lead to misinterpretation of CBC data. Current Interpretive Data was last revised on 2017. Blood 04/12/2025 2:31 AM CDT 04/12/2025 3:17 AM CDT Darrick Hicks MD LAB BLOOD ORDERABLES Final Re sult Performing Organization Address City/[facility]/ZIP Co de Phone Number [facility] [place] [place] [address] * (ABNORMAL) CBC with auto differential (04/12/2025 2:31 AM CDT) WBC 11.89(H) 3.80 - 9.90 K/cumm Hgb 15.6 13.0 - 17.5 g/dL [facility] Hct 45.5 38.9 - 50.3 % [facility] Plt 344 150 - 400 K/cumm [facility] MPV 9.5 9.1 - 12.3 fL [facility] RBC 4.95 4.30 - 5.80 M/cumm [facility] MCV 91.9 81.3 - 96.4 fL [facility] MCH 31.5 27.1 - 33.3 pg [facility] MCHC 34.3 32.3 - 35.7 g/dL [facility] RDW CV 16.5(H) 11.1 - 14.9 % [facility] RDW SD 52.3(H) 35.7 - 48.1 fL [facility] NRBC abs 0.00 0.00 - 0.01 K/cumm [facility] Blood 04/12/2025 2:31 AM CDT 04/12/2025 3:17 AM CDT Darrick Hicks MD LAB BLOOD ORDERABLES Final Re sult [facility] [place] [place] [address] * Type and screen (04/12/2025 2:31 AM CDT) Pathologist [facility] Patsy, indirect Negative ABO Rh O Positive [facility] Blood 04/12/2025 2:31 AM CDT 04/12/2025 3:16 AM CDT Narrative [facility] - 04/12/2025 4:04 AM CDT Has the patient had Daratumumab or Isatuximab in the past 6 months?->Unknown us Darrick Hicks MD LAB BLOOD BANK TEST ORDERABLE S Final Result Performing Organization Address [facility] Co de Phone Number [facility] [place] [address] * POCT glucose (04/12/2025 12:58 AM CDT) [facility] Glucose, POC 123 70 - 199 mg/dL Blood 04/12/2025 12:5 8 AM CDT 04/12/2025 12:58 AM CDT us Notinfile Unknown LAB POCT ORDERABLES - DEVICE F inal Result Performing Organization Address [facility] Co de Phone Number [facility] [place] [address] * POCT glucose (04/11/2025 9:55 PM CDT) [facility] Glucose, POC 118 70 - 199 mg/dL Blood 04/11/2025 9:55 PM CDT 04/11/2025 9:55 PM CDT Notinfile Unknown LAB POCT ORDERABLES - DEVICE F inal Result Performing Organization Address [facility] Co de Phone Number [facility] [place] [place] [address] * POCT ketone, blood (04/11/2025 9:55 PM CDT) Pathologist [facility] Beta-Hydroxybut yrate, POC 0.2 0.0 - 0.5 mmol/L Blood 04/11/2025 9:55 PM CDT 04/11/2025 9:55 PM CDT us Notinfile Unknown LAB POCT ORDERABLES - DEVICE F inal Result [facility] Department [place] [address] * IR Angiogram Lower Extremity Left (04/09/2025 9:51 AM CDT) Anatomical Region Laterality Modality Extremity Left Ultrasound 04/09/2025 4:22 PM CDT Impressions 04/21/2025 7:29 AM CDT 1. 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 2. Successful laser atherectomy, balloon angioplasty with drug coated balloon, and placement of drug coated stent in the left superficial femoral artery with latter day of blood flow to the left lower [...] was obtained. Prior to beginning the procedure, Forgan Protocol was performed to confirm the patient's [...] patent vessel was recorded. A 6 Fr Norwegian sheath was placed in the artery. [id number] units of heparin were given. A limited [...] existing sheath was exchanged for a long 6-Norwegian 60 cm sheath which was advanced into [...] to accomplish successful closure of the arteriotomy. [place]-talbert was applied to the skin site. FINDINGS: [...] was obtained. Prior to beginning the procedure, Forgan Protocol was performed to confirm the patient's [...] patent vessel was recorded. A 6 Fr Norwegian sheath was placed in the artery. [id number] units of heparin were given. A limited [...] existing sheath was exchanged for a long 6-Norwegian 60 cm sheath which was advanced into [...] to accomplish successful closure of the arteriotomy. [place]-talbert was applied to the skin site. FINDINGS: [...] in the left superficial femoral artery with latter day of blood flow to the left lower [...] it. Electronically signed by: Phong Adler M.D. us Phong Adler MD IM IR PROCEDURES Final Result * (ABNORMAL) POCT Activated clotting time, low range (04/09/2025 9:17 AM CDT) ACT 374(H) 123 - 168 sec POC Device Number [id number] [facility] Blood 04/09/2025 9:17 AM CDT 04/09/2025 9:17 AM CDT Phong Adler MD LAB POCT ORDERABLES - D EVICE Final Result Performing Organization Address [facility] Co de Phone Number [facility] Department [place] [address] * eGFR (04/08/2025 5:15 PM CDT) eGFR [...] 5:15 PM CDT 04/08/2025 6:16 PM CDT Vilma Esparza MD LAB BL OOD ORDERABLES Final Result Performing Organization Address City/[facility]/ZIP Co de Phone Number [facility] Department [place] [address] * (ABNORMAL) Differential, auto (04/08/2025 5:15 PM CDT) Neutrophil abs 5.81 1.50 - 6.50 K/cumm Imm gran abs 0.03 0.00 - 0.10 K/cumm [facility] Lymphocyte abs 2.94 0.80 - 3.30 K/cumm [facility] Monocyte abs 0.99(H) 0.20 - 0.80 K/cumm [facility] Eosinophil abs 0.51(H) 0.00 - 0.50 K/cumm [facility] Basophil abs 0.11(H) 0.00 - 0.10 K/cumm [facility] Neutrophil pct 55.9 % [facility] Comment: Interpretive Data Percent cell count reference ranges are not reported, since discordance with absolute values may lead to misinterpretation of CBC data. Current Interpretive Data was last revised on 2017. Imm gran pct 0.3 % [facility] Comment: Interpretive Data Percent cell count reference ranges are not reported, since discordance with absolute values may lead to misinterpretation of CBC data. Current Interpretive Data was last revised on 2017. Lymphocyte pct 28.3 % [facility] Comment: Interpretive Data Percent cell count reference ranges are not reported, since discordance with absolute values may lead to misinterpretation of CBC data. Current Interpretive Data was last revised on 2017. Monocyte pct 9.5 % [facility] Comment: Interpretive Data Percent cell count reference ranges are not reported, since discordance with absolute values may lead to misinterpretation of CBC data. Current Interpretive Data was last revised on 2017. Eosinophil pct 4.9 % [facility] Comment: Interpretive Data Percent cell count reference ranges are not reported, since discordance with absolute values may lead to misinterpretation of CBC data. Current Interpretive Data was last revised on 2017. Basophil pct 1.1 % [facility] Comment: Interpretive Data Percent cell count reference ranges are not reported, since discordance with absolute values may lead to misinterpretation of CBC data. Current Interpretive Data was last revised on 2017. Blood 04/08/2025 5:15 PM CDT 04/08/2025 6:11 PM CDT Vilma Esparza MD LAB BL OOD ORDERABLES Final Result [facility] Department [place] [address] * (ABNORMAL) CBC with auto differential (04/08/2025 5:15 PM CDT) Pathologist [facility] WBC 10.39(H) 3.80 - 9.90 K/cumm Hgb 14.5 13.0 - 17.5 g/dL [facility] Hct 42.2 38.9 - 50.3 % [facility] Plt 433(H) 150 - 400 K/cumm [facility] MPV 9.5 9.1 - 12.3 fL [facility] RBC 4.57 4.30 - 5.80 M/cumm [facility] MCV 92.3 81.3 - 96.4 fL [facility] MCH 31.7 27.1 - 33.3 pg [facility] MCHC 34.4 32.3 - 35.7 g/dL [facility] RDW CV 15.7(H) 11.1 - 14.9 % [facility] RDW SD 51.8(H) 35.7 - 48.1 fL [facility] NRBC abs 0.00 0.00 - 0.01 K/cumm [facility] Blood 04/08/2025 5:15 PM CDT 04/08/2025 6:11 PM CDT Vilma Esparza MD LAB BL OOD ORDERABLES Final Result [facility] Department [place] [address] * (ABNORMAL) Comprehensive metabolic panel (04/08/2025 5:15 PM CDT) Sodium 135 135 - 145 mmol/L Potassium, pl 5.1(H) 3.3 - 4.9 mmol/L [facility] Chloride 97 97 - 110 mmol/L [facility] CO2 29 22 - 32 mmol/L [facility] Anion gap 9 2 - 15 mmol/L [facility] BUN 23 6 - 25 mg/dL [facility] Creatinine 0.96 0.80 - 1.30 mg/dL [facility] Glucose 112 70 - 199 mg/dL [facility] Comment: Interpretive Data Fasting glucose >/= 126 [...] 2022. Calcium 10.2 8.5 - 10.3 mg/dL [facility] Bilirubin, total 0.3 0.1 - 1.2 mg/dL [facility] Protein, pl 7.7 6.5 - 8.5 g/dL [facility] Albumin 4.1 3.5 - 5.0 g/dL [facility] Alk phos 85 40 - 130 Units/L [facility] ALT 33 7 - 55 Units/L [facility] AST 29 10 - 50 Units/L [facility] Blood 04/08/2025 5:15 PM CDT 04/08/2025 6:11 PM CDT Vilma Esparza MD LAB BL OOD ORDERABLES Final Result [facility] Department [place] [address] * (ABNORMAL) POCT Activated clotting time, low range (04/01/2025 10:14 AM CDT) ACT 186(H) 123 - 168 sec POC Device Number [id number] [facility] Blood 04/01/2025 10:1 4 AM CDT 04/01/2025 10:14 AM CDT us Phong Adler MD LAB POCT ORDERABLES - D EVICE Final Result [facility] Department [place] [address] * IR Angiogram Lower Extremity Right (04/01/2025 [...] was obtained. Prior to beginning the procedure, Forgan Protocol was performed to confirm the patient's [...] the patent vessel was recorded. A 6Fr Norwegian sheath was placed. An abdominal aortogram was performed. The angiographic catheter was advanced to the right common femoral artery and the right lower extremity angiogram was performed in stations to the foot A 6-Norwegian 45 cm sheath was advanced to the [...] was obtained. Prior to beginning the procedure, Forgan Protocol was performed to confirm the patient's [...] the patent vessel was recorded. A 6Fr Norwegian sheath was placed. An abdominal aortogram was performed. The angiographic catheter was advanced to the right common femoral artery and the right lower extremity angiogram was performed in stations to the foot A 6-Norwegian 45 cm sheath was advanced to the [...] time, low range (04/01/2025 9:41 AM CDT) [facility] Signature ACT 308(H) 123 - 168 sec POC Device Number [id number] [facility] Blood 04/01/2025 9:41 AM CDT 04/01/2025 9:41 AM CDT Phong Alder MD LAB POCT ORDERABLES - D EVICE Final Result Performing Organization Address [facility] de Phone Number [facility] [place] [address] * (ABNORMAL) POCT Activated clotting time, low range (04/01/2025 9:15 AM CDT) ACT 339(H) 123 - 168 sec POC Device Number [id number] [facility] Blood 04/01/2025 9:15 AM CDT 04/01/2025 9:15 AM CDT Phong Adler MD LAB POCT ORDERABLES - D EVICE Final Result Performing Organization Address [facility] de Phone Number [facility] [place] [address] * CT Body Outside Reference (03/17/2025 1:18 PM CDT) Impressions [facility] - 03/17/2025 1:18 PM CDT These images are for Reference purposes only and have not been reviewed by [facility] Radiology. There will be no report generated by a [facility] Radiologist. Narrative [facility]_P[facility] - 03/17/2025 1:18 PM CDT EXAMINATION: Images For Reference Purposes Only Vilma Esparza MD IMG CT PROCEDURES Final Result Performing Organization Address [facility] Co de Phone Number [email or web address] * Hepatitis C antibody Blood (12/01/2024 11:07 [...] MICROBIOLOGY - GENERAL ORDERABLES Final Result [facility] [address] [address] Department [place] [address] * (ABNORMAL) Lipid panel (10/02/2024 9:27 PM RELATIONS SPECIALIST) Cholesterol 126 30 - 199 mg/dL Comment: [...] revised on 2018. Triglycerides 85 <=149 mg/dL [facility] Comment: Interpretive Data Ages < or [...] on 2018. HDL 37(L) >=40 mg/dL [facility] Comment: Interpretive Data Ages < or [...] 2018. LDL, calculated 72 <=129 mg/dL [facility] Comment: Interpretive Data Ages < or [...] NCEP Expert Panel. Circulation 2004;110:227 3. Rj Marsh al. KAMRYN Cardiol. 2019December 18;5(5):540-548. doi: 10.1001/jamacardio.2020.0013 Current Interpretive Data was last revised on 2024. Non-HDL Cholesterol 89 mg/dL [facility] Comment: Interpretive Data Ages < or [...] last revised on 2018. Chol/HDL ratio 3 [facility] Blood 10/02/2024 9:27 PM RELATIONS SPECIALIST 10/02/2024 9:55 PM RELATIONS SPECIALIST us Prashant Felder MD LAB BLOOD ORDERABLES Final Result [facility] [place] [address] * (ABNORMAL) Albumin Creatinine Ratio, Urine (10/16/2022 9:19 AM RELATIONS SPECIALIST) Microalb, Ur 321.7(H) 0.0 - 22.9 mg/L [facility] Comment:Repeated and Verifie d Random Urine Creatinine 62.7 mg/dL [facility] Microalb/Creat Ratio 513.1(H) 0.0 - 29.9 mg/g [facility] Urine 10/16/2022 9:19 AM RELATIONS SPECIALIST 10/16/2022 10:19 AM RELATIONS SPECIALIST us Hillary Carlson MD LAB URINE ORDERABLES Final Re sult [facility] from Last 3 Months or Most Recently Relevant to Health Maintenance Insurance MEDICARE AET[employer] SENIOR SUPPLEMENT MEDICARE AETNA SENIOR SUPPLEMENT MEDICARE AETNA SENIOR SUPPLEMENT Advance Directives For more information, please contact: [phone] * Full Code (Latest Code Status on [...] 1:49 PM 10/06/2024 10:39 PM Care Teams Public Health Technician Relationship Specialty Start Date End Date Tyrone Carvajal MD PCP - General Internal Medicine 11/06/19 Hetal Regan MD Referring Physician Endocrinology Diabetes & Metabolism 06/13/21 Jefferson Mora MD Consulting Physician Rheumatology 04/17/24 Swathi Jimenez PA [address] [facility] ENDOCRINOLOGY, [address] [address] Physician Oil Dispenser Physician Oil Dispenser 04/19/24
--- OUTSIDE RECORDS SUMMARY | 2025-06-16 08:40 | XMS_ITS | Encounter Summary ---
Author Organization [facility] Healthcare Address [address] [place] [address] Care Team Providers Care [place] Specialist Name Role Phone Tyrone Carvajal MD Primary Care Provider [phone] Hetal Regan MD Unavailable Jefferson Mora MD Unavailable Swathi Jimenez Unavailable [phone] Encounter Details Date Type Department Care Team (Late st Contact Info) Description 03/27/2025 Telephone [facility] Radiology [address] [place] [address] Erica Gallegos RN Social History Tobacco Use Types Packs/Day Years Used Date Smoking Tobacco: Heavy Smoker Cigarettes 1.5 50 Smokeless Tobacco: Never Comments:Smoking History Pac ks/day: 30 Cigarettes Alcohol Use Standard Drinks/Week Comments Yes 0 (1 standard drink = 0.6 oz pur e alcohol) [facility] Utilities Answer Date Recorded In the past 12 months has [employer], gas, oil, or water company threatened to [...] often do you attend chur ch or jehovah's witness services? Never 02/23/2025 Do you belong to [...] Recorded Patient Health Questionnaire-2 Score 0 02/23/2025 [facility] Ault of Occupat ional Health - Occupational Stress [...] any time in the past 12 [facility], were you homeless or living in a retirement (including now)? No 02/23/2025 Personal Safety Answer Date Recorded Have you ever been in or are you currently in a harmful physical or emotional relationship or is someone making you feel afraid or unsafe? 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 Not on file Not on file documented as of this encounter Plan of Treatment Not on file documented as of this encounter Visit Diagnoses Not on filedocumented in this encounter Care Teams Bra[place] Specialist Relationship Specialty Start Date End Date Tyrone Carvajal MD PCP - General Internal Medicine 11/06/19 Hetal Regan MD Referring Physician Endocrinology Diabetes & Metabolism 06/13/21 Jefferson Mora MD Consulting Physician Rheumatology 04/17/24 Swathi Jimenez PA [address] [facility] [address] ENDOCRINOLOGY, [address] [address] Physician Transit Man Physician Transit Man 04/19/24 documented as of this encounter
--- OUTSIDE RECORDS SUMMARY | 2025-06-16 08:40 | XMS_ITS | Encounter Summary ---
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 Gender Identity Male 02/14/2021 8:03 PM CDT Sexual Orientation Straight 02/14/2021 8: 02 PM CDT 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
== END 2025-06-16 08:21 | disposition home or self-care (01) ==
PROVIDERS: PCP Internal Medicine
DX: J84.9 Interstitial pulmonary disease, unspecified (principal); M06.00 Rheumatoid arthritis without rheumatoid factor, unspecified site; I73.9 Peripheral vascular disease, unspecified; I10 Essential (primary) hypertension; E11.65 Type 2 diabetes mellitus with hyperglycemia; Z79.4 Long term (current) use of insulin
CPT/HCPCS: 93306; 96375